=== PATIENT | female | born 1945 | race Caucasian/White ===

== ENCOUNTER 2017-09-04 09:47 | Emergency (ER) | payer MEDICARE ==
[~2017-09-04] VITALS: Ht 177.8 cm; Wt 104.3 kg
[~2017-09-04 09:47] MED LIST: AMBIEN10 MG PO; BESIVANCE5 ML OP; CELEBREX200 MG PO; CENTRUM SILVER1 EAC3 PO; DICYCLOMINE HCL20 MG PO; DUREZOL5 ML OP; HYZAAR 100-251 EACH PO; ILEVRO OP; LEVOTHYROXINE125 MCG PO; METFORMIN HCL500 MG PO; METOPROLOL TART25 MG PO; PANTOPRAZOLE SO40 MG PO; PRAVASTATIN SOD40 MG PO; SINGULAIR10 MG PO; SPIRONOLACTONE25 MG PO; VENTOLIN HFA18 GM INH; VERAMYST10 GM INH; VIIBRYD20 MG PO; VITAMIN B-121000 MCG PO
--- OUTSIDE RECORDS SUMMARY | 2017-09-04 09:50 | XMS REPORT | Summary of Care ---
Author Author RAUDEL Szymanski, MEGAN Organization Unknown Address Unknown Phone Unavailable Care Team Providers Care Operations Support Professionals Name Role Phone JOSE Herzog, DIVYA Unavailable Unavailable SAMARA Herzog, RADHA Unavailable Unavailable SHILOH Herzog, CORIE Unavailable Unavailable RAUDEL Szymanski, MEGAN Unavailable Unavailable JOSE RAMESH ND, DIVYA Villalobos Unavailable Unavailable DUKE PA ND, DANNY RAMOS Unavailable Unavailable MONICA RAMESH, LIZ Unavailable Unavailable Unavailable Unavailable Functional Status Name Dates Details Functional status health issues are not documented Status: Name Dates Details Cognitive status health issues are not documented Status: Problems Name Dates Details Chronic insomnia (780.52, F51.04) Status: Active Chronic major depressive disorder, recurrent episode (296.30, F33.9) Status: Active Colon cancer screening (V76.51, Z12.11) Status: Active Dysphagia (787.20, R13.10) Status: Active Peptic ulcer (533.90, K27.9) Status: Active History of asthma (V12.69, Z87.09) Status: Resolved Menopausal and perimenopausal disorder (627.9, N95.9) Status: Active Need for pneumococcal vaccine (V03.82, Z23) Status: Active Need for Zostavax administration (V04.89, Z23) Status: Active Burning with urination (788.1, R30.0) Status: Active Motion sickness (994.6, T75.3XXA) Status: Active Dysuria (788.1, R30.0) Status: Active Atypical chest pain (786.59, R07.89) Status: Active Abnormal EKG (794.31, R94.31) Status: Active Acute seasonal allergic rhinitis (477.8, J30.2) Status: Active 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, K22.70) Status: Active Abnormal glucose (790.29, R73.09) Status: Active Gastroesophageal reflux disease with esophagitis (530.11, K21.0) Status: Active Atrophic vaginitis (627.3, N95.2) Status: Active Chronic cough (786.2, R05) Status: Active NSAID long-term use (V58.64, Z79.1) Status: Active Osteoporosis screening (V82.81, Z13.820) Status: Active Dizziness (780.4, R42) Status: Active Urinary tract infection (599.0, N39.0) Status: Active Pain in both hands (729.5, M79.641) Status: Active Chronic neck pain (723.1, M54.2) Status: Active Elevated sedimentation rate (790.1, R70.0) Status: Active Tachycardia, unspecified (785.0, R00.0) Status: Active Subdeltoid bursitis, left (726.19, M75.52) Status: Active Subdeltoid bursitis, right (726.19, M75.51) Status: Active 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, M19.049) Status: Active Asthma, persistent (493.90, J45.909) Status: Active Ascending aorta dilation (447.71, I77.810) Status: Active BMI 34.0-34.9,adult (V85.34, Z68.34) Status: Active Generalized osteoarthritis of multiple sites (715.09, M15.9) Status: Active Peripheral neuropathy (356.9, G62.9) Status: Active Sleep apnea (780.57, G47.30) Status: Active Renal insufficiency (593.9, N28.9) Status: Active Recurrent UTI (599.0, N39.0) Status: Active Diabetes mellitus, type II (250.00, E11.9) Status: Active Essential (primary) hypertension (401.9, I10) Status: Active Other hyperlipidemia (272.4, E78.4) Status: Active Hypothyroidism (244.9, E03.9) Status: Active Chronic fatigue (780.79, R53.82) Status: Active Arthralgia of hand, left (719.44, M25.542) Status: Active Arthralgia of hand, right (719.44, M25.541) Status: Active Positive SHERRY (antinuclear antibody) (795.79, R76.8) Status: Active Chronic pain of both shoulders (719.41, M25.511) Status: Active Anemia (285.9, D64.9) Status: Active Iron deficiency anemia (280.9, D50.9) Status: Active IBS (irritable bowel syndrome) (564.1, K58.9) Status: Active Medications Name Dates Details Levothyroxine Sodium 125 MCG Oral Tablet TAKE 1 TABLET DAILY MON TO SAT ONLY Quantity: 90 RADHA PASCUAL M.D. * Start : 13-Aug-2012 Active Losartan Potassium-HCTZ 100-25 MG Oral Tablet TAKE 1 TABLET DAILY IN THE MORNING * Quantity: 90 Refills: 1 DIVYA GARCIA M.D. * Start : 13-Aug-2012 Active Montelukast Sodium 10 MG Oral Tablet TAKE 1 TABLET DAILY * Quantity: 90 Refills: 1 DIVYA GARCIA M.D. * Start : 13-Aug-2012 Active Jeremie Contour Next Test In Vitro Strip Check BG 2x a day * Quantity: 2 Refills: 3 RADHA PASCUAL M.D. * Start : 13-Aug-2012 Active 100 Strip Box Vitamin D3 2000 UNIT Oral Capsule 1 a day * Quantity: 100 Refills: 6 RADHA PASCUAL M.D. * Start : 14-Aug-2012 Active Jeremie Microlet Lancets Check BG 2x a day * Quantity: 100 Refills: 6 RADHA PASCUAL M.D. * Start : 21-Mar-2013 Active Ventolin HFA 108 (90 Base) MCG/ACT Inhalation Aerosol Solution INHALE 2 PUFFS 3 TIMES DAILY NEEDED. * Quantity: 2 Refills: 1 DIVYA GARCIA M.D. * Start : 16-May-2013 Active 8 GM Inhaler B-12 TR 1000 MCG Oral Tablet Extended Release TAKE 1 TABLET DAILY DIRECTED. * Refills: 0 RADHA PASCUAL M.D. * Start : 24-Sep-2013 Active Pantoprazole Sodium 40 MG Oral Tablet Delayed Release TAKE 1 TABLET DAILY * Quantity: 90 Refills: 1 DIVYA GARCIA M.D. * Start : 17-Jun-2014 Active Viibryd 40 MG Oral Tablet TAKE 1 TABLET DAILY * Quantity: 90 Refills: 1 DIVYA GARCIA M.D. * Start : 19-Mar-2015 Active Rosuvastatin Calcium 10 MG Oral Tablet TAKE 1 TABLET AT BEDTIME. REPLACING PRAVASTATIN * Quantity: 90 Refills: 1 DIVYA GARCIA M.D. * Start : 21-Mar-2016 Active Advair Diskus 100-50 MCG/DOSE Inhalation Aerosol Powder Breath Activated INHALE 1 PUFFS TWICE DAILY * Quantity: 3 Refills: 1 DIVYA GARCIA M.D. * Start : 11-Oct-2016 Active Aspirin 81 MG TABS TAKE 1 TABLET DAILY. * Refills: 0 R.N. Active AmLODIPine Besylate 5 MG Oral Tablet TAKE 1 TABLET DAILY. * Quantity: 90 Refills: 1 DIVYA GARCIA M.D. * Start : 17-Apr-2017 Active Gabapentin 100 MG Oral Capsule TAKE 1 CAPSULE 3 TIMES DAILY. IF NO IMPROVEMENT IN 2 WEEKS, MAY TAKE 2 CAPS 3 TIMES DAILY. * Quantity: 180 Refills: 1 PREETHI MATAMOROS M.D.ELLIOTVon * Start : 20-Jun-2017 Active Iron 325 (65 Fe) MG Oral Tablet TAKE 1 TABLET TWICE DAILY. * Quantity: 60 Refills: 5 OBONYANO N.P., MEGAN * Start : 08-Aug-2017 Active Allergies and Adverse Reactions Name Dates Details Sulfa Drugs (Allergy) Status: Active Past Medical History Name Dates Details Peptic ulcer (533.90, K27.9) Status: Active History of Abnormal glucose (790.29, R73.09) Status: Resolved History of Ascending aortic aneurysm (441.2, I71.2) Status: Resolved History of asthma (V12.69, Z87.09) Status: Resolved History of Breast Cancer (V10.3) Status: Resolved History of Diverticulosis (562.10, K57.90) Status: Resolved History of Pre-diabetes (790.29, R73.03) Status: Resolved History of transient cerebral ischemia (V12.54, Z86.73) Status: Resolved Procedures Procedure Dates Details [QH] CELIAC DISEASE PANEL 2 WITH REFLEX TO ENDOMYSIAL ANTIBODY TITER Date: Aug-2017 History of Oophorectomy - Unilateral (Removal Of One Ovary) Completed History of Knee Replacement Completed History of Hand Surgery Completed History of Knee Replacement Completed History of Cataract Surgery Completed History of Cataract Surgery Completed History of mastectomy bilateral Completed History of elbow surgery Completed History of ulnar nerve neuroplasty Completed 10-Jul-2017 Immunization Name Dates Details Influenza on: 03-Mar-2014 Influenza Comments: Approx [id number] Prevnar 13 Intramuscular Suspension Lot #: [id number] on: 11-Oct-2016 Family History Name Dates Details Family history of Congestive Heart Failure Comments: Family History Status: Active Family history of Diabetes Mellitus (V18.0) Comments: Family History Status: Active Family history of Coronary Artery Disease (V17.49) Comments: Family History Status: Active Family history of Cerebral Artery Occlusion Comments: Family History Status: Active Name Dates Details Family history of Childhood arthritis (714.30, M08.90) Status: Active Family history of lupus erythematosus (V19.8, Z84.0) Status: Active Name Dates Details Family history of Irregular heart beat (427.9, I49.9) Status: Active Name Dates Details Family history of Cerebral Artery Occlusion Status: Active Name Dates Details Family history of Coronary Artery Disease (V17.49) Status: Active Family history of kidney disease (V18.69, Z84.1) Status: Active Family history of rheumatoid arthritis (V17.7, Z82.61) Status: Active Name Dates Details Family history of malignant neoplasm of breast (V16.3, Z80.3) Status: Active Family history of malignant neoplasm of prostate (V16.42, Z80.42) Status: Active Name Dates Details Family history of Diabetes Mellitus (V18.0) Status: Active Family history of Adrenal abnormality (255.9, E27.9) Status: Active Family history of myocardial infarction (V17.3, Z82.49) Status: Active Family history of malignant neoplasm of breast (V16.3, Z80.3) Status: Active Family history of rheumatoid arthritis (V17.7, Z82.61) Status: Active Social History Name Dates Details - Status: Name Dates Details Never smoker Vital Signs Date Test Result Details [id number] BP Systolic 140 mm[Hg] Status: Comments: Location: LUE; Position: Sitting BP Diastolic 76 mm[Hg] Status: Comments: Location: LUE; Position: Sitting Height 69 in Status: Weight 237 lb Status: Body Mass Index Calculated 35 kg/m2 Status: Body Surface Area Calculated 2.22 m2 Status: Temperature 99.6 f Status: Comments: Method: Oral Heart Rate 92 /min Status: Comments: Location: L Radial; Quality: Normal :42 BP Systolic 150 mm[Hg] Status: BP Diastolic 76 mm[Hg] Status: :17 BP Systolic 162 mm[Hg] Status: Comments: Location: LUE; BP Diastolic 82 mm[Hg] Status: Comments: Location: LUE; Weight 236 lb Status: Body Mass Index Calculated 34.85 kg/m2 Status: Body Surface Area Calculated 2.22 m2 Status: Temperature 98 f Status: Comments: Method: Oral Heart Rate 82 /min Status: Respiration Rate 18 /min Status: :35 BP Systolic 117 mm[Hg] Status: Comments: Location: LUE; Position: Sitting BP Diastolic 65 mm[Hg] Status: Comments: Location: LUE; Position: Sitting Height 69 in Status: Weight 238.375 lb Status: Body Mass Index Calculated 35.2 kg/m2 Status: Body Surface Area Calculated 2.23 m2 Status: Heart Rate 75 /min Status: Respiration Rate 16 /min Status: Results Date Description Value Details :27 [QLH] SJOGRENS ANTIBODIES (SS-A,SS-B) SS-A (Ro) Antibody 0.2 {AI} Range: <=0.9 SS-b (La) Antibody <0.2 {AI} Range: <=0.9 :27 [QH] GRAPHIC MANAGER ANTIBODY GRAPHIC MANAGER Ab 0.2 {AI} Range: <=0.9 :27 [QLH] SM ANTIBODY Sm Ab <0.2 {AI} Range: <=0.9 [id number]:27 XRAY Shoulder 2+ Views Bilateral 07049 Shoulder 2+ Views Bilateral SEE NOTES Comments: EXAM: XR BILATERAL SHOULDER 3 VIEWSDATE: 07/31/2017 4:10 PM CDTINDICATION: - M25.512 Pain in left shoulderCOMPARISON: None.TECHNIQUE: 3 views of the bilateral shouldersFINDINGS:Right shoulder:No acute fracture or malalignment is identified. There are small glenohumeralosteophytes. Calcifications above the coracoid and lateral to the acromion aresuggestive of calcific tendinopathy. The glenohumeral joint is well aligned.Surgical clips project over the right chest.Left shoulder:No acute fracture or malalignment is identified. There is small glenoidosteophytes. There is a large ossicle inferior to the glenohumeral jointsecondary to glenohumeral joint osteoarthrosis and osteophytes formation. Thereis narrowing of the subacromial space suggesting chronic rotator cuffpathology. There are degenerative changes of the acromial clavicular joint.Surgical clips project over the left axilla.IMPRESSION: 1. Narrowing of the subacromial space suggesting chronic rotator cuff tear.2. Calcific tendinopathy in the right shoulder.3. Mild to moderate degenerative changes of the shoulders worse on the left.--This report was dictated by a Injection Molding Machine Setter/Fellow. I have personallyreviewed the images aswell as the Resident's interpretation and agree with the findings.Read by: Amparo Steward MD Resident: Fannie Steward MDDictated Date/time: 07/31/17 17: 31Electronically Signed by: China Keith MD 8:07FINAL REPORT [id number] [QLH] RETICULOCYTE COUNT Reticulocyte Count Automated 1.5 % Range: 0.5-1.5 :22 [QLH] THYROID PEROXIDASE ANTIBODIES Thyroid Peroxidase (TPO) Antibody <28 {IU/ml} Range: <=60 :22 [QH] PROTEIN, TOTAL W/CREAT, RANDOM URINE U Creatinine 36.20 mg/dl Comments: No established reference ranges. Urine Protein Level <5.0 mg/dl Comments: No established reference ranges. U Prot/Creat <0.14 [id number] [QLH] CREATINE KINASE, TOTAL Creatine Kinase 96 u/l Range: 12-191 [id number] [H] Iron, TIBC \T\ Ferritin Iron 21 ug/dL (Below low threshold) Range: 30-160 % Satur Fe 4 % (Below low threshold) Range: 12-57 TIBC 537 ug/dL (Above high threshold) Range: 228-428 UIBC 516 ug/dL (Above high threshold) Range: 110-370 Ferritin Lvl 4 ng/ml (Below low threshold) Range: 5-204 : [QL] HAPTOGLOBIN Haptoglobin 278 mg/dl (Above high threshold) Range: 16-200 : [[facility]] C-REACTIVE PROTEIN CRP 4.2 mg/L (Above high threshold) Range: <=2.9 : [QL] SED RATE BY MODIFIED WESTERGREN Sedimentation Rate 48 {mm/hr} (Above high threshold) Range: 0-20 :22 [[facility]] URINALYSIS, COMPLETE W/REFLEX TO CULTURE UA Turbidity Clear Range: Clear UA Spec Grav 1.006 Range: <=1.030 UA pH 7.0 Range: 5.0-8.0 UA Protein Negative mg/dl Range: Negative UA Glucose Negative mg/dl Range: Negative UA Ketones Negative mg/dl Range: Negative UA Bili Negative Range: Negative UA Blood Small (Abnormal) Range: Negative UA Nitrite Negative Range: Negative UA Leuk Est Negative Range: Negative UA Sq Epi None Seen {/LPF} UA Color Ltyellow UROBILINOGEN <=1.0 mg/dl Range: 0.1-1.0 : [[facility]] HLA-B27, DNA TYPING HLA B27 Negative Range: Negative : [[facility]] CARDIOLIPIN AB (IGA,IGG,IGM) Cardiolipin Antibody IgA <0.5 {APL-U/mL} Range: <=19.9 Cardiolipin Antibody IgG <1.6 {GPL-U/mL} Range: <=19.9 Cardiolipin Antibody IgM 0.3 {MPL-U/mL} Range: <=19.9 : [LH] Nvhb-3-Nmkqi IgG/IgA/ IgM Beta 2 Clycoprotein 1 Antibody IgA <0.6 U/ml Range: <=19.9 Beta 2 Glycoprotein 1 Antibody IgG <1.4 U/ml Range: <=19.9 Beta 2 Glycoprotein 1 Antibody IgM 0.4 U/ml Range: <=19.9 :27 [O] Hemoglobin A1c (in office) HEMOGLOBIN A1c 5.9 :28 [O] Lipid Panel (In Office) CHOLESTEROL, TOTAL 157 HDL CHOLESTEROL 67 TRIGLYCERIDES 82 LDL-CHOLESTEROL 74 NON HDL CHOLESTEROL 90 T. Chol/HDL Ratio 2.4 GLUCOSE 132 [id number] Glucose (Point of Care In Office) Glucose POC Lifescan 133 [id number] [QH] PATHOLOGIST REVIEW OF PERIPHERAL SMEAR PB Smear Path SEE NOTES Comments: Microcytic, hypochromic anemia with anisopoikilocytosis including leukocytes. Mild leukocytosis with absolute neutrophilia. Mild thrombocytosis. Nodiagnostic morphologic abnormalities of white blood cells or platelets areidentified. Clinical correlation is recommended.Electronic Signature Kerry Roberts MD 08/01/17 2:44 PM [id number] [QLH] Lupus Anticoagulant Panel dRVV 0.59 Range: <=1.20 Hexagonal Phospholipid Neutralization Negative Range: Negative Lup Interp SEE NOTES Comments: Negative for lupus anticoagulant by DRVV screen and hexagonalphospholipidneutralization test. If there is a strong clinical suspicion oflupus anticoagulant, additional testing, to include repeat studies at aclinically appropriate interval and anticardiolipin antibody assays, isrecommended. Interpretation performed at [facility].Electronic Signature Leif Baumann MD 08/02/17 3:31 PM [id number] [QL] LACTATE DEHYDROGENASE ISOENZYME PANEL Lactate Dehydrogenase Total 169 {iu/l} Range: 119-226 Lactate Dehydrogenase 1 17 % Range: 17-32 Lactate Dehydrogenase 2 29 % Range: 25-40 Lactate Dehydrogenase 3 25 % Range: 17-27 Lactate Dehydrogenase 4 13 % Range: 5-13 Lactate Dehydrogenase 5 16 % Range: 4-20 Comments: Performed At: [facility] [id number] Leif King MD Ph:[phone] At: [facility] [address] [id number] Kyle L MD Ph:[phone] [id number] [H] Immunofixation Eletrophoresis Immunofixation Electrophoresis Pattern SEE NOTES Comments: Diffusely immunoreactive bands are noted in the IgG, IgA, IgM, kappa and lambdalanes. No monoclonal bands are identified. [facility] Immunofixation Electrophoresis Interpretation SEE NOTES Comments: Serum immunofixation electrophoresis reveals a polyclonal pattern ofimmunoglobulins. No monoclonal proteins are identified. Interpretationperformed at [facility].Electronic Signature Kerry Roberts MD 9:36 PM [id number] [H] Protein Electrophoresis Albumin Percent 52.9 {REL_%} (Below low threshold) Range: 55.8-66.1 Alpha 1 Percent 5.3 {REL_%} (Above high threshold) Range: 2.8-4.9 Alpha 2 Percent 13.0 {REL_%} (Above high threshold) Range: 7.0-11.9 Beta Percent 14.5 {REL_%} (Above high threshold) Range: 7.8-13.7 Gamma % 14.3 {REL_%} Range: 11.1-18.7 Albumin (SPE) 3.86 g/dl Range: 3.57-5.55 Alpha 1 Globulin 0.39 g/dl Range: 0.18-0.41 Alpha 2 Globulin 0.95 g/dl Range: 0.45-1.00 Beta Globulin 1.06 g/dl Range: 0.50-1.15 Gamma Globulin 1.04 g/dl Range: 0.71-1.57 Total Protein (SPE) 7.4 g/dl Range: 6.4-8.4 SPE Interpretation SEE NOTES Comments: Total protein and serum albumin levels are within reference ranges. Allglobulin fractions are present in a normal distribution. No definitemonoclonal proteins are identified. However, an area of asymmetry is notedwithin the polyclonal gamma fraction and, therefore , an underlying monoclonalprotein cannot be excluded. Clinical correlation is recommended withimmunofixation electrophoresis of serum and urine if clinicallyindicated.Interpretation performed at [facility].Electronic Signature Kerry Roberts MD 08/06/17 9:52 PM [id number] [QLH] CBC (INCLUDES DIFF/PLT) WBC 10.8 {K/CMM} (Above high threshold) Range: 3.7-10.4 RBC 4.30 {M/CMM} Range: 4.20-5.40 Hgb 9.4 g/dl (Below low threshold) Range: 12.0-16.0 Hct 30.4 % (Below low threshold) Range: 36.0-48.0 MCV 70.7 fL (Below low threshold) Range: 80.0-98.0 MCH 21.9 pg (Below low threshold) Range: 27.0-31.0 MCHC 31.0 g/dl (Below low threshold) Range: 32.0-36.0 RDW 16.9 % (Above high threshold) Range: 11.5-14.5 Platelet 481 {K/CMM} (Above high threshold) Range: 133-450 Mean Platelet Volume 6.9 fL (Below low threshold) Range: 7.4-10.4 [id number] [QL] Differential Segmented Neutrophils 68.1 % Range: 45.0-75.0 Monocytes 6.6 % Range: 2.0-12.0 Lymphocytes 20.8 % Range: 20.0-40.0 Eosinophils 3.6 % Range: 0.0-4.0 Basophils 0.9 % Range: 0.0-1.0 Segs-Bands # 7.4 {K/CMM} Range: 1.5-8.1 Lymphocytes # 2.2 {K/CMM} Range: 1.0-5.5 Monocytes # 0.7 {K/CMM} Range: 0.0-0.8 Eosinophils # 0.4 {K/CMM} Range: 0.0-0.5 Basophils # 0.1 {K/CMM} Range: 0.0-0.2 Microcyte 2+ (Abnormal) Range: None Seen [id number] [H] Celiac Pnl w/Rflx Endomy Ab Ttr IgA Lvl 248.0 mg/dl Range: 68.0-378.0 Gliadin (Deamidated Peptide)IgA Ab <0.2 U/ml Range: <=14.9 Gliadin (Deamidated Peptide)IgG Ab <0.4 U/ml Range: <=14.9 Tissue Transglutaminase (tTG) IgA <0.5 U/ml Range: <=14.9 Tissue Transglutaminase (tTg) IgG <0.8 U/ml Range: <=14.9 [id number] [[facility]] FOLATE, SERUM Folate Level 24.0 ng/ml Range: >=3.0 Plan of Care Name Dates Details Planned Observations Planned Goals not documented Planned Encounters Appointment; CORIE MATAMOROS M.D. On: 14-Aug-2017 15:00 Appointment; YULIYA JANG M.D. On: 18-Aug-2017 13:45 Appointment; RADHA PASCUAL M.D. On: 31-Oct-2017 16:15 Appointment; DIVYA GARCIA M.D. On: 09-Jan-2018 11:00 Appointment; LIZ ANDERSON M.D. On: 24-Jul-2018 15:00 Instructions Name Dates Details Instructions not documented Encounters Appointment; RADHA PASCUAL M.D. Encounter Diagnosis: Problem not documented On: 09-Sep-2015 13:00 Appointment; RADHA PASCUAL M.D. Encounter Diagnosis: Problem not documented On: 11-Sep-2015 14:45 Appointment; YULIYA JANG M.D. Encounter Diagnosis: Problem not documented On: 14-Sep-2015 10:00 Appointment; YULIYA JANG M.D. Encounter Diagnosis: Problem not documented On: 02-Nov-2015 14:30 Appointment; RADHA PASCUAL M.D. Encounter Diagnosis: Problem not documented On: 21-Dec-2015 11:00 Appointment; YULIYA JANG M.D. Encounter Diagnosis: Problem not documented On: 10-Mar-2016 14:30 Appointment; RADHA PASCUAL M.D. Encounter Diagnosis: Problem not documented On: 21-Mar-2016 13:30 Appointment; YULIYA JANG M.D. Encounter Diagnosis: Problem not documented On: 11-Apr-2016 14:30 Appointment; RADHA PASCUAL M.D. Encounter Diagnosis: Problem not documented On: 14-Jun-2016 9:00 Appointment; RADHA PASCUAL M.D. Encounter Diagnosis: Problem not documented On: 07-Sep-2016 10:30 Appointment; DIVYA GARCIA M.D. Encounter Diagnosis: Problem not documented On: 15-Sep-2016 9:30 Appointment; DIVYA GARCIA M.D. Encounter Diagnosis: Problem not documented On: 15-Sep-2016 9:30 Appointment; DIVYA GARCIA M.D. Encounter Diagnosis: Problem not documented On: 11-Oct-2016 14:00 Appointment; YULIYA JANG M.D. Encounter Diagnosis: Problem not documented On: 12-Oct-2016 11:45 Appointment; MISSY OCHOA NP Encounter Diagnosis: Problem not documented On: 11-Nov-2016 13:30 Appointment; DANNY WALL P.A. Encounter Diagnosis: Problem not documented On: 27-Dec-2016 14:00 Appointment; RADHA PASCUAL M.D. Encounter Diagnosis: Problem not documented On: 06-Jan-2017 14:15 Appointment; YULIYA JANG M.D. Encounter Diagnosis: Problem not documented On: 12-Jan-2017 13:45 Appointment; LIZ ANDERSON M.D. Encounter Diagnosis: Problem not documented On: 16-Jan-2017 13:40 Appointment; DANNY WALL P.A. Encounter Diagnosis: Problem not documented On: 08-Feb-2017 14:30 Appointment; DANNY WALL P.A. Encounter Diagnosis: Problem not documented On: 06-Mar-2017 14:30 Appointment; CORIE MATAMOROS M.D. Encounter Diagnosis: Problem not documented On: 20-Mar-2017 13:00 Appointment; LIZ ANDERSON M.D. Encounter Diagnosis: Problem not documented On: 17-Apr-2017 13:20 Appointment; CORIE MATAMOROS M.D. Encounter Diagnosis: Problem not documented On: 18-Apr-2017 11:00 Appointment; CASSIE EDEN Encounter Diagnosis: Problem not documented On: 20-Apr-2017 13:00 Appointment; RADHA PASCUAL M.D. Encounter Diagnosis: Problem not documented On: 21-Apr-2017 13:00 Appointment; CORIE MATAMOROS M.D. Encounter Diagnosis: Problem not documented On: 18-May-2017 9:30 Appointment; CORIE MATAMOROS M.D. Encounter Diagnosis: Problem not documented On: 20-Jun-2017 15:00 Appointment; DIVYA GARCIA M.D. Encounter Diagnosis: Problem not documented On: 10-Jul-2017 8:45 Appointment; JUDIE EDEN Encounter Diagnosis: Problem not documented On: 17-Jul-2017 14:00 Appointment; LIZ ANDERSON M.D. Encounter Diagnosis: Problem not documented On: 24-Jul-2017 13:20 Appointment; CORIE MATAMOROS M.D. Encounter Diagnosis: Problem not documented On: 31-Jul-2017 14:00 Appointment; RADHA PASCUAL M.D. Encounter Diagnosis: Problem not documented On: 01-Aug-2017 13:00 Appointment; YULIYA JANG M.D. Encounter Diagnosis: Problem not documented On: 08-Aug-2017 15:45
[2017-09-04 10:45] LABS: BASOPHILS # (AUTO) 0.1 (0.0-0.1); BASOPHILS % 0.7 % (0.0-1.0); EOSINOPHILS # (AUTO) 0.3 (0.0-0.4); EOSINOPHILS % 3.1 % (0.0-6.0); HEMATOCRIT 38.9 % (34.2-44.1); HEMOGLOBIN 12.1 g/dL (12.0-16.0); LYMPHOCYTES # (AUTO) 1.7 (1.0-3.2); LYMPHOCYTES % 17.1 % (18.0-39.1); MEAN CORPUSCULAR HEMOGLOBIN 24.5 pg (28-32); MEAN CORPUSCULAR HGB CONC 31.1 g/dL (31-35); MEAN CORPUSCULAR VOLUME 78.9 fL (81-99); MONOCYTES # (AUTO) 0.6 (0.2-0.8); MONOCYTES % 6.1 % (4.4-11.3); NEUTROPHILS # (AUTO) 7.1 (2.1-6.9); NEUTROPHILS % 72.6 % (38.7-80.0); PLATELET COUNT 355 x10e3/uL (140-360); RED BLOOD COUNT 4.93 x10e6/uL (3.6-5.1); RED CELL DISTRIBUTION WIDTH 24.1 % (11.7-14.4)
[2017-09-04 10:49] LABS: PROTHROMBIN TIME 12.4 seconds (11.9-14.5)
[2017-09-04 10:50] LABS: PARTIAL THROMBOPLASTIN TIME 28.1 seconds (23.8-35.5)
[2017-09-04 10:55] LABS: % IRON SATURATION 26 % (15-50); IRON 120 ug/dL (50-170); TOTAL IRON BINDING CAPACITY 470 ug/dL (261-478); TRANSFERRIN 336 mg/dL (180-382)
[2017-09-04 10:59] LABS: ALANINE AMINOTRANSFERASE 12 IU/L (0-55); ALBUMIN 3.7 g/dL (3.5-5.0); ALBUMIN/GLOBULIN RATIO 0.9 (0.8-2.0); ALKALINE PHOSPHATASE 85 IU/L (40-150); ANION GAP 12.4 mmol/L (8-16); BLOOD UREA NITROGEN 16 mg/dL (7-26); BUN/CREATININE RATIO 16 (6-25); CALCIUM 9.7 mg/dL (8.4-10.2); CARBON DIOXIDE 30 mmol/L (22-29); CHLORIDE 101 mmol/L (98-107); CREATINE KINASE 50 IU/L (29-168); CREATININE, SERUM 1.03 mg/dL (0.57-1.11); EST GLOMERULAR FILTRATION RATE 53 ML/MIN (60-); GLUCOSE 142 mg/dL (74-118); POTASSIUM 3.4 mmol/L (3.5-5.1); SODIUM 140 mmol/L (136-145)
--- NOTE | 2017-09-04 11:13 | Diagnostic Imaging Report ---
PROCEDURE: X-RAY CHEST, TWO VIEWS COMPARISON: 06/16/2009. INDICATIONS: ANEMIA, WEAKNESS FINDINGS: The lungs are well-inflated. No focal airspace consolidation, pleural effusion, or pneumothorax. Surgical clips project over the bilateral chest andres, unchanged. No acute osseous abnormality. Stable cardiomediastinal contour. No pulmonary edema. Right sided skin fold. CONCLUSION: No acute cardiopulmonary abnormality. Dictated by: Alex Ugalde M.D. on 09/04/2017 at 11:15 Electronically approved by: Alex Ugalde M.D. on 09/04/2017 at 11:15
== END 2017-09-04 13:18 | disposition home or self-care (01) ==
LOC: ER 09:47
DX: R05 Cough (principal); R06.02 Shortness of breath; R53.1 Weakness; I10 Essential (primary) hypertension; E11.9 Type 2 diabetes mellitus without complications; I51.9 Heart disease, unspecified; K58.9 Irritable bowel syndrome, unspecified; Z88.2 Allergy status to sulfonamides
CPT/HCPCS: 36415; 71046; 80053; 82550; 82553; 82728; 83540; 83880; 84466; 84484; 85025; 85610; 85730; 99284

== ENCOUNTER 2017-12-20 21:41 | Emergency (ER) | payer MEDICARE ==
[~2017-12-20] VITALS: Ht 177.8 cm; Wt 104.3 kg
--- NOTE | 2017-12-20 22:42 | Diagnostic Imaging Report ---
Examination: CT BRAIN WO History: Fall, head injury. Comparison studies:None Technique: Axial images were obtained from the skull base to the vertex. Coronal and sagittal images reconstructed from the axial data. Intravenous contrast: None Findings: Scalp: Normal. Bones: No fractures, blastic or lytic lesions. Brain sulci: Appropriate for age. Ventricles: Normal in size and configuration. No hydrocephalus. Extra-axial space: No abnormalities. Parenchyma: No abnormal densities. No masses, hemorrhage, acute or chronic vascular insults. Sellar/suprasellar region: No abnormalities. Craniocervical junction: Patent foramen magnum. No Chiari one malformation. Incidental findings: Atherosclerotic calcifications in the carotid siphons . Impression:. 1. No acute intracranial abnormalities. Signed by: DR Eamno Hernandez M.D. on 12/20/2017 10:39 PM
--- NOTE | 2017-12-20 22:52 | Diagnostic Imaging Report ---
History: Fall Comparison studies: None Technique: Axial images were obtained through the cervical region.. Coronal and sagittal images reconstructed from the axial data.. Intravenous contrast: None Findings: Fractures: None. Soft tissues: No gross abnormalities. Atlantoaxial articulation: No acute abnormality. Changes given by decreased predental space, marginal osteophytes and sclerosis.. Alignment: Straightening of the cervical spine lordosis. Visualized extremities of C4 over C5 and C5 over C6.. No scoliosis. Cervicomedullary junction: No abnormalities. The foramen magnum is patent. Vertebrae: No infection or neoplasm. Degenerative changes: At C2-3, that doesn't present facet hypertrophy resulting in left foraminal narrowing. At C3-4, bilateral uncinate process moderate right and severe left foraminal narrowing. At C4-5, bilateral uncinate process and facet hypertrophy resulting in moderate bilateral foraminal narrowing At C5-C6, bilateral uncinate process hypertrophy and facet hypertrophy results in moderate right and severe left foraminal narrowing. At C6-7, disc degeneration with decreased intervertebral space. Diffuse disc osteophyte complex, bilateral uncinate processes and facet hypertrophy resulting in moderate canal stenosis right and severe left foraminal narrowing. Atherosclerotic calcifications of the carotid bulbs.. IMPRESSION: 1. No acute cervical spine abnormalities. Degenerative changes as described above 2. Cannot exclude ligament, spinal cord and or vascular abnormalities on the basis of this examination. Signed by: DR Eamon Hernandez M.D. on 12/20/2017 10:48 PM
[2017-12-20] MEDS ORDERED: TRAMADOL HCL 50 MG TAB PO ONE (23:00)
--- NOTE | 2017-12-20 23:16 | Diagnostic Imaging Report ---
EXAMINATION: RIBS UNILAT W/CXR INDICATION: Left sided chest pain status post fall COMPARISON: None FINDINGS: TUBES and LINES: None. LUNGS: Lungs are well inflated. Lungs are clear. There is no evidence of pneumonia or pulmonary edema. PLEURA: No pleural effusion or pneumothorax. HEART AND MEDIASTINUM: The cardiomediastinal silhouette is unremarkable. BONES AND SOFT TISSUES: On the frontal view of the chest there is a questionable notch at the lateral border of the left ninth rib. Soft tissues are remarkable for bilateral surgical clips in the region of the axilla and breast. UPPER ABDOMEN: No free air under the diaphragm. IMPRESSION: No acute intrathoracic abnormality, however, there is a cortical irregularity noted in a single frontal view of the chest involving the lateral margin of the left ninth rib. Correlation for point tenderness at the lower lateral chest is recommended Signed by: Dr. Jessee Srinivasan M.D. on 12/20/2017 11:13 PM
== END 2017-12-21 00:08 | disposition home or self-care (01) ==
LOC: ER 21:41
DX: S22.32XA Fracture of one rib, left side, initial encounter for closed fracture (principal); S20.212A Contusion of left front wall of thorax, initial encounter; M54.2 Cervicalgia; S16.1XXA Strain of muscle, fascia and tendon at neck level, initial encounter; W01.0XXA Fall on same level from slipping, tripping and stumbling without subsequent striking against object, initial encounter; Y93.01 Activity, walking, marching and hiking; Y92.488 Other paved roadways as the place of occurrence of the external cause
CPT/HCPCS: 70450; 71101; 72125; 99283

== ENCOUNTER 2018-08-25 12:32 | Emergency (ER) | payer OTHER ==
[~2018-08-25] VITALS: Ht 177.8 cm; Wt 104.3 kg
--- OUTSIDE RECORDS SUMMARY | 2018-08-25 12:36 | XMS REPORT | Continuity of Care Document ---
Author Author [facility] Interface Address Unknown Phone Unavailable Problems Problem Status Onset Date Classification Date Reported Comments Source Medications Medication Details Route Status Patient Instructions Ordering Provider Order Date Source Celecoxib (Celebrex) 200 Mg Capsule, 200 Mg Oral Twice A Day Active 02/11/2016 [facility] Difluprednate (Durezol) 5 Ml Drops, 1 Drp Ophthalmic Three Times A Day Active 02/11/2016 [facility] Besifloxacin Hcl (Besivance) 5 Ml Drops.susp, 1 Drp Ophthalmic Three Times A Day Active 06/23/2015 [facility] Albuterol Sulfate (Ventolin Hfa) 18 Gm Hfa.aer.ad As Needed Active [facility] Cyanocobalamin (Vitamin B-12) 1,000 Mcg Tab Daily Active [facility] Dicyclomine Hcl 20 Mg Tablet Three Times A Day Active [facility] Fluticasone Furoate (Veramyst) 10 Gm [place].susp Twice A Day Active [facility] Ilevro Daily Active [facility] Levothyroxine Sodium 125 Mcg Tablet Daily Active [facility] Losartan/Hydrochlorothiazide (Hyzaar 100-25 Tablet) 1 Each Tablet Daily Active [facility] Metformin Hcl 500 Mg Tablet Bedtime Active [facility] Metoprolol Tartrate 25 Mg Tablet Daily Active [facility] Montelukast Sodium (Singulair) 10 Mg Tablet Bedtime Active [facility] Mu-Vits-Min Th/Lycopene/Lutein (Centrum Silver Tablet) 1 Each Tablet Daily Active [facility] Pantoprazole Sodium (Protonix) 40 Mg Tablet.dr Daily Active [facility] Pravastatin Sodium 40 Mg Tablet Bedtime Active [facility] Spironolactone 25 Mg Tablet Daily Active [facility] Vilazodone Hydrochloride (Viibryd) 20 Mg Tablet Daily Active [facility] Zolpidem Tartrate (Ambien) 10 Mg Tablet Bedtime Active [facility] Allergies, Adverse Reactions, Alerts Substance Category Reaction Severity Reaction type Status Date Reported Comments Source Sulfa (Sulfonamide Antibiotics) RASH Mild Allergy to Substance Active 02/11/2016 [facility] Immunizations Immunization Date Given Site Status Last Updated Comments Source Results Order Name Results Value Reference Range Date Interpretation Comments Source Serum or plasma iron binding capacity measurement (mass/volume) Serum or plasma iron binding capacity measurement (mass/volume) 470 261 - 478 09/04/2017 [facility] Serum or plasma iron measurement (mass/volume) Serum or plasma iron measurement (mass/volume) 120 50 - 170 09/04/2017 [facility] Serum or plasma iron saturation measurement (mass fraction) Serum or plasma iron saturation measurement (mass fraction) 26 15 - 50 09/04/2017 [facility] Serum or plasma transferrin measurement (mass/volume) Serum or plasma transferrin measurement (mass/volume) 336 180 - 382 09/04/2017 [facility] Activated partial thromboplastin time (aPTT) in platelet poor plasma bycoagulation assay Activated partial thromboplastin time (aPTT) in platelet poor plasma bycoagulation assay 28.1 23.8 - 35.5 09/04/2017 [facility] Automated blood basophil count (count/volume) Automated blood basophil count (count/volume) 0.1 0.0 - 0.1 09/04/2017 [facility] Automated blood basophil count as percentage of total leukocytes Automated blood basophil count as percentage of total leukocytes 0.7 0.0 - 1.0 09/04/2017 [facility] Automated blood eosinophil count Automated blood eosinophil count 0.3 0.0 - 0.4 09/04/2017 [facility] Automated blood eosinophil count as percentage of total leukocytes Automated blood eosinophil count as percentage of total leukocytes 3.1 0.0 - 6.0 09/04/2017 [facility] Automated blood hematocrit (volume fraction) Automated blood hematocrit (volume fraction) 38.9 34.2 - 44.1 09/04/2017 [facility] Automated blood lymphocyte count as percentage ot total leukocytes Automated blood lymphocyte count as percentage ot total leukocytes 17.1 18.0 - 39.1 09/04/2017 [facility] Automated blood monocyte count as percentage of total leukocytes Automated blood monocyte count as percentage of total leukocytes 6.1 4.4 - 11.3 09/04/2017 [facility] Automated blood neutrophil count Automated blood neutrophil count 7.1 2.1 - 6.9 09/04/2017 [facility] Automated blood platelet count (count/volume) Automated blood platelet count (count/volume) 355 140 - 360 09/04/2017 [facility] Automated blood segmented neutrophil count as percentage of total leukocytes Automated blood segmented neutrophil count as percentage of total leukocytes 72.6 38.7 - 80.0 09/04/2017 [facility] Automated erythrocyte mean corpuscular hemoglobin (mass per erythrocyte) Automated erythrocyte mean corpuscular hemoglobin (mass per erythrocyte) 24.5 28 - 32 09/04/2017 [facility] Automated erythrocyte mean corpuscular hemoglobin concentration measurement (mass/volume) Automated erythrocyte mean corpuscular hemoglobin concentration measurement (mass/volume) 31.1 31 - 35 09/04/2017 [facility] Automated erythrocyte mean corpuscular volume Automated erythrocyte mean corpuscular volume 78.9 81 - 99 09/04/2017 [facility] Blood erythrocytes automated count (number/volume) Blood erythrocytes automated count (number/volume) 4.93 3.6 - 5.1 09/04/2017 [facility] Blood hemoglobin measurement (moles/volume) Blood hemoglobin measurement (moles/volume) 12.1 12.0 - 16.0 09/04/2017 [facility] Blood leukocytes automated count (number/volume) Blood leukocytes automated count (number/volume) 9.77 4.8 - 10.8 09/04/2017 [facility] Blood lymphocytes count (number/volume) Blood lymphocytes count (number/volume) 1.7 1.0 - 3.2 09/04/2017 [facility] Blood monocytes automated count (number/volume) Blood monocytes automated count (number/volume) 0.6 0.2 - 0.8 09/04/2017 [facility] Estimated glomerular filtration rate (GFR) determination Estimated glomerular filtration rate (GFR) determination 53 60 09/04/2017 [facility] Glucose measurement Glucose measurement 142 74 - 118 09/04/2017 [facility] INR in Platelet poor plasma by Coagulation assay INR in Platelet poor plasma by Coagulation assay 1.00 09/04/2017 [facility] Plasma globulin measurement (mass/volume) Plasma globulin measurement (mass/volume) 4.0 2.3 - 3.5 09/04/2017 [facility] Prothrombin time (PT) in platelet poor plasma by coagulation assay Prothrombin time (PT) in platelet poor plasma by coagulation assay 12.4 11.9 - 14.5 09/04/2017 [facility] Serum or plasma alanine aminotransferase measurement (enzymatic activity/volume) Serum or plasma alanine aminotransferase measurement (enzymatic activity/volume) 12 0 - 55 09/04/2017 [facility] Serum or plasma albumin measurement (mass/volume) Serum or plasma albumin measurement (mass/volume) 3.7 3.5 - 5.0 09/04/2017 [facility] Serum or plasma albumin/globulin mass ratio Serum or plasma albumin/globulin mass ratio 0.9 0.8 - 2.0 09/04/2017 [facility] Serum or plasma alkaline phosphatase measurement (enzymatic activity/volume) Serum or plasma alkaline phosphatase measurement (enzymatic activity/volume) 85 40 - 150 09/04/2017 [facility] Serum or plasma anion gap Serum or plasma anion gap 12.4 8 - 16 09/04/2017 [facility] Serum or plasma calcium measurement (mass/volume) Serum or plasma calcium measurement (mass/volume) 9.7 8.4 - 10.2 09/04/2017 [facility] Serum or plasma carbon dioxide, total measurement (moles/volume) Serum or plasma carbon dioxide, total measurement (moles/volume) 30 22 - 29 09/04/2017 [facility] Serum or plasma chloride measurement (moles/volume) Serum or plasma chloride measurement (moles/volume) 101 98 - 107 09/04/2017 [facility] Serum or plasma creatine kinase MB measurement (mass/volume) Serum or plasma creatine kinase MB measurement (mass/volume) 0.70 0 - 5.0 09/04/2017 [facility] Serum or plasma creatine kinase measurement (enzymatic activity/volume) Serum or plasma creatine kinase measurement (enzymatic activity/volume) 50 29 - 168 09/04/2017 [facility] Serum or plasma creatinine measurement (mass/volume) Serum or plasma creatinine measurement (mass/volume) 1.03 0.57 - 1.11 09/04/2017 [facility] Serum or plasma ferritin measurement (mass/volume) Serum or plasma ferritin measurement (mass/volume) 21.77 4.63 - 204.00 09/04/2017 [facility] Serum or plasma potassium measurement (moles/volume) Serum or plasma potassium measurement (moles/volume) 3.4 3.5 - 5.1 09/04/2017 [facility] Serum or plasma protein measurement (mass/volume) Serum or plasma protein measurement (mass/volume) 7.7 6.5 - 8.1 09/04/2017 [facility] Serum or plasma sodium measurement (moles/volume) Serum or plasma sodium measurement (moles/volume) 140 136 - 145 09/04/2017 [facility] Serum or plasma total bilirubin measurement (mass/volume) Serum or plasma total bilirubin measurement (mass/volume) 0.3 0.2 - 1.2 09/04/2017 [facility] Serum or plasma urea nitrogen measurement (mass/volume) Serum or plasma urea nitrogen measurement (mass/volume) 16 7 - 26 09/04/2017 [facility] Serum or plasma urea nitrogen/creatinine mass ratio Serum or plasma urea nitrogen/creatinine mass ratio 16 6 - 25 09/04/2017 [facility] Troponin I measurement by highly sensitive enzyme immunoassay Troponin I measurement by highly sensitive enzyme immunoassay null 0 - 0.300 09/04/2017 [facility] Red Cell Distribution Width 24.1 11.7 - 14.4 09/04/2017 [facility] IM GRANULOCYTES % 0.4 0.0 - 1.0 09/04/2017 [facility] Absolute Immature Granulocyte (auto 0.04 0 - 0.1 09/04/2017 [facility] Aspartate Amino Transf (AST/SGOT) 13 5 - 34 09/04/2017 [facility] B-Type Natriuretic Peptide null 0 - 100 09/04/2017 [facility] Vital Signs Vital Sign Value Date Comments Source Encounters Location Location Details Encounter Type Encounter Number Reason For Visit Attending Provider ADM Date DC Date Status Source Departed Emergency Room [id number] CHIN VELÁSQUEZ MD 09/04/2017 09/04/2017 [facility] Departed Emergency Room [id number] SONIA WILCOX MD 12/20/2017 12/21/2017 [facility] Procedures Procedure Code Date Perfomer Comments Source Computed tomography of cervical spine without contrast [id number] 12/20/2017 [facility] Computed tomography of brain without radiopaque contrast [id number] 12/20/2017 [facility] X-ray of chest, two views [id number] 09/04/2017 [facility]
--- OUTSIDE RECORDS SUMMARY | 2018-08-25 12:36 | XMS REPORT | Summary of Care ---
Author Author RAUDEL Szymanski, MEGAN Organization Unknown Address Unknown Phone Unavailable Care Team Providers Care Hire Car Driver Name Role Phone JOSE Herzog, DIVYA Unavailable Unavailable SAMARA Herzog, RADHA Unavailable Unavailable SHILOH Herzog, CORIE Unavailable Unavailable RAUDEL Szymanski, MEGAN Unavailable Unavailable JOSE RAMESH MD, DIVYA Villalobos Unavailable Unavailable DUKE PA MD, DANNY RAMOS Unavailable Unavailable MONICA RAMESH, LIZ [...] 2 WEEKS, MAY TAKE 2 CAPS 3 TI MES DAILY. * Quantity: 180 Refills: 1 CORIE MATAMOROS M.D. * Start : 20-Jun-2017 Active Iron 325 [...] WITH REFLEX TO ENDOMYSIAL ANTIBODY TITER Date: 08-Aug-2017 History of Oophorectomy - Unilateral (Removal Of One Ovary) Completed History of Knee Replacement Completed History of Hand Surgery Completed History of Knee Replacement Completed History of Cataract Surgery Completed History of Cataract Surgery Completed History of mastectomy bilateral Completed History of elbow surgery Completed History of ulnar nerve neuroplasty Completed 10-Jul-2017 Immunization Name Dates Details Influenza on: 03-Mar-2014 Influenza Comments: Approx [id number] Prevnar 13 Intramuscular Suspension Lot #: [id number] on: 11-Oct-2016 Family History Name Dates Details [...] smoker Vital Signs Date Test Result Details [id number] BP Systolic 140 mm[Hg] Status: Comments: Location: [...] Antibody <0.2 {AI} Range: <=0.9 :27 [QH] HR LEADER ANTIBODY HR LEADER Ab 0.2 {AI} Range: <=0.9 :27 [QLH] SM ANTIBODY Sm Ab <0.2 {AI} Range: <=0.9 [id number]:27 XRAY Shoulder 2+ Views Bilateral [id number] Shoulder 2+ Views Bilateral SEE NOTES Comments: [...] the left.--This report was dictated by a Metal Dealer/Fellow. I have personallyreviewed the images aswell as the Resident's interpretation and agree with the findings.Read by: Amparo Steward MD Resident: Fannie Steward MDDictated Date/time: 07/31/17 17:31Electronically Signed by: China Keith MD 07/31/1817:07FINAL REPORT [id number] [QLH] RETICULOCYTE COUNT Reticulocyte Count Automated 1.5 % Range: 0.5-1.5 :22 [QLH] THYROID PEROXIDASE ANTIBODIES Thyroid Peroxidase (TPO) Antibody <28 {IU/ml} Range: <=60 :22 [QH] PROTEIN, TOTAL W/CREAT, RANDOM URINE U Creatinine 36.20 mg/dl Comments: No established reference ranges. Urine Protein Level <5.0 mg/dl Comments: No established reference ranges. U Prot/Creat <0.14 [id number] [QLH] CREATINE KINASE, TOTAL Creatine Kinase 96 u/l Range: 12-191 :22 [H] Iron, TIBC \T\ Ferritin Iron 21 ug/dL (Below low threshold) Range: 30-160 % Satur Fe 4 % (Below low threshold) Range: 12-57 TIBC 537 ug/dL (Above high threshold) Range: 228-428 UIBC 516 ug/dL (Above high threshold) Range: 110-370 Ferritin Lvl 4 ng/ml (Below low threshold) Range: 5-204 : [QL] HAPTOGLOBIN Haptoglobin 278 mg/dl (Above high threshold) Range: 16-200 : [[facility]] C-REACTIVE PROTEIN CRP 4.2 mg/L (Above high threshold) Range: <=2.9 : [[facility]] SED RATE BY MODIFIED WESTERGREN Sedimentation Rate 48 {mm/hr} (Above high threshold) Range: 0-20 :22 [[facility]] URINALYSIS, COMPLETE W/REFLEX TO CULTURE UA Turbidity [...] Ltyellow UROBILINOGEN <=1.0 mg/dl Range: 0.1-1.0 : [[facility]] HLA-B27, DNA TYPING HLA B27 Negative Range: Negative : [[facility]] CARDIOLIPIN AB (IGA,IGG,IGM) Cardiolipin Antibody IgA <0.5 {APL-U/mL} Range: <=19.9 Cardiolipin Antibody IgG <1.6 {GPL-U/mL} Range: <=19.9 Cardiolipin Antibody IgM 0.3 {MPL-U/mL} Range: <=19.9 : [LH] Qurj-5-Olwdf IgG/IgA/ IgM Beta 2 Clycoprotein 1 Antibody [...] 90 T. Chol/HDL Ratio 2.4 GLUCOSE 132 [id number]:30 Glucose (Point of Care In Office) Glucose POC Lifescan 133 [id number] [QH] PATHOLOGIST REVIEW OF PERIPHERAL SMEAR PB Smear Path SEE NOTES Comments: Microcytic, hypochromic anemia with anisopoikilocytosis including leukocytes. Mild leukocytosis with absolute neutrophilia. Mild thrombocytosis. Nodiagnostic morphologic abnormalities of white blood cells or platelets areidentified. Clinical correlation is recommended.Electronic Signature Kerry Roberts MD 08/01/17 2:44 PM [id number] [QLH] Lupus Anticoagulant Panel dRVV 0.59 Range: <=1.20 Hexagonal Phospholipid Neutralization Negative Range: Negative Lup Interp SEE NOTES Comments: Negative for lupus anticoagulant by DRVV screen and hexagonalphospholipidneutralization test. If there is a strong clinical suspicion oflupus anticoagulant, additional testing, to include repeat studies at aclinically appropriate interval and anticardiolipin antibody assays, isrecommended. Interpretation performed at [facility].Electronic Signature Leif Baumann MD 08/02/17 3:31 PM [id number] [QL] LACTATE DEHYDROGENASE ISOENZYME PANEL Lactate Dehydrogenase Total 169 {iu/l} Range: 119-226 Lactate Dehydrogenase 1 17 % Range: 17-32 Lactate Dehydrogenase 2 29 % Range: 25-40 Lactate Dehydrogenase 3 25 % Range: 17-27 Lactate Dehydrogenase 4 13 % Range: 5-13 Lactate Dehydrogenase 5 16 % Range: 4-20 Comments: Performed At: [facility] [id number] Leif King MD Ph:[phone] At: [facility] [address] [id number] Kyle L MD Ph:[phone] [id number] [H] Immunofixation Eletrophoresis Immunofixation Electrophoresis Pattern SEE NOTES Comments: Diffusely immunoreactive bands are noted in the IgG, IgA, IgM, kappa and lambdalanes. No monoclonal bands are identified. [facility] Immunofixation Electrophoresis Interpretation SEE NOTES Comments: Serum immunofixation electrophoresis reveals a polyclonal pattern ofimmunoglobulins. No monoclonal proteins are identified. Interpretationperformed at [facility].Electronic Signature Kerry Roberts MD 08/06/17 9:36 PM [id number] [H] Protein Electrophoresis Albumin Percent 52.9 {REL_%} [...] is notedwithin the polyclonal gamma fraction and, therefore, an underlying monoclonalprotein cannot be excluded. Clinical correlation is recommended withimmunofixation electrophoresis of serum and urine if clinicallyindicated.Interpretation performed at [facility].Electronic Signature Kerry Roberts MD 08/06/17 9:52 PM [id number] [QLH] CBC (INCLUDES DIFF/PLT) WBC 10.8 {K/CMM} [...] 6.9 fL (Below low threshold) Range: 7.4-10.4 [id number] [QL] Differential Segmented Neutrophils 68.1 % Range: [...] 0.0-0.2 Microcyte 2+ (Abnormal) Range: None Seen [id number] [H] Celiac Pnl w/Rflx Endomy Ab Ttr IgA Lvl 248.0 mg/dl Range: 68.0-378.0 Gliadin (Deamidated Peptide)IgA Ab <0.2 U/ml Range: <=14.9 Gliadin (Deamidated Peptide)IgG Ab <0.4 U/ml Range: <=14.9 Tissue Transglutaminase (tTG) IgA <0.5 U/ml Range: <=14.9 Tissue Transglutaminase (tTg) IgG <0.8 U/ml Range: <=14.9 [id number] [[facility]] FOLATE, SERUM Folate Level 24.0 ng/ml Range: [...]
[2018-08-25] MEDS ORDERED: ALBUTEROL/IPRATROPIUM 3 ML NEB NEB ONE (12:45)
[2018-08-25] MEDS ORDERED: DEXAMETHASONE SOD PHOS 10 MG/1 ML VIAL IM NR (13:00)
[2018-08-25] MEDS ORDERED: ACETAMINOPHEN 325 MG TAB PO NR (13:30)
[2018-08-25 13:34] LABS: INFLUENZAE A&B ANTIGEN (RAPID) NEGATIVE (NEGATIVE); STREPTOCOCCUS GRP A ANTIGEN NEGATIVE (NEGATIVE)
[2018-08-25] MEDS ORDERED: ACETAMINOPHEN 325 MG TAB ONE (13:41)
--- NOTE | 2018-08-25 14:49 | Diagnostic Imaging Report ---
EXAMINATION: CHEST 2 VIEWS INDICATION: ^cough ^[id number] ^[id number] COMPARISON: Chest radiograph 09/04/2017 FINDINGS: PA and lateral views TUBES and LINES: None. LUNGS: Lungs are well inflated. Minimal scarring in the left lower lobe is stable. There is no evidence of pneumonia or pulmonary edema. PLEURA: No pleural effusion or pneumothorax. HEART AND MEDIASTINUM: The cardiomediastinal silhouette is unremarkable. BONES AND SOFT TISSUES: No acute osseous lesion. Surgical clips overlying the left axilla and right mid chest. UPPER ABDOMEN: No free air under the diaphragm. IMPRESSION: No acute thoracic abnormality. Signed by: Dr. Nadia Mejias M.D. on 08/25/2018 2:45 PM
[2018-08-25 15:38] VITALS: BP 145/78
== END 2018-08-25 15:46 | disposition home or self-care (01) ==
LOC: ER 12:32
DX: R06.00 Dyspnea, unspecified (principal); J45.31 Mild persistent asthma with (acute) exacerbation; R05 Cough; I10 Essential (primary) hypertension; E11.9 Type 2 diabetes mellitus without complications
CPT/HCPCS: 71046; 83518; 87070; 87400; 94640; 99283; J1100

== ENCOUNTER 2019-10-17 21:41 | Emergency (ER) | payer MEDICARE ==
[~2019-10-17] VITALS: Ht 177.8 cm; Wt 108.9 kg
--- OUTSIDE RECORDS SUMMARY | 2019-10-17 21:45 | XMS REPORT ---
Author Author HARSHIL Galvez Organization Unknown Address Unknown Phone Care Team Providers Care Motor Home Electrical Foreman Name Role Phone LennyRadhaJuliet PP Unavailable Reason for Referral No Reason for Referral was given. History of Present Illness No HPI available. Problems * Normal Routine History And Physical Senior Citizen (65-80) (V70.0); ( Active) * Peptic Ulcer (533.90); (Active) * Asthma (493.90); (Active) * Depression (311); (Active) * Dyslipidemia (272.4); (Active) * Prediabetes (790.29); (Active) * Hypertension (401.9); (Active) * Hypothyroidism (244.9); (Active) Medication * AmLODIPine Besylate 10 MG Oral Tablet; 1 a day; Start Date: 08/13/2012 (Active) * CeleBREX 200 MG Oral Capsule; Start Date: 08/13/2012 (Active) * Dexilant 60 MG Oral Capsule Delayed Release; Start Date: 08/13/2012 (Active) * Levothyroxine Sodium 125 MCG Oral Tablet; TAKE 1 TABLET DAILY.; Start Date: 08/13/2012 (Active) * Losartan Potassium-HCTZ 100-25 MG Oral Tablet; TAKE 1 TABLET ONCE DAILY.; Start Date: 08/13/2012 (Active) * Singulair 10 MG Oral Tablet; Start Date: 08/13/2012 (Active) * Pravastatin Sodium 40 MG Oral Tablet; 1 tab at night; Start Date: 08/13/2012 (Active) * Spironolactone 25 MG Oral Tablet; 1 a day; Start Date: 08/13/2012 (Active) * Veramyst 27.5 MCG/SPRAY Nasal Suspension; Start Date: 08/13/2012 (Active) * Viibryd 40 MG Oral Tablet; Start Date: 08/13/2012 (Active) * Centrum Silver Oral Tablet; TAKE 1 TABLET DAILY.; Start Date: 08/13/2012 (Active) * Ambien 10 MG Oral Tablet; Start Date: 08/13/2012 (Active) * Vitamin D3 2000 UNIT Oral Capsule; 1 a day; Start Date: 08/14/2012 (Active) * Jeremie Contour Next Test In Vitro Strip; Check BG 2x a day; Start Date: 08/13/2012; End Date: (Active) * MetFORMIN HCl ER 500 MG Oral Tablet Extended Release 24 Hour; Take 2 tabs every night; Start Date: 11/15/2012 (Active) * Jeremie Microlet Lancets Miscellaneous; Check BG 2x a day; Start Date: 03/21/2013; End Date: (Active) Allergies and Adverse Reactions * Sulfa Drugs (Active) Past Medical History * No History of Pancreatitis (Denied) * History of Prediabetes (790.29); (Resolved) * No History of Thyroid Cancer (Denied) * No History of Coronary Artery Disease (Denied) * History of Transient Ischemic Attack (435.9); (Resolved) * History of Breast Cancer (V10.3); (Resolved) Procedures Procedure Procedure Date Date Completed Status Oophorectomy - Unilateral (Removal Of One Ovary) - - Resolved Breast Surgery Mastectomy - - Resolv ed Knee Replacement - - Resolved Hand Surgery - - Resolved Appendectomy - - Resolved Family History * Family history of Diabetes Mellitus (V18.0); (Active) * Family history of Coronary Artery Disease (V17.49); (Active) * Family history of Cerebral Artery Occlusion (Active) * No Family history of Pancreatitis (Denied) * No Family history of Thyroid Cancer (Denied) * Family history of Congestive Heart Failure (Active) Social History * Marital History - Currently (Active) * Never A Smoker (Active) * Never Drank Alcohol (Active) Advance Directives * No Advance Directives available. Encounters * AUDIT 03/21/2013 * E30, Provider: RADHA PASUCAL, Status: Hollis, Time: 4:30 PM 05/16/2013
--- OUTSIDE RECORDS SUMMARY | 2019-10-17 21:45 | XMS REPORT | Summary of Care ---
Author Author [facility] Organization [facility] Address Unknown Phone Unavailable Encounter HQ Hero(FIN) [id number] Date(s): 03/21/17 - 03/21/17 [facility] [address], [address] [place] [phone] Discharge Disposition: Home or Self Care Attending Physician: Gilmar Mcdonald MD Vital Signs No data available for this section Problem List Condition Effective Dates Status Health Status Informan t Abnormal glucose Resolved level(Confirmed) Abnormal glucose Resolved level(Confirmed) Asthma(Confirmed) Resolved Breast Resolved cancer(Confirmed) Peptic Resolved ulcer(Confirmed) Transient cerebral Resolved ischemia(Confirmed) Allergies, Adverse Reactions, Alerts Substance Reaction Severity Status sulfa drugs Active Medications No data available for this section Results No data available for this section Immunizations Given and Recorded Vaccine Date Status Refusal Reason pneumococcal 13-valent vaccine 02/16/16 Given Procedures Procedure Date Related Diagnosis Body Site Cataract surgery Endometrial resection1 Knee replacement2 Mastectomy3, 4 Operation5 Ovary operation6 1one ovary removed the that time also 2bilaterial left in 2009, right in 2014 3bilateral c tram flap reconstruction 4double 5left finger joint replacement 6one ovary removed Social History Social History Type Response Alcohol Never Smoking Status Never smoker; Exposure to T obacco Smoke None; Cigarette Smoking Last 365 Days No; Reg Smoking Cessation Counseli ng No Assessment and Plan No data available for this section
--- OUTSIDE RECORDS SUMMARY | 2019-10-17 21:45 | XMS REPORT | Summary of Care ---
Author Author [facility] Organization [facility] Address Unknown Phone Unavailable Encounter BENSON Monahan(AVERY) [id number] Date(s): 09/30/15 - 09/30/15 [facility] [address] [place] [address]- [phone] Discharge Disposition: Home Attending Physician: Ceferino Lang MD Referring Physician: Ceferino Lang MD Vital Signs 1 2 3 Most recent to oldest [Reference Range]: 177.8 cm (09/29/15 2:34 PM) Height 137/64 mmHg (09/30/15 7:55 AM) 137/64 mmHg (09/30/15 7:40 AM) 125/70 mmHg (09/30/15 7:26 AM) Blood Pressure [90-140/60-90 mmHg] 16 BRMIN (09/30/15 7:55 AM) 16 BRMIN (09/30/15 7:40 AM) 20 BRMIN (09/30/15 7:26 AM) Respiratory Rate [14-20 BRMIN] 105.455 kg (09/29/15 2:34 PM) Weight 33.36 m2 (09/29/15 2:34 PM) Body Mass Index Problem List Condition Effective Dates Status Health Status Informan t Abnormal glucose Resolved level(Confirmed) Abnormal glucose Resolved level(Confirmed) Asthma(Confirmed) Resolved Breast Resolved cancer(Confirmed) Peptic Resolved ulcer(Confirmed) Transient cerebral Resolved ischemia(Confirmed) Allergies, Adverse Reactions, Alerts Substance Reaction Severity Status sulfa drugs Active Medications Ambien 10 mg oral tablet 10 mg = 1 tab, PO, Bedtime, 0 Refill(s) Start Date: 09/29/15 Status: Ordered Centrum Silver oral tablet, chewable 1 tab, CHEW, Daily, # 50 tab, 0 Refill(s) Start Date: 09/29/15 Status: Ordered dicyclomine 20 mg oral tablet 20 mg = 1 tab, PO, QID, 0 Refill(s) Start Date: 09/29/15 Status: Ordered levothyroxine 125 mcg (0.125 mg) oral tablet 125 microgram = 1 tab, PO, Daily, # 30 tab, 0 Refill(s) Start Date: 09/29/15 Status: Ordered losartan PO, Daily, 0 Refill(s) Start Date: 09/29/15 Status: Ordered metFORMIN PO, 0 Refill(s) Start Date: 09/29/15 Status: Ordered metoprolol tartrate 25 mg oral tablet 25 mg = 1 tab, PO, BID, 0 Refill(s) Start Date: 09/29/15 Status: Ordered pantoprazole 40 mg oral enteric coated tablet 40 mg = 1 tab, PO, Daily, 0 Refill(s) Start Date: 09/29/15 Status: Ordered pravastatin 40 mg oral tablet 40 mg = 1 tab, PO, Bedtime, # 30 tab, 0 Refill(s) Start Date: 09/29/15 Status: Ordered Singulair 10 mg oral tablet 10 mg = 1 tab, PO, QPM, 0 Refill(s) Start Date: 09/29/15 Status: Ordered Sodium Chloride 0.9% IV 1,000 mL 1,000 mL, Rate: 25 ml/hr, Infuse over: 40 hr, Route: IV, Dosing Weight 105.455 k g, Total Volume: 1,000, Start date: 09/30/15 7:14:00 CDT, Duration: 30 day, Stop date: 10/30/15 7:13:00 CDT Start Date: 09/30/15 Stop Date: 09/30/15 Status: Discontinued spironolactone 25 mg oral tablet 25 mg = 1 tab, PO, Daily, # 30 tab, 3 Refill(s) Start Date: 09/29/15 Stop Date: 10/29/15 Status: Ordered Ventolin HFA 90 mcg/inh inhalation aerosol with adapter 2 puff, INHALATION, QID, 0 Refill(s) Start Date: 09/29/15 Status: Ordered Veramyst 27.5 mcg/inh nasal spray 1 spray, NASAL, Daily, 0 Refill(s) Start Date: 5/24/16 Status: Ordered Viibryd 20 mg oral tablet 20 mg = 1 tab, PO, Daily, 0 Refill(s) Start Date: 09/29/15 Status: Ordered Vitamin D3 2000 intl units oral capsule 2,000 IntlUnit = 1 cap, PO, Daily, # 100 cap, 3 Refill(s) Start Date: 09/29/15 Status: Ordered Results No data available for this section Immunizations No data available for this section Procedures Procedure Date Related Diagnosis Body Site [...] 365 Days No; Reg Smoking Cessation Counseli nelly No Assessment and Plan No data available for this section
--- OUTSIDE RECORDS SUMMARY | 2019-10-17 21:45 | XMS REPORT | Summary of Care ---
Author Author [facility] Organization [facility] Address Unknown Phone Unavailable Encounter BENSON Monahan(FIN) [id number] Date(s): 06/06/18 - 06/06/18 [facility] Outpatient Imaging [address], [address] [place] [phone] Encounter Diagnosis Polyosteoarthritis, unspecified (Final) - 06/11/18 Pain in left hand (Final) - Pain in right hand (Final) - Other specified disorders of bone density and structure, left hand (Final) - Other specified disorders of bone density and structure, right hand (Final) - Finger-joint replacement of left hand (Final) - Discharge Disposition: Home or Self Care Attending Physician: Gilmar Mcdonald MD Referring Physician: Gilmar Mcdonald MD Vital Signs No [...] Procedures Procedure Date Related Diagnosis Body Site Status Cataract surgery Completed Endometrial resection1 Completed Knee replacement2 Completed Mastectomy3, 4 Completed Operation5 Completed Ovary operation6 Completed 1one ovary removed the that time also 2bilaterial left in 2009, right in 2014 3bilateral c tram flap reconstruction 4double 5left finger joint replacement 6one ovary removed Social History Social History Type Response Alcohol Never Smoking Status Never smoker; Exposure to T obacco Smoke None; Cigarette Smoking Last 365 Days No; Reg Smoking Cessation Counseli ng No entered on: 02/16/16 Assessment and Plan No data available for this section
--- OUTSIDE RECORDS SUMMARY | 2019-10-17 21:45 | XMS REPORT ---
Author Author HARSHIL PASCUAL Organization Unknown Address Unknown Phone Care Team Providers Care Network Control Operators Supervisor Name Role Phone RADHA PASCUAL PP Unavailable Reason for Referral No Reason for Referral was given. History of Present Illness No HPI available. Problems * Normal Routine History And Physical Senior Citizen (65-80) (V70.0); ( Active) * Peptic Ulcer (533.90); (Active) * Asthma (493.90); (Active) * Depression (311); (Active) * Prediabetes (790.29); (Active) * Hypertension (401.9); (Active) * Dyslipidemia (272.4); (Active) * Hypothyroidism (244.9); (Active) Medication * AmLODIPine Besylate 10 MG Oral Tablet; 1/2 tab a day; starting May; Start Date: 08/13/2012 (Active) * CeleBREX 200 [...] Oral Tablet; Start Date: 08/13/2012 (Active) * Spironolactone 25 [...] Start Date: 08/13/2012; End Date: (Active) * Pravastatin Sodium 40 MG Oral Tablet; 1 tab at night; Start Date: 08/13/2012; End Date: (Active) * Jeremie Microlet Lancets Miscellaneous; Check BG 2x a day; Start Date: 03/21/2013; End Date: (Active) * Ventolin HFA 108 (90 Base) MCG/ACT Inhalation Aerosol Solution; Start Date: 05/16/2013 (Active) * MetFORMIN HCl ER 500 MG Oral Tablet Extended Release 24 Hour; Take 2 tabs every night; Start Date: 11/15/2012; End Date: (Active) Allergies and Adverse Reactions [...] No Advance Directives available. Encounters * AUDIT 05/16/2013
--- OUTSIDE RECORDS SUMMARY | 2019-10-17 21:45 | XMS REPORT ---
Author Author HARSHIL PASCUAL Organization Unknown Address Unknown Phone Care Team Providers Care Program Manufacturing Leader Name Role Phone RADHA PASCUAL PP Unavailable [...] No Advance Directives available. Encounters * AUDIT 05/14/2013
--- OUTSIDE RECORDS SUMMARY | 2019-10-17 21:45 | XMS REPORT ---
Author Author HARSHIL PASCUAL Organization Unknown Address Unknown Phone Care Team Providers Care Sterile Tech Name Role Phone RADHA PASCUAL PP Reason for Referral No Reason for Referral was given. History of Present Illness No HPI available. Problems * Normal Routine History And Physical Senior Citizen (65-80) (V70.0); ( Active) * Peptic Ulcer (533.90); (Active) * Asthma (493.90); (Active) * Depression (311); (Active) * Type 2 Diabetes Mellitus - Uncomplicated, Uncontrolled (250.02); ( Active) * Prediabetes (790.29); (Active) * Hypertension (401.9); [...] Oral Tablet; Start Date: 08/13/2012 (Active) * Nova Max Glucose Test In Vitro Strip; Check BG 1 to 2x a day; Start Date: 08/13/2012 (Active) * Vitamin D3 2000 UNIT Oral Capsule; 1 a day; Start Date: 08/14/2012 (Active) Allergies and Adverse Reactions * Sulfa [...] No Advance Directives available. Encounters * AUDIT 11/15/2012
--- OUTSIDE RECORDS SUMMARY | 2019-10-17 21:45 | XMS REPORT ---
Author Author HARSHIL PASCUAL Organization Unknown Address Unknown Phone Care Team Providers Care Schedule Maker Name Role Phone RADHA PACSUAL PP Reason for Referral No Reason for Referral was given. History of Present Illness No HPI available. Problems * Hypothyroidism (244.9); (Active) * Dyslipidemia (272.4); (Active) * Hypertension (401.9); (Active) * Type 2 Diabetes Mellitus - Uncomplicated, Uncontrolled (250.02); ( Active) * Depression (311); (Active) * Asthma (493.90); (Active) * Peptic Ulcer (533.90); (Active) * Normal Routine History And Physical Senior Citizen (65-80) (V70.0); ( Active) Medication * Vitamin D3 2000 UNIT Oral Capsule; 1 a day; Start Date: 08/14/2012 (Active) * Nova Max Glucose Test In Vitro Strip; Check BG 1 to 2x a day; Start Date: 08/13/2012 (Active) * Ambien 10 MG Oral Tablet; Start Date: 08/13/2012 (Active) * Centrum Silver Oral Tablet; TAKE 1 TABLET DAILY.; Start Date: 08/13/2012 (Active) * Viibryd 40 MG Oral Tablet; Start Date: 08/13/2012 (Active) * Veramyst 27.5 MCG/SPRAY Nasal Suspension; Start Date: 08/13/2012 (Active) * Spironolactone 25 MG Oral Tablet; 1 a day; Start Date: 08/13/2012 (Active) * Pravastatin Sodium 40 MG Oral Tablet; 1 tab at night; Start Date: 08/13/2012 (Active) * Singulair 10 MG Oral Tablet; Start Date: 08/13/2012 (Active) * Losartan Potassium-HCTZ 100-25 MG Oral Tablet; TAKE 1 TABLET ONCE DAILY.; Start Date: 08/13/2012 (Active) * Levothyroxine Sodium 125 MCG Oral Tablet; TAKE 1 TABLET DAILY.; Start Date: 08/13/2012 (Active) * Dexilant 60 MG Oral Capsule Delayed Release; Start Date: 08/13/2012 (Active) * CeleBREX 200 MG Oral Capsule; Start Date: 08/13/2012 (Active) * AmLODIPine Besylate 10 MG Oral Tablet; 1 a day; Start Date: 08/13/2012 (Active) Allergies and Adverse Reactions * Sulfa Drugs (Active) Past Medical History * History of Breast Cancer (V10.3); (Resolved) * History of Transient Ischemic Attack (435.9); (Resolved) * No History of Coronary Artery Disease (Denied) * No History of Thyroid Cancer (Denied) * History of Prediabetes (790.29); (Resolved) * No History of Pancreatitis (Denied) Procedures Procedure Procedure Date Date Completed Status Breast Surgery Mastectomy - - Resolv ed Oophorectomy - Unilateral (Removal Of One Ovary) - - Resolved Appendectomy - - Resolved Hand Surgery - - Resolved Knee Replacement - - Resolved Family History * No Family history of Thyroid Cancer (Denied) * No Family history of Pancreatitis (Denied) * Family history of Cerebral Artery Occlusion (Active) * Family history of Coronary Artery Disease (V17.49); (Active) * Family history of Diabetes Mellitus (V18.0); (Active) * Family history of Congestive Heart Failure (Active) Social History * Never Drank Alcohol (Active) * Never A Smoker (Active) * Marital History - Currently (Active) Advance Directives * No Advance Directives available. Encounters * AUDIT 08/25/2012 * NEW, Provider: RADHA PASCUAL, Status: Hollis, Time: 9:00 AM 11/15/2012
--- OUTSIDE RECORDS SUMMARY | 2019-10-17 21:45 | XMS REPORT | Summary of Care ---
Author Author [facility] Organization [facility] Address Unknown Phone Unavailable Encounter BENSON Monahan(AVERY) [id number] Date(s): 02/15/16 - 02/23/16 [facility] [id number] [place] [address]- Discharge Disposition: Home or Self Care Attending Physician: Zbigniew Patel DO Admitting Physician: Zbigniew Patel DO Vital Signs 1 2 3 Most recent to oldest [Reference Range]: 177.8 cm (02/16/16 3:39 AM) 177.8 cm (02/16/16 3:39 AM) 177.8 cm (02/15/16 6:09 PM) Height 104.005 kg (02/16/16 3:39 AM) Current Weight 98.4 DegF (02/23/16 8:39 AM) 98.7 DegF (02/23/16 4:00 AM) 98.6 DegF (02/22/16 8:00 PM) Temperature Oral [96.4-99.1 DegF] 135/74 mmHg (02/23/16 8:39 AM) 127/68 mmHg (02/23/16 4:00 AM) 131/67 mmHg (02/23/16 12:00 AM) Blood Pressure [90-140/60-90 mmHg] 18 BRMIN (02/23/16 8:39 AM) 18 BRMIN (02/23/16 4:00 AM) 18 BRMIN (02/23/16 12:00 AM) Respiratory Rate [14-20 BRMIN] 65 bpm (02/23/16 8:39 AM) 61 bpm (02/23/16 4:00 AM) 73 bpm (02/23/16 12:00 AM) Peripheral Pulse Rate [60-100 bpm] 104.005 kg (02/16/16 3:39 AM) 104.545 kg (02/15/16 6:09 PM) Weight 32.9 m2 (02/16/16 3:39 AM) 33.07 m2 (02/15/16 6:09 PM) Body Mass Index Problem List Condition Effective Dates Status Health Status Informan t Abnormal glucose Resolved level(Confirmed) Abnormal glucose Resolved level(Confirmed) Asthma(Confirmed) Resolved Breast Resolved cancer(Confirmed) Peptic Resolved ulcer(Confirmed) Transient cerebral Resolved ischemia(Confirmed) Allergies, Adverse Reactions, Alerts Substance Reaction Severity Status sulfa drugs Active Medications acetaminophen 650 mg, 2 tab, Route: PO, Drug form: TAB, Q4H, Dosing Weight 104.545, kg, PRN Pa in 1-3/Temp > 100.4 F, Start date: 02/16/16 3:31:00 CDT, Duration: 30 day, Stop date: 03/17/16 3:30:00 COMPUTER ANIMATOR Notes: Do not exceed 4 gm/day. (Same as: Tylenol) Start Date: 02/16/16 Stop Date: 02/23/16 Status: Discontinued acetaminophen-hydrocodone 325 mg-5 mg oral tablet 1 tab, Route: PO, Drug Form: TAB, Dosing Weight 104.545, kg, Q4H, PRN Pain Score 4-6, Start date: 02/16/16 3:31:00 CDT, Duration: 30 day, Stop date: 03/17/16 3: 30:00 COMPUTER ANIMATOR Notes: (Same as: Evans 325/5) Do not exceed 4gm/day of acetaminophen. Start Date: 02/16/16 Stop Date: 02/23/16 Status: Discontinued Ambien 5 mg, 1 tab, Route: PO, Drug form: TAB, Bedtime, Dosing Weight 104.005, kg, Star t date: 02/16/16 21:00:00 CDT, Duration: 30 day, Stop date: 03/16/16 21:00:00 CS T Notes: (Same As: Ambien) Start Date: 02/16/16 Stop Date: 02/23/16 Status: Discontinued Augmentin 875 mg oral tablet 875 mg = 1 tab, PO, Q12H, X 6 day, # 12 tab, 0 Refill(s) Start Date: 02/23/16 Stop Date: 02/29/16 Status: Ordered Cipro 400 mg, 200 mL, Route: IVPB, Drug form: INJ, [id number], Dosing Weight 104.545, kg, Priority: Routine, Start date: 02/16/16 4:00:00 CDT, Duration: 30 day, Stop ye e: 03/16/16 16:00:00 COMPUTER ANIMATOR Notes: Do not refrigerate Start Date: 02/16/16 Stop Date: 02/18/16 Status: Discontinued Cozaar 100 mg, 2 tab, Route: PO, Drug form: TAB, Daily, Start date: 02/16/16 9:00:00 CD T, Duration: 30 day, Stop date: 03/16/16 9:00:00 COMPUTER ANIMATOR Notes: (Same as: Cozaar) Start Date: 02/16/16 Stop Date: 02/23/16 Status: Discontinued Dextrose 50% Syringe 12.5 gm, 25 mL, Route: IVP, Drug Form: INJ, Dosing Weight 104.005, kg, PRN, PRN Blood Glucose Results, Start date: 02/16/16 14:05:00 CDT, Duration: 30 day, Stop date: 03/17/16 13:04:00 COMPUTER ANIMATOR Start Date: 02/16/16 Stop Date: 02/21/16 Status: Discontinued Dextrose 50% Syringe 25 gm, 50 mL, Route: IVP, Drug Form: INJ, Dosing Weight 104.005, kg, PRN, PRN Bl ood Glucose Results, Start date: 02/16/16 14:05:00 CDT, Duration: 30 day, Stop d ate: 03/17/16 13:04:00 COMPUTER ANIMATOR Start Date: 02/16/16 Stop Date: 02/21/16 Status: Discontinued dicyclomine 20 mg, 1 tab, Route: PO, Drug form: TAB, QID, Dosing Weight 104.005, kg, Start d ate: 02/16/16 9:00:00 CDT, Duration: 30 day, Stop date: 03/16/16 21:00:00 COMPUTER ANIMATOR Notes: (Same as: Bentyl) Start Date: 02/16/16 Stop Date: 02/23/16 Status: Discontinued docusate 100 mg, 1 cap, Route: PO, Drug form: CAP, BID, Dosing Weight 104.545, kg, PRN Co nstipation, Start date: 02/16/16 3:31:00 CDT, Duration: 30 day, Stop date: 03/17 3:30:00 COMPUTER ANIMATOR Notes: (Same as: Colace) (Do Not Crush) Start Date: 02/16/16 Stop Date: 02/23/16 Status: Discontinued enoxaparin 40 mg, 0.4 mL, Route: SUB-Q, Drug form: INJ, [id number], Dosing Weight 104.005, kg , Start date: 02/16/16 6:00:00 CDT, Duration: 30 day, Stop date: 03/16/16 6:00:0 0 COMPUTER ANIMATOR Notes: (Same as: Lovenox) Start Date: 02/16/16 Stop Date: 02/23/16 Status: Discontinued Flagyl 500 mg, 1 tab, Route: PO, Drug form: TAB, [id number], Dosing Weight 104.005, kg, Sta rt date: 02/18/16 18:00:00 CDT, Duration: 30 day, Stop date: 03/19/16 10:00:[address] Notes: (Same as: Flagyl) Take with food/ avoid alcohol Start Date: 02/18/16 Stop Date: 02/18/16 Status: Canceled Flagyl 375 mg, Route: PO, Drug form: CAP, [id number], Dosing Weight 104.005, kg, Start ye e: 02/19/16 8:00:00 CDT, Duration: 30 day, Stop date: 03/19/16 20:00:00 COMPUTER ANIMATOR Start Date: 02/19/16 Stop Date: 02/19/16 Status: Discontinued Flagyl 250 mg, 1 tab, Route: PO, Drug form: TAB, [id number], Start date: 02/19/16 13:00:00 CDT, Duration: 2 doses or times, Stop date: 02/19/16 21:00:00 CDT Notes: (Same as: Flagyl) Take with food/ avoid alcohol Start Date: 02/19/16 Stop Date: 02/19/16 Status: Completed Flagyl 500 mg, 100 mL, Route: IVPB, Drug form: INJ, [id number], Dosing Weight 104.545, kg, Priority: Routine, Start date: 02/16/16 4:00:00 CDT, Stop date: 02/18/16 10:00:0 0 CDT Notes: (Same as: Flagyl) Avoid alcohol. Start Date: 02/16/16 Stop Date: 02/18/16 Status: Completed Flagyl 500 mg, 100 mL, Route: IVPB, Drug form: INJ, ABXQ8H, Dosing Weight 104.005, kg, Start date: 02/18/16 14:00:00 CDT, Duration: 30 day, Stop date: 03/19/16 6:00:00 COMPUTER ANIMATOR Notes: (Same as: Flagyl) Avoid alcohol. Start Date: 02/18/16 Stop Date: 02/20/16 Status: Discontinued Flagyl 500 mg, Route: IVPB, ABXQ8H, Dosing Weight 104.005, kg, Start date: 02/18/16 21: 00:00 CDT, Duration: 30 day, Stop date: 03/19/16 13:00:00 COMPUTER ANIMATOR Start Date: 02/18/16 Stop Date: 02/18/16 Status: Deleted Flagyl 500 mg, Route: IVPB, ABXQ8H, Dosing Weight 104.005, kg, Start date: 02/19/16 13: 00:00 CDT, Duration: 30 day, Stop date: 03/20/16 5:00:00 COMPUTER ANIMATOR Start Date: 02/19/16 Stop Date: 02/19/16 Status: Deleted fluticasone nasal 0.05 mg/inh spray 1 spray, Route: NASAL, Drug Form: SPRY, Daily, PRN as needed for allergy symptom s, Start date: 02/18/16 9:00:00 CDT, Duration: 30 day, Stop date: 03/18/16 9:00: 00 COMPUTER ANIMATOR Notes: (Same as: Flonase) Start Date: 02/18/16 Stop Date: 02/23/16 Status: Discontinued glucagon 1 mg, Route: IM, Drug form: PDR/INJ, PRN, Dosing Weight 104.005, kg, PRN Blood G lucose Results, Start date: 02/16/16 14:05:00 CDT, Duration: 30 day, Stop date: 03/17/16 13:04:00 COMPUTER ANIMATOR Start Date: 02/16/16 Stop Date: 02/21/16 Status: Discontinued hydrochlorothiazide 25 mg oral tablet 25 mg, 1 tab, Route: PO, Drug form: TAB, Daily, Start date: 02/16/16 9:00:00 CDT , Duration: 30 day, Stop date: 03/16/16 9:00:00 COMPUTER ANIMATOR Notes: (Same as: Hydrodiuril) With food. Start Date: 02/16/16 Stop Date: 02/23/16 Status: Discontinued hydrochlorothiazide-losartan 25 mg-100 mg oral tablet 1 tab, Route: PO, Drug Form: TAB, Dosing Weight 104.005, kg, Daily, Start date: 02/16/16 9:00:00 CDT, Duration: 30 day, Stop date: 03/16/16 9:00:00 COMPUTER ANIMATOR Start Date: 02/16/16 Stop Date: 02/16/16 Status: Deleted hydrochlorothiazide-losartan 25 mg-100 mg oral tablet 1 tab, PO, Daily, # 30 tab, 0 Refill(s) Start Date: 02/16/16 Status: Ordered insulin aspart 3 unit, 0.03 mL, Route: SUB-Q, Drug form: SOLN, Bedtime, Dosing Weight 104.005, kg, PRN Blood Glucose Results, Start date: 02/16/16 14:05:00 CDT, Duration: 30 d ay, Stop date: 03/17/16 14:04:00 COMPUTER ANIMATOR Notes: Roll in palms of hands gently; Do not shake vigorously. (Same as: Shruti Ellsworth)"single patient use only"WASTE: F/P - Black; E - Municipal Trash Bin Stable f or 28 days at room temperature.Expires in days from Date Start Date: 02/16/16 Stop Date: 02/21/16 Status: Discontinued insulin aspart 4 unit, 0.04 mL, Route: SUB-Q, Drug form: SOLN, Bedtime, Dosing Weight 104.005, kg, PRN Blood Glucose Results, Start date: 02/16/16 14:05:00 CDT, Duration: 30 d ay, Stop date: 03/17/16 14:04:00 COMPUTER ANIMATOR Notes: Roll in palms of hands gently; Do not shake vigorously. (Same as: Shruti Ellsworth)"single patient use only"WASTE: F/P - Black; E - Municipal Trash Bin Stable f or 28 days at room temperature.Expires in days from Date Start Date: 02/16/16 Stop Date: 02/21/16 Status: Discontinued insulin aspart 1 unit, 0.01 mL, Route: SUB-Q, Drug form: SOLN, Bedtime, Dosing Weight 104.005, kg, PRN Blood Glucose Results, Start date: 02/16/16 14:05:00 CDT, Duration: 30 d ay, Stop date: 03/17/16 14:04:00 COMPUTER ANIMATOR Notes: Roll in palms of hands gently; Do not shake vigorously. (Same as: Shruti Ellsworth)"single patient use only"WASTE: F/P - Black; E - Municipal Trash Bin Stable f or 28 days at room temperature.Expires in days from Date Start Date: 02/16/16 Stop Date: 02/21/16 Status: Discontinued insulin aspart 2 unit, 0.02 mL, Route: SUB-Q, Drug form: SOLN, Bedtime, Dosing Weight 104.005, kg, PRN Blood Glucose Results, Start date: 02/16/16 14:05:00 CDT, Duration: 30 d ay, Stop date: 03/17/16 14:04:00 COMPUTER ANIMATOR Notes: Roll in palms of hands gently; Do not shake vigorously. (Same as: Shruti Ellsworth)"single patient use only"WASTE: F/P - Black; E - Municipal Trash Bin Stable f or 28 days at room temperature.Expires in days from Date Start Date: 02/16/16 Stop Date: 02/21/16 Status: Discontinued insulin aspart 8 unit, 0.08 mL, Route: SUB-Q, Drug form: SOLN, TID-Before Meals, Dosing Weight 104.005, kg, PRN Blood Glucose Results, Start date: 02/16/16 14:05:00 CDT, Durat ion: 30 day, Stop date: 03/17/16 14:04:00 COMPUTER ANIMATOR Notes: Roll in palms of hands gently; Do not shake vigorously. (Same as: NovoGOMEZ Ellsworth)"single patient use only"WASTE: F/P - Black; E - Municipal Trash Bin Stable f or 28 days at room temperature.Expires in days from Date Start Date: 02/16/16 Stop Date: 02/21/16 Status: Discontinued insulin aspart 10 unit, 0.1 mL, Route: SUB-Q, Drug form: SOLN, TID-Before Meals, Dosing Weight 104.005, kg, PRN Blood Glucose Results, Start date: 02/16/16 14:05:00 CDT, Durat ion: 30 day, Stop date: 03/17/16 14:04:00 COMPUTER ANIMATOR Notes: Roll in palms of hands gently; Do not shake vigorously. (Same as: NovoGOMEZ Ellsworth)"single patient use only"WASTE: F/P - Black; E - Municipal Trash Bin Stable f or 28 days at room temperature.Expires in days from Date Start Date: 02/16/16 Stop Date: 02/21/16 Status: Discontinued insulin aspart 4 unit, 0.04 mL, Route: SUB-Q, Drug form: SOLN, TID-Before Meals, Dosing Weight 104.005, kg, PRN Blood Glucose Results, Start date: 02/16/16 14:05:00 CDT, Durat ion: 30 day, Stop date: 03/17/16 14:04:00 COMPUTER ANIMATOR Notes: Roll in palms of hands gently; Do not shake vigorously. (Same as: NovoGOMEZ G)"single patient use only"WASTE: F/P - Black; E - Municipal Trash Bin Stable f or 28 days at room temperature.Expires in days from Date Start Date: 02/16/16 Stop Date: 02/21/16 Status: Discontinued insulin aspart 6 unit, 0.06 mL, Route: SUB-Q, Drug form: SOLN, TID-Before Meals, Dosing Weight 104.005, kg, PRN Blood Glucose Results, Start date: 02/16/16 14:05:00 CDT, Durat ion: 30 day, Stop date: 03/17/16 14:04:00 COMPUTER ANIMATOR Notes: Roll in palms of hands gently; Do not shake vigorously. (Same as: Shruti Ellsworth)"single patient use only"WASTE: F/P - Black; E - Municipal Trash Bin Stable f or 28 days at room temperature.Expires in days from Date Start Date: 02/16/16 Stop Date: 02/21/16 Status: Discontinued insulin aspart 2 unit, 0.02 mL, Route: SUB-Q, Drug form: SOLN, TID-Before Meals, Dosing Weight 104.005, kg, PRN Blood Glucose Results, Start date: 02/16/16 14:05:00 CDT, Durat ion: 30 day, Stop date: 03/17/16 14:04:00 COMPUTER ANIMATOR Notes: Roll in palms of hands gently; Do not shake vigorously. (Same as: Shruti Ellsworth)"single patient use only"WASTE: F/P - Black; E - Municipal Trash Bin Stable f or 28 days at room temperature.Expires in days from Date Start Date: 02/16/16 Stop Date: 02/21/16 Status: Discontinued levothyroxine 125 microgram, 1 tab, Route: PO, Drug form: TAB, Daily, Dosing Weight 104.005, k g, Start date: 02/16/16 6:30:00 CDT, Duration: 30 day, Stop date: 03/16/16 6:30: 00 COMPUTER ANIMATOR Notes: Take 1 hour before or 2 hours after meal; Enteral feeds may interefere wi th the absorption of this medication. (Same as:Levothroid) Start Date: 02/16/16 Stop Date: 02/23/16 Status: Discontinued losartan 25 mg, 1 tab, Route: PO, Drug form: TAB, Daily, Dosing Weight 104.005, kg, Start date: 02/16/16 9:00:00 CDT, Duration: 30 day, Stop date: 03/16/16 9:00:00 COMPUTER ANIMATOR Notes: (Same as: Cojhon) Start Date: 02/16/16 Stop Date: 02/16/16 Status: Discontinued metFORMIN 500 mg, 1 tab, Route: PO, Drug form: TAB, Daily, Dosing Weight 104.005, kg, Star t date: 02/16/16 21:00:00 CDT, Duration: 30 day, Stop date: 03/16/16 21:00:00 CS T Notes: (Same as: Glucophage) Take with meal Start Date: 02/16/16 Stop Date: 02/23/16 Status: Discontinued metoprolol tartrate 25 mg, 1 tab, Route: PO, Drug form: TAB, Q12H, Dosing Weight 104.005, kg, Start date: 02/16/16 9:00:00 CDT, Duration: 30 day, Stop date: 03/16/16 21:00:00 COMPUTER ANIMATOR Notes: (Same as: Lopressor) Start Date: 02/16/16 Stop Date: 02/22/16 Status: Discontinued morphine Sulfate 4 mg, 2 mL, Route: IVP, Drug form: INJ, Q4H, Dosing Weight 104.545, kg, PRN Pain Score 7-10, Start date: 02/16/16 3:31:00 CDT, Duration: 30 day, Stop date: 03/08 3:30:00 COMPUTER ANIMATOR Notes: (Same as:MORPhine Sulfate) Start Date: 02/16/16 Stop Date: 02/16/16 Status: Discontinued morphine Sulfate 4 mg, Route: IVP, ONCE, Dosing Weight 104.545, kg, Priority: STAT, Start date: 1:19:00 CDT, Stop date: 02/16/16 1:19:00 CDT Start Date: 02/16/16 Stop Date: 02/16/16 Status: Completed morphine Sulfate 4 mg, 2 mL, Route: IVP, Drug form: INJ, Q4H, Dosing Weight 104.005, kg, PRN Pain Score 6-10, Start date: 02/16/16 14:11:00 CDT, Duration: 30 day, Stop date: 02/20 14:10:00 COMPUTER ANIMATOR Notes: (Same as:MORPhine Sulfate) Start Date: 02/16/16 Stop Date: 02/23/16 Status: Discontinued morphine Sulfate 2 mg, 1 mL, Route: IVP, Drug form: INJ, Q4H, Dosing Weight 104.005, kg, PRN Pain Score 4-6, Start date: 02/16/16 14:11:00 CDT, Duration: 30 day, Stop date: 03/08 14:10:00 COMPUTER ANIMATOR Notes: (Same as:MORPhine Sulfate) Start Date: 02/16/16 Stop Date: 02/23/16 Status: Discontinued multivitamin with minerals 1 tab, Route: CHEW, Drug Form: TAB, Dosing Weight 104.005, kg, Daily, Start date : 02/16/16 9:00:00 CDT, Duration: 30 day, Stop date: 03/16/16 9:00:00 COMPUTER ANIMATOR Notes: (Same as:Thera-M, Theragran-M)WASTE: F/P - Black; E - Municipal Trash Bin Give with food. Start Date: 02/16/16 Stop Date: 02/23/16 Status: Discontinued NS + KCL 20mEq/L 1000ml (Premix) 1,000 mL 1,000 mL, Rate: 75 ml/hr, Infuse over: 13.3 hr, Route: IV, Dosing Weight 104.545 kg, Total Volume: 1,000, Start date: 02/16/16 3:31:00 CDT, Stop date: 03/17/16 3:30:00 COMPUTER ANIMATOR Notes: PREMIX IV - Do Not AlterWASTE: F/P - Sink; E - Municipal Trash Bin Start Date: 02/16/16 Stop Date: 02/18/16 Status: Discontinued Nurse pls bring pt's own med: Veramyst to pharmacy for verif Nurse pls bring pt's own med: Veramyst to pharmacy for verif, reminder, Drug for m: MISC, Route: MISC, QSHIFT, 02/16/16 8:00:00 CDT, Duration: 30 day, Stop date: 03/17/16 0:00:00 COMPUTER ANIMATOR Start Date: 02/16/16 Stop Date: 02/23/16 Status: Discontinued ondansetron 4 mg, 2 mL, Route: IVP, Drug form: INJ, Q6H, Dosing Weight 104.545, kg, PRN Naus ea & Vomiting, Start date: 02/16/16 3:31:00 CDT, Duration: 30 day, Stop date: 03/17/16 3:30:00 COMPUTER ANIMATOR Notes: (Same as: Zofran) MEDICATION WASTE Product Size: 4 mgProduct Was alcides: ___ mg Start Date: 02/16/16 Stop Date: 02/16/16 Status: Discontinued pantoprazole 40 mg, 1 tab, Route: PO, Drug form: ECTAB, Daily, Dosing Weight 104.005, kg, Sta rt date: 02/16/16 9:00:00 CDT, Duration: 30 day, Stop date: 03/16/16 9:00:00 COMPUTER ANIMATOR Notes: Tablet should not be chewed or crushed.(Same as: Protonix) Start Date: 02/16/16 Stop Date: 02/23/16 Status: Discontinued pneumococcal 13-valent vaccine 0.5 mL, Route: IM, Drug Form: INJ, Daily, Start date: 02/16/16 9:00:00 CDT, Stop date: 02/16/16 11:00:00 CDT Notes: Lightly roll vial (DO NOT SHAKE) before administration. (Same as: Prevna r 13) Start Date: 02/16/16 Stop Date: 02/16/16 Status: Completed pravastatin 40 mg, 2 tab, Route: PO, Drug form: TAB, Bedtime, Dosing Weight 104.005, kg, Sta rt date: 02/16/16 21:00:00 CDT, Duration: 30 day, Stop date: 03/16/16 21:00:[address] Notes: (Same as: Pravachol) Start Date: 02/16/16 Stop Date: 02/23/16 Status: Discontinued Saline Flush 0.9% 10 mL, Route: IVP, Drug Form: INJ, Dosing Weight 104.545, kg, PRN, PRN Line Flus h, Start date: 02/15/16 18:12:00 CDT, Duration: 30 day, Stop date: 03/16/16 17:1 1:00 COMPUTER ANIMATOR Notes: (Same as: BD Posiflush) Start Date: 02/15/16 Stop Date: 02/17/16 Status: Discontinued Saline Flush 0.9% 10 ml, Route: IVP, Drug Form: INJ, Dosing Weight 104.545, kg, PRN, PRN Line Flus h, Start date: 02/16/16 3:31:00 CDT, Duration: 30 day, Stop date: 03/17/16 2:30: 00 COMPUTER ANIMATOR Notes: (Same as: BD Posiflush) Start Date: 02/16/16 Stop Date: 02/23/16 Status: Discontinued Singulair 10 mg, 1 tab, Route: PO, Drug form: TAB, QPM, Dosing Weight 104.005, kg, Start d ate: 02/16/16 17:00:00 CDT, Duration: 30 day, Stop date: 03/16/16 17:00:00 COMPUTER ANIMATOR Notes: (Same as:Singulair) Start Date: 02/16/16 Stop Date: 02/23/16 Status: Discontinued sodium chloride 0.9% 1000 ml INJ 1,000 mL 1,000 mL, Rate: 75 ml/hr, Infuse over: 13.3 hr, Route: IV, Dosing Weight 104.005 kg, Total Volume: 1,000, Start date: 02/18/16 10:51:00 CDT, Duration: 30 day, S top date: 03/19/16 10:50:00 COMPUTER ANIMATOR Start Date: 02/18/16 Stop Date: 02/22/16 Status: Discontinued spironolactone 25 mg, 1 tab, Route: PO, Drug form: TAB, Daily, Dosing Weight 104.005, kg, Start date: 02/16/16 9:00:00 CDT, Duration: 30 day, Stop date: 03/16/16 9:00:00 COMPUTER ANIMATOR Notes: (Same As: Aldactone) Start Date: 02/16/16 Stop Date: 02/23/16 Status: Discontinued Ventolin HFA 90 mcg/inh inhalation aerosol with adapter 180 microgram, Route: INHALATION, Drug Form: AERO/A, Dosing Weight 104.005, kg, QID, PRN as needed for wheezing, Start date: 02/16/16 9:00:00 CDT, Duration: 30 day, Stop date: 03/16/16 21:00:00 COMPUTER ANIMATOR Notes: Albuterol 90 microgram/inh 8gm HFAWASTE: Aerosol - Return to Pharm[facility] as: Ventnathen Proventil Start Date: 02/16/16 Stop Date: 02/23/16 Status: Discontinued Veramyst 27.5 mcg/inh nasal spray 27.5 microgram, 1 spray, Route: NASAL, Drug Form: SPRY, Dosing Weight 104.005, k g, Daily, Start date: 02/16/16 9:00:00 CDT, Duration: 30 day, Stop date: 6 9:00:00 COMPUTER ANIMATOR Start Date: 02/16/16 Stop Date: 02/18/16 Status: Deleted Vitamin B12 1,000 microgram, 2 tab, Route: PO, Drug form: TAB, Daily, Dosing Weight 104.005, kg, Start date: 02/16/16 9:00:00 CDT, Duration: 30 day, Stop date: 03/16/16 9:0 0:00 COMPUTER ANIMATOR Notes: (Same As: Vitamin B12) Start Date: 02/16/16 Stop Date: 02/23/16 Status: Discontinued Vitamin B12 1000 mcg oral tablet 1,000 microgram = 1 tab, PO, Daily, 0 Refill(s) Start Date: 02/16/16 Status: Ordered Vitamin D3 2000 intl units oral tablet 2,000 IntlUnit, 2 tab, Route: PO, Drug form: TAB, Daily, Dosing Weight 104.005, kg, Start date: 02/16/16 9:00:00 CDT, Duration: 30 day, Stop date: 03/16/16 9:00 :00 COMPUTER ANIMATOR Notes: Same as : Vitamin D3 Start Date: 02/16/16 Stop Date: 02/23/16 Status: Discontinued Zofran 4 mg, Route: IVP, Drug form: INJ, ONCE, Dosing Weight 104.545, kg, Priority: STA T, Start date: 02/16/16 1:19:00 CDT, Stop date: 02/16/16 1:19:00 CDT Start Date: 02/16/16 Stop Date: 02/16/16 Status: Completed Zofran 4 mg, 2 mL, Route: IV, Drug form: INJ, Q4H, Dosing Weight 104.005, kg, PRN as ne eded for nausea/vomiting, Start date: 02/16/16 5:21:00 CDT, Duration: 30 day, St op date: 03/17/16 5:20:00 COMPUTER ANIMATOR Notes: (Same as: Zofran) MEDICATION WASTE Product Size: 4 mgProduct Was alcides: ___ mg Start Date: 02/16/16 Stop Date: 02/23/16 Status: Discontinued Zosyn + sodium chloride 0.9% 100 ml ADV 100 mL 3.375 gm, Route: IVPB, ABXQ8H, Dosing Weight 104.005, kg, CrCl >= 20 ml/min infuse over 4 hours, Start date: 02/18/16 11:00:00 CDT, Duration: 30 day, Stop date: 03/19/16 3:00:00 COMPUTER ANIMATOR Notes: (Same as: Zosyn) Dosing based on Piperacillin component Start Date: 02/18/16 Stop Date: 02/23/16 Status: Discontinued Results ELECTROLYTES 1 2 3 Most recent to oldest [Reference Range]: 142 mEq/L (02/22/16 6:10 AM) 141 mEq/L (02/21/16 5:26 AM) 137 mEq/L (02/19/16 5:08 AM) Sodium Lvl [135-145 mEq/L] 3.6 mEq/L (02/22/16 6:10 AM) 3.5 mEq/L (02/21/16 5:26 AM) 3.6 mEq/L (02/19/16 5:08 AM) Potassium Lvl [3.5-5.1 mEq/L] 108 mEq/L (02/22/16 6:10 AM) 107 mEq/L (02/21/16 5:26 AM) 103 mEq/L (02/19/16 5:08 AM) Chloride Lvl [95-109 mEq/L] 27 mEq/L (02/22/16 6:10 AM) 27 mEq/L (02/21/16 5:26 AM) 26 mEq/L (02/19/16 5:08 AM) CO2 [24-32 mEq/L] 10.6 mEq/L (02/22/16 6:10 AM) 10.5 mEq/L (02/21/16 5:26 AM) 11.6 mEq/L (02/19/16 5:08 AM) AGAP [10.0-20.0 mEq/L] CHEM PANEL 1 2 3 Most recent to oldest [Reference Range]: 0.94 mg/dL (02/22/16 6:10 AM) 1.20 mg/dL (02/21/16 5:26 AM) 1.20 mg/dL (02/19/16 5:08 AM) Creatinine Lvl [0.50-1.40 mg/dL] 62 mL/min/1.73m2 1 *NA* (02/22/16 6:10 AM) 46 mL/min/1.73m2 2 *NA* (02/21/16 5:26 AM) 46 mL/min/1.73m2 3 *NA* (02/19/16 5:08 AM) eGFR 10 mg/dL (02/22/16 6:10 AM) 11 mg/dL (02/21/16 5:26 AM) 9 mg/dL (02/19/16 5:08 AM) BUN [7-22 mg/dL] 12 (02/15/16 8:31 PM) B/C Ratio [6-25] 98 mg/dL (02/22/16 6:10 AM) 97 mg/dL (02/21/16 5:26 AM) 116 mg/dL *HI* (02/19/16 5:08 AM) Glucose Lvl [70-99 mg/dL] 8.3 g/dL (02/15/16 8:31 PM) Total Protein [6.4-8.4 g/dL] 3.5 g/dL (02/15/16 8:31 PM) Albumin Lvl [3.5-5.0 g/dL] 4.8 g/dL *HI* (02/15/16 8:31 PM) Globulin [2.7-4.2 g/dL] 0.7 (02/15/16 8:31 PM) A/G Ratio [0.7-1.6] 8.2 mg/dL *LOW* (02/22/16 6:10 AM) 8.4 mg/dL *LOW* (02/21/16 5:26 AM) 9.1 mg/dL (02/19/16 5:08 AM) Calcium Lvl [8.5-10.5 mg/dL] 2.1 mg/dL (02/17/16 5:00 AM) Magnesium Lvl [1.8-2.4 mg/dL] 27 unit/L (02/15/16 8:31 PM) ALT [0-65 unit/L] 22 unit/L (02/15/16 8:31 PM) AST [0-37 unit/L] 79 unit/L (02/15/16 8:31 PM) Alk Phos [39-136 unit/L] <0.1 mg/dL *LOW* (02/15/16 8:31 PM) Bili Total [0.2-1.3 mg/dL] 127 unit/L (02/15/16 8:31 PM) Lipase Lvl [73-393 unit/L] 0.7 mMol/L (02/21/16 5:26 AM) Lactic Acid Lvl [0.5-2.2 mMol/L] 1Result Comment: The eGFR is calculated using the CKD-EPI formula. In most young, healthy individuals the eGFR will be >90 mL/min/1.73m2. The eGFR declines with age. An eGFR of 60-89 may be normal in some populations, particularly the elderly, for whom the CKD-EPI formula has not been extensively validated. Use of the eGFR is not recommended in the following populations: Individuals with unstable creatinine concentrations, including patients and those with serious co-morbid conditions. Patients with extremes in muscle mass or diet. The data above are obtained from the [employer] ( [employer]) which additionally recommends that when the eGFR is used in patients with extremes of body mass index for purposes of drug dosing, the eGFR should be mul tiplied by the estimated BMI. 2Result Comment: The eGFR is calculated using the CKD-EPI formula. In most young, healthy individuals the eGFR will be >90 mL/min/1.73m2. The eGFR declines with age. An eGFR of 60-89 may be normal in some populations, particularly the elderly, for whom the CKD-EPI formula has not been extensively validated. Use of the eGFR is not recommended in the following populations: Individuals with unstable creatinine concentrations, including patients and those with serious co-morbid conditions. Patients with extremes in muscle mass or diet. The data above are obtained from the National Kidney Disease Education Program ( NKDEP) which additionally recommends that when the eGFR is used in patients with extremes of body mass index for purposes of drug dosing, the eGFR should be mul tiplied by the estimated BMI. 3Result Comment: The eGFR is calculated using the CKD-EPI formula. In most young, healthy individuals the eGFR will be >90 mL/min/1.73m2. The eGFR declines with age. An eGFR of 60-89 may be normal in some populations, particularly the elderly, for whom the CKD-EPI formula has not been extensively validated. Use of the eGFR is not recommended in the following populations: Individuals with unstable creatinine concentrations, including patients and those with serious co-morbid conditions. Patients with extremes in muscle mass or diet. The data above are obtained from the National Kidney Disease Education Program ( NKDEP) which additionally recommends that when the eGFR is used in patients with extremes of body mass index for purposes of drug dosing, the eGFR should be mul tiplied by the estimated BMI. URINE AND STOOL 1 2 3 Most recent to oldest [Reference Range]: Clear (02/16/16 12:45 AM) UA Turbidity [Clear] Yellow *NA* (02/16/16 12:45 AM) UA Color [Yellow] 5.0 (02/16/16 12:45 AM) UA pH [5.0-8.0] >=1.050 *ABN* (02/16/16 12:45 AM) UA Spec Grav [<=1.030] Negative mg/dL *NA* (02/16/16 12:45 AM) UA Glucose [Negative mg/dL] Small *ABN* (02/16/16 12:45 AM) UA Blood [Negative] Negative mg/dL *NA* (02/16/16 12:45 AM) UA Ketones [Negative mg/dL] Negative mg/dL (02/16/16 12:45 AM) UA Protein [Negative mg/dL] <=1.0 mg/dL *NA* (02/16/16 12:45 AM) UA Urobilinogen [0.1-1.0 mg/dL] Negative *NA* (02/16/16 12:45 AM) UA Bili [Negative] Small *ABN* (02/16/16 12:45 AM) UA Leuk Est [Negative] Negative (02/16/16 12:45 AM) UA Nitrite [Negative] 2 /HPF (02/16/16 12:45 AM) UA WBC [0-5 /HPF] 21 /HPF *HI* (02/16/16 12:45 AM) UA RBC [0-2 /HPF] Few /LPF *NA* (02/16/16 12:45 AM) UA Sq Epi [Few /LPF] Few /LPF *NA* (02/16/16 12:45 AM) UA Mucus [None Seen /LPF] 6 /LPF *HI* (02/16/16 12:45 AM) UA Trans Epi [<=0 /LPF] HEMATOLOGY 1 2 3 Most recent to oldest [Reference Range]: 10.4 K/CMM (02/22/16 6:10 AM) 14.4 K/CMM *HI* (02/21/16 5:26 AM) 11.6 K/CMM *HI* (02/20/16 5:13 AM) WBC [3.7-10.4 K/CMM] 3.94 M/CMM *LOW* (02/22/16 6:10 AM) 4.07 M/CMM *LOW* (02/21/16 5:26 AM) 4.09 M/CMM *LOW* (02/20/16 5:13 AM) RBC [4.20-5.40 M/CMM] 10.6 g/dL *LOW* (02/22/16 6:10 AM) 10.7 g/dL *LOW* (02/21/16 5:26 AM) 11.1 g/dL *LOW* (02/20/16 5:13 AM) Hgb [12.0-16.0 g/dL] 32.5 % *LOW* (02/22/16 6:10 AM) 33.5 % *LOW* (02/21/16 5:26 AM) 33.3 % *LOW* (02/20/16 5:13 AM) Hct [36.0-48.0 %] 82.4 fL (02/22/16 6:10 AM) 82.4 fL (02/21/16 5:26 AM) 81.5 fL (02/20/16 5:13 AM) MCV [80.0-98.0 fL] 26.8 pg *LOW* (02/22/16 6:10 AM) 26.2 pg *LOW* (02/21/16 5:26 AM) 27.0 pg (02/20/16 5:13 AM) MCH [27.0-31.0 pg] 32.6 g/dL (02/22/16 6:10 AM) 31.8 g/dL *LOW* (02/21/16 5:26 AM) 33.1 g/dL (02/20/16 5:13 AM) MCHC [32.0-36.0 g/dL] 15.1 % *HI* (02/22/16 6:10 AM) 15.1 % *HI* (02/21/16 5:26 AM) 15.3 % *HI* (02/20/16 5:13 AM) RDW [11.5-14.5 %] 384 K/CMM (02/22/16 6:10 AM) 407 K/CMM (02/21/16 5:26 AM) 451 K/CMM *HI* (02/20/16 5:13 AM) Platelet [133-450 K/CMM] 6.7 fL *LOW* (02/22/16 6:10 AM) 6.3 fL *LOW* (02/21/16 5:26 AM) 6.4 fL *LOW* (02/20/16 5:13 AM) MPV [7.4-10.4 fL] 65.9 % (02/22/16 6:10 AM) 76.8 % *HI* (02/21/16 5:26 AM) 70.0 % (02/20/16 5:13 AM) Segs [45.0-75.0 %] 20.9 % (02/22/16 6:10 AM) 13.5 % *LOW* (02/21/16 5:26 AM) 20.0 % (02/20/16 5:13 AM) Lymphocytes [20.0-40.0 %] 8.8 % (02/22/16 6:10 AM) 6.1 % (02/21/16 5:26 AM) 6.7 % (02/20/16 5:13 AM) Monocytes [2.0-12.0 %] 3.7 % (02/22/16 6:10 AM) 2.7 % (02/21/16 5:26 AM) 2.5 % (02/20/16 5:13 AM) Eosinophils [0.0-4.0 %] 0.7 % (02/22/16 6:10 AM) 0.9 % (02/21/16 5:26 AM) 0.8 % (02/20/16 5:13 AM) Basophils [0.0-1.0 %] 6.9 K/CMM (02/22/16 6:10 AM) 11.0 K/CMM *HI* (02/21/16 5:26 AM) 8.1 K/CMM (02/20/16 5:13 AM) Segs-Bands # [1.5-8.1 K/CMM] 2.2 K/CMM (02/22/16 6:10 AM) 1.9 K/CMM (02/21/16 5:26 AM) 2.3 K/CMM (02/20/16 5:13 AM) Lymphocytes # [1.0-5.5 K/CMM] 0.9 K/CMM *HI* (02/22/16 6:10 AM) 0.9 K/CMM *HI* (02/21/16 5:26 AM) 0.8 K/CMM (02/20/16 5:13 AM) Monocytes # [0.0-0.8 K/CMM] 0.4 K/CMM (02/22/16 6:10 AM) 0.4 K/CMM (02/21/16 5:26 AM) 0.3 K/CMM (02/20/16 5:13 AM) Eosinophils # [0.0-0.5 K/CMM] 0.1 K/CMM (02/22/16 6:10 AM) 0.1 K/CMM (02/21/16 5:26 AM) 0.1 K/CMM (02/20/16 5:13 AM) Basophils # [0.0-0.2 K/CMM] 32.9 seconds (02/16/16 7:02 AM) PTT [22.9-35.8 seconds] Immunizations Given and Recorded Vaccine Date Status [...] Cessation Counseli ng No Assessment and Plan Extracted from: Title: Clinical Document Author: Zbigniew Patel DO Ye e: 02/23/16 Progress Daily [facility] Completed: Feb, 09:57 by Zbigniew Patel DO RM: 154 - 1P, SE [id number] (: 1945) F Attending: Zbigniew Patel DOPhone: Service: Internal Medicine Reason for Admission: ACUTE DIVERTICULAITIS Working DRG: Esophagitis, gastroent & misc digest disorders w/o [facility] Code status: Full Code [Ordered]Current diet: Isolation: None Documented Allergies: sulfa drugs SUBJECTIVE Patient seen and examined. Events noted overnight. Labs/Images reviewed doing ok, no other issues. no abd cramping overnight OBJECTIVE ASSESSMENT & EXAM Gen: NAD, Alert, Awake HEENT: NC/AT, PERRLA, oral area clear and moist Neck: No LAD, No JVD, trachea midline Chest: CTAB, no c/w/r CV: RRR, S1, S2 GI: +BS, S, mild tenderness LLQ and suprapubic area with no rebound, No organomegaly Ext: no c/c/e Neuro: AOx3, no gross deficits noted Skin: No notable rashes PLAN & TREATMENT d/w ID yesrday night - ok for pt to be on augmentinto complete treatmen given flagyl causes nausea on the pt d/w pt and family and answered question sliding insulin scale monitor BP CT scan results - shows imrpovement ok to dc home today with PO abx for completion of 14 day total DIAGNOSES & PROBLEMS acute sigmoid diverticulitis DM 2 HTN leukocytosis UTI - E.coli hypokalemia Ready for Discharge (Yes/No)? Loera still necessary (Yes/No): Line still necessary (Yes/No): (no lab data in past 24 hours) VitalsTmp(F)[id number] 02/22 08:[id number]--- 02/22 04:[id number]/[id number]--- 02/22 00:00----[id number]--- 02/21 20:0098.598724/783022--- 02/21 16:1998.132421/[id number]--- 24 Hr Tmax: 98.8F (37.11c) at 02/21 16:1 9Vital Signs are the last 5 in the past 48 hours. DateWt(kg)Wt(lb)Ht(cm)Ht(in)Method . 228.06720.80 70.00Measured 02/14 (initial)104.55 230.00Estimated 77.80 70.00Stated I&ORecordInOutBal 4hr Tot 265 0 265 1624hr Tot 1862 0 1862 Medications (25) Active Scheduled Meds (16): 02/16/16 cholecalciferol (Vitamin D3 200 0 intl units oral tablet) 2,000 IntlUnit PO Daily 02/16/16 cyanocobalamin (Vitamin B12) 1, 000 microgram PO Daily 02/16/16 dicyclomine 20 mg PO QID 02/16/16 enoxaparin 40 mg SUB-Q [id number] 02/16/16 hydrochlorothiazide (hydrochlor othiazide 25 mg oral tablet) 25 mg PO Daily 02/16/16 levothyroxine 125 microgram PO Daily 02/16/16 losartan (Cozaar) 100 mg PO Faith ly 02/16/16 metFORMIN 500 mg PO Daily 02/16/16 montelukast (Singulair) 10 mg P O QPM 02/16/16 multivitamin with minerals 1 ta b CHEW Daily 02/16/16 non-formulary (Nurse pls bring pt's own med: Veramyst to pharmacy for verif) MISC QSHIFT 02/16/16 pantoprazole 40 mg PO Daily 02/18/16 piperacillin-tazobactam + sodiu m chloride 0.9% 100 ml ADV 100 mL (Zosyn + sodium chloride 0.9% 100 ml ADV 100 mL) 3.375 gm IVPB ABXQ8H 25 ml/hr 02/16/16 pravastatin 40 mg PO Bedtime 02/16/16 spironolactone 25 mg PO Daily 02/16/16 zolpidem (Ambien) 5 mg PO Bedti me Unscheduled Meds: None PRN Meds (9): 02/16/16 acetaminophen-hydrocodone (acet aminophen-hydrocodone 325 mg-5 mg oral tablet) 1 tab PO Q4H 02/16/16 acetaminophen 650 mg PO Q4H 02/16/16 albuterol (Ventolin HFA 90 mcg/ inh inhalation aerosol with adapter) 180 microgram INHALATION QID 02/16/16 docusate 100 mg PO BID 02/18/16 fluticasone nasal (fluticasone nasal 0.05 mg/inh spray) 1 spray NASAL Daily 02/16/16 morphine Sulfate 2 mg IVP Q4H 02/16/16 morphine Sulfate 4 mg IVP Q4H 02/16/16 ondansetron (Zofran) 4 mg IV Q4 H 02/16/16 sodium chloride (Saline Flush 0 .9%) 10 ml IVP PRN One Time Meds: None Continuous Infusions: None Extracted from: Title: Clinical Document Author: Ricci Mullen MD Date: 02/16/16 PATIENT NAME: ALEXANDER RICO ATTENDING PHYSICIAN: DARRICK BOLIVAR DATE OF ADMISSION: 02/16/2016 * * * CC: "my side hurts" REASON FOR ADMISSION: ACUTE DIVERTICULITIS HISTORY OF PRESENT ILLNESS: 70 year old F p/w lower abd pain onset 1 1 days ago. Patient states she was dx with diverticulitis with CT imaging by PCP 4 days ago and placed on Flagyl and Levofloxacin which patient has been taking. Patient c/o fever, chills, abd cramps, but denieshematochezia, melena, or dysuria. Patient reports having diarrhea 10 days ago which she beleives was related to her IBS. CT abdomen/pelvis done while pt in the ED showed acute sigmoid diverticulitis. routine labs showed leukocytosis. PAST MEDICAL HISTORY: BCA, PUD, ASTHMA, TIA, HYPERGLYCEMIA PAST SURGICAL HISTORY: MASTECTOMY, KNEE REPLACEMENT, CATARACT SURGERY, ENDOMETRIAL RESECTION, OVARIAN SUGERY. FAMILY HISTORY: HTN in her mother ALLERGIES: Allergies (1) ActiveReaction sulfa drugsNone documented HOME MEDICATIONS: Please see medical reconciliation form. SOCIAL HISTORY: no smoking, EtOH or drug use REVIEW OF SYSTEMS: 12-point review of systems negative except for that detailed in above HPI PHYSICAL EXAMINATION: VitalsTmp(F)[id number] 02/15 02:41----[id number]--- 02/15 00:46----[id number]--- 02/14 23:2797.761115/152227--- 02/14 18:[id number]--- 24 Hr Tmax: 98.1F (36.72c) at 02/14 18:0 9Vital Signs are the last 5 in the past 48 hours. I&ORecordInOutBal 1024hr Tot 302 0 302 02/1324hr Tot 0 0 0 GENERAL: in no apparent distress at this time. HEENT: EOMI NECK: supple, no jugular venous distention, no masses, no bruits CARDIOVASCULAR: regular rate and rhythm, s1 and s2 present, no murmurs, rubs or gallops LUNGS: clear to auscultation bilaterally, no wheezes, rales or rhonchi. GASTROINTESTINAL: soft, tender LLQ with mild guarding and no rebound , non- distended positive bowel sounds in all four quadrants, no fluid wave appreciated EXTREMITIES: no clubbing, cyanosis or edema, pulses 2+ bilaterally and symmetric. NEUROLOGICAL: intact, no gross deficits noted SKIN: warm, no erythema, ecchymoses, purpura or petechiae, no jaundice, no diaphoresis LABORATORY DATA: Labs (Last four charted values) WBC H 13.8(FEB 14) Hgb 12.1(FEB 14) Hct 36.8(FEB 14) Plt H 635(FEB 14) Na 135(FEB 14) K L 3.4(FEB 14) CO2 29(FEB 14) Cl 96(FEB 14) Cr 1.30(FEB 14) BUN 16(FEB 14) Glucose Random H 107(FEB 14) Ca 9.3(FEB 14) Radiology: EXAM: CT ABDOMEN AND PELVIS WITH CONTRAST DATE: 02/15/2016 6:12 PM CDT INDICATION: Abdominal pain, acute ADDITIONAL INFORMATION: None. COMPARISON: Noncontrast abdomen CT dated 10/26/2007 TECHNIQUE: Volumetric CT acquisition of the abdomen and pelvis after the intravenous administration contrast. Axial, coronal and sagittal reconstructions. Postcontrast phases: Venous and delayed IV contrast: [address] Radiation Dose DLP 1683 mGy-cm FINDINGS: Lines and tubes: None. Lower thorax: Unremarkable. Liver and biliary tree: Normal. Gallbladder: Normal. No CT evidence of gallstones. Pancreas: Normal. Spleen: Normal. Adrenals: Normal. Kidneys and ureters: Multiple small cortical and parapelvic cysts bilaterally. No hydronephrosis. Bladder: Normal. Reproductive organs: Normal. Gastrointestinal tract: There is mild diverticulosis. There is a short segment of sigmoid colon that demonstrates marked circumferential wall thickening and pericolonic stranding. No associated free air or focal fluid collections are identified. There is no evidence of obstruction. Appendix: The appendix is normal. Peritoneum and retroperitoneum: No ascites or free air. Lymph nodes: No pathologic adenopathy. Vasculature: Unremarkable. Bones: No acute abnormality. There is a focal levoscoliosis in the lumbar spine with associated degenerative disc disease involving L3-L5. Soft tissues: Unremarkable. IMPRESSION: Acute sigmoid diverticulitis. No focal fluid collection. Follow-up following treatment is recommended to exclude underlying malignancy. Assessment&Plan: 70 yo woman with above pmhx presents with acute LLQ pain 1. ACUTE SIGMOID DIVERTICULITIS 2. DM 3. PUD 4. H/O BCA 5. ASTHMA PLAN: 1. IV antibiotics were given in the ED, cipro and flagyl. will d/c and switch to Zosyn 3.375 IV/q6 2. mild elevation in the ED. reconcile h ome meds 3. no c/o at this time. reconcile home m eds 4. stable 5. currently asymptomatic. reconcile natalya e meds. admission level i3
--- OUTSIDE RECORDS SUMMARY | 2019-10-17 21:45 | XMS REPORT | Summary of Care ---
Author Author [facility] Outpatient Imaging - [facility] Organization [facility] Outpatient Imaging - [facility] Address Unknown Phone Unavailable Encounter HQ Hero(FIN) [id number] Date(s): 06/06/17 - 06/06/17 [facility] Outpatient Imaging - [place] [address] [place] [address] [phone] Encounter Diagnosis Chronic kidney disease, stage 3 (moderate) (Final) - 06/09/17 Unspecified hydronephrosis (Final) - Discharge Disposition: Home or Self Care Attending Physician: Ten Still MD Vital Signs No data available for [...]
--- OUTSIDE RECORDS SUMMARY | 2019-10-17 21:45 | XMS REPORT | Summary of Care ---
Author Author [facility] Outpatient Imaging - [facility] Organization [facility] Outpatient Imaging - [facility] Address Unknown Phone Unavailable Encounter BENSON Monahan(FIN) [id number] Date(s): 08/02/18 - 08/02/18 [facility] Outpatient Imaging - [place] [address] [place] [address] [phone] Discharge Disposition: Home or Self Care Attending Physician: Grady Burk MD Referring Physician: Grady Burk MD Vital Signs No data available for [...]
--- OUTSIDE RECORDS SUMMARY | 2019-10-17 21:45 | XMS REPORT ---
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 Encounters * AUDIT 02/12/2013 * E30, Provider: RADHA PASCUAL, Status: Hollis, Time: 11:00 AM 02/13/2013
--- OUTSIDE RECORDS SUMMARY | 2019-10-17 21:45 | XMS REPORT | Summary of Care ---
Author Author [facility] Address Unknown Phone Unavailable Encounter HQ Encntr_reanna(FIN) [id number] Date(s): 05/14/19 - 06/12/19 [facility] Discharge Disposition: Home or Self Care Attending Physician: Gautam Red DO Vital Signs No data available for this [...]
--- OUTSIDE RECORDS SUMMARY | 2019-10-17 21:45 | XMS REPORT | Summary of Care ---
Author Author [facility] Outpatient Imaging - [facility] Organization [facility] Outpatient Imaging - [facility] Address Unknown Phone Unavailable Encounter BENSON Monahan(FIN) [id number] Date(s): 02/10/17 - 02/10/17 [facility] Outpatient Imaging - [place] [address] [place] [address] [phone] Discharge Disposition: Home or Self Care Attending Physician: Don Goins MD Vital Signs No data available for [...]
--- OUTSIDE RECORDS SUMMARY | 2019-10-17 21:45 | XMS REPORT | Summary of Care ---
Author Author [facility] Organization [facility] Urology [facility] Address Unknown Phone Unavailable Encounter BENSON Monahan(FIN) [id number] Date(s): 08/21/18 - 08/22/18 [facility] [address] [address]- [phone] Vital Signs No data available for this [...]
--- OUTSIDE RECORDS SUMMARY | 2019-10-17 21:45 | XMS REPORT | Summary of Care ---
Author Author [facility] Outpatient Imaging - [facility] Organization [facility] Outpatient Imaging - [facility] Address Unknown Phone Unavailable Encounter BENSON Monahan(FIN) [id number] Date(s): 06/06/18 - 06/06/18 [facility] Outpatient Imaging [facility] [address] [address], [address] [place] [phone] Discharge Disposition: Home or Self Care Attending [...]
--- OUTSIDE RECORDS SUMMARY | 2019-10-17 21:45 | XMS REPORT | Summary of Care ---
Author Author [facility] Organization [facility] Urology [facility] Address Unknown Phone Unavailable Encounter BENSON Monahan(FIN) [id number] Date(s): 10/31/18 - 11/01/18 [facility] Urology [address] [address]- [phone] Vital Signs No data available for this [...]
--- OUTSIDE RECORDS SUMMARY | 2019-10-17 21:45 | XMS REPORT | Summary of Care ---
Author Author [facility] Outpatient Imaging - [facility] Organization [facility] Outpatient Imaging - [facility] Address Unknown Phone Unavailable Encounter HQ Hero(FIN) [id number] Date(s): 07/31/17 - 07/31/17 [facility] Outpatient Imaging [address] [place] [phone] Encounter Diagnosis Pain in right shoulder (Final) - 08/05/17 Pain in left shoulder (Final) - Discharge Disposition: Home or Self [...]
--- OUTSIDE RECORDS SUMMARY | 2019-10-17 21:45 | XMS REPORT ---
Author Author HARSHIL PASCUAL Organization Unknown Address Unknown Phone Care Team Providers Care Technician Name Role Phone CANDELARIO PASCUALCE PP Reason [...] Strip; Check BG 1 to 2x a day;; Start Date: 08/13/2012 (Active) * MetFORMIN HCl ER 500 MG Oral Tablet Extended Release 24 Hour; Take 2 tabs every night; Start Date: 11/15/2012 (Active) Allergies and Adverse [...] No Advance Directives available. Encounters * AUDIT 02/14/2013 * E30, Provider: RADHA PASCUAL, Status: Hollis, Time: 4:30 PM 05/16/2013
--- OUTSIDE RECORDS SUMMARY | 2019-10-17 21:45 | XMS REPORT | Summary of Care ---
Author Author [facility] Outpatient Imaging - [facility] Organization [facility] Outpatient Imaging [facility] Address Unknown Phone Unavailable Encounter BENSON Monahan(FIN) [id number] Date(s): 05/03/19 - 05/03/19 [facility] Outpatient Imaging [facility] [address] [address], [address] [place], [place] [address] [phone] Discharge Disposition: Home or Self Care Attending Physician: Gautam Red DO Referring Physician: Gautam Red DO Vital Signs No [...]
--- OUTSIDE RECORDS SUMMARY | 2019-10-17 21:45 | XMS REPORT | Continuity of Care Document ---
Author Author [employer] Organization [facility] [employer] Address Unknown Phone Unavailable Care Team Providers Care Reporting Developer Name Role Phone [facility] [employer] Unavailable Un available Problems Problem Status Onset Date Classification Date Reported Comments Source RT KNNE PAIN, LBP Active 05/06/2019 [facility] [place] Polyosteoarthritis, unspecified 06/12/2018 12/25/2018 [facility] [place] Pain in right shoulder 08/06/2017 11/06/2017 [facility] [place] Chronic kidney disease, stage 3 (moderate) 06/09/2017 09/12/2017 [facility] [place] SOM HANDS Active 04/22/2017 [facility] [place] DIZZINESS Active 02/15/2016 [facility] ACUTE DIVERTICULAITIS Active 02/15/2016 [facility] UNK Active 0 09/15/2015 [facility] Pain in left shoulder 11/06/2017 [facility] [place] Unspecified hydronephrosis 09/12/2017 [facility] [place] Pain in left hand 12/25/2018 [facility] [place] Pain in right hand 12/25/2018 [facility] [place] Other specified disorders of bone densit y and structure, left hand 12/25/2018 [facility] [place] Other specified disorders of bone densit y and structure, right hand 12/25/2018 [facility] [place] Finger-joint replacement of left hand 12/25/2018 [facility] [place] Abnormal glucose level (finding) Resolved Problem 12/2019 [facility] [place],[facility] [place], [facility] [place] Asthma (disorder) Resolved Problem 06/15/2019 [facility], [facility] [place],[facility] [place], [facility] [place] Malignant tumor of breast (disorder) Resolved Problem 12/2019 [facility] [place],[facility] [place], [facility] [place] Peptic ulcer (disorder) Resolv ed Problem 12/2019 [facility], [facility] [place],[facility] [place], [facility] [place] Transient ischemic attack (disorder) Resolved Problem 12/2019 [facility], [facility] [place],[facility] [place],[facility] [place] Hypothyroidism Active 05/16/2013 [facility] Dyslipidemia Active 05/16/2013 [facility] Hypertension Active 05/16/2013 [facility] Type 2 Diabetes Mellitus - Uncomplicated, Uncontrolled Active 11/15/2012 [facility] Depression Active 05/16/2013 [facility] Asthma Active 05/16/2013 [facility] Peptic Ulcer Active 05/16/2013 [facility] Prediabetes Active 05/16/2013 [facility] ENCOUNTER FOR SCREENING FOR MALIGNANT NE Active [facility] LAINEZ'S ESOPHAGUS WITHOUT DYSPLASIA Active [facility] DVTRCLI OF INTEST, PART UNSP, W/O PERF O Active [facility] Medications Medication Details Route Status Patient Instructions Ordering Provider Order Date Source Amoxicillin 875 MG / Clavulanate 125 MG Oral Tablet [Augmentin 875-mg] 875 mg = 1 tab, PO, Q12H, X 6 day, # 12 tab, 0 Refill(s) Active 02/23/2016 [facility] Flagyl Notes: (Same as: Flagyl ) Take with food/ avoid alcohol Inactive 02/19/2016 [facility] Flagyl 375 mg, Route: PO, Drug form: CAP, [id number], Dosing Weight 104.005, kg, Start date: 02/19/16 8:00:00 CDT, Duration: 30 day, Stop date: 03/19/16 20:00:00 PERFORMANCE ANALYST Inactive 02/19/2016 [facility] Flagyl 500 mg, Route: IVPB, AB XQ8H, Dosing Weight 104.005, kg, Start date: 02/18/16 21:00:00 CDT, Duration: 30 day, Stop date: 03/19/16 13:00:00 PERFORMANCE ANALYST Inactive 02/19/2016 [facility] Flagyl Notes: (Same as: Flagyl ) Take with food/ avoid alcohol Inactive 02/18/2016 [facility] Flagyl Notes: (Same as: Flagyl ) Avoid alcohol. No Longer Active 02/18/2016 [facility] Zosyn Notes: (Same as: Zosyn) Dosing based on Piperacillin component No Longer Active 02/18/2016 [facility] sodium chloride 0.9% 1000 ml INJ 1,000 mL 1,000 mL, Rate: 75 ml/hr, Infuse over: 13.3 hr, Route: IV, Dosing Weight 104.005 kg, Total Volume: 1,000, Start date: 02/18/16 10:51:00 CDT, Duration: 30 day, Stop date: 03/19/16 10:50:00 PERFORMANCE ANALYST No Longe r Active 02/18/2016 [facility] fluticasone nasal 0.05 mg/inh spray Notes: (Same as: Flonase) No Longer Active 02/18/2016 [facility] Metformin Notes: (Same as: Glu cophage) Take with meal No Longer Active 02/17/2016 [facility] Ambien Notes: (Same As: Ambien) No Longer Active 02/17/2016 [facility] Pravastatin Notes: (Same as: P ravachol) No Longer Active 02/17/2016 [facility] Singulair Notes: (Same as:Sing ulair) No Longer Active 02/16/2016 [facility] Morphine Notes: (Same as:MORPh ine Sulfate) No Longer Active 02/16/2016 [facility] Insulin, Aspart, Human Notes: Roll in palms of hands gently; Do not shake vigorously. (Same as: NovoLOG) "single patient use only" WASTE: F/P - Black; E - Municipal Trash Bin Stable for 28 days at room temperature. Expires in days from Date No Longer Active 02/16/2016 [facility] Dextrose 50% Syringe 12.5 gm, 25 mL, Route: IVP, Drug Form: INJ, Dosing Weight 104.005, kg, PRN, PRN Blood Glucose Results, Start date: 02/16/16 14:05:00 CDT, Duration: 30 day, Stop date: 03/17/16 13:04:00 PERFORMANCE ANALYST No Longer Active 02/16/2016 [facility] Glucagon 1 mg, Route: IM, Drug form: PDR/INJ, PRN, Dosing Weight 104.005, kg, PRN Blood Glucose Results, Start date: 02/16/16 14:05:00 CDT, Duration: 30 day, Stop date: 03/17/16 13:04:00 PERFORMANCE ANALYST No Longer Active 02/16/2016 [facility] multivitamin with minerals Not es: (Same as:Thera-M, Theragran-M) WASTE: F/P - Black; E - Municipal Trash Bin Give with food. No Longer Active 02/16/2016 [facility] metoprolol tartrate Notes: (Sa me as: Lopressor) No Longer Active 02/16/2016 [facility] Losartan Notes: (Same as: Sammy nye) Inactive 02/16/2016 [facility] Hydrochlorothiazide 25 MG / Losartan Pot assium 100 MG Oral Tablet 1 tab, Route: PO, Drug Form: TAB, Dosing Weight 104.005, kg, Daily, Start date: 02/16/16 9:00:00 CDT, Duration: 30 day, Stop date: 03/16/16 9:00:00 PERFORMANCE ANALYST Inactive 02/16/2016 [facility] 120 ACTUAT fluticasone furoate 0.0275 MG /ACTUAT Nasal Inhaler [Veramyst] 27.5 microgram, 1 spray, Route: NASAL, D rug Form: SPRY, Dosing Weight 104.005, kg, Daily, Start date: 02/16/16 9:00:00 CDT, Duration: 30 day, Stop date: 03/16/16 9:00:00 PERFORMANCE ANALYST No Longer Active 02/16/2016 [facility] Dicyclomine Notes: (Same as: B entyl) No Longer Active 02/16/2016 [facility] Vitamin B12 Notes: (Same As: V itamin B12) No Longer Active 02/16/2016 [facility] Vitamin D3 2000 intl units oral tablet Notes: Same as : Vitamin D3 No Longer Active 02/16/2016 [facility] Ventolin HFA 90 mcg/inh inhalation aerosol with adapte r Notes: Albuterol 90 microgram/inh 8gm HFA WASTE: Aerosol - Return to Pharmacy Same as: Ventolin, Proventil N o Longer Active 02/16/2016 [facility] Cozaar Notes: (Same as: Sammyar) No Longer Active 02/16/2016 [facility] Streptococcus pneumoniae serotype 1 caps ular antigen diphtheria [id number] protein conjugate vaccine / Streptococcus pneumoniae serotype 14 capsular antigen diphtheria [id number] protein conjugate vaccine / Streptococcus pneumoniae serotype 18C capsular antigen d Notes: Lightly roll vial (DO NOT SHAKE) before administration. (Same as: Prevnar 13) Inactive 02/16/2016 [facility] Spironolactone Notes: (Same As : Aldactone) No Longer Active 02/16/2016 [facility] hydrochlorothiazide 25 mg oral tablet Notes: (Same as: Hydrodiuril) With food. No Longer Active 02/16/2016 [facility] pantoprazole Notes: Tablet karely uld not be chewed or crushed. (Same as: Protonix) N o Longer Active 02/16/2016 [facility] Nurse pls bring pt's own med: Veramyst t o pharmacy for verif Nurse pls bring pt's own med: Veramyst t o pharmacy for verif, reminder, Drug form: MISC, Route: MISC, QSHIFT, 02/16/16 8:00:00 CDT, Duration: 30 day, Stop date: 03/17/16 0:00:00 PERFORMANCE ANALYST No Longer Active 02/16/2016 [facility] Thyroxine Notes: Take 1 hour b efore or 2 hours after meal; Enteral feeds may interefere with the absorption of this medication. (Same as:Levothroid) No Longer Active 02/16/2016 [facility] Enoxaparin Notes: (Same as: Lo venox) No Longer Active 02/16/2016 [facility] Zofran Notes: (Same as: Zofran ) MEDICATION WASTE Product Size: 4 mg Product Wasted: ___ mg No Longer Active 02/16/2016 [facility] Hydrochlorothiazide 25 MG / Losartan Pot assium 100 MG Oral Tablet 1 tab, PO, Daily, # 30 tab, 0 Refill(s) Active 02/16/2016 [facility] Vitamin B12 1000 mcg oral tablet 1,000 microgram = 1 tab, PO, Daily, 0 Refill(s) Active 02/16/2016 [facility] Flagyl Notes: (Same as: Flagyl ) Avoid alcohol. No Longer Active 02/16/2016 [facility] Cipro Notes: Do not refrigerate No Longer Active 02/16/2016 [facility] NS + KCL 20mEq/L 1000ml (Premix) 1,000 mL Notes: PREMIX IV - Do Not Alter WASTE: F/P - Sink; E - Municipal Trash Bin No Longer Active 02/16/2016 [facility] Saline Flush 0.9% Notes: (Same as: BD Posiflush) No Longer Active 02/16/2016 [facility] Ondansetron Notes: (Same as: Юлия batista) MEDICATION WASTE Product Size: 4 mg Product Wasted: ___ mg Inactive 02/16/2016 [facility] Morphine Notes: (Same as:MORPh ine Sulfate) Inactive 02/16/2016 [facility] Docusate Notes: (Same as: Cola ce) (Do Not Crush) No Longer Active 02/16/2016 [facility] Acetaminophen 325 MG / Hydrocodone Mark trate 5 MG Oral Tablet Notes: (Same as: [place] 325/5) Do not ex ceed 4gm/day of acetaminophen. No Longer Active 02/16/2016 [facility] Acetaminophen Notes: Do not ex ceed 4 gm/day. (Same as: Tylenol) No Longer Active 02/16/2016 [facility] Zofran 4 mg, Route: IVP, Drug form: INJ, ONCE, Dosing Weight 104.545, kg, Priority: STAT, Start date: 02/16/16 1:19:00 CDT, Stop date: 02/16/16 1:19:00 CDT Inactive 02/16/2016 [facility] Morphine 4 mg, Route: IVP, ONC E, Dosing Weight 104.545, kg, Priority: STAT, Start date: 02/16/16 1:19:00 CDT, Stop date: 02/16/16 1:19:00 CDT Inactive 02/16/2016 [facility] Saline Flush 0.9% Notes: (Same as: BD Posiflush) No Longer Active 02/15/2016 [facility] Sodium Chloride 0.154 MEQ/ML Injectable Solution 1,000 mL, Rate: 25 ml/hr, Infuse over: 40 hr, Route: IV, Dosing Weight 105.455 kg, Total Volume: 1,000, Start date: 09/30/15 7:14:00 CDT, Duration: 30 day, Stop date: 10/30/15 7:13:00 CDT Inactive 09/30/2015 [facility] levothyroxine 125 mcg (0.125 mg) oral tablet 125 microgram = 1 tab, PO, Daily, # 30 tab, 0 Refill(s) Active 09/29/2015 [facility] Vitamin D3 2000 intl units oral capsule 2,000 IntlUnit = 1 cap, PO, Daily, # 100 cap, 3 Refill(s) Active 09/29/2015 [facility] montelukast 10 MG Oral Tablet [Singulair] 10 mg = 1 tab, PO, QPM, 0 Refill(s) Active 09/29/2015 [facility] pravastatin 40 mg oral tablet 40 mg = 1 tab, PO, Bedtime, # 30 tab, 0 Refill(s) Active 09/29/2015 [facility] Centrum Silver oral tablet, chewable 1 tab, CHEW, Daily, # 50 tab, 0 Refill(s) Active 09/29/2015 [facility] spironolactone 25 mg oral tablet 25 mg = 1 tab, PO, Daily, # 30 tab, 3 Refill(s) Active 09/29/2015 [facility] metoprolol tartrate 25 mg oral tablet 25 mg = 1 tab, PO, BID, 0 Refill(s) Active 09/29/2015 [facility] Losartan PO, Daily, 0 Refill(s) Active 09/29/2015 [facility] Metformin PO, 0 Refill(s) Active 09/29/2015 [facility] vilazodone hydrochloride 20 MG Oral Tablet [Viibryd] 20 mg = 1 tab, PO, Daily, 0 Refill(s) Active 09/29/2015 [facility] dicyclomine 20 mg oral tablet 20 mg = 1 tab, PO, QID, 0 Refill(s) Active 09/29/2015 [facility] 120 ACTUAT fluticasone furoate 0.0275 MG /ACTUAT Nasal Inhaler [Veramyst] 1 spray, NASAL, Daily, 0 Refill(s) Active 09/29/2015 [facility] pantoprazole 40 mg oral enteric coated tablet 40 mg = 1 tab, PO, Daily, 0 Refill(s) Active 09/29/2015 [facility] Zolpidem tartrate 10 MG Oral Tablet [Ambien] 10 mg = 1 tab, PO, Bedtime, 0 Refill(s) Active 09/29/2015 [facility] Ventolin HFA 90 mcg/inh inhalation aerosol with adapte r 2 puff, INHALATION, QID, 0 Refill(s) Active 09/29/2015 [facility] Ventolin HFA 108 (90 Base) MCG/ACT Inhal ation Aerosol Solution ; Start Date: 05/16/2013 (Active) Active 05/16/2013 [facility] Jeremie Microlet Lancets Miscellaneous ; Start Date: 03/21/2013; End Date: (Active) Active 03/21/2013 [facility] MetFORMIN HCl ER 500 MG Oral Tablet Exte nded Release 24 Hour ; Start Date: 11/15/2012; End Date: 05/1899 (Active) Active 11/15/2012 [facility] CloNIDine HCl 0.1 MG/24HR Transdermal Patch Weekly ; Start Date: 11/15/2012 (Active) Active 11/15/2012 [facility] Vitamin D3 2000 UNIT Oral Capsule ; Start Date: 08/14/2012 (Active) Active 08/14/2012 [facility] Nova Max Glucose Test In Vitro Strip ; Start Date: 08/13/2012 (Active) Active 08/13/2012 [facility] Ambien 10 MG Oral Tablet ; Sta rt Date: 08/13/2012 (Active) Active 08/13/2012 [facility] Centrum Silver Oral Tablet ; S tart Date: 08/13/2012 (Active) Active 08/13/2012 [facility] Viibryd 40 MG Oral Tablet ; St art Date: 08/13/2012 (Active) Active 08/13/2012 [facility] Veramyst 27.5 MCG/SPRAY Nasal Suspension ; Start Date: 08/13/2012 (Active) Active 08/13/2012 [facility] Spironolactone 25 MG Oral Tablet ; Start Date: 08/13/2012 (Active) Active 08/13/2012 [facility] Pravastatin Sodium 40 MG Oral Tablet ; Start Date: 08/13/2012; End Date: (Active) Active 08/13/2012 [facility] Singulair 10 MG Oral Tablet ; Start Date: 08/13/2012 (Active) Active 08/13/2012 [facility] Losartan Potassium-HCTZ 100-25 MG Oral Tablet ; Start Date: 08/13/2012 (Active) Active 08/13/2012 [facility] Levothyroxine Sodium 125 MCG Oral Tablet ; Start Date: 08/13/2012 (Active) Active 08/13/2012 [facility] Dexilant 60 MG Oral Capsule Delayed Release ; Start Date: 08/13/2012 (Active) Active 08/13/2012 [facility] CeleBREX 200 MG Oral Capsule ; Start Date: 08/13/2012 (Active) Active 08/13/2012 [facility] AmLODIPine Besylate 10 MG Oral Tablet ; Start Date: 08/13/2012 (Active) Active 08/13/2012 [facility] Jeremie Contour Next Test In Vitro Strip ; Start Date: 08/13/2012; End Date: (Active) Active 08/13/2012 [facility] Allergies, Adverse Reactions, Alerts Substance Category Reaction Severity Reaction type Status Date Reported Comments Source sulfa drugs Assertion Drug allergy Active [facility] [place] Sulfa Drugs drug allergy drug allergy Active [facility] Immunizations Immunization Date Given Site Status Last Updated Comments Source pneumococcal 13-valent vaccine 02/16/2016 Left deltoid completed [facility] Results Order Name Results Value Reference Range Date Interpretation Comments Source CHEM PANEL eGFR 62 02/22/2016 Result Comment: The eGFR is calculated using the [...] from the National Kidney Disease Education Program (NKDEP) which additionally recommends that when the eGFR is used in patients with extremes of body mass index for purposes of drug dosing, the eGFR should be multiplied by the estimated BMI. [facility] CHEM PANEL BUN 10 7 - 22 02/22/2016 [facility] CHEM PANEL Chloride Lvl 108 95 - 109 02/22/2016 [facility] CHEM PANEL Potassium Lvl 3.6 3.5 - 5.1 02/22/2016 [facility] CHEM PANEL Sodium Lvl 142 135 - 145 02/22/2016 [facility] CHEM PANEL Creatinine Lvl 0.94 0.50 - 1.40 02/22/2016 [facility] CHEM PANEL Glucose Lvl 98 70 - 99 02/22/2016 [facility] CHEM PANEL Calcium Lvl 8.2 8.5 - 10.5 02/22/2016 [facility] CHEM PANEL CO2 27 24 - 32 02/22/2016 [facility] CHEM PANEL AGAP 10.6 10.0 - 20.0 02/22/2016 [facility] HEMATOLOGY MCV 82.4 80.0 - 98.0 02/22/2016 [facility] HEMATOLOGY MCH 26.8 27.0 - 31.0 02/22/2016 [facility] HEMATOLOGY Hct 32.5 36.0 - 48.0 02/22/2016 [facility] HEMATOLOGY MCHC 32.6 32.0 - 36.0 02/22/2016 [facility] HEMATOLOGY MPV 6.7 7.4 - 10.4 02/22/2016 [facility] HEMATOLOGY RDW 15.1 11.5 - 14.5 02/22/2016 [facility] HEMATOLOGY Platelet 384 133 - 450 02/22/2016 [facility] HEMATOLOGY WBC 10.4 3.7 - 10.4 02/22/2016 [facility] HEMATOLOGY RBC 3.94 4.20 - 5.40 02/22/2016 [facility] HEMATOLOGY Hgb 10.6 12.0 - 16.0 02/22/2016 [facility] HEMATOLOGY Basophils # 0.1 0.0 - 0.2 02/22/2016 [facility] Eosinophils # 0.4 0.0 - 0.5 02/22/2016 [facility] HEMATOLOGY Monocytes # 0.9 0.0 - 0.8 02/22/2016 [facility] HEMATOLOGY Monocytes 8.8 2.0 - 12.0 02/22/2016 [facility] HEMATOLOGY Lymphocytes 20.9 20.0 - 40.0 02/22/2016 [facility] HEMATOLOGY Segs 65.9 45.0 - 75.0 02/22/2016 [facility] HEMATOLOGY Segs-Bands # 6.9 1.5 - 8.1 02/22/2016 [facility] HEMATOLOGY Lymphocytes # 2.2 1.0 - 5.5 02/22/2016 [facility] HEMATOLOGY Basophils 0.7 0.0 - 1.0 02/22/2016 [facility] HEMAT[facility]Y Eosinophils 3.7 0.0 - 4.0 02/22/2016 [facility] CHEM PANEL Lactic Acid Lvl 0.7 0.5 - 2.2 02/21/2016 [facility] ELECTROLYTES AGAP 10.5 10.0 - 20.0 02/21/2016 [facility] ELECTROLYTES CO2 27 24 - 32 02/21/2016 [facility] ELECTROLYTES Sodium Lvl 141 135 - 145 02/21/2016 [facility] ELECTROLYTES Chloride Lvl 107 95 - 109 02/21/2016 [facility] ELECTROLYTES Potassium Lvl 3.5 3.5 - 5.1 02/21/2016 [facility] ELECTROLYTES Calcium Lvl 8.4 8.5 - 10.5 02/21/2016 [facility] ELECTROLYTES Creatinine Lvl 1.2 0 0.50 - 1.40 02/21/2016 [facility] ELECTROLYTES eGFR 46 02/21/2016 Result Comment: The eGFR is calculated using the [...] from the National Kidney Disease Education Program (NKDEP) which additionally recommends that when the eGFR is used in patients with extremes of body mass index for purposes of drug dosing, the eGFR should be multiplied by the estimated BMI. [facility] ELECTROLYTES Glucose Lvl 97 70 - 99 02/21/2016 [facility] ELECTROLYTES BUN 11 7 - 22 02/21/2016 [facility] HEMATOLOGY Basophils # 0.1 0.0 - 0.2 02/21/2016 [facility] HEMATOLOGY Eosinophils # 0.4 0.0 - 0.5 02/21/2016 [facility] HEMATOLOGY Monocytes # 0.9 0.0 - 0.8 02/21/2016 [facility] HEMATOLOGY Eosinophils 2.7 0.0 - 4.0 02/21/2016 [facility] Lymphocytes 13.5 20.0 - 40.0 02/21/2016 [facility] HEMATOLOGY Segs 76.8 45.0 - 75.0 02/21/2016 [facility] HEMATOLOGY Lymphocytes # 1.9 1.0 - 5.5 02/21/2016 [facility] HEMATOLOGY Basophils 0.9 0.0 - 1.0 02/21/2016 [facility] HEMATOLOGY Monocytes 6.1 2.0 - 12.0 02/21/2016 [facility] Segs-Bands # 11.0 1.5 - 8.1 02/21/2016 [facility] MCH 26.2 27.0 - 31.0 02/21/2016 [facility] HEMATOLOGY MCV 82.4 80.0 - 98.0 02/21/2016 [facility] RDW 15.1 11.5 - 14.5 02/21/2016 [facility] MCHC 31.8 32.0 - 36.0 02/21/2016 [facility] HEMATOLOGY Platelet 407 133 - 450 02/21/2016 [facility] HEMATOLOGY MPV 6.3 7.4 - 10.4 02/21/2016 [facility] HEMATOLOGY WBC 14.4 3.7 - 10.4 02/21/2016 [facility] HEMATOLOGY Hgb 10.7 12.0 - 16.0 02/21/2016 [facility] HEMATOLOGY RBC 4.07 4.20 - 5.40 02/21/2016 [facility] HEMATOLOGY Hct 33.5 36.0 - 48.0 02/21/2016 [facility] HEMATOLOGY Monocytes 6.7 2.0 - 12.0 02/20/2016 [facility]EM[facility] Lymphocytes 20.0 20.0 - 40.0 02/20/2016 [facility] HEMAT[facility] Eosinophils 2.5 0.0 - 4.0 02/20/2016 [facility] HEMATOLOGY Basophils 0.8 0.0 - 1.0 02/20/2016 [facility] HEMATOLOGY Segs-Bands # 8.1 1.5 - 8.1 02/20/2016 [facility] HEMAT[facility] Lymphocytes # 2.3 1.0 - 5.5 02/20/2016 [facility] HEMATOLOGY Monocytes # 0.8 0.0 - 0.8 02/20/2016 [facility] HEMAT[facility] Eosinophils # 0.3 0.0 - 0.5 02/20/2016 [facility] HEMAT[facility] Basophils # 0.1 0.0 - 0.2 02/20/2016 [facility] HEMATOLOGY Segs 70.0 45.0 - 75.0 02/20/2016 [facility] HEMATOLOGY WBC 11.6 3.7 - 10.4 02/20/2016 [facility] HEMATOLOGY RBC 4.09 4.20 - 5.40 02/20/2016 [facility] HEMATOLOGY MCV 81.5 80.0 - 98.0 02/20/2016 [facility] HEMATOLOGY MCH 27.0 27.0 - 31.0 02/20/2016 [facility] HEMATOLOGY MCHC 33.1 32.0 - 36.0 02/20/2016 [facility] HEMATOLOGY RDW 15.3 11.5 - 14.5 02/20/2016 [facility] HEMATOLOGY Hgb 11.1 12.0 - 16.0 02/20/2016 [facility] HEMATOLOGY Hct 33.3 36.0 - 48.0 02/20/2016 [facility] HEMATOLOGY MPV 6.4 7.4 - 10.4 02/20/2016 [facility] HEMATOLOGY Platelet 451 133 - 450 02/20/2016 [facility] CHEM PANEL Calcium Lvl 9.1 8.5 - 10.5 02/19/2016 [facility] CHEM PANEL CO2 26 24 - 32 02/19/2016 [facility] CHEM PANEL Chloride Lvl 103 95 - 109 02/19/2016 [facility] CHEM PANEL Potassium Lvl 3.6 3.5 - 5.1 02/19/2016 [facility] CHEM PANEL eGFR 46 02/19/2016 Result Comment: The eGFR is calculated using the [...] from the National Kidney Disease Education Program (NKDEP) which additionally recommends that when the eGFR is used in patients with extremes of body mass index for purposes of drug dosing, the eGFR should be multiplied by the estimated BMI. [facility] CHEM PANEL Glucose Lvl 116 70 - 99 02/19/2016 [facility] CHEM PANEL BUN 9 7 - 22 02/19/2016 [facility] CHEM PANEL Creatinine Lvl 1.20 0.50 - 1.40 02/19/2016 [facility] CHEM PANEL Sodium Lvl 137 135 - 145 02/19/2016 [facility] CHEM PANEL AGAP 11.6 10.0 - 20.0 02/19/2016 [facility] CHEM PANEL Magnesium Lvl 2.1 1.8 - 2.4 02/17/2016 [facility] HEMATOLOGY PTT 32.9 22.9 - 35.8 02/16/2016 [facility] URINE AND STOOL UA Spec Grav >=1.050 *ABN* (02/16/16 12:45 AM) <=1.030 02/16/2016 [facility] URINE AND STOOL UA Urobilinogen <=1.0 mg/dL 0.1 - 1.0 02/16/[address] [facility] [address] URINE AND STOOL UA Protein Negative mg/dL Negative mg/dL 02/16/[address] [address] URINE AND STOOL UA pH 5.0 5.0 - 8.0 02/16/2016 [facility] URINE AND STOOL UA Turbidity Clear (02/16/16 12:45 AM) Clear 02/16/2016 [facility] URINE AND STOOL UA Color Yellow *NA* (02/16/16 12:45 AM) Yellow 02/16/2016 [facility] URINE AND STOOL UA Nitrite Negative (02/16/16 12:45 AM) Negative 02/16/2016 [facility] URINE AND STOOL UA Blood Small *ABN* (02/16/16 12:45 AM) Negative 02/16/2016 [facility] URINE AND STOOL UA Bili Negative *NA* (02/16/16 12:45 AM) Negative 02/16/2016 [facility] URINE AND STOOL UA Ketones Negative mg/dL Negative mg/dL 02/16/2016 [facility] URINE AND STOOL UA Glucose Negative mg/dL Negative mg/dL 02/16/2016 [facility] URINE AND STOOL UA Mucus Few /LPF None Seen /LPF 02/16/2016 [facility] URINE AND STOOL UA RBC 21 0 - 2 02/16/2016 [facility] URINE AND STOOL UA Trans Epi 6 <=0 /LPF 02/16/2016 [facility] URINE AND STOOL UA Sq Epi Few /LPF Few /LPF 02/16/2016 [facility] URINE AND STOOL UA Leuk Est Small *ABN* (02/16/16 12:45 AM) Negative 02/16/2016 [facility] URINE AND STOOL UA WBC 2 0 - 5 02/16/2016 [facility] CHEM PANEL Total Protein 8.3 6.4 - 8.4 02/16/2016 [facility] CHEM PANEL Albumin Lvl 3.5 3.5 - 5.0 02/16/2016 [facility] CHEM PANEL ALT 27 0 - 65 02/16/2016 [facility] CHEM PANEL Alk Phos 79 39 - 136 02/16/2016 [facility] CHEM PANEL AST 22 0 - 37 02/16/2016 [facility] CHEM PANEL Bili Total <0.1 0.2 - 1.3 02/16/2016 [facility] CHEM PANEL B/C Ratio 12 6 - 25 02/16/2016 [facility] CHEM PANEL A/G Ratio 0.7 0.7 - 1.6 02/16/2016 [facility] CHEM PANEL Globulin 4.8 2.7 - 4.2 02/16/2016 [facility] CHEM PANEL Lipase Lvl 127 73 - 393 02/16/2016 [facility] Pathology Reports No Data Provided for This Section Diagnostic Reports Report Value Date Source Spine Lumbar Comp w Bend views DX EXAM: XR LUMBAR SPINE 2 VIEWS DATE: 05/03/2019 13:49 PERFORMANCE ANALYST INDICATION: - chronic bilateral low back pain with right sided sciatica COMPARISON: February 22, 2016 TECHNIQUE: AP and lateral radiographs of the lumbar spine FINDINGS:. Mild scoliosis is present of the lumbar spine centered at L3 with a convexity to the left. Grade 1 listhesis of L2/L3/L4 is noted. Diffuse spondylotic changes are seen involving the lower lumbar spine. No soft tissue abnormality is identified. IMPRESSION: No bony abnormality. Multilevel diffuse degenerative changes with grade 1 listhesis of L2/3/4 levels. Midlumbar scoliosis centered at L3 with a convexity to the left.. 05/03/2019 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 TECHNIQUE: 4 views of the knee FINDINGS: Right total knee arthroplasty hardware seen in place. No acute hardware complications. No knee joint effusion is present. No soft tissue abnormality is identified. IMPRESSION: No acute abnormality. 05/03/2019 [facility] Spine cervical wo contrast MRI EXAM: Spine cervical wo contrast MRI DATE: 08/02/2018 10:26 CDT . ORDERING PHYSICIAN: Grady Burk MD CLINICAL INDICATION: M54.12 Radiculopathy, cervical region - M54.12 Radiculopathy, cervical region; TECHNIQUE: Multiplanar, multisequence MRI cervical spine without IV contrast COMPARISON: Unavailable FINDINGS: VISUALIZED INTRACRANIAL CONTENTS: Unremarkable. CRANIOCERVICAL JUNCTION: The cerebellar tonsils are in normal position. SPINAL CORD: No definite cord signal abnormality. No definite dural based lesion. VERTEBRAE: The vertebrae are normal in height. The lordosis is straightened. No focal suspicious bone marrow signal abnormality. PARASPINAL SOFT TISSUES: No edema or masses DISC LEVELS, SPINAL CANAL, NEURAL FORAMINA: Craniocervical junction: No stenosis C1-C2: No subluxation, ligamentous pannus formation, or stenosis C2-C3: Intervertebral disc height and signal are maintained. There is left facet hypertrophy. Central canal measures 15 mm. There is moderate narrowing of left neural foramen. C3-C4: The disc height is maintained. There is hyperintensity within the disc. There is left greater than right facet hypertrophy. Central canal measures 12 mm. The neural foramina are patent. C4-C5: Dehydrated disc with diffuse bulge/osteophyte complex. There is subtle grade 1 anterolisthesis of C4 relative to C5. There is bilateral facet hypertrophy, right greater than left. Central canal measures 12 mm with partial effacement of ventral CSF space. There is moderate to severe narrowing of the neural foramina, right greater than left. C5-C6: Desiccated disc with circumferential disc osteophyte complex. There is bilateral facet and uncinate hypertrophy. Central canal measures 9 mm with slight ventral spinal cord contour deformity. There is severe narrowing of left neural foramen. C6-C7: Desiccated disc with circumferential disc osteophyte complex. There is left greater than right uncinate hypertrophy. Facets are unremarkable. Central canal measures 7 mm with ventral spinal cord contour deformity. There is moderate to severe narrowing of the left neural foramen and mild narrowing of the right. C7-T1: Intervertebral disc height and signal are maintained. There is mild left facet hypertrophy. There is no stenosis. IMPRESSION: 1. Spinal stenosis with ventral spinal c ord contour deformities at C4-C5 and C5- C6. There is no evidence of spinal cord edema or myelopathy. 2. Multiple levels of potentially signif icant (moderate or worse) neural foramen narrowing detailed by level above 3. Increased signal in the C3-C4 disc wi thout signal abnormality in the vertebral bodies or prevertebral soft tissues is likely degenerative. Early discitis is thought less likely. Correlation with complete blood count and ESR recommended. 08/02/2018 [facility] Hand 2 views Bilateral DX EXAM : XR BILATERAL HAND 2 VIEWS DATE: 06/06/2018 16:24 PERFORMANCE ANALYST INDICATION: - M15.9 Polyosteoarthritis, unspecified COMPARISON: Bilateral hand radiographs 03/21/2017 TECHNIQUE: Bilateral PA, lateral radiographs of the hands. FINDINGS: Right hand: Diffuse osteopenia noted. No fracture, periosteal reaction, or erosions identified. Joint alignment is normal. Unchanged joint space narrowing and moderate-large osteophytes present at the first CMC, second through 5th PIP, third and 5th DIP, and first IP joints. Small osteophytes and joint space narrowing present at the triscaphe joint. Soft tissues are unremarkable. Left hand: Diffuse osteopenia present. No fracture, periosteal reaction, or erosions identified. Unchanged appearance of third PIP arthroplasty with out evidence of hardware failure. There remains less than 1 mm perihardware lucency about the prosthetic components with unchanged volar tilt of the proximal phalangeal prosthesis. Postoperative changes of trapezium resection noted. Minimal ulnar subluxation of the second distal phalanx noted at the DIP joint. Unchanged joint space narrowing and moderate-large osteophytes present at the third and 5th PIP, second and 5th DIP, and first IP joints. Small osteophytes and joint space narrowing present at the triscaphe joint. Soft tissues are unremarkable. IMPRESSION: Moderate-severe osteoarthrosis of bilateral interphalangeal joints as described. Unchanged appearance of left third PIP joint arthroplasty. Moderate-severe osteoarthrosis of the right first CMC joint. Diffuse osteopenia. Overall, findings are similar to the prior exam. 06/06/2018 [facility] Shoulder 2+ Views Bilateral DX EXAM: XR BILATERAL SHOULDER 3 VIEWS DATE: 07/31/2017 4:10 PM CDT INDICATION: - M25.512 Pain in left shoulder COMPARISON: None. TECHNIQUE: 3 views of the bilateral shoulders FINDINGS: Right shoulder: No acute fracture or malalignment is identified. There are small glenohumeral osteophytes. Calcifications above the coracoid and lateral to the acromion are suggestive of calcific tendinopathy. The glenohumeral joint is well aligned. Surgical clips project over the right chest. Left shoulder: No acute fracture or malalignment is identified. There is small glenoid osteophytes. There is a large ossicle inferior to the glenohumeral joint secondary to glenohumeral joint osteoarthrosis and osteophytes formation. There is narrowing of the subacromial space suggesting chronic rotator cuff pathology. There are degenerative changes of the acromial clavicular joint. Surgical clips project over the left axilla. IMPRESSION: 1. Narrowing of the subacromial space s uggesting chronic rotator cuff tear. 2. Calcific tendinopathy in the right s houlder. 3. Mild to moderate degenerative change s of the shoulders worse on the left. 07/31/2017 [facility] Retroperitoneal Complete US EX AM: Renal ultrasound. Urinary bladder ultrasound. CLINICAL HX: N18.3 Chronic kidney disease, stage 3 (moderate) - N18.3 Chronic kidney disease, stage 3 (moderate). Age: 71 years. Gender: Female. TECHNIQUE: Grayscale and Doppler sonogram of the kidneys. Grayscale and Doppler sonogram of the urinary bladder. COMPARISON: None. FINDINGS: Right kidney: -- Length: 12 cm. -- Cortical thickness: 0.9 cm. -- Hydronephrosis: Mild. -- Echogenicity: Within normal limits. -- Other: None. Left kidney: -- Length: 12.3 cm. -- Cortical thickness: 1.3 cm. -- Hydronephrosis: Mild. -- Echogenicity: Within normal limits. -- Other: None. Urinary bladder: -- Lumen: Unremarkable. -- Ureteral jets: Visualized bilaterally . -- Volume: Prevoid 172 cc, postvoid 0 cc . -- Other: None. Vascular: -- Aorta: Visualized portions are unrema rkable. -- Common iliac artery origins: Not wel l evaluated. -- IVC: Visualized portions are unremark able. Other: None. IMPRESSION: Renal: 1. Mild bilateral hydronephrosis. Bladder: 1. Unremarkable urinary bladder. 06/06/2017 [facility] Bladder US EXAM: Renal ultrasound. Urinary bladder ultrasound. CLINICAL HX: N18.3 Chronic kidney disease, stage 3 (moderate) - N18.3 Chronic kidney disease, stage 3 (moderate). Age: 71 years. Gender: Female. TECHNIQUE: Grayscale and Doppler sonogram of the kidneys. Grayscale and Doppler sonogram of the urinary bladder. COMPARISON: None. FINDINGS: Right kidney: -- Length: 12 cm. -- Cortical thickness: 0.9 cm. -- Hydronephrosis: Mild. -- Echogenicity: Within normal limits. -- Other: None. Left kidney: -- Length: 12.3 cm. -- Cortical thickness: 1.3 cm. -- Hydronephrosis: Mild. -- Echogenicity: Within normal limits. -- Other: None. Urinary bladder: -- Lumen: Unremarkable. -- Ureteral jets: Visualized bilaterally . -- Volume: Prevoid 172 cc, postvoid 0 cc . -- Other: None. Vascular: -- Aorta: Visualized portions are unrema rkable. -- Common iliac artery origins: Not wel l evaluated. -- IVC: Visualized portions are unremark able. Other: None. IMPRESSION: Renal: 1. Mild bilateral hydronephrosis. Bladder: 1. Unremarkable urinary bladder. 06/06/2017 [facility] Spine cervical 2 or 3 view DX EXAM: XR CERVICAL SPINE 3 VIEWS DATE: 03/21/2017 9:35 AM PERFORMANCE ANALYST INDICATION: Cervicalgia COMPARISON: None. TECHNIQUE: AP, open-mouth odontoid and lateral views of the cervical spine FINDINGS: There is bony demineralization. There is loss of normal cervical lordosis due to multilevel degenerative changes. There is grade 1 anterolisthesis of L2 relative to L3.This includes moderate disc height loss at C5-C6, and marked disc height loss at C6-C7. The remainder of vertebral body heights and the remainder of the disc heights are overall preserved.Multilevel uncovertebral and facet hypertrophy is present marginal osteophyte formation. No prevertebral or paraspinous soft tissue abnormality is identified. IMPRESSION: Marked degenerative changes as above, worse at the levels of C5-C6 and C6-C7. 03/21/2017 [facility] Hand 2 views Bilateral DX EXAM : XR BILATERAL HAND 2 VIEWS DATE: 03/21/2017 9:35 AM PERFORMANCE ANALYST INDICATION: - M15.9 Polyosteoarthritis, unspecified COMPARISON: None. TECHNIQUE: PA and lateral radiographs of the bilateral hands. FINDINGS: No acute fracture or malalignment is identified. There is moderate to severe PIP and DIP joint space narrowing of the bilateral digits. Marginal osteophyte formation is present across the phalanges. Silastic silicone joint replacement of the 3rd digit PIP joint is present with satisfactory appearance. Carpometacarpal and carpal joints are maintained. No soft tissue abnormality is identified. IMPRESSION: 1. Osteoarthritis of the bilateral hand s as above. 2. Satisfactory appearance of 3rd digit joint Silastic joint replacement. 03/21/2017 [facility] Chest 2 views DX Exam: Two-vie w chest x-ray Reason for Exam: - chronic cough Comparison Exam: None Discussion: Cardiomediastinal silhouette is within normal limits. Both hemidiaphragms well visualized. No pulmonary edema or pleural effusions. No focal lung consolidations. Trachea is midline. No acute bony abnormalities. Mild multilevel degenerative disc disease seen within the thoracic spine. Impression: 1. No acute cardiopulmonary abnormaliti es. 02/10/2017 [facility] Bone Density [employer] MA BONE DENSITY EVALUATION: 02/10/2017 CLINICAL DATA: Post menopausal and clinical risk for osteoporosis. Encounter For Screening For Osteoporosis, Unspecified Menopausal And Perimenopausal Disorder/Z13.820 , N95.9 RISK FACTORS: race. FINDINGS: Bone density evaluation was performed 02/10/2017 on the right femur neck using a Hologic unit. The BMD average for the exam is 0.948 g/cm2. The T-score is 0.90 and the Z-score is 2.70. This matches the World Health Organization's criteria for normal bone density and places the patient within normal limits of fracture risk. An additional bone density evaluation was performed 02/10/2017 on the left femur neck using a Hologic unit. The BMD average for the exam is 0.879 g/cm2. The T- score is 0.30 and the Z-score is 2.10. This matches the World Health Organization's criteria for normal bone density and places the patient within normal limits of fracture risk. An additional bone density evaluation was performed 02/10/2017 on the right hip using a Hologic unit. The BMD average for the exam is 0.951 g/cm2. The T-score is 0.10 and the Z-score is 1.60. This matches the World Health Organization's criteria for normal bone density and places the patient within normal limits of fracture risk. An additional bone density evaluation was performed 02/10/2017 on the left hip using a Hologic unit. The BMD average for the exam is 0.918 g/cm2. The T-score is -0.20 and the Z-score is 1.30. This matches the World Health Organization's criteria for normal bone density and places the patient within normal limits of fracture risk. An additional bone density evaluation was performed 02/10/2017 on the AP L1-L3 region of spine using a Hologic unit. The BMD average for the exam is 1.234 g/cm2. The T-score is 2.00 and the Z-score is 4.00. This matches the World Health Organization's criteria for normal bone density and places the patient within normal limits of fracture risk. IMPRESSION: BONE DENSITY WITHIN NORMAL LIMITS Patient is at normal risk for fracture. Patient consult w/primary care provider is recommended. This exam was interpreted at [id number] for KATARINA Calix 15. Arlen Sullivan M.D., ms/kassidy:02/13/2017 09:40:05 Trout Farmer(s): Julee De Souza RT(R)(M), [facility] 02/10/2017 [facility] Abdomen/Pelvis w IV contrast CT Patient Name: ALEXANDER RICO : 1945; Age: 70 years y/o Female MR: [id number] Study: Abdomen/Pelvis w IV contrast CT 02/22/2016 8:00 AM CDT Ordering Physician: Clinical Indication: Abdominal pain, chronic; Comparison: 02/15/2016 CT abdomen and pelvis with IV and oral contrast. FINDINGS: Colonic diverticulosis. Circumferential segmental colonic wall thickening and mild pericolonic infiltration associated with the sigmoid colon. This appears slightly improved since 02/15/2016. There is no gisela bowel perforation, abscess, or free air. No portal venous gas. Visualized lung bases remain clear. Liver, spleen, pancreas, adrenal glands and kidneys are otherwise at baseline. Normal appendix is noted. IMPRESSION: Sigmoid diverticulitis/colitis. The degree of regional inflammation is slightly improved since 02/15/2016. There is no evidence for perforation or abscess. SL: [id number] 02/22/2016 [facility] Abdomen/Pelvis IV contrast only CT EXAM: CT ABDOMEN AND PELVIS WITH CONTRAST [...] treatment is recommended to exclude underlying malignancy. SL: [id number] 02/15/2016 [facility] Consultation Notes No Data Provided for This Section Discharge Summaries No Data Provided for This Section History and Physicals No Data Provided for This Section Vital Signs Vital Sign Value Date Comments Source Systolic (mm Hg) 135 02/23/2016 [facility] Diastolic (mm Hg) 74 02/23/2016 [facility] Respitory Rate 18 02/23/2016 [facility] Heart Rate 65 02/23/2016 [facility] Temperature Oral (F) 98.4 F 02/23/2016 [facility] Systolic (mm Hg) 127 02/23/2016 [facility] Diastolic (mm Hg) 68 02/23/2016 [facility] Temperature Oral (F) 98.7 F 02/23/2016 [facility] Respitory Rate 18 02/23/2016 [facility] Heart Rate 61 02/23/2016 [facility] Respitory Rate 18 02/23/2016 [facility] Heart Rate 73 02/23/2016 [facility] Systolic (mm Hg) 131 02/23/2016 [facility] Diastolic (mm Hg) 67 02/23/2016 [facility] Temperature Oral (F) 98.6 F 02/23/2016 [facility] Height 177.8 cm 02/16/2016 [facility] Weight 104.005 02/16/2016 [facility] BMI Calculated 32.9 02/16/2016 [facility] Weight 104.545 02/15/2016 [facility] BMI Calculated 33.07 02/15/2016 [facility] Height 177.8 cm 02/15/2016 [facility] Systolic (mm Hg) 137 09/30/2015 [facility] Diastolic (mm Hg) 64 09/30/2015 [facility] Respitory Rate 16 09/30/2015 [facility] Systolic (mm Hg) 137 09/30/2015 [facility] Diastolic (mm Hg) 64 09/30/2015 [facility] Respitory Rate 16 09/30/2015 [facility] Systolic (mm Hg) 125 09/30/2015 [facility] Diastolic (mm Hg) 70 09/30/2015 [facility] Respitory Rate 20 09/30/2015 [facility] Height 177.8 cm 09/29/2015 [facility] Weight 105.455 09/29/2015 [facility] BMI Calculated 33.36 09/29/2015 [facility] Encounters Location Location Details Encounter Type Encounter Number Reason For Visit Attending Provider ADM Date DC Date Status Source AUDIT [id number] 08/25/2012 08/25/2012 [facility] AUDIT [id number] 11/15/2012 11/15/2012 [facility] NEW, Provi alexa: SAMARA,RADHA, Status: Pen, Time: 9:00 AM [id number] 11/16/19 13 08/25/2012 [facility] AUDIT [id number] 02/12/2013 02/12/2013 [facility] E30, Provi alexa: SAMARA,RADHA, Status: Pen, Time: 11:00 AM [id number] 02/14/20 13 02/12/2013 [facility] AUDIT [id number] 02/14/2013 02/14/2013 [facility] AUDIT [id number] 03/21/2013 03/21/2013 [facility] AUDIT [id number] 05/14/2013 05/14/2013 [facility] AUDIT [id number] 05/16/2013 05/16/2013 [facility] E30, Provi alexa: SAMARA,RADHA, Status: Pen, Time: 4:30 PM [id number] 05/16/19 14 03/21/2013 [facility] Outpatient [id number] Ceferino Lang 09/30/2015 09/30/2015 [facility] Inpatient [id number] Zbigniew Patel 02/15/2016 02/23/2016 [facility] [place] [facility] [id number] 00 Don Goins 02/10/2017 02/11/2017 [facility] [place] [facility] [place] [facility] [id number] 01 Gilmar Johnlycas 03/21/2017 03/22/2017 [facility] [place] [facility] [id number] 02 Ten Still 06/06/2017 06/07/2017 [facility] [place] [facility] [place] [facility] [id number] 03 Jazmyne Johnlycas 07/31/2017 08/01/2017 [facility] [place] [facility] [id number] 04 Gilmar Mcdonald 06/06/2018 06/07/2018 [facility] [place] [facility] [id number] 05 Grady Burk 08/02/2018 08/03/2018 [facility] [place] [facility] AfterYes Phone Message [id number] 08/22/1908/23/2018 [facility] AfterYes Phone Message [id number] 11/01/1911/02/2018 [facility] [place] Out[facility] Di[facility] [id number] 06 [facility] 05/03/2019 05/04/2019 [facility] [place] [facility] Patients [id number] [facility] 05/14/2019 06/13/2019 [facility] [place] Procedures Procedure Code Date Perfomer Comments Source Cataract surgery [id number] [facility], [facility] [place],[facility] Endometrial resection<sup>1</sup> [id number] one ovary removed the that time also [facility], DELIA Dixon,[facility] [place],[facility] Knee replacement<sup>2</sup> 1 [id number] bilaterial left in 2009, right in 2014 [facility], DELIA Dixon,[facility] [place],[facility] Mastectomy<sup>3, 4</sup> 6903 [id number] bilateral c tram flap reconstructiondouble [facility], [facility] [place],[facility] Operation<sup>5</sup> [id number] left finger joint replacemen t [facility], DELAI Dixon,[facility] [place],[facility] Ovary operation<sup>6</sup> [id number] one ovary removed [facility], DELIA Dixon,[facility] [place],[facility] Assessment and Plan Assessment and Plan Date Source Extracted from:Title: Clinical Document Author: Zbigniew Patel DO Date: 02/23/16 Progress Daily [facility] Completed: Feb, 09:57 by Zbigniew Patel DO RM: 154 - 1P, SE C1A ALEXANDER RICO 70y (: 1945) F Attending: Zbigniew Patel DO Service: Internal Medicine Reason for Admission: ACUTE DIVERTICULAITIS Working DRG: Esophagitis, gastroent and misc digest disorders w/o [facility] Code status: Full Code [Ordered] Current diet: Isolation: None Documented Allergies: sulfa drugs SUBJECTIVE Patient seen and examined. Events noted overnight. Labs/Images reviewed doing ok, no other issues. no abd cramping overnight OBJECTIVE ASSESSMENT and EXAM Gen: NAD, Alert, Awake HEENT: NC/AT, PERRLA, oral area clear and moist Neck: No LAD, No JVD, trachea midline Chest: CTAB, no c/w/r CV: RRR, S1, S2 GI: +BS, S, mild tenderness LLQ and suprapubic area with no rebound, No organomegaly Ext: no c/c/e Neuro: AOx3, no gross deficits noted Skin: No notable rashes PLAN and TREATMENT d/w ID yesrday night - ok for pt to be on augmentinto complete treatmen given flagyl causes nausea on the pt d/w pt and family and answered question sliding insulin scale monitor BP CT scan results - shows imrpovement ok to dc home today with PO abx for completion of 14 day total DIAGNOSES and PROBLEMS acute sigmoid diverticulitis DM 2 HTN leukocytosis UTI - E.coli hypokalemia Ready for Discharge (Yes/No)? Loera still necessary (Yes/No): Line still necessary (Yes/No): (no lab data in past 24 hours) Vitals Tmp(F) Pulse BP RR SpO2 FIO2 02/22 08:39 98.4 65 135/74 1 8 95 --- 02/22 04:00 98.7 61 127/68 1 8 95 --- 02/22 00:00 ---- 73 131/67 1 8 91 --- 02/21 20:00 98.6 69 121/76 1 8 97 --- 02/21 16:19 98.8 72 129/80 1 8 93 --- 24 Hr Tmax: 98.8F (37.11c) at 02/21 16:1 9 Vital Signs are the last 5 in the past 48 hours. Date Wt(kg) Wt(lb) Ht(cm) Ht(in) Method 02/15 104.00 228.81 177.80 70.00 Measured 02/14 (initial) 104.55 230.00 Estimated 02/14 177.80 70.00 Stated I&O Record In Out Bal 02/21 24hr Tot 265 0 265 02/20 24hr Tot 1862 0 1862 Medications (25) Active Scheduled Meds (16): 02/16/16 cholecalciferol (Vitamin D3 200 0 intl units oral tablet) 2,000 IntlUnit PO Daily 02/16/16 cyanocobalamin (Vitamin B12) 1, 000 microgram PO Daily 02/16/16 dicyclomine 20 mg PO QID 02/16/16 enoxaparin 40 mg SUB-Q [id number] 02/16/16 hydrochlorothiazide (hydrochlor othiazide 25 mg oral [...] Time Meds: None Continuous Infusions: None Extracted from:Title: Clinical Document Author: Ricci Mullen MD Date: [...] HTN in her mother ALLERGIES: Allergies (1) Active Reaction sulfa drugs None documented HOME MEDICATIONS: Please see medical reconciliation form. SOCIAL HISTORY: no smoking, EtOH or drug use REVIEW OF SYSTEMS: 12-point review of systems negative except for that detailed in above HPI PHYSICAL EXAMINATION: Vitals Tmp(F) Pulse BP RR SpO2 FIO2 02/15 02:41 ---- 65 134/83 1 8 100 --- 02/15 00:46 ---- 60 155/68 1 7 100 --- 02/14 23:27 97.5 72 154/84 1 8 99 --- 02/14 18:09 98.1 83 133/79 1 8 98 --- 24 Hr Tmax: 98.1F (36.72c) at 02/14 18:0 9 Vital Signs are the last 5 in the past 48 hours. I&O Record In Out Bal 02/14 24hr Tot 302 0 302 02/13 24hr Tot 0 0 0 GENERAL: in no [...] Labs (Last four charted values) WBC H 13.8 (FEB 14) Hgb 12.1 (FEB 14) Hct 36.8 (FEB 14) Plt H 635 (FEB 14) Na 135 (FEB 14) K L 3.4 (FEB 14) CO2 29 (FEB 14) Cl 96 (FEB 14) Cr 1.30 (FEB 14) BUN 16 (FEB 14) Glucose Random H 107 (FEB 14) Ca 9.3 (FEB 14) Radiology: EXAM: CT ABDOMEN AND PELVIS [...] reconcile natalya e meds. admission level i3 02/23/2016 [facility] Plan of Care No Data Provided for This Section Social History Social History Date Source Social History TypeResponse Alcohol Never Smoking Status Never smoker; Exposure to Tobacco Smoke None; Cigarette Smoking Last 365 Days No; Reg Smoking Cessation Counseling No entered on: 02/16/16 09/29/2015 [facility] Social History TypeResponse Alcohol Never Smoking Status Never smoker; Exposure to Tobacco Smoke None; Cigarette Smoking Last 365 Days No; Reg Smoking Cessation Counseling No entered on: 02/16/16 09/29/2015 [facility] Dixon Social History TypeResponse Alcohol Never Smoking Status Never smoker; Exposure to Tobacco Smoke None; Cigarette Smoking Last 365 Days No; Reg Smoking Cessation Counseling No entered on: 02/16/16 09/29/2015 [facility] Social History TypeResponse Alcohol Never Smoking Status Never smoker; Exposure to Tobacco Smoke None; Cigarette Smoking Last 365 Days No; Reg Smoking Cessation Counseling No 09/29/2015 [facility] Social History TypeResponse Alcohol Never Smoking Status Never smoker; Exposure to Tobacco Smoke None; Cigarette Smoking Last 365 Days No; Reg Smoking Cessation Counseling No entered on: 02/16/16 09/29/2015 [facility] [place] Marital History - Currently (Active) Never A Smoker (Active) Never Drank Alcohol (Active) 05/16/2013 [facility] Family History Value Date S ource Family history of Diabetes Mellitus (V18 .0); (Active) Family history of Coronary Artery Disease (V17.49); (Active) Family history of Cerebral Artery Occlusion (Active) No Family history of Pancreatitis (Denied) No Family history of Thyroid Cancer (Denied) Family history of Congestive Heart Failure (Active) 05/16/2013 [facility] Family history of Diabetes Mellitus (V18 .0); (Active) Family history of Coronary Artery Disease (V17.49); (Active) Family history of Cerebral Artery Occlusion (Active) No Family history of Pancreatitis (Denied) No Family history of Thyroid Cancer (Denied) Family history of Congestive Heart Failure (Active) 05/14/2013 [facility] Family history of Diabetes Mellitus (V18 .0); (Active) Family history of Coronary Artery Disease (V17.49); (Active) Family history of Cerebral Artery Occlusion (Active) No Family history of Pancreatitis (Denied) No Family history of Thyroid Cancer (Denied) Family history of Congestive Heart Failure (Active) 03/21/2013 [facility] Family history of Diabetes Mellitus (V18 .0); (Active) Family history of Coronary Artery Disease (V17.49); (Active) Family history of Cerebral Artery Occlusion (Active) No Family history of Pancreatitis (Denied) No Family history of Thyroid Cancer (Denied) Family history of Congestive Heart Failure (Active) 02/14/2013 [facility] Family history of Diabetes Mellitus (V18 .0); (Active) Family history of Coronary Artery Disease (V17.49); (Active) Family history of Cerebral Artery Occlusion (Active) No Family history of Pancreatitis (Denied) No Family history of Thyroid Cancer (Denied) Family history of Congestive Heart Failure (Active) 02/12/2013 [facility] Family history of Diabetes Mellitus (V18 .0); (Active) Family history of Coronary Artery Disease (V17.49); (Active) Family history of Cerebral Artery Occlusion (Active) No Family history of Pancreatitis (Denied) No Family history of Thyroid Cancer (Denied) Family history of Congestive Heart Failure (Active) 11/15/2012 [facility] No Family history of Thyroid Cancer (Denied) No Family history of Pancreatitis (Denied) Family history of Cerebral Artery Occlusion (Active) Family history of Coronary Artery Disease (V17.49); (Active) Family history of Diabetes Mellitus (V18.0); (Active) Family history of Congestive Heart Failure (Active) 08/25/2012 [facility] Advance Directives Order Name Results Value Date Source Advance Directives Advance Dir ectives No Advance Directives available. 05/16/2013 [facility] Advance Directives Advance Dir ectives No Advance Directives available. 05/14/2013 [facility] Advance Directives Advance Dir ectives No Advance Directives available. 03/21/2013 [facility] Advance Directives Advance Dir ectives No Advance Directives available. 02/14/2013 [facility] Advance Directives Advance Dir ectives No Advance Directives available. 02/12/2013 [facility] Advance Directives Advance Dir ectives No Advance Directives available. 11/15/2012 [facility] Advance Directives Advance Dir ectives No Advance Directives available. 08/25/2012 [facility] Functional Status No Data Provided for This Section
--- OUTSIDE RECORDS SUMMARY | 2019-10-17 21:47 | XMS REPORT | Summary of Care ---
Author Author ALEXANDER Moctezuma M.A. Organization Unknown Address [facility] Phone Unavailable Care Team Providers Care Sort Worker Name Role Phone SAMARA Herzog, RADHA Unavailable Unavailable SHILOH Herzog, FAROKH Unavailable Unavailable Jose Elias Gayle, Garo Unavailable Unavailable LAINE Herzog, CEFERINO Unavailable Unavailable JOSE LUIS D.OFlaquito, CAMERON-ISATU Unavailable Unavailable EDWARD N.P., MERCEDEZ Unavailable Unavailable THU Herzog, JULIOA Unavailable Unavailable LEENA Herzog, FREDDY Unavailable Unavailable JOSE RAMESH, DIVYA Villalobos Unavailable Unavailable YNES LONDON UT, ODIN Aponte Unavailable Unavailable SHILOH RAMESH UT, CORIE Unavailable Unavailable Laine RAMESH, Ceferino Unavailable Unavailable THU RAMESH, ARABELLA Unavailable Unavailable PAULINO RAMESH UT, JOY TUCKER Unavailable Unavailable JOSE Herzog, DIVYA Unavailable Unavailable LEENA RAMESH, FREDDY W Unavailable Unavailable DUKE NEDRA UT, DANNY RAMOS Unavailable Unavailab butch ANDERSON MD, LIZ Unavailable Unavailable YEH DO UT, JOSÉ MIGUEL Unavailable Unavailable Unavailable Unavailable Functional Status Name Dates Details Functional status health issues are not documented Status: Name Dates Details Cognitive status health issues are not d ocumented Status: Problems Name Dates Details Chronic insomnia (780.52, F51.04) Status: Active Colon cancer screening (V76.51, Z12.11) Status: Active Dysphagia (787.20, R13.10) Status: Active Peptic ulcer (533.90, K27.9) Status: Active History of asthma (V12.69, Z87.09) Status: Resolved Menopausal and perimenopausal disorder ( 627.9, N95.9) Status: Active Need for pneumococcal vaccine (V03.82, Z 23) Status: Active Need for Zostavax administration (V04.89 , Z23) Status: Active Motion sickness (994.6, T75.3XXA) Status: Active Dysuria (788.1, R30.0) Status: Active Atypical chest pain (786.59, R07.89) Status: Active Abnormal EKG (794.31, R94.31) Status: Active Abnormal glucose (790.29, R73.09) Status: Active Gastroesophageal reflux disease with eso phagitis (530.11, K21.0) Status: Active Atrophic vaginitis (627.3, N95.2) Status: Active NSAID long-term use (V58.64, Z79.1) Status: Active Osteoporosis screening (V82.81, Z13.820) Status: Active Dizziness (780.4, R42) Status: Active Urinary tract infection (599.0, N39.0) Status: Active Tachycardia, unspecified (785.0, R00.0) Status: Active Subdeltoid bursitis, left (726.19, M75.5 2) Status: Active Ascending aorta dilation (447.71, I77.81 0) Status: Active BMI 34.0-34.9,adult (V85.34, Z68.34) Status: Active Sleep apnea (780.57, G47.30) Status: Active Renal insufficiency (593.9, N28.9) Status: Active Chronic fatigue (780.79, R53.82) Status: Active Chronic pain of both shoulders (719.41, M25.511) Status: Active IBS (irritable bowel syndrome) (564.1, K 58.9) Status: Active Elevated sedimentation rate (790.1, R70. 0) Status: Active Peripheral neuropathy (356.9, G62.9) Status: Active Iron deficiency anemia (280.9, D50.9) Status: Active Lower abdominal pain (789.09, R10.30) Status: Active History of recurrent UTIs (V13.02, Z87.4 40) Status: Active Reactive airway disease (493.90, J45.909 ) Status: Active Bereavement reaction (309.0, F43.20) Status: Active Chronic cough (786.2, R05) Status: Active Rib pain on left side (786.50, R07.81) Status: Active Strain of neck muscle, initial encounter (847.0, S16.1XXA) Status: Active Pain in both hands (729.5, M79.641) Status: Active Chronic neck pain (723.1, M54.2) Status: Active Arthralgia of hand, left (719.44, M25.54 2) Status: Active Arthralgia of hand, right (719.44, M25.5 41) Status: Active Chronic GERD (530.81, K21.9) Status: Active Neck pain (723.1, M54.2) Status: Active Cervical radicular pain (723.4, M54.12) Status: Active Cervical spondylosis (721.0, M47.812) Status: Active Myofascial pain (729.1, M79.18) Status: Active Subdeltoid bursitis, right (726.19, M75. 51) Status: Active Recurrent UTI (599.0, N39.0) Status: Active Urinary incontinence (788.30, R32) Status: Active Acute seasonal allergic rhinitis (477.8, J30.2) Status: Active Hearing loss of right ear due to cerumen impaction (389.8, H61.21) Status: Active Long-term use of hydroxychloroquine (V58 .69, Z79.899) Status: Active Abnormal laboratory test (796.4, R89.9) Status: Active Chronic pain of right wrist (719.43, M25 .531) Status: Active 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, M19.049) Status: Active Generalized osteoarthritis of multiple s ites (715.09, M15.9) Status: Active Encounter for monitoring of hydroxychlor oquine therapy (V58.83, Z51.81) Status: Active Positive SHERRY (antinuclear antibody) (795 .79, R76.8) Status: Active De Quervain's disease (tenosynovitis) (7 27.04, M65.4) Status: Active Primary osteoarthritis of right hand (71 5.14, M19.041) Status: Active Anemia (285.9, D64.9) Status: Active Other hyperlipidemia (272.4, E78.49) Status: Active Burning with urination (788.1, R30.0) Status: Active Leukocytes in urine (791.7, R82.998) Status: Active E. coli UTI (urinary tract infection) (5 99.0, N39.0) Status: Active Asthma, persistent (493.90) Status: Active 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, K22.70) Status: Active Depression (311, F32.9) Status: Active Asthma exacerbation (493.92, J45.901) Status: Active Acute pain of right knee (719.46, M25.56 1) Status: Active 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 (724.2, M54.41) Status: Active Chronic major depressive disorder, recur rent episode (296.30, F33.9) Status: Active CKD (chronic kidney disease) (585.9, N18 .9) Status: Active Diabetes mellitus, type II (250.00, E11. 9) Status: Active Hypothyroidism (244.9, E03.9) Status: Active Essential (primary) hypertension (401.9, I10) Status: Active Medications Name Dates Details Levothyroxine Sodium 125 MCG Oral Tablet TAKE 1 TABLET DAILY MONDAY THROUGH MONDAY only Quantity: 78 YEH D.O., CAMERON-ISATU * Start : 13-Aug-2012 Active Montelukast Sodium 10 MG Oral Tablet TAKE 1 TABLET DAILY * Quantity: 90 Refills: 1 YEH D.O., JOSÉ MIGUEL * Start : 13-Aug-2012 Active Accu-Chek Guide In Vitro Strip TEST DIRECTED TWICE A DAY * Quantity: 2 Refills: 3 RADHA PASCUAL M.D. * Start : 13-Aug-2012 Active 100 Strip Box Vitamin D3 50 MCG (2000 UT) Oral Capsule 1 a day * Quantity: 100 Refills: 6 RADHA PASCUAL M.D. * Start : 14-Aug-2012 Active Accu-Chek FastClix Lancets Check BG 2x a day * Quantity: 2 Refills: 3 RADHA PASCUAL M.D. * Start : 21-Mar-2013 Active 102 Unit Box Ventolin HFA 108 (90 Base) MCG/ACT Inhalation Aerosol Solution USE 2 INHALATIONS ORALLY 3 TIMES DAILY NEEDED * Quantity: 3 Refills: 1 YEH D.O.JOSÉ MIGUEL * Start : 16-May-2013 Active 18 GM Inhaler B-12 TR 1000 MCG Oral Tablet Extended Release TAKE 1 TABLET DAILY DIRECTED. * Refills: 0 RADHA PASCUAL M.D. * Start : 24-Sep-2013 Active Vitamin C 100 MG Oral Tablet One tablet taken with iron pills - per PT * Refills: 0 * Start : 22-Aug-2017 Active Dicyclomine HCl - 20 MG Oral Tablet Take 1 tablet 3 times a day * Quantity: 270 Refills: 1 CEFERINO JANG M.D. * Start : 14-Sep-2015 Active Pantoprazole Sodium 40 MG Oral Tablet Delayed Release TAKE 1 TABLET DAILY * Quantity: 90 Refills: 1 YEH D.O., JOSÉ MIGUEL * Start : 17-Jun-2014 Active Viibryd 20 MG Oral Tablet TAKE 1 TABLET DAILY * Quantity: 90 Refills: 1 YEH D.O., JOSÉ MIGUEL * Start : 19-Mar-2015 Active Advair Diskus 250-50 MCG/DOSE Inhalation Aerosol Powder Breath Activated INHALE 1 PUFF TWICE DAILY. * Quantity: 1 Refills: 5 YEH D.O., JOSÉ MIGUEL * Start : 11-Oct-2016 Active 14 Each Pack Rosuvastatin Calcium 10 MG Oral Tablet TAKE 1 TABLET AT BEDTIME (REPLACING PRAVASTATIN) * Quantity: 90 Refills: 0 RADHA PASCUAL M.D. * Start : 21-Mar-2016 Active amLODIPine Besylate 10 MG Oral Tablet TAKE 1 TABLET DAILY * Quantity: 90 Refills: 2 YEH D.O., JOSÉ MIGUEL * Start : 17-Apr-2017 Active Nebulizer/Tubing/Mouthpiece KIT USE DIRECTED. * Quantity: 1 Refills: 0 LEON N.P., MERCEDEZ * Start : 23-Dec-2017 Active Albuterol Sulfate 0.63 MG/3ML Inhalation Nebulization Solution USE 1 UNIT DOSE IN NEBULIZER EVERY 4 TO 6 HOURS NEEDED. * Quantity: 75 Refills: 0 LEON N.P., MERCEDEZ * Start : 22-Mar-2018 Active Acetaminophen 500 MG Oral Tablet TAKE 2 TABLET Every 8 hours PRN MDD:3000 * Quantity: 90 Refills: 0 ARABELLA ANDINO M.D. * Start : 24-Jul-2018 Active HYDROcodone-Acetaminophen 5-300 MG Oral Tablet TAKE 1 TABLET EVERY 4 TO 6 HOURS NEEDED. * Quantity: 30 Refills: 0 FREDDY STERN M.D. * Start : 15-Nov-2018 Active Ferrous Sulfate 325 (65 Fe) MG Oral Tablet TAKE 1 TABLET 2x a week * Quantity: 45 Refills: 2 RADHA PASCUAL M.D. * Start : 16-Aug-2018 Active Ramelteon 8 MG Oral Tablet TAKE 1 TABLET AT BEDTIME. * Quantity: 30 Refills: 5 YEH D.O.JOSÉ MIGUEL * Start : 09-Apr-2019 Active DULoxetine HCl - 30 MG Oral Capsule Delayed Release Particles TAKE 1 CAPSULE ONCE A NIGHT X 1 WEEKTAKE 2 CAPSULES ONCE A NIGHT * Quantity: 60 Refills: 5 YEH D.O., JOSÉ MIGUEL * Start : 09-Apr-2019 Active Losartan Potassium 100 MG Oral Tablet TAKE 1 TABLET DAILY. * Quantity: 90 Refills: 0 YEH D.O.JOSÉ MIGUEL * Start : 30-Jan-2018 Active 30 Tablet Pack Tradjenta 5 MG Oral Tablet TAKE 1 TABLET DAILY * Quantity: 90 Refills: 0 RADHA PASCUAL M.D. * Start : 10-May-2018 Active tiZANidine HCl - 4 MG Oral Tablet TAKE 1 TABLET 3 TIMES DAILY NEEDED. * Quantity: 60 Refills: 1 YEH D.O.JOSÉ MIGUEL * Start : 16-Apr-2019 Active Metoprolol Succinate ER 50 MG Oral Tablet Extended Release 24 Hour TAKE 1 TABLET BY MOUTH EVERY DAY * Quantity: 30 Refills: 5 YEH D.O., JOSÉ MIGUEL * Start : 03-May-2019 Active Hydroxychloroquine Sulfate 200 MG Oral Tablet Take 1 tablet by mouth twice a day * Quantity: 60 Refills: 0 CORIE MATAMOROS M.D. * Start : 06-Jun-2018 Active Allergies and Adverse Reactions Name Dates Details Sulfa Drugs (Allergy) Status: Active Past Medical History Name Dates Details Peptic ulcer (533.90, K27.9) Status: Active History of Abnormal glucose (790.29, R73 .09) Status: Resolved History of Ascending aortic aneurysm (44 1.2, I71.2) Status: Resolved History of asthma (V12.69, Z87.09) Status: Resolved History of Breast Cancer (V10.3) Status: Resolved History of Costochondritis (733.6, M94.0 ) Status: Resolved History of Diverticulosis (562.10, K57.9 0) Status: Resolved History of fracture of rib (V15.51, Z87. 81) Status: Resolved History of Pre-diabetes (790.29, R73.03) Status: Resolved History of transient cerebral ischemia ( V12.54, Z86.73) Status: Resolved Procedures Procedure Dates Details History of Oophorectomy - Unilateral (Removal Of One Ovary) Completed History of Knee Replacement Completed History of Hand Surgery Completed History of Knee Replacement Completed History of Cataract Surgery Completed History of Cataract Surgery Completed History of Mastectomy bilateral Complete d History of Elbow surgery Completed History of Ulnar nerve neuroplasty Compl eted 10-Jul-2017 History of Tooth extraction Completed History of Dental surgery Completed Immunization Name Dates Details Influenza on: 03-Mar-2014 Tdap (Boostrix) on: 06-Aug-2014 Influenza Comments: Approx [id number] Prevnar 13 Intramuscular Suspension Lot #: [id number] on: 11-Oct-2016 Influenza, seasonal, injectable on: 26-Mar-2019 Pneumovax 23 25 MCG/0.5ML Injection Inje ctable Lot #: [id number] on: 09-Apr-2019 Family History Name Dates Details Family history of Congestive Heart Failu re Comments: Family History Status: Active Family history of Diabetes Mellitus (V18 .0) Comments: Family History Status: Active Family history of Coronary Artery Diseas e (V17.49) Comments: Family History Status: Active Family history of Cerebral Artery Occlus ion Comments: Family History Status: Active Name Dates Details Family history of Childhood arthritis (7 14.30, M08.90) Status: Active Family history of lupus erythematosus (V 19.8, Z84.0) Status: Active Name Dates Details Family history of Irregular heart beat ( 427.9, I49.9) Status: Active Name Dates Details Family history of Cerebral Artery Occlus ion Status: Active Name Dates Details Family history of Coronary Artery Diseas e (V17.49) Status: Active Family history of kidney disease (V18.69 , Z84.1) Status: Active Family history of rheumatoid arthritis ( V17.7, Z82.61) Status: Active Name Dates Details Family history of malignant neoplasm of breast (V16.3, Z80.3) Status: Active Family history of malignant neoplasm of prostate (V16.42, Z80.42) Status: Active Name Dates Details Family history of Diabetes Mellitus (V18 .0) Status: Active Family history of Adrenal abnormality (2 55.9, E27.9) Status: Active Family history of myocardial infarction (V17.3, Z82.49) Status: Active Family history of malignant neoplasm of breast (V16.3, Z80.3) Status: Active Family history of rheumatoid arthritis ( V17.7, Z82.61) Status: Active Social History Name Dates Details - Status: Name Dates Details Never smoker Vital Signs Date Test Result Details [id number] BP Systolic 122 mm[Hg] Status: Comments: Lo cation: LUE; Position: Sitting BP Diastolic 76 mm[Hg] Status: Comments: Lo cation: LUE; Position: Sitting Weight 244 lb Status: Body Mass Index Calculated 35.01 kg/m2 Status: Body Surface Area Calculated 2.27 m2 Status: Height 70 in Status: Temperature 98.1 f Status: Comments: Me thod: Temporal Heart Rate 84 /min Status: Respiration Rate 16 /min Status: Results Date Description Value Details [id number] XRAY Spine Lumbar Comp w/Bend views 7211 4 Spine Lumbar Comp w/Bend views SEE NOTES C omments: EXAM: XR LUMBAR SPINE 2 VIEWSDATE: 05/03/2019 13:49 CSTINDICATION: - chronic bilateral low back pain with right sided sciaticaCOMPARISON: February 22, 2016TECHNIQUE: AP and lateral radiographs of the lumbar spineFINDINGS:. Mild scoliosis is present of the lumbar spine centered at L3 with aconvexity to the left.Grade 1 listhesis of L2/L3/L4 is noted.Diffuse spondylotic changes are seen involving the lower lumbar spine.No soft tissue abnormality is identified.IMPRESSION: No bony abnormality. Multilevel diffuse degenerative changes withgrade 1 listhesis of L2/3/4 levels.Midlumbar scoliosis centered at L3 with a convexity to the left..--Read by: Damián Floyd MDDictated Date/time: 05/03/19 18:56Electronically Signed by: Damián Floyd MD 05/03/1918:57FINAL REPORT [id number] XRAY Knee 4+ views unilateral 15998 Knee 4+ views unilateral SEE NOTES Comment s: EXAM: XR RIGHT KNEE 4 VIEWSDATE: 05/03/2019 13:46 CSTINDICATION: - acute pain of right kneeCOMPARISON: None.TECHNIQUE: 4 views of the kneeFINDINGS: Right total knee arthroplasty hardware seen in place. No acutehardware complications.No knee joint effusion is present. No soft tissue abnormality is identified.IMPRESSION: No acute abnormality.--This report was dictated by a Joint Terminal Attack Controller/Fellow/ Physician Icicle Machine Operator. Kp personallyreviewed the images as well as the interpretation and agree with the findings.Read by: Annia Medellin MD Resident/Fellow/PhysicianAssistant: Annia Medellin MDDictated Date/time: 05/03/19 14:50Electronically Signed by: Damián Floyd MD 05/03/1919:30FINAL REPORT Plan of Care Name Dates Details Planned Observations Planned Goals not documented Planned Encounters Appointment; LIZ ANDERSON M.D. On: 23-Jul-2019 15:00 Appointment; RADHA PASCUAL M.D. On: 29-Jul-2019 14:45 Instructions Name Dates Details Instructions not documented Encounters Appointment; CORIE MATAMOROS M.D. Encounter Diagnosis: Problem not documented On: 20-Jun-2017 15:00 Appointment; DIVYA GARCIA M.D. Encounter Diagnosis: Problem not documented On: 10-Jul-2017 8:45 Appointment; KAREY, JUDIE Encounter Diagnosis: Problem not documented On: 17-Jul-2017 14:00 Appointment; LIZ ANDERSON M.D. Encounter Diagnosis: Problem not documented On: 24-Jul-2017 13:20 Appointment; CORIE MATAMOROS M.D. Encounter Diagnosis: Problem not documented On: 31-Jul-2017 14:00 Appointment; RADHA PASCUAL M.D. Encounter Diagnosis: Problem not documented On: 01-Aug-2017 13:00 Appointment; CEFERINO JANG M.D. Encounter Diagnosis: Problem not documented On: 08-Aug-2017 15:45 Appointment; CORIE MATAMOROS M.D. Encounter Diagnosis: Problem not documented On: 14-Aug-2017 15:00 Appointment; CEFERINO JANG M.D. Encounter Diagnosis: Problem not documented On: 18-Aug-2017 13:45 Appointment; Kishan Velez M.D. Encounter Diagnosis: Problem not documented On: 22-Aug-2017 10:00 Appointment; CORIE MATAMOROS M.D. Encounter Diagnosis: Problem not documented On: 16-Oct-2017 15:00 Appointment; RADHA PASCUAL M.D. Encounter Diagnosis: Problem not documented On: 31-Oct-2017 15:15 Appointment; MATEO GUIDO M.D. Encounter Diagnosis: Problem not documented On: 05-Dec-2017 14:30 Appointment; CEFERINO JANG M.D. Encounter Diagnosis: Problem not documented On: 11-Dec-2017 16:30 Appointment; MERCEDEZ LEON NP Encounter Diagnosis: Problem not documented On: 23-Dec-2017 11:30 Appointment; JOSÉ MIGUEL AMAYA D.O. Encounter Diagnosis: Problem not documented On: 28-Dec-2017 11:30 Appointment; JOSÉ MIGUEL AMAYA D.O. Encounter Diagnosis: Problem not documented On: 30-Jan-2018 8:30 Appointment; RADHA PASCUAL M.D. Encounter Diagnosis: Problem not documented On: 06-Feb-2018 13:00 Appointment; CEFERINO JANG M.D. Encounter Diagnosis: Problem not documented On: 13-Feb-2018 13:15 Appointment; JOSÉ MIGUEL AMAYA D.O. Encounter Diagnosis: Problem not documented On: 03-May-2018 11:30 Appointment; RADHA PASCUAL M.D. Encounter Diagnosis: Problem not documented On: 10-May-2018 16:15 Appointment; CORIE MATAMOROS M.D. Encounter Diagnosis: Problem not documented On: 06-Jun-2018 15:00 Appointment; CEFERINO JANG M.D. Encounter Diagnosis: Problem not documented On: 15-Jun-2018 13:15 Appointment; CEFERINO JANG M.D. Encounter Diagnosis: Problem not documented On: 03-Jul-2018 14:15 Appointment; ARABELLA ANDINO M.D. Encounter Diagnosis: Problem not documented On: 24-Jul-2018 10:00 Appointment; LIZ ANDERSON M.D. Encounter Diagnosis: Problem not documented On: 24-Jul-2018 15:00 Appointment; CORIE MATAMOROS M.D. Encounter Diagnosis: Problem not documented On: 24-Jul-2018 15:30 Appointment; JOSÉ MIGUEL AMAYA D.O. Encounter Diagnosis: Problem not documented On: 27-Aug-2018 11:00 Appointment; ISAIAS MAC P.A. Encounter Diagnosis: Problem not documented On: 30-Aug-2018 9:00 Appointment; RADHA PASCUAL M.D. Encounter Diagnosis: Problem not documented On: 04-Sep-2018 13:00 Appointment; CORIE MATAMOROS M.D. Encounter Diagnosis: Problem not documented On: 04-Sep-2018 15:00 Appointment; JOSÉ MIGUEL AMAYA D.O. Encounter Diagnosis: Problem not documented On: 12-Sep-2018 13:00 Appointment; JOSÉ MIGUEL AMAYA D.O. Encounter Diagnosis: Problem not documented On: 28-Sep-2018 8:30 Appointment; CORIE MATAMOROS M.D. Encounter Diagnosis: Problem not documented On: 16-Oct-2018 14:00 Appointment; CEFERINO JANG M.D. Encounter Diagnosis: Problem not documented On: 29-Oct-2018 15:15 Appointment; FREDDY STERN M.D. Encounter Diagnosis: Problem not documented On: 15-Nov-2018 11:30 Appointment; RADHA PASCUAL M.D. Encounter Diagnosis: Problem not documented On: 18-Dec-2018 13:00 Appointment; CEFERINO JANG M.D. Encounter Diagnosis: Problem not documented On: 25-Feb-2019 15:30 Appointment; RADHA PASCUAL M.D. Encounter Diagnosis: Problem not documented On: 26-Mar-2019 13:00 Appointment; ODIN QUICK NP Encounter Diagnosis: Problem not documented On: 27-Mar-2019 10:30 Appointment; CEFERINO JANG M.D. Encounter Diagnosis: Problem not documented On: 28-Mar-2019 16:30 Appointment; JOSÉ MIGUEL AMAYA D.O. Encounter Diagnosis: Problem not documented On: 03-Apr-2019 14:45 Appointment; JOSÉ MIGUEL AMAYA D.O. Encounter Diagnosis: Problem not documented On: 09-Apr-2019 13:00 Appointment; JOSÉ MIGUEL AMAYA D.O. Encounter Diagnosis: Problem not documented On: 03-May-2019 12:00
--- OUTSIDE RECORDS SUMMARY | 2019-10-17 21:47 | XMS REPORT | Summary of Care ---
Author Author Stephenie MIKE, ALEXANDER Marcus Organization Unknown Address Unknown Phone Unavailable Care Team Providers Care [employer] Advisor Name Role Phone SAMARA Herzog, RADHA Unavailable Unavailable SHILOH Herzog, CORIE Unavailable Unavailable LAINE Herzog, CEFERINO Unavailable Unavailable YEVon D.O., JOSÉ MIGUEL Unavailable Unavailable LEON N.P., MERCEDEZ Unavailable Unavailable Stephenie MIKE, Cecy Unavailable Unavailable THU Herzog, ARABELLA Unavailable Unavailable LEENA Herzog, FREDDY Unavailable Unavailable JOSE RAMESH, DIVYA Villalobos Unavailable Unavailable [facility] RNBC CPN, ODIN Unavailable Unav ailable SHILOH RAMESH [place], CORIE Unavailable Unavailable Laine RAMESH, Ceferino Unavailable Unavailable THU RAMESH, ARABELLA Unavailable Unavailable PAULINO RAMESH [place], JOY TUCKER Unavailable Unavailable JOSE Herzog, DIVYA Unavailable Unavailable LEENA RAMESH, FREDDY W Unavailable Unavailable DUKE NEDRA [place], DANNY RAMOS Unavailable Unavailab butch BENNETT MD, LIZ Unavailable Unavailable YEVon DO [place], JOSÉ MIGUEL Unavailable Unavailable Unavailable [...] DAILY * Quantity: 90 Refills: 1 YEH D.O.JOSÉ MIGUEL * Start : 17-Jun-2014 Active Viibryd 20 MG Oral Tablet TAKE 1 TABLET DAILY * Quantity: 90 Refills: 1 YEH D.O.JOSÉ MIGUEL * Start : 19-Mar-2015 Active Dicyclomine HCl - 20 MG Oral Tablet Take 1 tablet 3 times a day * Quantity: 270 Refills: 1 CEFERINO JANG M.D. * Start : 14-Sep-2015 Active Rosuvastatin Calcium 10 MG Oral Tablet TAKE 1 TABLET AT BEDTIME (REPLACING PRAVASTATIN) * Quantity: 90 Refills: 0 RADHA PASCUAL M.D. * Start : 21-Mar-2016 Active Advair Diskus 250-50 MCG/DOSE Inhalation Aerosol Powder Breath Activated INHALE 1 PUFF TWICE DAILY. * Quantity: 1 Refills: 5 YEH D.O.JOSÉ MIGUEL * Start : 11-Oct-2016 Active 14 Each Pack amLODIPine Besylate 10 MG Oral Tablet TAKE 1 TABLET DAILY * Quantity: 90 Refills: 2 YEH D.O.JOSÉ MIGUEL * Start : 17-Apr-2017 Active Vitamin C 100 MG Oral Tablet One tablet taken with iron pills - per PT * Refills: 0 * Start : 22-Aug-2017 Active Albuterol Sulfate 0.63 MG/3ML Inhalation Nebulization Solution USE 1 UNIT DOSE IN NEBULIZER EVERY 4 TO 6 HOURS NEEDED. * Quantity: 75 Refills: 0 LEON N.P., MERCEDEZ * Start : 22-Mar-2018 Active Nebulizer/Tubing/Mouthpiece KIT USE DIRECTED. * Quantity: 1 Refills: 0 LEON N.P., MERCEDEZ * Start : 23-Dec-2017 Active Losartan Potassium 100 MG Oral Tablet TAKE 1 TABLET DAILY. * Quantity: 90 Refills: 0 YEH D.O.JOSÉ MIGUEL * Start : 30-Jan-2018 Active 30 Tablet Pack Tradjenta 5 MG Oral Tablet TAKE 1 TABLET DAILY * Quantity: 90 Refills: 0 RADHA PASCUAL M.D. * Start : 10-May-2018 Active Hydroxychloroquine Sulfate 200 MG Oral Tablet Take 1 tablet by mouth twice a day * Quantity: 60 Refills: 0 SHILOH Herzog CORIE * Start : 06-Jun-2018 Active Acetaminophen 500 MG Oral Tablet TAKE 2 TABLET Every 8 hours PRN MDD:3000 * Quantity: 90 Refills: 0 THU Herzog JULIOTobin * Start : 24-Jul-2018 Active Ferrous Sulfate 325 (65 Fe) MG Oral Tablet TAKE 1 TABLET 2x a week * Quantity: 45 Refills: 2 RADHA PASCUAL M.D. * Start : 16-Aug-2018 Active HYDROcodone-Acetaminophen 5-300 MG Oral Tablet TAKE 1 TABLET EVERY 4 TO 6 HOURS NEEDED. * Quantity: 30 Refills: 0 FREDDY STERN M.D. * Start : 15-Nov-2018 Active Ramelteon 8 MG Oral Tablet TAKE 1 TABLET AT BEDTIME. * Quantity: 30 Refills: 5 YEH D.O., CAMERON-ISATU * Start : 09-Apr-2019 Active DULoxetine HCl - 30 MG Oral Capsule Delayed Release Particles TAKE 1 CAPSULE ONCE A NIGHT X 1 WEEKTAKE 2 CAPSULES ONCE A NIGHT * Quantity: 60 Refills: 5 YEH D.O., CAMERON-ISATU * Start : 09-Apr-2019 Active tiZANidine HCl - 4 MG Oral Tablet TAKE 1 TABLET 3 TIMES DAILY NEEDED. * Quantity: 60 Refills: 1 YEH D.O., CAMERON-ISATU * Start : 16-Apr-2019 Active Metoprolol Succinate ER 50 MG Oral Tablet Extended Release 24 Hour TAKE 1 TABLET BY MOUTH EVERY DAY * Quantity: 30 Refills: 5 YEH D.O., CAMERON-ISATU * Start : 03-May-2019 Active Allergies and Adverse Reactions Name Dates [...] Tdap (Boostrix) on: 06-Aug-2014 Influenza Comments: Approx [id number] Prevnar 13 Intramuscular Suspension Lot #: [id number] on: 11-Oct-2016 Influenza, seasonal, injectable on: 26-Mar-2019 Pneumovax 23 25 MCG/0.5ML Injection Inje ctable Lot #: [id number] on: 09-Apr-2019 Family History Name Dates Details [...] smoker Vital Signs Date Test Result Details [id number] Physical Findings 9 Status: Comments: PH Q-9 Adult Depression Screening Results Date Description Value Details Results not documented Plan of Care Name Dates Details Planned Observations Planned Goals not documented Planned Encounters Appointment; LIZ BENNETT M.D. On: 23-Jul-2019 15:00 Appointment; RADHA PASCUAL M.D. On: 29-Jul-2019 14:45 Interventions Provided Plan* Interventions Provided * Supportive counseling . * Acknowledgement Patient verbalizes understanding of Plan * Follow Up Patient agreed to follow up with [facility] as needed * Next Clinic Appointment Provider name Dr. Bennett, Appointment date/time 07/23/19 * BEHAVIOR/CONDITION: * Support/encourage Instructions Name Dates Details Instructions not documented Encounters Appointment; CORIE MATAMOROS M.D. Encounter Diagnosis: Problem not documented On: 20-Jun-2017 15:00 Appointment; DIVYA GARCIA M.D. Encounter Diagnosis: Problem not documented On: 10-Jul-2017 8:45 [facility] Encounter Diagnosis: Problem not documented On: 17-Jul-2017 14:00 Appointment; LIZ BENNETT M.D. Encounter Diagnosis: Problem not documented On: [...] not documented On: 24-Jul-2018 10:00 Appointment; LIZ BENNETT M.D. Encounter Diagnosis: Problem not documented On: [...] D.O. Encounter Diagnosis: Problem not documented On: 27-Nov-2019 14:45 Appointment; JOSÉ MIGUEL AMAYA D.O. Encounter Diagnosis: Problem not documented On: 09-Apr-2019 13:00 Appointment; JOSÉ MIGUEL AMAYA D.O. Encounter Diagnosis: Problem not documented On: 03-May-2019 12:00
--- OUTSIDE RECORDS SUMMARY | 2019-10-17 21:47 | XMS REPORT | Summary of Care ---
Author Author ALEXANDER Patterson R.N. Organization Unknown Address Unknown Phone Unavailable Care Team Providers Care Physicist Astrophysics Name Role Phone SAMARA Herzog, RADHA Unavailable Unavailable SHILOH Herzog, PREETHIOKVon Unavailable Unavailable LAINE Herzog, CEFERINO Unavailable Unavailable JOSE LUIS D.O., JOSÉ MIGUEL Unavailable Unavailable LEON N.P., MERCEDEZ Unavailable Unavailable Leonardo Montesinos, Patricia Unavailable Unavailable THU Herzog, ARABELLA Unavailable Unavailable LEENA Herzog, FREDDY Unavailable Unavailable JOSE RAMESH, DIVYA Villalobos Unavailable Unavailable [facility] RNBC CPN, ODIN Unavailable Unav ailable SHILOH RAMESH [place], CORIE Unavailable Unavailable Laine RAMESH, Ceferino Unavailable Unavailable HTU RAMESH, ARABELLA Unavailable Unavailable PAULINO RAMESH [place], JOY TUCKER Unavailable Unavailable JOSE Herzog, DIVYA Unavailable Unavailable LEENA RAMESH, FREDDY W Unavailable Unavailable DUKE NEDRA [place], DANNY RAMOS Unavailable Unavailab butch ANDERSON MD, LIZ Unavailable Unavailable YEVon DO [place], JOSÉ MIGUEL Unavailable Unavailable Unavailable Unavailable Functional [...] Renal insufficiency (593.9, N28.9) Status: Active Chronic pain of both shoulders (719.41, M25.511) Status: Active Chronic fatigue (780.79, R53.82) Status: Active IBS (irritable bowel syndrome) (564.1, [...] TABLET DAILY * Quantity: 90 Refills: 0 SAMARA M.D., RADHA * Start : 10-May-2018 Active Hydroxychloroquine Sulfate 200 MG Oral Tablet Take 1 tablet by mouth twice a day * Quantity: 60 Refills: 0 SHILOH Herzog CORIE * Start : 06-Jun-2018 Active Acetaminophen 500 MG Oral Tablet TAKE 2 TABLET Every 8 hours PRN MDD:3000 * Quantity: 90 Refills: 0 THU Herzog ARABELLA * Start : 24-Jul-2018 Active Ferrous Sulfate [...] JOSÉ MIGUEL * Start : 09-Apr-2019 Active DULoxetine [...] Tdap (Boostrix) on: 06-Aug-2014 Influenza Comments: Approx [id number] Prevnar 13 Intramuscular Suspension Lot #: [id number] on: 11-Oct-2016 Influenza, seasonal, injectable on: 26-Mar-2019 Pneumovax 23 25 MCG/0.5ML Injection Inje ctable Lot #: [id number] on: 09-Apr-2019 Family History Name Dates Details [...] smoker Vital Signs Date Test Result Details [id number] Physical Findings 9 Status: Comments: PH Q-9 [...] Problem not documented On: 22-Aug-2017 10:00 Appointment; CROIE MATAMOROS M.D. Encounter Diagnosis: Problem not documented [...]
--- OUTSIDE RECORDS SUMMARY | 2019-10-17 21:47 | XMS REPORT | Summary of Care ---
Author Author [facility] Address [address] [place] [address] Phone Unavailable Care Team Providers Care Check Processor Name Role Phone SAMARA Herzog, RADHA Unavailable Unavailable SHILOH Herzog, CORIE Unavailable Unavailable LAINE Herzog, CEFERINO Unavailable Unavailable JOSE LUIS D.OFlaquito, JOSÉ MIGUEL Unavailable Unavailable LEON N.P., MERCEDEZ Unavailable Unavailable THU Herzog, ARABELLA Unavailable Unavailable LEENA Herzog, FREDDY Unavailable Unavailable JOSE RAMESH, DIVYA Villalobos Unavailable Unavailable YNES [facility] RNBC CPN, ODIN Unavailable Unav ailable SHILOH RAMESH [place], CORIE Unavailable Unavailable Laine RAMESH, Ceferino Unavailable Unavailable THU RAMESH, ARABELLA Unavailable Unavailable PAULINO RAMESH [place], JOY TUCKER Unavailable Unavailable JOSE Herzog, DIVYA Unavailable Unavailable LEENA RAMESH, FREDDY W Unavailable Unavailable DUKE NEDRA [place], DANNY RAMOS Unavailable Unavailab butch ANDERSON MD, LIZ Unavailable Unavailable YEVon DO [place], JOSÉ MIGUEL Unavailable Unavailable Unavailable Unavailable Functional [...] I10) Status: Active Medications Name Dates Details Rosuvastatin Calcium 10 MG Oral Tablet TAKE 1 TABLET AT BEDTIME (REPLACING PRAVASTATIN) Quantity: 90 RADHA PASCUAL M.D. * Start : 21-Mar-2016 Active Viibryd 20 MG Oral Tablet TAKE 1 TABLET DAILY * Quantity: 90 Refills: 1 YEH D.O.JOSÉ MIGUEL * Start : 19-Mar-2015 Active tiZANidine HCl - 4 MG Oral Tablet TAKE 1 TABLET 3 TIMES DAILY NEEDED. * Quantity: 60 Refills: 1 YEH D.O.JOSÉ MIGUEL * Start : 16-Apr-2019 Active DULoxetine HCl - 30 MG Oral Capsule Delayed Release Particles TAKE 1 CAPSULE ONCE A NIGHT X 1 WEEKTAKE 2 CAPSULES ONCE A NIGHT * Quantity: 60 Refills: 5 YEH D.O.JOSÉ MIGUEL * Start : 09-Apr-2019 Active Ramelteon 8 MG Oral Tablet TAKE 1 TABLET AT BEDTIME. * Quantity: 30 Refills: 5 YEH D.O.JOSÉ MIGUEL * Start : 09-Apr-2019 Active HYDROcodone-Acetaminophen 5-300 MG Oral Tablet TAKE 1 TABLET EVERY 4 TO 6 HOURS NEEDED. * Quantity: 30 Refills: 0 FREDDY STERN M.D. * Start : 15-Nov-2018 Active amLODIPine Besylate 10 MG Oral Tablet TAKE 1 TABLET DAILY * Quantity: 90 Refills: 2 YEH D.O., JOSÉ MIGUEL * Start : 17-Apr-2017 Active Advair Diskus 250-50 MCG/DOSE Inhalation Aerosol Powder Breath Activated INHALE 1 PUFF TWICE DAILY. * Quantity: 1 Refills: 5 YEH D.O., JOSÉ MIGUEL * Start : 11-Oct-2016 Active 14 Each Pack Montelukast Sodium 10 MG Oral Tablet TAKE 1 TABLET DAILY * Quantity: 90 Refills: 1 YEH D.O., JOSÉ MIGUEL * Start : 13-Aug-2012 Active Losartan Potassium 100 MG Oral Tablet TAKE 1 TABLET DAILY. * Quantity: 90 Refills: 0 YEH D.O., JOSÉ MIGUEL * Start : 30-Jan-2018 Active 30 Tablet Pack Tradjenta 5 MG Oral Tablet TAKE 1 TABLET DAILY * Quantity: 90 Refills: 0 RADHA PASCUAL M.D. * Start : 10-May-2018 Active Hydroxychloroquine Sulfate 200 MG Oral Tablet Take 1 tablet by mouth twice a day * Quantity: 60 Refills: 0 CORIE MATAMOROS M.D. * Start : 06-Jun-2018 Active Ferrous Sulfate 325 (65 Fe) MG Oral Tablet TAKE 1 TABLET 2x a week * Quantity: 45 Refills: 2 RADHA PASCUAL M.D. * Start : 16-Aug-2018 Active Pantoprazole Sodium 40 MG Oral Tablet Delayed Release TAKE 1 TABLET DAILY * Quantity: 90 Refills: 1 YEH D.O.JOSÉ MIGUEL * Start : 17-Jun-2014 Active Nebulizer/Tubing/Mouthpiece KIT USE DIRECTED. * Quantity: 1 Refills: 0 LEON N.PFlaquito MERCEDEZ * Start : 23-Dec-2017 Active Acetaminophen 500 MG Oral Tablet TAKE 2 TABLET Every 8 hours PRN MDD:3000 * Quantity: 90 Refills: 0 ARABELLA ANDINO M.D. * Start : 24-Jul-2018 Active Metoprolol Succinate ER 50 MG Oral Tablet Extended Release 24 Hour TAKE 1 TABLET BY MOUTH EVERY DAY * Quantity: 30 Refills: 5 YEH D.O., JOSÉ MIGUEL * Start : 03-May-2019 Active Albuterol Sulfate 0.63 MG/3ML Inhalation Nebulization Solution USE 1 UNIT DOSE IN NEBULIZER EVERY 4 TO 6 HOURS NEEDED. * Quantity: 75 Refills: 0 LEON N.P., MERCEDEZ * Start : 22-Mar-2018 Active Vitamin C 100 MG Oral Tablet One tablet taken with iron pills - per PT * Refills: 0 * Start : 22-Aug-2017 Active Dicyclomine HCl - 20 MG Oral Tablet Take 1 tablet 3 times a day * Quantity: 270 Refills: 1 CEFERINO JANG M.D. * Start : 14-Sep-2015 Active Accu-Chek FastClix Lancets Check BG 2x a day * Quantity: 2 Refills: 3 RADHA PASCUAL M.D. * Start : 21-Mar-2013 Active 102 Unit Box Accu-Chek Guide In Vitro Strip TEST DIRECTED TWICE A DAY * Quantity: 2 Refills: 3 RADHA PASCUAL M.D. * Start : 13-Aug-2012 Active 100 Strip Box Levothyroxine Sodium 125 MCG Oral Tablet TAKE 1 TABLET DAILY MONDAY THROUGH MONDAY only * Quantity: 78 Refills: 0 YEH D.O., JOSÉ MIGUEL * Start : 13-Aug-2012 Active Vitamin D3 50 MCG (2000 UT) Oral Capsule 1 a day * Quantity: 100 Refills: 6 RADHA PASCUAL M.D. * Start : 14-Aug-2012 Active Ventolin HFA 108 (90 Base) MCG/ACT Inhalation Aerosol Solution USE 2 INHALATIONS ORALLY 3 TIMES DAILY NEEDED * Quantity: 3 Refills: 1 YEH D.O., JOSÉ MIGUEL * Start : 16-May-2013 Active 18 GM Inhaler B-12 TR 1000 MCG Oral Tablet Extended Release TAKE 1 TABLET DAILY DIRECTED. * Refills: 0 RADHA PASCUAL M.D. * Start : 24-Sep-2013 Active Allergies and Adverse Reactions Name Dates [...] Tdap (Boostrix) on: 06-Aug-2014 Influenza Comments: Approx [id number] Prevnar 13 Intramuscular Suspension Lot #: [id number] on: 11-Oct-2016 Influenza, seasonal, injectable on: 26-Mar-2019 Pneumovax 23 25 MCG/0.5ML Injection Inje ctable Lot #: [id number] on: 09-Apr-2019 Family History Name Dates Details Family history of Congestive Heart Failu re Comments: Family History Status: Active Family history of Diabetes Mellitus (V18 .0) Comments: Family History Status: Active Family history of Cerebral Artery Occlus ion Comments: Family History Status: Active Family history of Coronary Artery Diseas e (V17.49) Comments: Family History Status: Active Name Dates Details Family history of Childhood arthritis (7 14.30, M08.90) Status: Active Family history of lupus erythematosus (V 19.8, Z84.0) Status: Active Name Dates Details Family history of Irregular heart beat ( 427.9, I49.9) Status: Active Name Dates Details Family history of Cerebral Artery Occlus ion Status: Active Name Dates Details Family history of kidney disease (V18.69 , Z84.1) Status: Active Family history of rheumatoid arthritis ( V17.7, Z82.61) Status: Active Family history of Coronary Artery Diseas e (V17.49) Status: Active Name Dates Details Family history [...] smoker Vital Signs Date Test Result Details No Known Vitals to report Results Date Description Value Details Results not [...] Problem not documented On: 10-Jul-2017 8:45 [facility] Encounter Diagnosis: Problem not documented On: 17-Jul-2017 [...]
--- OUTSIDE RECORDS SUMMARY | 2019-10-17 21:47 | XMS REPORT | Summary of Care ---
Author Author [facility] Address [address] [place] [address] Phone Unavailable Care Team Providers Care Debeader Name Role Phone SAMARA Herzog, RADHA Unavailable Unavailable SHILOH Herzog, CORIE Unavailable Unavailable LAINE Herzog, CEFERINO Unavailable Unavailable JOSE LUIS D.O., JOSÉ MIGUEL Unavailable Unavailable [employer]OUTE DRIVER, MERCEDEZ Unavailable Unavailable THU Herzog, ARABELLA Unavailable Unavailable LEENA Herzog, FREDDY Unavailable Unavailable JOSE RAMESH, DIVYA Villalobos Unavailable Unavailable [facility] RNBC CPN, ODIN Unavailable Unav ailable SHILOH RAMESH [place], CORIE Unavailable Unavailable Laine RAMESH, Ceferino Unavailable Unavailable THU RAMESH, ARABELLA Unavailable Unavailable PAULINO RAMESH [place], JOY TUCKER Unavailable Unavailable JOSE Herzog, DIVYA Unavailable Unavailable LEENA RAMESH, FREDDY W Unavailable Unavailable DUKE NEDRA [place], DANNY RAMOS Unavailable Unavailab butch ANDERSON MD, LIZ Unavailable Unavailable YEH DO [place], JOSÉ MIGUEL Unavailable Unavailable Unavailable Unavailable Functional [...] THROUGH MONDAY only Quantity: 78 YEH D.O., JOSÉ MIGUEL * Start : 13-Aug-2012 Active Montelukast Sodium 10 MG Oral Tablet TAKE 1 TABLET DAILY * Quantity: 90 Refills: 1 YEH D.O.JOSÉ MIGUEL * Start : 13-Aug-2012 Active Accu-Chek Guide In Vitro Strip TEST DIRECTED TWICE A DAY * Quantity: 2 Refills: 3 RADHA PASCUAL M.D. * Start : 13-Aug-2012 Active 100 Strip Box Accu-Chek FastClix Lancets Check BG 2x a day * Quantity: 2 Refills: 3 RADHA PASCUAL M.D. * Start : 21-Mar-2013 Active 102 Unit Box Ventolin HFA 108 (90 Base) MCG/ACT Inhalation Aerosol Solution USE 2 INHALATIONS ORALLY 3 TIMES DAILY NEEDED * Quantity: 3 Refills: 1 YEH D.O.JOSÉ MIGUEL * Start : 16-May-2013 Active 18 GM Inhaler Dicyclomine HCl - 20 MG Oral Tablet Take 1 tablet 3 times a day * Quantity: 270 Refills: 1 CEFERINO JANG M.D. * Start : 14-Sep-2015 Active Advair Diskus 250-50 MCG/DOSE Inhalation Aerosol Powder Breath Activated INHALE 1 PUFF TWICE DAILY. * Quantity: 1 Refills: 5 YEH D.O., JOSÉ MIGUEL * Start : 11-Oct-2016 Active 14 Each Pack amLODIPine Besylate 10 MG Oral Tablet TAKE 1 TABLET DAILY * Quantity: 90 Refills: 2 YEH D.O., JOSÉ MIGUEL * Start : 17-Apr-2017 Active Hydroxychloroquine Sulfate 200 MG Oral Tablet Take 1 tablet by mouth twice a day * Quantity: 60 Refills: 0 CORIE MATAMOROS M.D. * Start : 06-Jun-2018 Active Acetaminophen 500 MG Oral Tablet TAKE 2 TABLET Every 8 hours PRN MDD:3000 * Quantity: 90 Refills: 0 ARABELLA ANDINO M.D. * Start : 24-Jul-2018 Active Ferrous Sulfate 325 (65 Fe) MG Oral Tablet TAKE 1 TABLET 2x a week * Quantity: 45 Refills: 2 RADHA PASCUAL M.D. * Start : 16-Aug-2018 Active HYDROcodone-Acetaminophen 5-300 MG Oral Tablet TAKE 1 TABLET EVERY 4 TO 6 HOURS NEEDED. * Quantity: 30 Refills: 0 FREDDY STERN M.D. * Start : 15-Nov-2018 Active DULoxetine HCl - 30 MG Oral Capsule Delayed Release Particles TAKE 1 CAPSULE ONCE A NIGHT X 1 WEEKTAKE 2 CAPSULES ONCE A NIGHT * Quantity: 60 Refills: 5 YEH D.O.JOSÉ MIGUEL * Start : 09-Apr-2019 Active Tradjenta 5 MG Oral Tablet TAKE 1 TABLET DAILY * Quantity: 90 Refills: 0 RADHA PASCUAL M.D. * Start : 10-May-2018 Active Vitamin C 100 MG Oral Tablet One tablet taken with iron pills - per PT * Refills: 0 * Start : 22-Aug-2017 Active Rosuvastatin Calcium 10 MG Oral Tablet TAKE 1 TABLET AT BEDTIME (REPLACING PRAVASTATIN) * Quantity: 90 Refills: 0 RADHA PASCUAL M.D. * Start : 21-Mar-2016 Active Viibryd 20 MG Oral Tablet TAKE 1 TABLET DAILY * Quantity: 90 Refills: 1 YEH D.O., JOSÉ MIGUEL * Start : 19-Mar-2015 Active B-12 TR 1000 MCG Oral Tablet Extended Release TAKE 1 TABLET DAILY DIRECTED. * Refills: 0 SAMARA M.D., RADHA * Start : 24-Sep-2013 Active Metoprolol Succinate ER 50 MG Oral Tablet Extended Release 24 Hour TAKE 1 TABLET BY MOUTH EVERY DAY * Quantity: 30 Refills: 5 YEH D.O.JOSÉ MIGUEL * Start : 03-May-2019 Active tiZANidine HCl - 4 MG Oral Tablet TAKE 1 TABLET 3 TIMES DAILY NEEDED. * Quantity: 60 Refills: 1 YEH D.O.JOSÉ MIGUEL * Start : 16-Apr-2019 Active Ramelteon 8 MG Oral Tablet TAKE 1 TABLET AT BEDTIME. * Quantity: 30 Refills: 5 YEH D.O.JOSÉ MIGUEL * Start : 09-Apr-2019 Active Vitamin D3 50 MCG (1999 UT) Oral Capsule 1 a day * Quantity: 100 Refills: 6 RADHA PASCUAL M.D. * Start : 14-Aug-2012 Active Albuterol Sulfate 0.63 MG/3ML Inhalation Nebulization Solution USE 1 UNIT DOSE IN NEBULIZER EVERY 4 TO 6 HOURS NEEDED. * Quantity: 75 Refills: 0 MERCEDEZ LEON APRN * Start : 22-Mar-2018 Active Nebulizer/Tubing/Mouthpiece KIT USE DIRECTED. * Quantity: 1 Refills: 0 MERCEDEZ LEON APRN * Start : 23-Dec-2017 Active Losartan Potassium 100 MG Oral Tablet TAKE 1 TABLET DAILY. * Quantity: 90 Refills: 0 YEH D.O.JOSÉ MIGUEL * Start : 30-Jan-2018 Active 30 Tablet Pack Pantoprazole Sodium 40 MG Oral Tablet Delayed Release TAKE 1 TABLET DAILY * Quantity: 90 Refills: 1 YEH D.O.JOSÉ MIGUEL * Start : 17-Jun-2014 Active Allergies and Adverse Reactions Name Dates [...] Tdap (Boostrix) on: 06-Aug-2014 Influenza Comments: Approx [id number] Prevnar 13 Intramuscular Suspension Lot #: [id number] on: 11-Oct-2016 Influenza, seasonal, injectable on: 26-Mar-2019 Pneumovax 23 25 MCG/0.5ML Injection Inje ctable Lot #: [id number] on: 09-Apr-2019 Family History Name Dates Details [...] smoker Vital Signs Date Test Result Details [id number] Physical Findings 9 Status: Comments: PH Q-9 Adult Depression Screening Results Date Description Value Details Results not documented Plan of Care Name Dates Details Planned Observations Planned Goals not documented Planned Encounters Appointment; ODIN QUICK APRN On: 28-Jun-2019 12:30 Appointment; LIZ ANDERSON M.D. On: 23-Jul-2019 15:00 Appointment; RADHA PASCUAL M.D. On: 29-Jul-2019 14:45 Instructions Name Dates Details Instructions not documented Encounters Appointment; DIVYA GARCIA M.D. Encounter Diagnosis: Problem [...] documented On: 11-Dec-2017 16:30 Appointment; MERCEDEZ LEON APRN Encounter Diagnosis: Problem not documented On: 23-Dec-2017 [...] documented On: 26-Mar-2019 13:00 Appointment; ODIN QUICK APRN Encounter Diagnosis: Problem not documented On: 27-Mar-2019 [...]
--- OUTSIDE RECORDS SUMMARY | 2019-10-17 21:47 | XMS REPORT | Continuity of Care Document ---
Author Author [facility] t Organization [facility] Address [address] [place] [address] Phone Unavailable Care Team Providers Care [employer] Cell Cleaner Name Role Phone CHRIS RAMESH, Dandy SMITH PCP [phone] MERCEDEZ LEON APRN Attphys Unavailable LIZ ANDERSON M.D. Attphys Unavailable RADHA PASCUAL M.D. Attphys Unavailable JOSÉ MIGUEL AMAYA, D.OFlaquito Attphys Unavailable ODIN QUICK APRN Attphys Unavailable José Miguel Amaya Attphys CEFERINO LANG M.D. Attphys Unavailable FREDDY GUILLEN M.D. Attphys Unavailable CORIE MCDONALD M.D. Attphys Unavailable ISAIAS MAC, P.AFlaquito Attphys Unavailable Tobin HERNANDEZ Attphys Unavailable Angie Burk Attphys GRADY BURK M.D. Attphys Unavailable Corie Mcdonald Attphys Alisha WILCOX Attphys Unavailable MATEO GUIDO M.D. Attphys Unavailable Antwan VELÁSQUEZ Attphys Unavailable Kishan Velez M.D. Attphys Unavailable [place]-[facility], ECHO Attphys Unavailable DIVYA GARCIA M.D. Attphys Unavailable Luis Still Attphys [place]-[facility], HOLTER Attphys Unavailable DANNY WALL P.A. Attphys Unavailable Jeaneth Goins Attphys MISSY OCHOA NP Attphys Unavailable Alexandro Patel Attphys Cricket Lang Attphys SLIME BANKS M.D. Attphys Unavailable CAROLINE URIBE Attphys Unavailable Alexandro Patel Admphys Payers Payer Name Policy Type Policy Number Effective Date Expiration Date S ani [employer] Medicare Replacement [id number] 2012 00:00:00 [facility] Problems Condition Name Condition Details Condition Category Status Onset Date Resolution Date Last Treatment Date Treating Clinician Comments Source RT KNNE PAIN, LBP RT K NNE PAIN, LBP Active 05/06/2019 [facility] [place] Diagnosis Active 2019-05-06 08:00:00 2019-05-14 12:36:00 [facility] SOM HANDS SOM HANDS Active 04/22/2017 [facility] [place] [facility] Active 2017-04-22 08:00:00 2017-10-28 18:46:00 [facility] DIZZINESS DIZZ INESS Active 02/15/2016 [facility] Active 2016-02-15 00:00:00 2016-02-15 23:19:00 [facility] ACUTE DIVERTICULAITIS ACUT E DIVERTICULAITIS Active 02/15/2016 [facility] Active 2016-02-15 00:00:00 2016-02-18 14:33: 00 [facility] UNK UNK Active 09/15/2015 [facility] Active 2015-09-15 00:00:00 2015-09-30 06:04:00 Sherrie Pinto History of Breast Cancer History of Breast Cancer Problem Resolved [facility] Asthma, persistent Asthma, persistent Problem Active [facility] History of asthma History of asthma Problem Resolved [facility] Abnormal glucose Abnormal glucose Problem Active [facility] History of Ascending aortic aneurysm History of Ascending ao rtic aneurysm Problem Resolved [facility] History of Costochondritis History of Costochondritis Problem Resolved [facility] History of Diverticulosis History of Diverticulosis Problem Resolved [facility] History of fracture of rib History of fracture of rib Problem Resolved [facility] History of Pre-diabetes History of Pre-diabetes Problem Resolved [facility] History of transient cerebral ischemia History of transient cerebral ischemia Problem Resolved [facility] Colon cancer screening Colon cancer screening Problem Active [facility] Dysphagia Dysphagia Problem Active [facility] Peptic ulcer Peptic ulcer Problem Active [facility] Menopausal and perimenopausal disorder Menopausal and perime nopausal disorder Problem Active [facility] Need for Zostavax administration Need for Zostavax administratio n Problem Active [facility] Motion sickness Motion sickness Problem Active [facility] Burning with urination Burning with urination Problem Active [facility] Atypical chest pain Atypical chest pain Problem Active [facility] Abnormal EKG Abnormal EKG Problem Active [facility] Gastroesophageal reflux disease with esophagitis Gastr oesophageal reflux disease with esophagitis Problem Active [facility] Atrophic vaginitis Atrophic vaginitis Problem Active [facility] NSAID long-term use NSAID long-term use Problem Active [facility] Osteoporosis screening Osteoporosis screening Problem Active [facility] Dizziness Dizziness Problem Active [facility] Recurrent urinary tract infection Recurrent urinary tract infect ion Problem Active [facility] Tachycardia, unspecified Tachycardia, unspecified Problem Active [facility] Subdeltoid bursitis, left Subdeltoid bursitis, left Problem Active [facility] Ascending aorta dilation Ascending aorta dilation Problem Active [facility] BMI 34.0-34.9,adult BMI 34.0-34.9,adult Problem Active [facility] Renal insufficiency Renal insufficiency Problem Active [facility] Chronic fatigue Chronic fatigue Problem Active [facility] Chronic pain of both shoulders Chronic pain of both shoulders Problem Active [facility] IBS (irritable bowel syndrome) IBS (irritable bowel syndrome) Problem Active [facility] Elevated sedimentation rate Elevated sedimentation rate Problem Active [facility] Peripheral neuropathy Peripheral neuropathy Problem Active [facility] Iron deficiency anemia Iron deficiency anemia Problem Active [facility] Lower abdominal pain Lower abdominal pain Problem Active [facility] History of recurrent UTIs History of recurrent UTIs Problem Active [facility] Reactive airway disease Reactive airway disease Problem Active [facility] Bereavement reaction Bereavement reaction Problem Active [facility] Chronic cough Chronic cough Problem Active [facility] Rib pain on left side Rib pain on left side Problem Active [facility] Strain of neck muscle, initial encounter Strain of nec k muscle, initial encounter Problem Active [facility] Pain in both hands Pain in both hands Problem Active [facility] Neck pain Neck pain Problem [facility] Arthralgia of hand, left Arthralgia of hand, left Problem Active [facility] Arthralgia of hand, right Arthralgia of hand, right Problem Active [facility] Chronic GERD Chronic GERD Problem Active [facility] Cervical radicular pain Cervical radicular pain Problem Active [facility] Cervical spondylosis Cervical spondylosis Problem Active [facility] Myofascial pain Myofascial pain Problem Active [facility] Subdeltoid bursitis, right Subdeltoid bursitis, right Problem Active [facility] Urinary incontinence Urinary incontinence Problem Active [facility] Acute seasonal allergic rhinitis Acute seasonal allergic rhiniti s Problem Active [facility] Hearing loss of right ear due to cerumen impaction Hea ring loss of right ear due to cerumen impaction [facility] Long-term use of hydroxychloroquine Long-term use of hydroxychlo roquine Problem Active [facility] Abnormal laboratory test Abnormal laboratory test Problem Active [facility] Chronic pain of right wrist Chronic pain of right wrist Problem Active [facility] CMC arthritis CMC arthritis Problem Active [facility] Generalized osteoarthritis of multiple sites Generaliz ed osteoarthritis of multiple sites Problem Active [facility] Encounter for monitoring of hydroxychloroquine therapy Encounter for monitoring of hydroxychloroquine therapy Problem Active [facility] Positive SHERRY (antinuclear antibody) Positive SHERRY (antinuclear an tibody) Problem Active [facility] De Quervain's disease (tenosynovitis) De Quervain's disease (tenosynovitis) Problem Active [facility] Primary osteoarthritis of right hand Primary osteoarthritis of right hand Problem Active [facility] Anemia Anemia Problem Active [facility] Leukocytes in urine Leukocytes in urine Problem Active [facility] Marroquin's esophagus Marroquin's esophagus Problem Active [facility] Acute pain of right knee Acute pain of right knee Problem Active [facility] Chronic bilateral low back pain with right-sided sciat ica Chronic bilateral low back pain with right-sided sciatica Problem Active [facility] Body aches Body aches Problem Active [facility] Asthma exacerbation Asthma exacerbation Problem Active [facility] Acute bronchitis Acute bronchitis Problem Active [facility] Acute sinusitis Acute sinusitis Problem Active [facility] CKD (chronic kidney disease) CKD (chronic kidney disease) Problem Active [facility] Chronic major depressive disorder, recurrent episode C hronic major depressive disorder, recurrent episode Problem Active [facility] 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 Xero stomia due to hyposecretion of salivary gland Problem Active [facility] Other hyperlipidemia Other hyperlipidemia Problem Active [facility] Hypothyroidism Hypothyroidism Problem Active [facility] Dyspnea on exertion Dyspnea on exertion Problem Active [facility] Hyperlipidemia Hyperlipidemia Problem Active [facility] Depression Depression Problem Active [facility] Diabetes mellitus, type II Diabetes mellitus, type II Problem Active [facility] Chronic insomnia Chronic insomnia Problem Active [facility] Sleep apnea Sleep apnea Problem Active [facility] Essential (primary) hypertension Essential (primary) hypertensio n Problem Active [facility] Urinary frequency Urinary frequency Problem Active [facility] Pain in left shoulder Pain in left shoulder 11/06/2017 [facility] [place] Problem 2017-11-06 14:17:20 Alberto Pinto Unspecified hydronephrosis Uns pecified hydronephrosis 09/12/2017 [facility] [place] Problem 2017-09-12 12:37:42 Alberto Pinto Pain in left hand Pain in left hand 12/25/2018 [facility] [place] Problem 2018-12-25 11:40:57 Alberto Pinto Other specified disorders of bone density and structur e, left hand Other specified disorders of bone density and structure, left hand 12/25/2018 [facility] [place] Problem 2018-12-25 11:40:57 Alberto Pinto Other specified disorders of bone density and structur e, right hand Other specified disorders of bone density and structure, right hand 12/25/2018 [facility] [place] Problem 2018-12-25 11:40:57 Alberto iPnto Finger-joint replacement of left hand Finger-joint replacement of left hand 12/25/2018 [facility] [place] Problem 2018-12-25 11:40:57 Alberto Pinto Abnormal glucose level (finding) Abnormal glucose level (finding) Resolved Problem 06/15/2019 [facility], DELIA [place],[facility] [place], [facility] [place] Problem Resolved 2019-06-15 00:31:39 Alberto Pinto Malignant tumor of breast (disorder) Malignant tumor of breast (disorder) Resolved Problem 06/15/2019 [facility], [facility] [place], [facility] [place], [facility] [place] Problem Resolved 2019-06-15 00:31:39 Alberto Pinto Peptic ulcer (disorder) Pept ic ulcer (disorder) Resolved Problem 06/15/2019 [facility], [facility] [place], [facility] [place], [facility] [place] Problem Resolved 2019-06-15 00:31:39 Alberto Pinto Transient ischemic attack (disorder) Transient ischemic attack (disorder) Resolved Problem 06/15/2019 [facility], [facility] [place] [place], [facility] [place] Problem Resolved 2019-06-15 00:31:39 Alberto Pinto Hypothyroidism Hypo thyroidism Active 05/16/2013 [facility] Problem Active 2013-05-16 17:33:44 M azeb Pinto Dyslipidemia Dysl ipidemia Active 05/16/2013 [facility] Problem Active 2013-05-16 17:33:44 Norman Pinto Hypertension Hype rtension Active 05/16/2013 [facility] Problem Active 2013-05-16 17:33:44 Norman jyothi Pinto Type 2 Diabetes Mellitus - Uncomplicated, Uncontrolled Type 2 Diabetes Mellitus - Uncomplicated, Uncontrolled Active 11/15/2012 [facility] Problem Active 2012-11-15 12:09:16 M emoridarien Pinto Depression Depr ession Active 05/16/2013 [facility] Problem Active 2013-05-16 17:33:44 Alberto Pinto Asthma Asth ma Active 05/16/2013 [facility] Problem Active 2013-05-16 17:33:44 Membryce Pinto Peptic Ulcer Pept ic Ulcer Active 05/16/2013 [facility] Problem Active 2013-05-16 17:33:44 Norman jyothi Pinto Prediabetes Pred iabetes Active 05/16/2013 [facility] Problem Active 2013-05-16 17:33:44 Alberto Pinto ENCOUNTER FOR SCREENING FOR MALIGNANT NE ENCOUNTER FOR SCREENING FOR MALIGNANT NE Active [facility] Active 2015-09-30 06:04:00 Alberto Pinto 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 Active [facility] Active 2015-09-30 06:04:00 Alberto Pinto DVTRCLI OF INTEST, PART UNSP, W/O PERF O DVTRCLI OF INTEST, PART UNSP, W/O PERF O Active [facility] Active 2016-02-18 14:33:00 Alberto Pinto Chronic kidney disease, stage 3 (moderate) Chronic kidney disease, stage 3 (moderate) 06/09/2017 09/12/2017 [facility] [place] Problem 2017-06-09 06:27:05 2017-09-12 12:37:42 2017-09-12 12:37:42 Alberto Pinto Allergies, Adverse Reactions, Alerts Allergy Name Allergy Type Status Severity Reaction(s) Onset Date Inacti ve Date Treating Clinician Comments Source Sulfa (Sulfonamide Antibiotics) Allergy to Substance Active Mild RASH 2018-08-25 00:00:00 [facility] Sulfa Drugs Allergy to drug (finding) Active [facility] sulfa drugs sulfa drugs Active [facility] Sulfa Drugs Sulfa Drugs Active [facility] Family History Family Member Diagnosis Comments Start Date Stop Date Source Unknown Family Member Family history of Congestive Heart Failure Family History [facility] Unknown Family Member Family history of Diabetes Mellitus Family Hist ory [facility] Unknown Family Member Family history of Coronary Artery Disease Family History [facility] Unknown Family Member Family history of Cerebral Artery Occl usion Family History [facility] Unknown Family Member Family History 2012-08-25 12:06:40 2 12:06:40 Alberto Pinto Grandmother Family history of Cerebral Artery Occlusion [facility] Mother Family history of Coronary Artery Disease [facility] Mother Family history of kidney disease [facility] Mother Family history of rheumatoid arthritis [facility] Father Family history of malignant neoplasm of breast [facility] Father Family history of malignant neoplasm of prostate [facility] Sister Family history of Diabetes Mellitus [facility] Sister Family history of Adrenal abnormality [facility] Sister Family history of myocardial infarction [facility] Sister Family history of malignant neoplasm of breast [facility] Sister Family history of rheumatoid arthritis [facility] natural daughter Family history of Childhood arthritis [facility] natural daughter Family history of lupus erythematosus [facility] natural son Family history of Irregular heart beat [facility] Social History Social Habit Start Date Stop Date Quantity Comments Source Social History 2013-05-16 17:33:44 2013-05-16 17:33:44 [facility] Smoking Status Start Date Stop Date Source Never smoked tobacco (finding) [facility] Medications Ordered Medication Name Filled Medication Name Start Date Stop Da te Current Medication? 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 Q6H T ALTON 1 TABLET EVERY 6 HOURS NEEDED FOR SPASM. [facility] Zolpidem Tartrate 5 MG Oral Tablet Zolpidem Tartrate 5 MG Or al Tablet 2019-07-23 00:00:00 Yes CAMERON-ISATU KOENIGH D.O. T ALTON 1 TABLET BY MOUTH EVERYDAY AT BEDTIME [facility] Metoprolol Succinate ER 25 MG Oral Tablet Extended Rel ease 24 Hour Metoprolol Succinate ER 25 MG Oral Tablet Extended Release 24 Hour 2019-05-03 00:00:00 Yes JSOÉ MIGUEL AMAYA D.O. 1 QD TAKE 1 TABLET DAILY. [facility] tiZANidine HCl - 4 MG Oral Tablet tiZANidine HCl - 4 MG Oral Tablet 2019-04-16 00:00:00 Yes CAMERON-ISATU YEH D.O. 1 Q0.3333D T ALTON 1 TABLET 3 TIMES DAILY NEEDED. [facility] Ferrous Sulfate 325 (65 Fe) MG Oral Tablet Ferrous Sul fate 325 (65 Fe) MG Oral Tablet 2018-08-16 00:00:00 Yes RADHA PASCUAL M.D. QOD TAKE 1 TABLET 2x a week [facility] Acetaminophen 500 MG Oral Tablet Acetaminophen 500 MG Oral T ablet 2018-07-24 00:00:00 Yes GRADY BURK M.D. 2 Q8H TAKE 2 TABLET Every 8 hours PRN MDD:3000 [facility] Hydroxychloroquine Sulfate 200 MG Oral Tablet Hydroxyc hloroquine Sulfate 200 MG Oral Tablet 2018-06-06 00:00:00 Yes CORIE MCDONALD M.D. Q0.5D Take 1 tablet by mouth twice a day [facility] Tradjenta 5 MG Oral Tablet Tradjenta 5 MG Oral Tablet 2018-05-10 00:0 0:00 Yes RADHA PASCUAL M.D. 1 QD TAKE 1 TABLET DAILY [facility] Albuterol Sulfate 0.63 MG/3ML Inhalation Nebulization Solution Albuterol Sulfate 0.63 MG/3ML Inhalation Nebulization Solution 2017-12-23 00:00:00 Yes ODIN QUICK APRN USE 1 UNIT DOSE IN NEBULIZER EVERY 4 TO 6 HOURS NEEDED. [facility] Nebulizer/Tubing/Mouthpiece KIT Nebulizer/Tubing/Mouthpiece KIT 2017-12-23 00:00:00 Yes MERCEDEZ LEON APRN USE DIRECTED. [facility] Benzonatate 100 MG Oral Capsule Benzonatate 100 MG Oral Caps ule 2017-12-23 00:00:00 Yes ODIN QUICK APRN Q0.3333D NATHAN E 1 CAPSULE BY MOUTH THREE TIMES A DAY NEEDED [facility] Vitamin C 100 MG Oral Tablet Vitamin C 100 MG Oral Tablet 2017-08-06 00:00:00 Yes One tablet taken with iron pills - per P T [facility] amLODIPine Besylate 10 MG Oral Tablet amLODIPine Besylate 10 MG Oral Tablet 2017-04-17 00:00:00 Yes JOSÉ MIGUEL GoffOFlaquito 1 QD TAKE 1 TABLET DAILY [facility] Advair Diskus 250-50 MCG/DOSE Inhalation Aerosol Powde r Breath Activated Advair Diskus 250-50 MCG/DOSE Inhalation Aerosol Powder Breath Activated 2016-10-11 00:00:00 Yes JOSÉ MIGUEL AMAYA D.O. Q0.5D TAKE 1 PUFF BY MOUTH TWICE A DAY [facility] Rosuvastatin Calcium 10 MG Oral Tablet Rosuvastatin Calcium 10 MG Oral Tablet 2016-03-21 00:00:00 Yes RADHA PASCUAL M.D. TAKE 1 TABLET AT BEDTIME (REPLACING PRAVASTATIN) [facility] Amoxicillin 875 MG / Clavulanate 125 MG Oral Tablet [Augment in 875-mg] 2016-02-23 15:01:00 Yes 875 mg = 1 tab, PO, Q12H, X 6 day, # 12 tab, 0 Refill(s) Alberto Diaz 2016-02-19 18:00:00 No Notes: (Same as: Emily) Take with food/ avoid alcohol Alberto [place] Diaz 2016-02-19 13:00:00 No 375 mg, Route: PO, Drug form: CAP, [id number], Dosing Weight 104.005, kg, Start date: 02/19/16 8:00:00 CDT, Duration: 30 day, Stop date: 03/19/16 20:00:00 [employer] Alberto [place] Diaz 2016-02-19 02:00:00 No 500 mg, Route: IVPB, [id number], Dosing Weight 104.005, kg, Start date: 02/18/16 21:00:00 CDT, Duration: 30 day, Stop date: 03/19/16 13:00:00 [employer] Alberto jen Suazofady 2016-02-18 23:00:00 No Notes: (Same as: Emily) Take with food/ avoid alcohol Alberto Suazoyl 2016-02-18 19:00:00 No Notes: (Same as: Emily) Avoid alcohol. Alberto Pinto Zosyn 2016-02-18 16:00:00 No Notes: (Same as: Zosyn) Dosing based on Piperacillin component Alberto jhaveri sodium chloride 0.9% 1000 ml INJ 1,000 mL 2016-02-18 15:51:00 No 1,000 mL, Rate: 75 ml/hr, Infuse over: 13.3 hr, Route: IV, Dosing Weight 104.005 kg, Total Volume: 1,000, Start date: 02/18/16 10:51:00 CDT, Duration: 30 day, Stop date: 03/19/16 10:50:00 [employer] Ashish Pinto fluticasone nasal 0.05 mg/inh spray 2016-02-18 14:00:00 No Notes: (Same as: Flonase) Alberto Pinto Metformin 2016-02-17 02:00:00 No Notes: (Same as: Glucophage) Take with meal Alberto Pinto Ambien 2016-02-17 02:00:00 No Notes: (Same As: Ambien) Alberto Pinto Pravastatin 2016-02-17 02:00:00 No Notes: ( Same as: Pravachol) Alberto Pinto Singulair 2016-02-16 22:00:00 No Notes: (Sa me as:Singulair) Alberto Pinto Morphine 2016-02-16 19:11:00 No Not es: (Same as:MORPhine Sulfate) Alberto Pinto Insulin, Aspart, Human 2016-02-16 19:05:00 No Notes: Roll in palms of hands gently; Do not shake vigorously. (Same as: NovoLOG) "single patient use only" WASTE: F/P - Black; E - Municipal Trash Bin Stable for 28 days at room temperature. Expires in days from Date Alberto Pinto Dextrose 50% Syringe 2016-02-16 19:05:00 No 12.5 gm, 25 mL, Route: IVP, Drug Form: INJ, Dosing Weight 104.005, kg, PRN, PRN Blood Glucose Results, Start date: 02/16/16 14:05:00 CDT, Duration: 30 day, Stop date: 03/17/16 13:04:00 [employer] Alberto Pinto Glucagon 2016-02-16 19:05:00 No 1 mg, Route: IM, Drug form: PDR/INJ, PRN, Dosing Weight 104.005, kg, PRN Blood Glucose Results, Start date: 02/16/16 14:05:00 CDT, Duration: 30 day, Stop date: 03/17/16 13:04:00 [employer] Alberto Pinto multivitamin with minerals 2016-02-16 14:00:00 No Notes: (Same as:Thera-M, Theragran-M) WASTE: F/P - Black; E - Municipal Trash Bin Give with food. Alberto Pinto metoprolol tartrate 2016-02-16 14:00:00 No Notes: (Same as: Lopressor) Alberto Pinto Losartan 2016-02-16 14:00:00 No Notes: (Mahendra e as: Cozaar) Alberto Pinto Hydrochlorothiazide 25 MG / Losartan Potassium 100 MG Oral T ablet 2016-02-16 14:00:00 No 1 tab, Rou te: PO, Drug Form: TAB, Dosing Weight 104.005, kg, Daily, Start date: 02/16/16 9:00:00 CDT, Duration: 30 day, Stop date: 03/16/16 9:00:00 [employer] Alberto Pinto 120 ACTUAT fluticasone furoate 0.0275 MG/ACTUAT Nasal Inhale r [Veramyst] 2016-02-16 14:00:00 No 27.5 microgram, 1 spray, Route: NASAL, Drug Form: SPRY, Dosing Weight 104.005, kg, Daily, Start date: 02/16/16 9:00:00 CDT, Duration: 30 day, Stop date: 03/16/16 9:00:00 [employer] Alberto Pinto Dicyclomine 2016-02-16 14:00:00 No Notes: ( Same as: Bentfady) [facility] Vitamin B12 2016-02-16 14:00:00 No Notes: (Same As: Vitamin B12) [facility] D3 2000 intl units oral tablet 2016-02-16 14:00:00 No Notes: Same as : Vitamin D3 Alberto Pinto Ventolin HFA 90 mcg/inh inhalation aerosol with adapter 2016-02-16 14:00:00 No Notes: Albutero l 90 microgram/inh 8gm HFA WASTE: Aerosol - Return to Pharmacy Same as: Josi Torres [facility] Cozaar 2016-02-16 14:00:00 No Notes: (Same as: Eddy) Alberto Pinto Streptococcus pneumoniae serotype 1 caps ular antigen diphtheria [id number] protein conjugate vaccine / Streptococcus pneumoniae serotype 14 capsular antigen diphtheria [id number] protein conjugate vaccine / Streptococcus pneumoniae serotype 18C capsular antigen d 2016-02-16 14:00:00 No Notes: Lightly roll vial (DO NOT SHAKE) before administration. (Same as: Prevnar 13) [facility] Spironolactone 2016-02-16 14:00:00 No Notes: (Same As: Aldactone) Alberto Pinto hydrochlorothiazide 25 mg oral tablet 2016-02-16 14:00:00 N o Notes: (Same as: Hydrodiuril) With food. Memor alcides Pinto pantoprazole 2016-02-16 14:00:00 No Notes: Tablet should not be chewed or crushed. (Same as: Protonix) Sherrie emoridarien Pinto Nurse pls bring pt's own med: Veramyst to pharmacy for verif 2016-02-16 13:00:00 No Nurse pls bring pt's own med: Veramyst to pharmacy for verif, reminder, Drug form: MISC, Route: MISC, QSHIFT, 02/16/16 8:00:00 CDT, Duration: 30 day, Stop date: 03/17/16 0:00:00 [employer] Alberto Pinto Thyroxine 2016-02-16 11:30:00 No Notes: Take 1 hour before or 2 hours after meal; Enteral feeds may interefere with the absorption of this medication. (Same as:Levothroid) Ashish Pinto Enoxaparin 2016-02-16 11:00:00 No Notes: (S power as: Lovenox) Alberto Blair Zofran 2016-02-16 10:21:00 No Notes: (Same as: Zofran) MEDICATION WASTE Product Size: 4 mg Product Wasted: ___ mg Alberto [facility] Hydrochlorothiazide 25 MG / Losartan Potassium 100 MG Oral T ablet 2016-02-16 09:37:00 Yes 1 tab, PO, Daily, # 30 tab, 0 Refill(s) Alberto [facility] Vitamin B12 1000 mcg oral tablet 2016-02-16 09:37:00 Yes 1,000 microgram = 1 tab, PO, Daily, 0 Refill(s) Alberto [place] Flagyl 2016-02-16 09:00:00 No Notes: (Same as: Flagyl) Avoid alcohol. Alberto [place] Cipro 2016-02-16 09:00:00 No Notes: Do not refrigerate Alberto Huntann NS + KCL 20mEq/L 1000ml (Premix) 1,000 mL 2016-02-16 08:31:00 No Notes: PREMIX IV - Do Not Alter WASTE: F/P - Sink; E - Municipal Trash Bin Alberto [facility] Saline Flush 0.9% 2016-02-16 08:31:00 No Notes: (Same as: BD Posiflush) Alberto [place] Ondansetron 2016-02-16 08:31:00 No Notes: (Same as: Zofran) MEDICATION WASTE Product Size: 4 mg Product Wasted: ___ mg Alberto Pinto Morphine 2016-02-16 08:31:00 No Not es: (Same as:MORPhine Sulfate) Alberto Pinto Docusate 2016-02-16 08:31:00 No Notes: (Same as: Colace) (Do Not Crush) Alberto Pinto Acetaminophen 325 MG / Hydrocodone Bitartrate 5 MG Oral Tabl et 2016-02-16 08:31:00 No Notes: (Sa me as: Hillister 325/5) Do not exceed 4gm/day of acetaminophen. Alberto Pinto Acetaminophen 2016-02-16 08:31:00 No Notes: Do not exceed 4 gm/day. (Same as: Tylenol) Alberto Pinto Zofran 2016-02-16 06:19:00 No 4 mg, Route: IVP, Drug form: INJ, ONCE, Dosing Weight 104.545, kg, Priority: STAT, Start date: 02/16/16 1:19:00 CDT, Stop date: 02/16/16 1:19:00 CDT [facility] jennydarien Pinto Morphine 2016-02-16 06:19:00 No 4 mg, Route: IVP, ONCE, Dosing Weight 104.545, kg, Priority: STAT, Start date: 02/16/16 1:19:00 CDT, Stop date: 02/16/16 1:19:00 CDT Alberto Pinto Saline Flush 0.9% 2016-02-15 23:12:00 No Notes: (Same as: BD Posiflush) Alberto Pinto Sodium Chloride 0.154 MEQ/ML Injectable Solution 2015-09-30 12:1 4:00 No 1,000 mL, Rate: 25 ml/hr, In fuse over: 40 hr, Route: IV, Dosing Weight 105.455 kg, Total Volume: 1,000, Start date: 09/30/15 7:14:00 CDT, Duration: 30 day, Stop date: 10/30/15 7:13:00 CDT Neno jennydarien Pinto levothyroxine 125 mcg (0.125 mg) oral tablet 2015-09-29 19:57:00 Yes 125 microgram = 1 tab, PO, Daily, # 30 tab, 0 Refill(s) Alberto Pinto Vitamin D3 2000 intl units oral capsule 2015-09-29 19:57:00 Yes 2,000 IntlUnit = 1 cap, PO, Daily, # 100 cap, 3 Refill(s) Alberto Pinto montelukast 10 MG Oral Tablet [Singulair] 2015-09-29 19:57:00 Yes 10 mg = 1 tab, PO, QPM, 0 Refill(s) Porfirio Cervantes pravastatin 40 mg oral tablet 2015-09-29 19:57:00 Yes 40 mg = 1 tab, PO, Bedtime, # 30 tab, 0 Refill(s) Norman Pinto Centrum Silver oral tablet, chewable 2015-09-29 19:56:00 Ye s 1 tab, CHEW, Daily, # 50 tab, 0 Refill(s) Chung Pinto spironolactone 25 mg oral tablet 2015-09-29 19:55:00 Yes 25 mg = 1 tab, PO, Daily, # 30 tab, 3 Refill(s) De micki Pinto metoprolol tartrate 25 mg oral tablet 2015-09-29 19:55:00 Y es 25 mg = 1 tab, PO, BID, 0 Refill(s) Alberto velez Losartan 2015-09-29 19:55:00 Yes PO, Daily, 0 Refill(s) [facility] Metformin 2015-09-29 19:53:00 Yes PO, 0 Refi ll(s) [facility] vilazodone hydrochloride 20 MG Oral Tablet [Viibryd] 2 19:53:00 Yes 20 mg = 1 tab, PO, Daily, 0 Refill(s) [facility] dicyclomine 20 mg oral tablet 2015-09-29 19:53:00 Yes 20 mg = 1 tab, PO, QID, 0 Refill(s) [facility] 120 ACTUAT fluticasone furoate 0.0275 MG/ACTUAT Nasal Inhale r [Veramyst] 2015-09-29 19:52:00 Yes 1 spray, NASAL, Da dominic, 0 Refill(s) [facility] pantoprazole 40 mg oral enteric coated tablet 2015-09-29 19:51:0 0 Yes 40 mg = 1 tab, PO, Daily, 0 Refill(s) [facility] Zolpidem tartrate 10 MG Oral Tablet [Ambien] 2015-09-29 19:51:00 Yes 10 mg = 1 tab, PO, Bedtime, 0 Refill(s) Alberto Pinto Ventolin HFA 90 mcg/inh inhalation aerosol with adapter 2015-09-29 19:51:00 Yes 2 puff, INHALATION, QID, 0 Refill(s) Alberto Pinto Viibryd 40 MG Oral Tablet Viibryd 40 MG Oral Tablet 2015-03-19 00:00: 00 Yes JOSÉ MIGUEL GoffOFlaquito 1 QD TAKE 1 TABLET DAILY [facility] Pantoprazole Sodium 40 MG Oral Tablet Delayed Release Pantoprazole Sodium 40 MG Oral Tablet Delayed Release 2014-06-17 00:00:00 Yes JOSÉ MIGUEL Goff OFlaquito 1 QD TAKE 1 TABLET DAILY [facility] B-12 TR 1000 MCG Oral Tablet Extended Release B-12 TR 1000 MCG Oral Tablet Extended Release 2013-09-24 00:00:00 Yes RADHA PASCUAL M.D. QD TAKE 1 TABLET DAILY DIRECTED. [facility] Ventolin HFA 108 (90 Base) MCG/ACT Inhalation Aerosol Soluti on 2013-05-16 06:00:00 Yes ; Start Date: 05/16/2013 (Act suleman) Alberto Pinto Ventolin HFA 108 (90 Base) MCG/ACT Inhalation Aerosol Solution Ventolin HFA 108 (90 Base) MCG/ACT Inhalation Aerosol Solution 2013-05-16 00:00:00 Yes FREDI AMAYA D.O. 2 Q0.3333D USE 2 INHALATIONS ORALLY 3 TIMES JEREMY LY NEEDED [facility] Jeremie Microlet Lancets Miscellaneous 2013-03-21 06:00:00 Ye s ; Start Date: 03/21/2013; End Date: (Active) Alberto Pinto Accu-Chek FastClix Lancets Accu-Chek FastClix Lancets 2013-03-21 00:0 0:00 Yes RADHA PASCUAL M.D. Check BG 2x a day [facility] MetFORMIN HCl ER 500 MG Oral Tablet Extended Release 24 Hour 2012-11-15 05:00:00 Yes ; Start Date: 3; End Date: (Active) Alberto Pinto CloNIDine HCl 0.1 MG/24HR Transdermal Patch Weekly 2012-11 05:00:00 Yes ; Start Date: 11/15/2012 (Active) Alberto Pinto Vitamin D3 2000 UNIT Oral Capsule 2012-08-14 05:00:00 Yes ; Start Date: 08/14/2012 (Active) Alberto Hunttobin jhaveri Vitamin D3 50 MCG (2000 UT) Oral Capsule Vitamin D3 50 MCG (2000 UT) Oral Capsule 2012-08-14 00:00:00 Yes RADHA chaidez [facility] Glucose Test In Vitro Strip 2012-08-13 05:00:00 Ye s ; Start Date: 08/13/2012 (Active) Alberto simmons Ambien 10 MG Oral Tablet 2012-08-13 05:00:00 Yes ; Start Date: 08/13/2012 (Active) Alberto Pinto Centrum Silver Oral Tablet 2012-08-13 05:00:00 Yes ; Start Date: 08/13/2012 (Active) Alberto Pinto Viibryd 40 MG Oral Tablet 2012-08-13 05:00:00 Yes ; Start Date: 08/13/2012 (Active) Alberto Pinto Veramyst 27.5 MCG/SPRAY Nasal Suspension 2012-08-13 05:00:00 Yes ; Start Date: 08/13/2012 (Active) Alberto Pinto Spironolactone 25 MG Oral Tablet 2012-08-13 05:00:00 Yes ; Start Date: 08/13/2012 (Active) Alberto jhaveri Pravastatin Sodium 40 MG Oral Tablet 2012-08-13 05:00:00 Ye s ; Start Date: 08/13/2012; End Date: (Active) Alberto Pinto Singulair 10 MG Oral Tablet 2012-08-13 05:00:00 Yes ; Start Date: 08/13/2012 (Active) Alberto Pinto Losartan Potassium-HCTZ 100-25 MG Oral Tablet 2012-08-13 05:00:0 0 Yes ; Start Date: 08/13/2012 (Active) Alberto Pinto Levothyroxine Sodium 125 MCG Oral Tablet 2012-08-13 05:00:00 Yes ; Start Date: 08/13/2012 (Active) Alberto Pinto Dexilant 60 MG Oral Capsule Delayed Release 2012-08-13 05:00:00 Yes ; Start Date: 08/13/2012 (Active) Porfirio Cervantes CeleBREX 200 MG Oral Capsule 2012-08-13 05:00:00 Yes ; Start Date: 08/13/2012 (Active) Alberto Pinto AmLODIPine Besylate 10 MG Oral Tablet 2012-08-13 05:00:00 Y es ; Start Date: 08/13/2012 (Active) Alberto Pinto Jeremie Contour Next Test In Vitro Strip 2012-08-13 05:00:00 Yes ; Start Date: 08/13/2012; End Date: (Active) Alberto Pinto Levothyroxine Sodium 125 MCG Oral Tablet Levothyroxine Sodium 125 MCG Oral Tablet 2012-08-13 00:00:00 Yes JOSÉ MIGUEL AMAYA D.O. 1 Q D TAKE 1 TABLET DAILY MONDAY THROUGH MONDAY only [facility] Montelukast Sodium 10 MG Oral Tablet Montelukast Sodium 10 M G Oral Tablet 2012-08-13 00:00:00 Yes JOSÉ MIGUEL AMAYA D.O. 1 QD TAKE 1 TABLET DAILY [facility] Accu-Chek Guide In Vitro Strip Accu-Chek Guide In Vitro Stri p 2012-08-13 00:00:00 Yes RADHA PASCUAL M.D. TEST DIRECTED TW A [facility] Albuterol Sulfate (Ventolin Hfa) 18 Gm Hfa.aer.ad Albu terol Sulfate (Ventolin Hfa) 18 Gm Hfa.aer.ad Yes As Needed [facility] Cyanocobalamin (Vitamin B-12) 1,000 Mcg Tab Cyanocobal ramos (Vitamin B-12) 1,000 Mcg Tab Yes [address] [facility] Dicyclomine Hcl 20 Mg Tablet Dicyclomine Hcl 20 Mg Tablet Y es 20 Three Times A Day [facility] Fluticasone Furoate (Veramyst) 10 Gm [place].susp Flutic asone Furoate (Veramyst) 10 Gm [place].susp Yes Twice A Day [facility] Ilevro Ilevro Yes 1 Daily [facility] Levothyroxine Sodium 125 Mcg Tablet Levothyroxine Sodium 125 Mcg Tabl et Yes 125 Daily [facility] Losartan/Hydrochlorothiazide (Hyzaar 100-25 Tablet) 1 Each Tablet Losartan/Hydrochlorothiazide (Hyzaar 100-25 Tablet) 1 Each Tablet Yes Daily [facility] Metformin Hcl 500 Mg Tablet Metformin Hcl 500 Mg Tablet Yes 1000 Bedtime [facility] Metoprolol Tartrate 25 Mg Tablet Metoprolol Tartrate 25 Mg Tablet Yes 25 Daily [facility] Montelukast Sodium (Singulair) 10 Mg Tablet Montelukas t Sodium (Singulair) 10 Mg Tablet Yes 10 Bedtime [facility] Mu-Vits-Min Th/Lycopene/Lutein (Centrum Silver Tablet) 1 Each Tablet Mu-Vits-Min Th/Lycopene/Lutein (Centrum Silver Tablet) 1 Each Tablet Yes 1 Daily [facility] Pantoprazole Sodium (Protonix) 40 Mg Tablet. Pantopr azole Sodium (Protonix) 40 Mg Tablet. Yes 40 Daily [facility] Pravastatin Sodium 40 Mg Tablet Pravastatin Sodium 40 Mg Tablet Yes 40 Bedtime [facility] Spironolactone 25 Mg Tablet Spironolactone 25 Mg Tablet Yes 25 Daily [facility] Vilazodone Hydrochloride (Viibryd) 20 Mg Tablet Vilazo done Hydrochloride (Viibryd) 20 Mg Tablet Yes 20 Daily [facility] Zolpidem Tartrate (Ambien) 10 Mg Tablet Zolpidem Tartrate (A mbien) 10 Mg Tablet Yes 10 Bedtime [facility] Aspirin 81 MG TABS Aspirin 81 MG TABS Yes 1 QD TA KE 1 TABLET DAILY. [facility] Melatonin CAPS Melatonin CAPS Yes TAKE CAPSU LE BEDTIME [facility] Celecoxib (Celebrex) 200 Mg Capsule, 200 Mg Oral Celec oxib (Celebrex) 200 Mg Capsule, 200 Mg Oral 2016-02-11 00:00:00 No 200 Twi ce A Day [facility] Difluprednate (Durezol) 5 Ml Drops, 1 Drp Ophthalmic D ifluprednate (Durezol) 5 Ml Drops, 1 Drp Ophthalmic 2016-02-11 00:00:00 No 1 Three Times A Day [facility] Besifloxacin Hcl (Besivance) 5 Ml Drops.susp, 1 Drp Op hthalmic Besifloxacin Hcl (Besivance) 5 Ml Drops.susp, 1 Drp Ophthalmic 2015-06-23 00:00:00 No 1 Three Times A Day [facility] Immunizations Ordered Immunization Name Filled Immunization Name Date Status Comments Source Pneumovax 23 25 MCG/0.5ML Injection Injectable 2019-04 14:11:00 Completed [facility] Influenza, seasonal, injectable 2019-03-26 00:00:00 Comple alcides [facility] Prevnar 13 Intramuscular Suspension 2016-10-11 15:06:00 Co mpleted [facility] Tdap (Boostrix) 2014-08-06 00:00:00 Completed [facility] Influenza 2014-03-03 00:00:00 Completed [facility] Influenza Unknown Completed Approx [id number] [facility] Vital Signs Vital Name Observation Time Observation Value Comments Source Systolic blood pressure 2019-10-08 13:48:00 149 mm[Hg] Loca tion: LUE; Position: Sitting [facility] Diastolic blood pressure 2019-10-08 13:48:00 80 mm[Hg] Loc ation: LUE; Position: Sitting [facility] Body height 2019-10-08 13:48:00 70 [in_us] [facility] Weight 2019-10-08 13:48:00 245.5 [lb_av] [facility] Body mass index (BMI) [Ratio] 2019-10-08 13:48:00 35.23 kg/m2 [facility] Body temperature 2019-10-08 13:48:00 97.7 [degF] Method: Temporal [facility] Heart Rate 2019-10-08 13:48:00 80 /min [facility] Respiratory rate 2019-10-08 13:48:00 16 /min [facility] Systolic blood pressure 2019-07-23 10:36:00 144 mm[Hg] [facility] Diastolic blood pressure 2019-07-23 10:36:00 80 mm[Hg] [facility] Heart Rate 2019-07-23 10:36:00 60 /min [facility] Systolic blood pressure 2019-07-23 10:18:00 132 mm[Hg] Loca tion: RUE; Position: Sitting [facility] Diastolic blood pressure 2019-07-23 10:18:00 75 mm[Hg] Loc ation: RUE; Position: Sitting [facility] Heart Rate 2019-07-23 10:18:00 58 /min [facility] Body height 2019-07-23 10:18:00 70 [in_us] [facility] Body mass index (BMI) [Ratio] 2019-07-23 10:18:00 34.79 kg/m2 [facility] Weight 2019-07-23 10:18:00 242.4375 [lb_av] [facility] Systolic blood pressure 2019-07-23 08:35:00 131 mm[Hg] Loca tion: LUE; Position: Sitting [facility] Diastolic blood pressure 2019-07-23 08:35:00 72 mm[Hg] Loc ation: LUE; Position: Sitting [facility] Weight 2019-07-23 08:35:00 240 [lb_av] [facility] Body mass index (BMI) [Ratio] 2019-07-23 08:35:00 34.44 kg/m2 [facility] Body height 2019-07-23 08:35:00 70 [in_us] [facility] Body temperature 2019-07-23 08:35:00 97 [degF] Method: [facility] Respiratory rate 2019-07-23 08:35:00 16 /min [facility] Heart Rate 2019-07-23 08:35:00 69 /min [facility] Systolic blood pressure 2019-07-12 12:12:00 123 mm[Hg] Loca tion: LUE; Position: Sitting [facility] Diastolic blood pressure 2019-07-12 12:12:00 71 mm[Hg] Loc ation: LUE; Position: Sitting [facility] Weight 2019-07-12 12:12:00 236 [lb_av] [facility] Body mass index (BMI) [Ratio] 2019-07-12 12:12:00 33.86 kg/m2 [facility] Body height 2019-07-12 12:12:00 70 [in_us] [facility] Body temperature 2019-07-12 12:12:00 97 [degF] Method: [facility] Respiratory rate 2019-07-12 12:12:00 16 /min [facility] Heart Rate 2019-07-12 12:12:00 71 /min [facility] Systolic blood pressure 2019-06-28 12:45:00 140 mm[Hg] Loca tion: [place]; Position: Sitting [facility] Diastolic blood pressure 2019-06-28 12:45:00 76 mm[Hg] Loc ation: [place]; Position: Sitting [facility] Body height 2019-06-28 12:45:00 70 [in_us] [facility] Weight 2019-06-28 12:45:00 238.5625 [lb_av] [facility] Body mass index (BMI) [Ratio] 2019-06-28 12:45:00 34.23 kg/m2 [facility] Body temperature 2019-06-28 12:45:00 97.5 [degF] Method: Temporal [facility] Heart Rate 2019-06-28 12:45:00 65 /min Location: L Brachial Artery; [facility] Respiratory rate 2019-06-28 12:45:00 16 /min Quality[facility] BP Systolic 2019-05-03 12:09:00 122 mm[Hg] Location: [place]; Positi on: Sitting [facility] BP Diastolic 2019-05-03 12:09:00 76 mm[Hg] Location: [place]; Positi on: Sitting [facility] Weight 2019-05-03 12:09:00 244 [lb_av] [facility] Body Mass Index Calculated 2019-05-03 12:09:00 35.01 kg/m2 [facility] Height 2019-05-03 12:09:00 70 [in_us] [facility] Temperature 2019-05-03 12:09:00 98.1 [degF] Method: Temporal [facility] Heart Rate 2019-05-03 12:09:00 84 /min [facility] Respiration Rate 2019-05-03 12:09:00 16 /min [facility] BP Systolic 2019-04-09 12:55:00 138 mm[Hg] Location: [place]; Positi on: Sitting [facility] BP Diastolic 2019-04-09 12:55:00 79 mm[Hg] Location: LUE; Positi on: Sitting [facility] Weight 2019-04-09 12:55:00 239 [lb_av] [facility] Body Mass Index Calculated 2019-04-09 12:55:00 34.29 kg/m2 [facility] Height 2019-04-09 12:55:00 70 [in_us] [facility] Temperature 2019-04-09 12:55:00 98 [degF] Method: Temporal [facility] Respiration Rate 2019-04-09 12:55:00 16 /min [facility] Heart Rate 2019-04-09 12:55:00 105 /min [facility] BP Systolic 2019-04-03 14:37:00 145 mm[Hg] Location: [place]; Positi on: Sitting [facility] BP Diastolic 2019-04-03 14:37:00 105 mm[Hg] Location: [place]; Positi on: Sitting [facility] Weight 2019-04-03 14:37:00 239 [lb_av] [facility] Body Mass Index Calculated 2019-04-03 14:37:00 34.29 kg/m2 [facility] Height 2019-04-03 14:37:00 70 [in_us] [facility] Temperature 2019-04-03 14:37:00 98.3 [degF] Method: Temporal [facility] Respiration Rate 2019-04-03 14:37:00 16 /min [facility] Heart Rate 2019-04-03 14:37:00 88 /min [facility] ty [facility] BP Systolic 2019-03-27 10:47:00 136 mm[Hg] Location: [place]; Positi on: Sitting [facility] BP Diastolic 2019-03-27 10:47:00 84 mm[Hg] Location: [place]; Positi on: Sitting [facility] Weight 2019-03-27 10:47:00 241.5 [lb_av] [facility] Body Mass Index Calculated 2019-03-27 10:47:00 34.65 kg/m2 [facility] Height 2019-03-27 10:47:00 70 [in_us] [facility] Temperature 2019-03-27 10:47:00 98 [degF] Method: Temporal [facility] Respiration Rate 2019-03-27 10:47:00 16 /min Quality: Normal [facility] Heart Rate 2019-03-27 10:47:00 96 /min Location: L Brachial Artery; [facility] BP Systolic 2019-03-26 13:33:00 122 mm[Hg] Location: LUE; Positi on: Sitting [facility] BP Diastolic 2019-03-26 13:33:00 74 mm[Hg] Location: LUE; Positi on: Sitting [facility] BP Systolic 2019-03-26 13:32:00 130 mm[Hg] Location: RUE; Positi on: Sitting [facility] BP Diastolic 2019-03-26 13:32:00 74 mm[Hg] Location: RUE; Positi on: Sitting [facility] BP Systolic 2019-03-26 13:05:00 97 mm[Hg] Location: LUE; Positi on: Sitting [facility] BP Diastolic 2019-03-26 13:05:00 65 mm[Hg] Location: LUE; Positi on: Sitting [facility] Weight 2019-03-26 13:05:00 238.4375 [lb_av] [facility] Body Mass Index Calculated 2019-03-26 13:05:00 34.21 kg/m2 [facility] Height 2019-03-26 13:05:00 70 [in_us] [facility] Heart Rate 2019-03-26 13:05:00 108 /min [facility] BP Systolic 2019-02-25 15:33:00 123 mm[Hg] Location: LUE; Positi on: Sitting [facility] BP Diastolic 2019-02-25 15:33:00 75 mm[Hg] Location: LUE; Positi on: Sitting [facility] Height 2019-02-25 15:33:00 70 [in_us] [facility] Weight 2019-02-25 15:33:00 242 [lb_av] [facility] Body Mass Index Calculated 2019-02-25 15:33:00 34.72 kg/m2 [facility] Heart Rate 2019-02-25 15:33:00 94 /min Location: L Radial; [facility] BP Systolic 2018-12-18 13:27:00 130 mm[Hg] [facility] BP Diastolic 2018-12-18 13:27:00 78 mm[Hg] [facility] BP Systolic 2018-12-18 12:57:00 132 mm[Hg] Location: LUE; Positi on: Sitting [facility] BP Diastolic 2018-12-18 12:57:00 71 mm[Hg] Location: LUE; Positi on: Sitting [facility] Height 2018-12-18 12:57:00 70 [in_us] [facility] Weight 2018-12-18 12:57:00 243.4375 [lb_av] [facility] Body Mass Index Calculated 2018-12-18 12:57:00 34.93 kg/m2 [facility] Heart Rate 2018-12-18 12:57:00 84 /min [facility] Height 2018-11-15 11:17:00 70 [in_us] [facility] Weight 2018-11-15 11:17:00 240 [lb_av] [facility] Body Mass Index Calculated 2018-11-15 11:17:00 34.44 kg/m2 [facility] BP Systolic 2018-10-29 15:14:00 106 mm[Hg] Location: [place]; [place] on: Sitting [facility] BP Diastolic 2018-10-29 15:14:00 62 mm[Hg] Location: [place]; Positi on: Sitting [facility] Height 2018-10-29 15:14:00 69 [in_us] [facility] Weight 2018-10-29 15:14:00 243 [lb_av] [facility] Body Mass Index Calculated 2018-10-29 15:14:00 35.89 kg/m2 [facility] Heart Rate 2018-10-29 15:14:00 88 /min [facility] ty [facility] BP Systolic 2018-10-16 14:02:00 120 mm[Hg] Location: [place]; Positi on: Sitting [facility] BP Diastolic 2018-10-16 14:02:00 69 mm[Hg] Location: [place]; Pos[place] on: Sitting [facility] Height 2018-10-16 14:02:00 69 [in_us] [facility] Weight 2018-10-16 14:02:00 243 [lb_av] [facility] Body Mass Index Calculated 2018-10-16 14:02:00 35.89 kg/m2 [facility] Heart Rate 2018-10-16 14:02:00 87 /min [facility] Respiration Rate 2018-10-16 14:02:00 19 /min Univ ers[facility] BP Systolic 2018-09-28 08:30:00 138 mm[Hg] Location: [place]; Positi on: Sitting [facility] BP Diastolic 2018-09-28 08:30:00 77 mm[Hg] Location: [place]; Pos[place] on: Sitting [facility] Height 2018-09-28 08:30:00 69 [in_us] [facility] Weight 2018-09-28 08:30:00 237 [lb_av] [facility] Body Mass Index Calculated 2018-09-28 08:30:00 35 kg/m2 [facility] Heart Rate 2018-09-28 08:30:00 96 /min [facility] Respiration Rate 2018-09-28 08:30:00 16 /min [facility] Temperature 2018-09-28 08:30:00 97 [degF] [facility] 2018-09-12 13:04:00 107 mm[Hg] Location: [place]; Positi on: Sitting [facility] BP Diastolic 2018-09-12 13:04:00 73 mm[Hg] Location: [place]; Positi on: Sitting [facility] Weight 2018-09-12 13:04:00 240 [lb_av] [facility] Body Mass Index Calculated 2018-09-12 13:04:00 35.44 kg/m2 [facility] Height 2018-09-12 13:04:00 69 [in_us] [facility] Temperature 2018-09-12 13:04:00 98.3 [degF] Method[facility] Heart Rate 2018-09-12 13:04:00 90 /min [facility] Respiration Rate 2018-09-12 13:04:00 16 /min [facility] BP Systolic 2018-09-04 14:13:00 136 mm[Hg] [facility] [place] [facility] BP Diastolic 2018-09-04 14:13:00 70 mm[Hg] [facility] BP Systolic 2018-09-04 13:46:00 118 mm[Hg] Location: [place]; Positi on: Sitting [facility] BP Diastolic 2018-09-04 13:46:00 61 mm[Hg] Location: [place]; Positi on: Sitting [facility] Height 2018-09-04 13:46:00 69 [in_us] [facility] Weight 2018-09-04 13:46:00 241.3125 [lb_av] [facility] Body Mass Index Calculated 2018-09-04 13:46:00 35.64 kg/m2 [facility] Heart Rate 2018-09-04 13:46:00 94 /min [facility] BP Systolic 2018-08-30 09:15:00 131 mm[Hg] Location: [place]; Positi on: Sitting [facility] BP Diastolic 2018-08-30 09:15:00 75 mm[Hg] Location: [place]; Positi on: Sitting [facility] Heart Rate 2018-08-30 09:15:00 68 /min [facility] BP Systolic 2018-08-30 09:14:00 151 mm[Hg] Location: [place]; Positi on: Sitting [facility] BP Diastolic 2018-08-30 09:14:00 49 mm[Hg] Location: [place]; Pos[place] on: Sitting [facility] Height 2018-08-30 09:14:00 69 [in_us] [facility] Weight 2018-08-30 09:14:00 243.5625 [lb_av] [facility] Body Mass Index Calculated 2018-08-30 09:14:00 35.97 kg/m2 [facility] Heart Rate 2018-08-30 09:14:00 60 /min [facility] Temperature 2018-08-30 09:14:00 96.7 [degF] Method: Temporal [facility] Respiration Rate 2018-08-30 09:14:00 16 /min [facility] BP Systolic 2018-08-27 11:02:00 136 mm[Hg] Location: [place] [facility] BP Diastolic 2018-08-27 11:02:00 84 mm[Hg] Location: [place] [facility] Height 2018-08-27 11:02:00 69 [in_us] [facility] Weight 2018-08-27 11:02:00 242 [lb_av] [facility] Body Mass Index Calculated 2018-08-27 11:02:00 35.74 kg/m2 [facility] Heart Rate 2018-08-27 11:02:00 85 /min [facility] Temperature 2018-08-27 11:02:00 98.6 [degF] Method: Temporal Univ [facility] Respiration Rate 2018-08-27 11:02:00 18 /min [facility] BP Systolic 2018-07-24 16:32:00 113 mm[Hg] Location: [place]; Positi on: Sitting [facility] BP Diastolic 2018-07-24 16:32:00 70 mm[Hg] Location: [place]; Pos[place] on: Sitting [facility] Height 2018-07-24 16:32:00 69 [in_us] [facility] Body Mass Index Calculated 2018-07-24 16:32:00 35 kg/m2 [facility] Weight 2018-07-24 16:32:00 237 [lb_av] [facility] Heart Rate 2018-07-24 16:32:00 79 /[facility] Respiration Rate 2018-07-24 16:32:00 16 /min [facility] BP Systolic 2018-07-24 15:19:00 113 mm[Hg] Location: [place]; Pos[place] on: Sitting [facility] BP Diastolic 2018-07-24 15:19:00 70 mm[Hg] Location: [place]; [place] on: Sitting [facility] Body Mass Index Calculated 2018-07-24 15:19:00 35 kg/m2 [facility] Weight 2018-07-24 15:19:00 237 [lb_av] [facility] Heart Rate 2018-07-24 15:19:00 79 /min [facility] Respiration Rate 2018-07-24 15:19:00 16 /min [facility] Temperature 2018-07-24 15:19:00 98.8 [degF] Method: Oral [facility] BP Systolic 2018-07-24 10:45:00 130 mm[Hg] Location: [place]; Positi on: Sitting [facility] BP Diastolic 2018-07-24 10:45:00 80 mm[Hg] Location: [place]; Pos[place] on: Sitting [facility] Height 2018-07-24 10:45:00 69 [in_us] [facility] Body Mass Index Calculated 2018-07-24 10:45:00 35 kg/m2 [facility] Weight 2018-07-24 10:45:00 237 [lb_av] [facility] Heart Rate 2018-07-24 10:45:00 88 /min [facility] BP Systolic 2018-07-03 14:25:00 153 mm[Hg] Location: [place]; [place] on: Sitting [facility] BP Diastolic 2018-07-03 14:25:00 73 mm[Hg] Location: [place]; [place] on: Sitting [facility] Height 2018-07-03 14:25:00 69 [in_us] [facility] Body Mass Index Calculated 2018-07-03 14:25:00 35.32 kg/m2 [facility] Weight 2018-07-03 14:25:00 239.2 [lb_av] [facility] Heart Rate 2018-07-03 14:25:00 80 /min Location: L Brachial Artery; [facility] Respiration Rate 2018-07-03 14:25:00 18 /min [facility] BP Systolic 2018-06-06 15:15:00 116 mm[Hg] Location: [place]; Positi on: Sitting [facility] BP Diastolic 2018-06-06 15:15:00 76 mm[Hg] Location: [place]; [place] on: Sitting [facility] Weight 2018-06-06 15:15:00 240 [lb_av] [facility] Body Mass Index Calculated 2018-06-06 15:15:00 35.44 kg/m2 [facility] Temperature 2018-06-06 15:15:00 98.5 [degF] Method: Oral [facility] Heart Rate 2018-06-06 15:15:00 73 /min [facility] Respiration Rate 2018-06-06 15:15:00 16 /min [facility] BP Systolic 2018-05-10 16:39:00 140 mm[Hg] [facility] BP Diastolic 2018-05-10 16:39:00 80 mm[Hg] [facility] Heart Rate 2018-05-10 16:39:00 90 /min [facility] BP Systolic 2018-05-10 16:20:00 147 mm[Hg] Location: [place]; [place] on: Sitting [facility] BP Diastolic 2018-05-10 16:20:00 94 mm[Hg] Location: [place]; [place] on: Sitting [facility] Heart Rate 2018-05-10 16:20:00 106 /min [facility] Height 2018-05-10 16:20:00 69 [in_us] [facility] Weight 2018-05-10 16:20:00 239.3 [lb_av] [facility] Body Mass Index Calculated 2018-05-10 16:20:00 35.34 kg/m2 [facility] BP Systolic 2018-05-03 11:39:00 136 mm[Hg] Location: [place]; [place] on: Sitting [facility] BP Diastolic 2018-05-03 11:39:00 93 mm[Hg] Location: [place]; [place] on: Sitting [facility] Weight 2018-05-03 11:39:00 240 [lb_av] [facility] Body Mass Index Calculated 2018-05-03 11:39:00 35.44 kg/m2 [facility] Height 2018-05-03 11:39:00 69 [in_us] [facility] Temperature 2018-05-03 11:39:00 98 [degF] Method: Temporal [facility] Heart Rate 2018-05-03 11:39:00 84 /min [facility] Respiration Rate 2018-05-03 11:39:00 16 /min [facility] BP Systolic 2018-02-13 13:19:00 130 mm[Hg] Location: [place]; [place] on: Sitting [facility] BP Diastolic 2018-02-13 13:19:00 66 mm[Hg] Location: [place]; [place] on: Sitting [facility] Height 2018-02-13 13:19:00 69 [in_us] [facility] Weight 2018-02-13 13:19:00 237 [lb_av] [facility] Body Mass Index Calculated 2018-02-13 13:19:00 35 kg/m2 [facility] Heart Rate 2018-02-13 13:19:00 75 /min Location: L Radial; Q uality: Normal [facility] BP Systolic 2018-02-06 13:32:00 140 mm[Hg] [facility] BP Diastolic 2018-02-06 13:32:00 72 mm[Hg] [facility] BP Systolic 2018-02-06 13:17:00 125 mm[Hg] Location: [place]; [place] on: Sitting [facility] BP Diastolic 2018-02-06 13:17:00 82 mm[Hg] Location: [place]; [place] on: Sitting [facility] Height 2018-02-06 13:17:00 69 [in_us] [facility] Weight 2018-02-06 13:17:00 233.25 [lb_av] [facility] Body Mass Index Calculated 2018-02-06 13:17:00 34.45 kg/m2 [facility] Heart Rate 2018-02-06 13:17:00 87 /min [facility] BP Systolic 2018-01-30 08:41:00 123 mm[Hg] Location: [place]; [place] on: Sitting [facility] BP Diastolic 2018-01-30 08:41:00 82 mm[Hg] Location: [place]; [place] on: Sitting [facility] Height 2018-01-30 08:41:00 69 [in_us] [facility] Weight 2018-01-30 08:41:00 234 [lb_av] [facility] Body Mass Index Calculated 2018-01-30 08:41:00 34.56 kg/m2 [facility] Heart Rate 2018-01-30 08:41:00 77 /min [facility] Temperature 2018-01-30 08:41:00 98 [degF] Method: Temporal [facility] Respiration Rate 2018-01-30 08:41:00 16 /min [facility] BP Systolic 2017-12-28 11:46:00 125 mm[Hg] Location: [place]; Pos[place] on: Sitting [facility] BP Diastolic 2017-12-28 11:46:00 87 mm[Hg] Location: [place]; [place] on: Sitting [facility] Height 2017-12-28 11:46:00 69 [in_us] [facility] Weight 2017-12-28 11:46:00 235 [lb_av] [facility] Body Mass Index Calculated 2017-12-28 11:46:00 34.7 kg/m2 [facility] Temperature 2017-12-28 11:46:00 98.1 [degF] Method: Temporal [facility] Respiration Rate 2017-12-28 11:46:00 16 /min [facility] Heart Rate 2017-12-28 11:46:00 77 /min [facility] BP Systolic 2017-12-23 10:50:00 114 mm[Hg] Location: [place]; [place] on: Sitting [facility] BP Diastolic 2017-12-23 10:50:00 66 mm[Hg] Location: [place]; [place] on: Sitting [facility] Height 2017-12-23 10:50:00 69 [in_us] [facility] Weight 2017-12-23 10:50:00 234.58 [lb_av] [facility] Body Mass Index Calculated 2017-12-23 10:50:00 34.64 kg/m2 [facility] Temperature 2017-12-23 10:50:00 97.9 [degF] Method: Temporal [facility] Respiration Rate 2017-12-23 10:50:00 18 /min [facility] Heart Rate 2017-12-23 10:50:00 69 /min Location: L Brachial Artery; [facility] BP Systolic 2017-12-11 15:36:00 120 mm[Hg] Location: [place]; [place] on: Sitting [facility] BP Diastolic 2017-12-11 15:36:00 76 mm[Hg] Location: [place]; [place] on: Sitting [facility] Height 2017-12-11 15:36:00 69 [in_us] [facility] Weight 2017-12-11 15:36:00 235 [lb_av] [facility] Body Mass Index Calculated 2017-12-11 15:36:00 34.7 kg/m2 [facility] Heart Rate 2017-12-11 15:36:00 88 /min Location: L Radial; [facility] BP Systolic 2017-12-05 14:45:00 123 mm[Hg] Location: [place]; [place] on: Sitting [facility] BP Diastolic 2017-12-05 14:45:00 76 mm[Hg] Location: [place]; [place] on: Sitting [facility] Height 2017-12-05 14:45:00 69 [in_us] [facility] Weight 2017-12-05 14:45:00 233.5 [lb_av] [facility] Body Mass Index Calculated 2017-12-05 14:45:00 34.48 kg/m2 [facility] Heart Rate 2017-12-05 14:45:00 82 /min [facility] Temperature 2017-12-05 14:45:00 97.7 [degF] Method: Temporal [facility] Respiration Rate 2017-12-05 14:45:00 16 /min [facility] BP Systolic 2017-10-31 14:29:00 144 mm[Hg] [facility] BP Diastolic 2017-10-31 14:29:00 80 mm[Hg] [facility] BP Systolic 2017-10-31 13:56:00 148 mm[Hg] Location: [place]; Pos[place] on: Sitting [facility] BP Diastolic 2017-10-31 13:56:00 77 mm[Hg] Location: [place]; Pos[place] on: Sitting [facility] Height 2017-10-31 13:56:00 69 [in_us] [facility] Weight 2017-10-31 13:56:00 237 [lb_av] [facility] Body Mass Index Calculated 2017-10-31 13:56:00 35 kg/m2 [facility] Heart Rate 2017-10-31 13:56:00 87 /min [facility] BP Systolic 2017-10-16 15:01:00 103 mm[Hg] Location: [place]; Positi on: Sitting [facility] BP Diastolic 2017-10-16 15:01:00 68 mm[Hg] Location: [place]; Positi on: Sitting [facility] Weight 2017-10-16 15:01:00 238 [lb_av] [facility] Body Mass Index Calculated 2017-10-16 15:01:00 35.15 kg/m2 [facility] Temperature 2017-10-16 15:01:00 98.1 [degF] Method: Oral [facility] Heart Rate 2017-10-16 15:01:00 97 /min [facility] Respiration Rate 2017-10-16 15:01:00 17 /min [facility] BP Systolic 2017-08-22 10:34:00 122 mm[Hg] Location: [place]; Positi on: Sitting [facility] BP Diastolic 2017-08-22 10:34:00 61 mm[Hg] Location: [place]; [place] on: Sitting [facility] Height 2017-08-22 10:34:00 69 [in_us] [facility] Weight 2017-08-22 10:34:00 235.6 [lb_av] [facility] Body Mass Index Calculated 2017-08-22 10:34:00 34.79 kg/m2 [facility] Heart Rate 2017-08-22 10:34:00 93 /min [facility] BP Systolic 2017-08-18 13:44:00 130 mm[Hg] Location: [place]; Positi on: Sitting [facility] BP Diastolic 2017-08-18 13:44:00 66 mm[Hg] Location: [place]; Pos[place] on: Sitting [facility] Height 2017-08-18 13:44:00 69 [in_us] [facility] Weight 2017-08-18 13:44:00 236 [lb_av] [facility] Body Mass Index Calculated 2017-08-18 13:44:00 34.85 kg/m2 [facility] Heart Rate 2017-08-18 13:44:00 85 /min [facility] BP Systolic 2017-08-14 14:58:00 151 mm[Hg] Location: [place]; Positi on: Sitting [facility] BP Diastolic 2017-08-14 14:58:00 71 mm[Hg] Location: [place]; Positi on: Sitting [facility] Weight 2017-08-14 14:58:00 238 [lb_av] [facility] Body Mass Index Calculated 2017-08-14 14:58:00 35.15 kg/m2 [facility] Heart Rate 2017-08-14 14:58:00 98 /min [facility] Respiration Rate 2017-08-14 14:58:00 20 /min [facility] Systolic 2017-08-08 15:42:00 140 mm[Hg] Location: [place]; Positi on: Sitting [facility] BP Diastolic 2017-08-08 15:42:00 76 mm[Hg] Location: [place]; [place] on: Sitting [facility] Height 2017-08-08 15:42:00 69 [in_us] [facility] Weight 2017-08-08 15:42:00 237 [lb_av] [facility] Body Mass Index Calculated 2017-08-08 15:42:00 35 kg/m2 [facility] Temperature 2017-08-08 15:42:00 99.6 [degF] Method: Oral [facility] Heart Rate 2017-08-08 15:42:00 92 /min Location: [place] Radial; [facility] BP Systolic 2017-08-01 13:42:00 150 mm[Hg] [facility] BP Diastolic 2017-08-01 13:42:00 76 mm[Hg] [facility] BP Systolic 2017-07-31 14:17:00 162 mm[Hg] Location: [place] [facility] BP Diastolic 2017-07-31 14:17:00 82 mm[Hg] Location: [place] [facility] Weight 2017-07-31 14:17:00 236 [lb_av] [facility] Body Mass Index Calculated 2017-07-31 14:17:00 34.85 kg/m2 [facility] Temperature 2017-07-31 14:17:00 98 [degF] Method: Oral [facility] Heart Rate 2017-07-31 14:17:00 82 /min [facility] Respiration Rate 2017-07-31 14:17:00 18 /min [facility] BP Systolic 2017-07-24 13:35:00 117 mm[Hg] Location: [place] on: Sitting [facility] BP Diastolic 2017-07-24 13:35:00 65 mm[Hg] Location: [place]; Positi on: Sitting [facility] Height 2017-07-24 13:35:00 69 [in_us] [facility] Weight 2017-07-24 13:35:00 238.375 [lb_av] [facility] Body [facility] Calculated 2017-07-24 13:35:00 35.2 kg/m2 [facility] Heart Rate 2017-07-24 13:35:00 75 /min [facility] Respiration Rate 2017-07-24 13:35:00 16 /min [facility] BP Systolic 2017-07-10 08:59:00 129 mm[Hg] Location: [place]; Pos[place] on: Sitting [facility] BP Diastolic 2017-07-10 08:59:00 79 mm[Hg] Location: [place]; [place] on: Sitting [facility] Height 2017-07-10 08:59:00 69 [in_us] [facility] Weight 2017-07-10 08:59:00 236 [lb_av] [facility] Body Mass Index Calculated 2017-07-10 08:59:00 34.85 kg/m2 [facility] Temperature 2017-07-10 08:59:00 98.9 [degF] Method: Temporal [facility] Respiration Rate 2017-07-10 08:59:00 16 /min [facility] Heart Rate 2017-07-10 08:59:00 93 /min [facility] BP Systolic 2017-06-20 15:21:00 126 mm[Hg] Location: [place]; Positi on: Sitting [facility] BP Diastolic 2017-06-20 15:21:00 72 mm[Hg] Location: [place]; Positi on: Sitting [facility] Weight 2017-06-20 15:21:00 234 [lb_av] [facility] Body Mass Index Calculated 2017-06-20 15:21:00 34.56 kg/m2 [facility] Temperature 2017-06-20 15:21:00 98 [degF] Method: Oral [facility] Heart Rate 2017-06-20 15:21:00 98 /min [facility] Respiration Rate 2017-06-20 15:21:00 16 /min [facility] BP Systolic 2017-05-18 09:32:00 131 mm[Hg] Location: [place]; Positi on: Sitting [facility] BP Diastolic 2017-05-18 09:32:00 74 mm[Hg] Location: [place]; [place] on: Sitting [facility] Weight 2017-05-18 09:32:00 239 [lb_av] [facility] Body Mass Index Calculated 2017-05-18 09:32:00 35.29 kg/m2 [facility] Temperature 2017-05-18 09:32:00 98.7 [degF] Method: Oral [facility] Heart Rate 2017-05-18 09:32:00 89 /min [facility] Respiration Rate 2017-05-18 09:32:00 18 /min [facility] BP Systolic 2017-04-21 13:38:00 120 mm[Hg] [facility] BP Diastolic 2017-04-21 13:38:00 68 mm[Hg] [facility] BP Systolic 2017-04-21 13:22:00 97 mm[Hg] Location: BEBETO; Positi on: Sitting [facility] BP Diastolic 2017-04-21 13:22:00 61 mm[Hg] Location: BEBETO; Positi on: Sitting [facility] Height 2017-04-21 13:22:00 69 [in_us] [facility] Weight 2017-04-21 13:22:00 239.375 [lb_av] [facility] Body Mass Index Calculated 2017-04-21 13:22:00 35.35 kg/m2 [facility] Heart Rate 2017-04-21 13:22:00 69 /min [facility] BP Systolic 2017-04-18 11:19:00 113 mm[Hg] Location: [place]; Positi on: Sitting [facility] BP Diastolic 2017-04-18 11:19:00 69 mm[Hg] Location: [place]; Positi on: Sitting [facility] Weight 2017-04-18 11:19:00 234 [lb_av] [facility] Body Mass Index Calculated 2017-04-18 11:19:00 34.56 kg/m2 [facility] Temperature 2017-04-18 11:19:00 98.1 [degF] Method: Oral [facility] Heart Rate 2017-04-18 11:19:00 71 /min [facility] Respiration Rate 2017-04-18 11:19:00 18 /min [facility] BP Systolic 2017-04-17 13:35:00 129 mm[Hg] Location: LUE; Positi on: Sitting [facility] BP Diastolic 2017-04-17 13:35:00 69 mm[Hg] Location: LUE; Positi on: Sitting [facility] Height 2017-04-17 13:35:00 69 [in_us] [facility] Weight 2017-04-17 13:35:00 235 [lb_av] [facility] Body Mass Index Calculated 2017-04-17 13:35:00 34.7 kg/m2 [facility] Heart Rate 2017-04-17 13:35:00 75 /min Location: L Radial; [facility] BP Systolic 2017-03-20 13:11:00 138 mm[Hg] Location: RUE; Positi on: Sitting [facility] BP Diastolic 2017-03-20 13:11:00 72 mm[Hg] Location: RUE; Positi on: Sitting [facility] Weight 2017-03-20 13:11:00 237 [lb_av] [facility] Body Mass Index Calculated 2017-03-20 13:11:00 35 kg/m2 [facility] Temperature 2017-03-20 13:11:00 98.3 [degF] Method: Oral [facility] Heart Rate 2017-03-20 13:11:00 94 /min [facility] Respiration Rate 2017-03-20 13:11:00 20 /min [facility] BP Systolic 2017-03-06 14:35:00 135 mm[Hg] Location: LUE; Positi on: Sitting [facility] BP Diastolic 2017-03-06 14:35:00 82 mm[Hg] Location: LUE; Positi on: Sitting [facility] Height 2017-03-06 14:35:00 69 [in_us] [facility] Weight 2017-03-06 14:35:00 237.375 [lb_av] [facility] Body Mass Index Calculated 2017-03-06 14:35:00 35.05 kg/m2 [facility] Temperature 2017-03-06 14:35:00 98.9 [degF] Method: Temporal [facility] Heart Rate 2017-03-06 14:35:00 75 /min [facility] Respiration Rate 2017-03-06 14:35:00 16 /min [facility] BP Systolic 2017-02-08 14:28:00 130 mm[Hg] Location: CARLOS Positi on: Sitting [facility] BP Diastolic 2017-02-08 14:28:00 66 mm[Hg] Location: BEBETO; Positi on: Sitting [facility] Height 2017-02-08 14:28:00 69 [in_us] [facility] Weight 2017-02-08 14:28:00 231.4375 [lb_av] [facility] Body Mass Index Calculated 2017-02-08 14:28:00 34.18 kg/m2 [facility] Temperature 2017-02-08 14:28:00 97.6 [degF] Method: Temporal [facility] Heart Rate 2017-02-08 14:28:00 79 /min [facility] Respiration Rate 2017-02-08 14:28:00 15 /min [facility] Systolic (mm Hg) 2016-02-23 13:39:00 [place] [facility] [place] Diastolic (mm Hg) 2016-02-23 13:39:00 Mem [facility] [place] Respitory Rate 2016-02-23 13:39:00 [facility] [place] Heart Rate 2016-02-23 13:39:00 [facility] [place] Temperature Oral (F) 2016-02-23 13:39:00 98.4 F [facility] [place] Systolic (mm Hg) 2016-02-23 09:00:00 [place] [facility] [place] Diastolic (mm Hg) 2016-02-23 09:00:00 [facility] [place] Temperature Oral (F) 2016-02-23 09:00:00 98.7 F [facility] [place] Respitory Rate 2016-02-23 09:00:00 [facility] [place] Heart Rate 2016-02-23 09:00:00 [facility] [place] Respitory Rate 2016-02-23 05:00:00 [facility] [place] Heart Rate 2016-02-23 05:00:00 [facility] [place] Systolic (mm Hg) 2016-02-23 05:00:00 [facility] [place] Diastolic (mm Hg) 2016-02-23 05:00:00 [facility] [place] Temperature Oral (F) 2016-02-23 01:00:00 98.6 F [facility] [place] Height 2016-02-16 08:39:00 177.8 cm [facility] [place] Weight 2016-02-16 08:39:00 [facility] [place] BMI Calculated 2016-02-16 08:39:00 [facility] [place] Weight 2016-02-15 23:09:00 [facility] [place] BMI Calculated 2016-02-15 23:09:00 [facility] [place] Height 2016-02-15 23:09:00 177.8 cm [facility] [place] Systolic (mm Hg) 2015-09-30 12:55:00 [place] [facility] [place] Diastolic (mm Hg) 2015-09-30 12:55:00 [facility] [place] Respitory Rate 2015-09-30 12:55:00 [facility] [place] Systolic (mm Hg) 2015-09-30 12:40:00 [place] [facility] [place] Diastolic (mm Hg) 2015-09-30 12:40:00 [facility] [place] Respitory Rate 2015-09-30 12:40:00 [facility] [place] Systolic (mm Hg) 2015-09-30 12:26:00 [place] [facility] [place] Diastolic (mm Hg) 2015-09-30 12:26:00 Mem [facility] [place] Respitory Rate 2015-09-30 12:26:00 [facility] [place] Height 2015-09-29 19:34:00 177.8 cm [facility] [place] Weight 2015-09-29 19:34:00 [facility] [place] BMI Calculated 2015-09-29 19:34:00 [facility] [place] Procedures Procedure Date / Time Performed Performing Clinician [facility] e [QL] CULTURE, URINE, ROUTINE 2019-10-08 00:00:00 [facility] [[facility]] CMP W/EGFR 2019-07-23 00:00:00 [facility] [[facility]] T4, FREE 2019-07-23 00:00:00 [place] [facility] [place] [facility] [[facility]] TSH, 3RD GENERATION 2019-07-23 00:00:00 [facility] [N] 2D Echo complete, with Doppler [id number] 2019-07-23 00:00:00 [facility] [O] Flu Test (in Office ) 2019-06-28 00:00[facility]00 [facility] CULTURE, URINE, ROUTINE 2019-04-03 00:00:00 [facility] [QL] CULTURE, URINE, ROUTINE 2019-03-27 00:00:00 [facility] [QL] CBC (INCLUDES DIFF/PLT) 2019-02-25 00:00:00 [facility] [Q] IRON, TIBC AND FERRITIN PANEL 2019-02-25 00:00:00 [facility] [QL] MICROALBUMIN, RANDOM URINE (W/CREATININE) 2018-12-18 00:00 :00 [facility] [QL] T4, FREE 2018-12-18 00:00:00 [place] [facility] [QL] TSH, 3RD GENERATION 2018-12-18 00:00:00 [facility] [U] XR HAND MIN 3 VWS BILATERAL 2018-11-15 00:00:00 [facility] [QLH] VITAMIN B6 2018-10-16 00:00:00 [facility] [QL] CBC (INCLUDES DIFF/PLT) 2018-10-16 00:00:00 [facility] [QL] CMP W/EGFR 2018-10-16 00:00:00 [facility] [QL] CULTURE, URINE, ROUTINE 2018-08-30 00:00:00 [facility] X-ray of chest, two views 2018-08-25 00:00:00 YURI AZEVEDO CH [facility] [Q] LIPID PANEL WITH DIRECT LDL 2018-07-24 00:00:00 [facility] [QLH] HEPATIC FUNCTION PANEL 2018-07-24 00:00:00 [facility] MRI Spine cervical wo contrast [id number] 2018-07-24 00:00:00 [facility] [QLH] C-REACTIVE PROTEIN 2018-06-06 00:00[facility]00 [facility] [[facility]] SED RATE BY MODIFIED WESTERGREN 2018-06-06 00:00:00 [facility] [QLH] SM ANTIBODY 2018-06-06 00:00:00 [facility] [QH] FURNACE CHECKER ANTIBODY 2018-06-06 00:00:00 [facility] [QL] COMPLEMENT COMPONENT C3C 2018-06-06 00:00:00 [facility] [QLH] COMPLEMENT COMPONENT C4C 2018-06-06 00:00:00 [facility] [QLH] DNA (DS) ANTIBODY 2018-06-06 00:00:00 [facility] [QLH] URINALYSIS, COMPLETE W/REFLEX TO CULTURE 2018-06-06 00:00: 00 [facility] [QLH] CREATINE KINASE, TOTAL 2018-06-06 00:00:00 [facility] [Q] SM AND SM/FURNACE CHECKER ANTIBODIES 2018-06-06 00:00:00 [facility] XRAY Hand AP lateral Bilateral [id number] 2018-06-06 00:00:00 [facility] [QH] LIPID PANEL WITH REFLEX TO DIRECT LDL 2018-05-03 00:00:00 [facility] [QLH] CBC (INCLUDES DIFF/PLT) 2018-05-03 00:00:00 [facility] [QLH] CMP W/EGFR 2018-05-03 00:00:00 [facility] [QLH] TSH, 3RD GENERATION W/REFLEX TO FT4 2018-05-03 00:00:00 [facility] [Q] IRON, TIBC AND FERRITIN PANEL 2018-05-03 00:00:00 [facility] [QLH] CBC (INCLUDES DIFF/PLT) 2018-02-13 00:00:00 [facility] [Q] IRON, TIBC AND FERRITIN PANEL 2018-02-13 00:00:00 [facility] [QLH] CULTURE, URINE, ROUTINE 2018-01-30 00:00:00 [facility] Computed tomography of cervical spine without contrast 12-20 00:00:00 SONIA WILCOX [facility] Computed tomography of brain without radiopaque contrast 201 12-13-14 00:00:00 SONIA WILCOX [facility] [QLH] CBC (INCLUDES DIFF/PLT) 2017-12-11 00:00:00 [facility] [H] Iron, TIBC \\T\\ Ferritin 2017-12-11 00:00:00 [facility] [QLH] CULTURE, URINE, ROUTINE 2017-12-05 00:00:00 [facility] [QLH] CMP W/EGFR 2017-10-31 00:00:00 [facility] [QLH] MICROALBUMIN, RANDOM URINE (W/CREATININE) 2017-10-31 00:00 :00 [facility] [QLH] T4, FREE 2017-10-31 00:00:00 [place] [facility] [place] [facility] [QLH] TSH, 3RD GENERATION 2017-10-31 00:00:00 [facility] [QLH] CBC (INCLUDES DIFF/PLT) 2017-08-22 00:00:00 [facility] [QLH] CBC (INCLUDES DIFF/PLT) 2017-08-08 00:00:00 [facility] [Q] CELIAC DISEASE PANEL 2 WITH REFLEX TO ENDOMYSIAL ANTIBODY TITER 2017-08-08 00:00:00 [facility] [QLH] FOLATE, SERUM 2017-08-08 00:00:00 [facility] [QLH] SED RATE BY MODIFIED WESTERGREN 2017-07-31 00:00:00 [facility] [QLH] C-REACTIVE PROTEIN 2017-07-31 00:00:00 [facility] [QL] HLA-B27, DNA TYPING 2017-07-31 00:00:00 [facility] [QLH] CREATINE KINASE, TOTAL 2017-07-31 00:00:00 [facility] [QLH] THYROID PEROXIDASE ANTIBODIES 2017-07-31 00:00:00 [facility] [H] Immunofixation Eletrophoresis 2017-07-31 00:00:00 [facility] [H] Protein Electrophoresis 2017-07-31 00:00:00 [facility] [H] Iron, TIBC \\T\\ Ferritin 2017-07-31 00:00:00 [facility] [QLH] LACTATE DEHYDROGENASE ISOENZYME PANEL 2017-07-31 00:00:00 [facility] [QLH] HAPTOGLOBIN 2017-07-31 00:00:00 [facility] [QH] PATHOLOGIST REVIEW OF PERIPHERAL SMEAR 2017-07-31 00:00:00 [facility] [QLH] RETICULOCYTE COUNT 2017-07-31 00:00:00 [facility]] URINALYSIS, COMPLETE W/REFLEX TO CULTURE 2017-07-31 00:00: 00 [facility] [QH] PROTEIN, TOTAL W/CREAT, RANDOM URINE 2017-07-31 00:00:00 [facility] [QLH] CARDIOLIPIN AB (IGA,IGG,IGM) 2017-07-31 00:00:00 [facility] [LH] Zswe-5-Zugxt IgG/IgA/ IgM 2017-07-31 00:00:00 [facility] [QL] Lupus Anticoagulant Panel 2017-07-31 00:00:00 [facility] XRAY Shoulder 2+ Views Bilateral [id number] 2017-07-31 00:00:00 [facility] [QL] SJOGRENS ANTIBODIES (SS-A,SS-B) 2017-07-13 00:00:00 [facility] [QLH] SM ANTIBODY 2017-07-13 00:00:00 [facility] [QH] FURNACE CHECKER ANTIBODY 2017-07-13 00:00:00 [facility] History of Ulnar nerve neuroplasty 2017-07-10 00:00:00 [facility] [QLH] VITAMIN B12 2017-06-20 00:00:00 [facility] [QLH] VITAMIN B6 2017-06-20 00:00:00 [facility] [H] Protein Electrophoresis 2017-06-20 00:00:00 [facility] [H] Immunofixation Eletrophoresis 2017-06-20 00:00:00 [facility] [QLH] PROTEIN, TOTAL AND PROTEIN ELECTROPHORESIS, RAND OM URINE 2017-06-20 00:00:00 [facility] [QH] HEPATITIS B SURFACE ANTIGEN W/REFL CONFIRM 2017-06-20 00:00 :00 [facility] [QLH] HEPATITIS C ANTIBODY 2017-06-20 00:00[facility] [[facility]] CMP W/EGFR 2017-04-21 00:00:00 [facility] [QL] T4, FREE 2017-04-21 00:00:00 [place] [facility] [place] [facility] [QLH] TSH, 3RD GENERATION 2017-04-21 00:00:00 [facility] [N] Holter [id number] 2017-04-17 00:00:00 [facility] [N] 2D Echo complete, with Doppler [id number] 2017-04-17 00:00:00 [facility] XRAY Hand AP lateral Bilateral [id number] 2017-03-20 00:00:00 [facility] XRAY Spine cervical 2 or 3 view [id number] 2017-03-20 00:00:00 [facility] [[facility]] BASIC METABOLIC PANEL W/EGFR 2017-02-08 00:00:00 [facility] [[facility]] C-REACTIVE PROTEIN 2017-02-08 00:00:00 [facility] [Q] CYCLIC CITRULLINATED PEPTIDE (CCP) AB (IGG) 2017-02-08 00:0 0:00 [facility] [Q] ANACHOICE(TM) SPECIFIC AB CASCADING REFLEX 2017-02-08 00:00: 00 [facility] [Q] RHEUMATOID FACTOR (IGA, IGG, IGM) 2017-02-08 00:00:00 [facility] [[facility]] SED RATE BY MODIFIED WESTERGREN 2017-02-08 00:00:00 [facility] XRAY Chest 2 views [id number] 2017-02-08 00:00:00 [facility] History of Oophorectomy - Unilateral (Removal Of One Ovary) [facility] History of Knee Replacement [facility] History of Hand Surgery [facility] History of Cataract Surgery [facility] History of Mastectomy bilateral [facility] History of Elbow surgery [facility] History of Tooth extraction [facility] History of Dental surgery [facility] Cataract surgery [facility] n Endometrial resection<sup>1</sup> [facility] Knee replacement<sup>2</sup> [facility] orial [place] Mastectomy<sup>3, 4</sup> [facility] [place] Operation<sup>5</sup> [facility] ermann Ovary operation<sup>6</sup> [place] [facility] [place] Plan of Care Planned Activity Planned Date Details Comments Source Future Scheduled Test 2020-04-07 00:00:00 [N] 2D Echo comple te, with Doppler 26560 [code = [N] 2D Echo complete, with Doppler 15451] [facility] Future Scheduled Test 2020-04-07 00:00:00 [N] 2D Echo comple te, with Doppler 77648 [code = [N] 2D Echo complete, with Doppler 36710] [facility] Future Scheduled Test 2020-04-07 00:00:00 [N] 2D Echo comple te, with Doppler 72988 [code = [N] 2D Echo complete, with Doppler 75491] [facility] Diagnostic Test Pending 2019-07-25 00:00:00 [Q] LIPID PANEL WITH DIRECT LDL [code = [Q] LIPID PANEL WITH DIRECT LDL] [facility] Diagnostic Test Pending 2019-07-25 00:00:00 [QLH] HEPATIC FU NCTION PANEL [code = [QLH] HEPATIC FUNCTION PANEL] [facility] sicians Diagnostic Test Pending 2019-07-25 00:00:00 [QLH] HEPATIC FU NCTION PANEL [code = [QLH] HEPATIC FUNCTION PANEL] [facility] Diagnostic Test Pending 2018-06-05 00:00:00 [QLH] CBC (INCLU MAY DIFF/PLT) [code = [QLH] CBC (INCLUDES DIFF/PLT)] [facility] Diagnostic Test Pending 2018-06-05 00:00:00 [Q] IRON, TIBC A ND FERRITIN PANEL [code = [Q] IRON, TIBC AND FERRITIN PANEL] [facility] Diagnostic Test Pending 2018-01-29 00:00:00 [QLH] CBC (INCLU MAY DIFF/PLT) [code = [QLH] CBC (INCLUDES DIFF/PLT)] [facility] Diagnostic Test Pending 2018-01-29 00:00:00 [H] Iron, TIBC \\ T\\ Ferritin [code = [H] Iron, TIBC \\T\\ Ferritin] [facility] Diagnostic Test Pending 2017-09-18 00:00:00 [QLH] CBC (INCLU MAY DIFF/PLT) [code = [QLH] CBC (INCLUDES DIFF/PLT)] [facility] Diagnostic Test Pending 2017-07-06 00:00:00 [N] 2D Echo comp lete, with Doppler 61686 [code = [N] 2D Echo complete, with Doppler 23301] [facility] Diagnostic Test Pending 2017-07-06 00:00:00 [N] 2D Echo comp lete, with Doppler 44222 [code = [N] 2D Echo complete, with Doppler 35529] [facility] Diagnostic Test Pending 2017-04-17 00:00:00 [N] Holter Monit or-48-hr [code = [N] Holter [id number]] [facility] Future Appointment 2020-04-14 13:20:00 Rosenda HILL, [facility] Future Appointment 2020-04-08 13:00:00 [facility] Future Appointment 2019-11-12 10:30:00 [facility] Start Date/Time End Date/Time Encounter Type Admission Type Attendi [facility] Care Department Encounter ID Source 2019-10-08 13:30:00 2019-10-08 13:30:00 Appointment; MERCEDEZ LEON AP RN TRAN, THUY, APRN [facility] [id number] [facility] 2019-07-23 15:00:00 2019-07-23 15:00:00 Appointment; RAE ANDERSON M.D. MADJID, MOHAMMAD, M.D. [place] [address] [id number] [facility] 2019-07-23 10:00:00 2019-07-23 10:00:00 Appointment; RADHA PASCUAL M .D. CHIU, ALICE, M.D. [facility] [id number] [facility] 2019-07-23 08:30:00 2019-07-23 08:30:00 Appointment; JOSÉ MIGUEL AMAYA D.O. YEH, SHAO-CHUN, D.O. [facility] [id number] [facility] 2019-07-12 12:00:00 2019-07-12 12:00:00 Appointment; JOSÉ MIGUEL AMAYA D.O. YEH, SHAO-CHUN, D.O. [facility] [id number] [facility] 2019-06-28 12:30:00 2019-06-28 12:30:00 Appointment; ODIN QUICK APRN DUGAS, NANCY, APRN [facility], [address] [id number] [facility] 2019-05-14 12:22:00 2019-06-12 23:59:00 Outpatient Neida Amaya [id number] 2019-05-03 13:46:00 2019-05-03 23:59:00 Outpatient Snehal Amaya MHOIB MHOIB [id number] 2019-05-03 12:00:00 2019-05-03 12:00:00 Appointment; JOSÉ MIGUEL AMAYA D.O. YEH, SHAO-CHUN, D.O. [facility], [address] [id number] [facility] 2019-04-09 13:00:00 2019-04-09 13:00:00 Appointment; JOSÉ MIGUEL AMAYA D.O. YEH, SHAO-CHUN, D.O. [facility] [id number] [facility] 2019-04-03 14:45:00 2019-04-03 14:45:00 Appointment; JOSÉ MIGUEL AMAYA D.O. YEH, SHAO-CHUN, D.O. [facility] [id number] [facility] 2019-03-28 16:30:00 2019-03-28 16:30:00 Appointment; CEFREINO LANG M.D. CATALANO, MARC, M.D. [facility] [id number] [facility] 2019-03-27 10:30:00 2019-03-27 10:30:00 Appointment; ODIN QUICK APRN DUGAS, NANCY, APRN [facility], [address] [id number] [facility] 2019-03-26 13:00:00 2019-03-26 13:00:00 Appointment; RADHA PASCUAL M .D. CHIU, ALICE, M.D. [facility], [address] [id number] [facility] 2019-02-25 15:30:00 2019-02-25 15:30:00 Appointment; CEFERINO LANG M.D. CATALANO, MARC, M.D. [facility], [address] [id number] [facility] 2018-12-18 13:00:00 2018-12-18 13:00:00 Appointment; RADHA PASCUAL M .D. CHIU, ALICE, M.D. [facility] [id number] [facility] 2018-11-15 11:30:00 2018-11-15 11:30:00 Appointment; FREDDY GUILLEN M .D. SMITH, DEAN, M.D. [facility] Orthopedics [facility] [id number] [facility] 2018-10-31 14:29:10 2018-11-01 23:59:59 Outpatient [facility] [id number] 2018-10-29 15:15:00 2018-10-29 15:15:00 Appointment; CEFERINO LANG M.D. CATALANO, MARC, M.D. [facility], [address] [id number] [facility] 2018-10-16 14:00:00 2018-10-16 14:00:00 Appointment; CORIE MCDONALD M.D. JAMALYARIA, FAROKH, M.D. [facility] [id number] [facility] 2018-09-28 08:30:00 2018-09-28 08:30:00 Appointment; JOSÉ MIGUEL AMAYA D.O. YEH, SHAO-CHUN, D.O. [facility] [id number] [facility] [place] [facility] 2018-09-12 13:00:00 2018-09-12 13:00:00 Appointment; JOSÉ MIGUEL AMAYA D.O. YEH, SHAO-CHUN, D.O. [facility] [id number] [facility] [place] [facility] 2018-09-04 15:00:00 2018-09-04 15:00:00 Appointment; CORIE MCDONALD M.D. JAMALYARIA, FAROKH, M.D. [facility] [id number] [facility] 2018-09-04 13:00:00 2018-09-04 13:00:00 Appointment; RADHA PASCUAL M .D. CHIU, ALICE, M.D. [facility] [address] [id number] [facility] 2018-08-30 09:00:00 2018-08-30 09:00:00 Appointment; ISAIAS MAC P.A. CAMPOS, BERTHA, P.A. [facility] [address] [id number] [facility] 2018-08-27 11:00:00 2018-08-27 11:00:00 Appointment; JOSÉ MIGUEL AMAYA D.O. YEH, SHAO-CHUN, D.O. [facility] [id number] [facility] 2018-08-25 12:32:00 2018-08-25 15:46:00 Departed Emergency Room 1 YUSUF HERNANDEZ [facility] [id number] [facility] 2018-08-21 12:07:00 2018-08-22 23:59:59 Outpatient MG MG [id number] 2018-08-02 09:54:00 2018-08-02 23:59:00 Outpatient Grady Burk HOIP HOIP [id number] 2018-07-24 15:30:00 2018-07-24 15:30:00 Appointment; CORIE MCDONALD M.D. JAMALYARIA, FAROKH, M.D. [facility] [id number] [facility] 2018-07-24 15:00:00 2018-07-24 15:00:00 Appointment; RAE ANDERSON M.D. MADJID, MOHAMMAD, M.D. [facility] [address] [id number] [facility] 2018-07-24 10:00:00 2018-07-24 10:00:00 Appointment; JULIO BURK M.D. AHMED, MOUSTAFA, M.D. [facility] [id number] [facility] 2018-07-03 14:15:00 2018-07-03 14:15:00 Appointment; CEFERINO LANG M.D. CATALANO, MARC, M.D. [facility] [facility] [address] [id number] [facility] 2018-06-15 13:15:00 2018-06-15 13:15:00 Appointment; CEFERINO LANG M.D. CATALANO, MARC, M.D. [facility] [id number] [facility] 2018-06-06 16:21:00 2018-06-06 23:59:00 Outpatient Corie Mcdonald OIB OIB [id number] 2018-06-06 16:21:00 2018-06-06 23:59:00 Outpatient Corie Mcdonald OIB OIB [id number] 2018-06-06 15:00:00 2018-06-06 15:00:00 Appointment; CORIE MCDONALD M.D. JAMALYARIA, FAROKH, M.D. [facility] [id number] [facility] 2018-05-10 16:15:00 2018-05-10 16:15:00 Appointment; RADHA PASCUAL M .D. CHIU, ALICE, M.D. [facility] [id number] [facility] 2018-05-03 11:30:00 2018-05-03 11:30:00 Appointment; JOSÉ MIGUEL AMAYA D.O. YEH, SHAO-CHUN, D.O. [facility] [id number] [facility] 2018-02-13 13:15:00 2018-02-13 13:15:00 Appointment; CEFERINO LANG M.D. CATALANO, MARC, M.D. [facility] [address] [id number] [facility] 2018-02-06 13:00:00 2018-02-06 13:00:00 Appointment; RADHA PASCUAL M .D. CHIU, ALICE, M.D. [facility] [id number] [facility] 2018-01-30 08:30:00 2018-01-30 08:30:00 Appointment; JOSÉ MIGUEL AMAYA D.O. YEH, SHAO-CHUN, D.O. [facility] [id number] [facility] 2017-12-28 11:30:00 2017-12-28 11:30:00 Appointment; JOSÉ MIGUEL AMAYA D.O. YEH, SHAO-CHUN, D.O. [facility] [id number] [facility] 2017-12-23 11:30:00 2017-12-23 11:30:00 Appointment; MERCEDEZ LEON AP RN TRAN, THUY, APRN [facility] [id number] [facility] 2017-12-20 21:41:00 2017-12-21 00:08:00 Departed Emergency Room 1 SONIA [facility] [id number] [facility] 2017-12-11 16:30:00 2017-12-11 16:30:00 Appointment; CEFERINO LANG M.D. CATALANO, MARC, M.D. [facility] [address] [id number] [facility] 2017-12-05 14:30:00 2017-12-05 14:30:00 Appointment; MATEO GUIDO M.D. VAZQUEZ, NOEMI, M.D. [facility] [address] [id number] [facility] 2017-10-31 16:15:00 2017-10-31 16:15:00 Appointment; RADHA PASCUAL M .D. CHIU, ALICE, M.D. [facility] Specialty [id number] [facility] 2017-10-31 15:15:00 2017-10-31 15:15:00 Appointment; RADHA PASCUAL M .D. CHIU, ALICE, M.D. [facility] [id number] [facility] 2017-10-16 15:00:00 2017-10-16 15:00:00 Appointment; JAMALYCORIE SCHREIBER M.D. JAMALYARIA, FAROKH, M.D. [facility] [id number] [facility] 2017-09-04 09:47:00 2017-09-04 13:18:00 Departed Emergency Room ER [facility] [id number] [facility] 2017-08-22 10:00:00 2017-08-22 10:00:00 Appointment; Kishan Velez M.D. Quesada, Jorge, M.D. [facility] [address] [id number] [facility] 2017-08-18 13:45:00 2017-08-18 13:45:00 Appointment; CEFERINO LANG M.D. CATALANO, MARC, M.D. [facility] [address] [id number] [facility] 2017-08-14 15:00:00 2017-08-14 15:00:00 Appointment; CORIE MCDONALD M.D. JAMALYARIA, FAROKH, M.D. [facility] [id number] [facility] 2017-08-08 15:45:00 2017-08-08 15:45:00 Appointment; CEFERINO LANG M.D. CATALANO, MARC, M.D. [facility] [address] [id number] [facility] 2017-08-01 13:00:00 2017-08-01 13:00:00 Appointment; RADHA PASCUAL M .D. CHIU, ALICE, M.D. [facility] [id number] [facility] 2017-07-31 15:56:00 2017-07-31 23:59:00 Outpatient Corie Mcdonald MHOIB MHOIB [id number] 2017-07-31 14:00:00 2017-07-31 14:00:00 Appointment; CORIE MCDONALD M.D. JAMALYARIA, FAROKH, M.D. [facility] [id number] [facility] 2017-07-24 13:20:00 2017-07-24 13:20:00 Appointment; RAE ANDERSON M.D. MADJID, MOHAMMAD, M.D. [facility]ty [id number] [facility] 2017-07-17 14:00:00 2017-07-17 14:00:00 Appointment; BAY[place]ORE-MS, E CHO [facility]MS, ECHO [facility] Cardiology [id number] [facility] 2017-07-10 08:45:00 2017-07-10 08:45:00 Appointment; SWETA GARCIA M.D. BORTOLOTTI, JULIE, M.D. [facility] [address] [id number] [facility] 2017-06-20 15:00:00 2017-06-20 15:00:00 Appointment; CORIE MCDONALD M.D. JAMALYARIA, FAROKH, M.D. [facility] [id number] [facility] 2017-06-06 14:37:00 2017-06-06 23:59:00 [facility] [id number] 2017-05-18 09:30:00 2017-05-18 09:30:00 Appointment; CORIE MCDONALD M.D. JAMALYARIA, FAROKH, M.D. [facility] [id number] [facility] 2017-04-21 13:00:00 2017-04-21 13:00:00 Appointment; RADHA PASCUAL M .D. CHIU, ALICE, M.D. [facility] [address] [id number] [facility] 2017-04-20 13:00:00 2017-04-20 13:00:00 Appointment; [place]-MS, H OLTER [place]-MS, HOLTER [facility] [id number] [facility] 2017-04-18 11:00:00 2017-04-18 11:00:00 Appointment; CORIE MCDONALD M.D. JAMALYARIA, FAROKH, M.D. [facility] [id number] [facility] 2017-04-17 13:20:00 2017-04-17 13:20:00 Appointment; RAE ANDERSON M.D. MADJID, MOHAMMAD, M.D. [facility] Specialty [id number] [facility] 2017-03-21 09:21:00 2017-03-21 23:59:00 Outpatient Deny tobinCorie MHOIB MHOIB [id number] 2017-03-20 13:00:00 2017-03-20 13:00:00 Appointment; CORIE MCDONALD M.D. JAMALYARIA, FAROKH, M.D. [facility] [id number] [facility] 2017-03-06 14:30:00 2017-03-06 14:30:00 Appointment; KYLE WALL P.A. SPOONER, JOSEPH, P.A. [facility] [id number] [facility] 2017-02-10 10:36:00 2017-02-10 23:59:00 [facility] [id number] 2017-02-08 14:30:00 2017-02-08 14:30:00 Appointment; KYLE WALL P.A. SPOONER, JOSEPH, P.A. UTP UTP [id number] [facility] 2017-01-16 13:40:00 2017-01-16 13:40:00 Appointment; RAE ANDERSON M.D. MADJID, MOHAMMAD, M.D. [facility] UTP [id number] [facility] 2017-01-12 13:45:00 2017-01-12 13:45:00 Appointment; CEFERINO LANG M.D. CATALANO, MARC, M.D. [facility] UTP [id number] [facility] 2017-01-06 14:15:00 2017-01-06 14:15:00 Appointment; RADHA PASCUAL M .D. CHIU, ALICE, M.D. [facility] UTP [id number] [facility] 2016-12-27 14:00:00 2016-12-27 14:00:00 Appointment; KYLE WALL P.A. SPOONER, JOSEPH, P.A. UTP UTP [id number] [facility] 2016-11-11 13:30:00 2016-11-11 13:30:00 Appointment; MISSY OCHOA N P BECK, SHERI, NP [facility] UTP [id number] [facility] 2016-10-12 11:45:00 2016-10-12 11:45:00 Appointment; CEFERINO LANG M.D. CATALANO, MARC, M.D. [facility] UTP [id number] [facility] 2016-10-11 14:00:00 2016-10-11 14:00:00 Appointment; SWETA GARCIA M.D. BORTOLOTTI, JULIE, M.D. [facility] UTP [id number] [facility] 2016-09-15 09:30:00 2016-09-15 09:30:00 Appointment; SWETA GARCIA M.D. BORTOLOTTI, JULIE, M.D. [facility] UTP [id number] [facility] 2016-09-15 09:30:00 2016-09-15 09:30:00 Appointment; SWETA GARCIA M.D. BORTOLOTTI, JULIE, M.D. [facility] UTP [id number] [facility] 2016-09-07 10:30:00 2016-09-07 10:30:00 Appointment; RADHA PASCUAL M .D. CHIU, ALICE, M.D. [facility] UTP [id number] [facility] 2016-06-14 09:00:00 2016-06-14 09:00:00 Appointment; RADHA PASCUAL M .D. CHIU, ALICE, M.D. [facility] UTP [id number] [facility] 2016-04-11 14:30:00 2016-04-11 14:30:00 Appointment; CEFERINO LANG M.D. CATALANO, MARC, M.D. [facility] UTP [id number] [facility] 2016-03-21 13:30:00 2016-03-21 13:30:00 Appointment; RADHA PASCUAL M .D. CHIU, ALICE, M.D. [facility] UTP [id number] [facility] 2016-03-10 14:30:00 2016-03-10 14:30:00 Appointment; CEFERINO LANG M.D. CATALANO, MARC, M.D. [facility] UTP [id number] [facility] 2016-02-15 17:42:00 2016-02-23 11:06:00 Outpatient Zbigniew Patel [facility] [id number] 2015-12-21 11:00:00 2015-12-21 11:00:00 Appointment; RADHA PASCUAL M .D. CHIU, ALICE, M.D. [facility] UTP [id number] [facility] 2015-11-02 14:30:00 2015-11-02 14:30:00 Appointment; CEFERINO LANG M.D. CATALANO, MARC, M.D. [facility] UTP [id number] [facility] 2015-09-30 06:02:00 2015-09-30 08:20:00 Outpatient Ceferino Lang [facility] [id number] 2015-09-14 10:00:00 2015-09-14 10:00:00 Appointment; CEFERINO LANG M.D. CATALANO, MARC, M.D. [facility] UTP [id number] [facility] 2015-09-11 14:45:00 2015-09-11 14:45:00 Appointment; RADHA PASCUAL M .D. CHIU, ALICE, M.D. [facility] UTP [id number] [facility] 2015-09-09 13:00:00 2015-09-09 13:00:00 Appointment; RADHA PASCUAL M .D. CHIU, ALICE, M.D. [facility] UTP [id number] [facility] 2015-07-16 08:30:00 2015-07-16 08:30:00 Appointment; DREW BANKS M.D. PRAKASH, SIDDHARTH, M.D. [facility] UTP [id number] [facility] 2015-07-16 08:00:00 2015-07-16 08:00:00 Appointment; CAROLINE URIBE ECHOII [facility] UTP [id number] [facility] 2015-06-22 13:00:00 2015-06-22 13:00:00 Appointment; RADHA PASCUAL M .D. CHIU, ALICE, M.D. [facility] UTP [id number] [facility] 2015-06-12 08:00:00 2015-06-12 08:00:00 Appointment; RADHA PASCUAL M .D. CHIU, ALICE, M.D. [facility] UTP [id number] [facility] 2015-03-19 13:00:00 2015-03-19 13:00:00 Appointment; RADHA PASCUAL M .D. CHIU, ALICE, M.D. [facility] UTP [id number] [facility] 2013-05-16 11:33:45 2013-05-16 11:33:44 Outpatient MHIE MHIE [id number] 2013-05-14 17:50:22 2013-05-14 17:50:21 Outpatient MHIE MHIE [id number] 2013-03-21 15:07:25 2013-03-21 15:07:25 Outpatient MHIE IE [id number] 2013-02-14 07:00:15 2013-02-14 07:00:15 Outpatient MHIE IE [id number] 2013-02-12 06:30:20 2013-02-12 06:30:20 Outpatient MHIE IE [id number] 2012-11-15 07:09:35 2012-11-15 07:09:16 Outpatient MHIE MHIE [id number] 2012-08-25 07:06:59 2012-08-25 07:06:40 Outpatient MHIE IE [id number] Results Test Description Test Time Test Comments Results Result Comments Source [O] Urine Dipstick (In Office) 2019-10-08 14:10:00 Test Item Glucose (test code = Glucose) negative N LEUKOCYTES (test code = LEUKOCYTES) trace NITRITE; Normal (test code = 40120-4) negative N UROBILINOGEN; Normal (test code = 55782-5) negative N PROTEIN; Normal (test code = 15996-6) negative N pH (test code = pH) 5 N URINE BLOOD (test code = 17635-9) 50 SPECIFIC GRAVITY (test code = 2965-2) 1.015 KETONES; Normal (test code = 35293-2) negative N BILIRUBIN; Normal (test code = 26266-1) negative N COLOR URINE; Normal (test code = 5778-6) yellow N APPEARANCE; Normal (test code = 5767-9) clear N [facility][] CULTURE, URINE, [id number] 00:00:00* Test Item Value Reference Range Interpretation Comments CULTURE (test code = CULTURE) See Comment CULTURE, URINE, ROUTINE Micro Number: [id number] Test Status: Final Specimen Source: URINE Specimen Quality: Adequate Result: No Growth [facility]] CMP [id number] 12:31:00* Test Item Value Reference Range Interpretation Comments GLUCOSE; Above High Threshold (test code = 1547-9) 108 mg/dl 65- 99 Fasting reference interval For someone without known diabetes, a glucose valuebetween 100 and 125 mg/dL is consistent withprediabetes and should be confirmed with afollow-up test. UREA NITROGEN (BUN) (test code = UREA NITROGEN (BUN)) 21 mg/dl 7-25 N CREATININE (test code = CREATININE) 0.99 mg/dl 0.60-0.93 For patients >49 years of age, the reference limitfor Creatinine is approximately 13% higher for peopleidentified as -Lao. eGFR NON- (test code = eGFR NON-ZEO N CZECH) 57 {ML/MIN/1.7} > OR = 60 eGFR (test code = eGFR ) 66 {ML/MIN/1.7} > OR = 60 N BUN/CREATININE RATIO (test code = BUN/CREATININE RATIO) 21 {CALC} 6-22 N SODIUM (test code = SODIUM) 139 mmol/L 135-146 N POTASSIUM (test code = POTASSIUM) 3.9 mmol/L 3.5-5.3 N CHLORIDE (test code = CHLORIDE) 102 mmol/L 98-110 N CARBON DIOXIDE (test code = CARBON DIOXIDE) 29 mmol/L 20-32 N CALCIUM (test code = CALCIUM) 9.2 mg/dl 8.6-10.4 N PROTEIN, TOTAL (test code = PROTEIN, TOTAL) 6.4 g/dl 6.1-8.1 N ALBUMIN (test code = ALBUMIN) 4.2 g/dl 3.6-5.1 N GLOBULIN (test code = GLOBULIN) 2.2 {G/DL CALC} 1.9-3.7 N ALBUMIN/GLOBULIN RATIO (test code = ALBUMIN/GLOBULIN RATIO) 1.9 {CALC} 1.0-2.5 N BILIRUBIN, TOTAL; Normal (test code = 62708-7) 0.3 mg/dl 0.2-1.2 N ALKALINE PHSPHATASE (test code = ALKALINE PHSPHATASE) 77 u/l 37-153 N AST; Normal (test code = 1916-6) 13 u/l 10-35 N ALT; Normal (test code = 1742-6) 12 u/l 6-29 N [facility]] T4, [id number] 12:31:00* Test Item Value Reference Range Interpretation Comments T4, FREE (test code = T4, FREE) 1.2 ng/dl 0.8-1.8 N [facility]] TSH, 3RD [id number] 12:31:00* Test Item Value Reference Range Interpretation Comments TSH; Normal (test code = 01681-4) 1.49 {MIU/L} 0.40-4.50 N [facility][] CMP [id number] 12:31:00* Test Item Value Reference Range Interpretation Comments GLUCOSE; Above High Threshold (test code = 1547-9) 108 mg/dl 65- 99 Fasting reference interval For someone without known diabetes, a glucose valuebetween 100 and 125 mg/dL is consistent withprediabetes and should be confirmed with afollow-up test. UREA NITROGEN (BUN) (test code = UREA NITROGEN (BUN)) 21 mg/dl 7-25 N CREATININE (test code = CREATININE) 0.99 mg/dl 0.60-0.93 For patients >49 years of age, the reference limitfor Creatinine is approximately 13% higher for peopleidentified as -Lao. eGFR NON- (test code = eGFR NON-ZOE N CZECH) 57 {ML/MIN/1.7} > OR = 60 eGFR (test code = eGFR ) 66 {ML/MIN/1.7} > OR = 60 N BUN/CREATININE RATIO (test code = BUN/CREATININE RATIO) 21 {CALC} 6-22 N SODIUM (test code = SODIUM) 139 mmol/L 135-146 N POTASSIUM (test code = POTASSIUM) 3.9 mmol/L 3.5-5.3 N CHLORIDE (test code = CHLORIDE) 102 mmol/L 98-110 N CARBON DIOXIDE (test code = CARBON DIOXIDE) 29 mmol/L 20-32 N CALCIUM (test code = CALCIUM) 9.2 mg/dl 8.6-10.4 N PROTEIN, TOTAL (test code = PROTEIN, TOTAL) 6.4 g/dl 6.1-8.1 N ALBUMIN (test code = ALBUMIN) 4.2 g/dl 3.6-5.1 N GLOBULIN (test code = GLOBULIN) 2.2 {G/DL CALC} 1.9-3.7 N ALBUMIN/GLOBULIN RATIO (test code = ALBUMIN/GLOBULIN RATIO) 1.9 {CALC} 1.0-2.5 N BILIRUBIN, TOTAL; Normal (test code = 99003-9) 0.3 mg/dl 0.2-1.2 N ALKALINE PHSPHATASE (test code = ALKALINE PHSPHATASE) 77 u/l 37-153 N AST; Normal (test code = 1916-6) 13 u/l 10-35 N ALT; Normal (test code = 1742-6) 12 u/l 6-29 N [facility][QL] T4, [id number] 12:31:00* Test Item Value Reference Range Interpretation Comments T4, FREE (test code = T4, FREE) 1.2 ng/dl 0.8-1.8 N [facility][QL] TSH, 3RD [id number] 12:31:00* Test Item Value Reference Range Interpretation Comments TSH; Normal (test code = 25729-0) 1.49 {MIU/L} 0.40-4.50 N [facility][O] Hemoglobin A1c (in office)2019-07-23 10:15:00 * Test Item Value Reference Range Interpretation Comments HEMOGLOBIN A1c (test code = 4548-4) 6.1 [facility] ([facility] In Office)2019-07-23 10:15:00* Test Item Value Reference Range Interpretation Comments Glucose POC Lifescan (test code = Glucose POC Lifescan) 121 [facility][O] Lipid Panel (In Office)2019-07-23 10:15:00* Test Item Value Reference Range Interpretation Comments CHOLESTEROL, TOTAL (test code = 2093-3) 121 HDL CHOLESTEROL (test code = 2085-9) 71 TRIGLYCERIDES (test code = 2571-8) 65 LDL-CHOLESTEROL (test code = 75468-2) 37 NON HDL CHOLESTEROL (test code = NON HDL CHOLESTEROL) 50 T. Chol/HDL Ratio (test code = 9830-1) 1.7 GLUCOSE (test code = 1547-9) 121 [facility][O] Flu Test (in Office )2019-06-28 13:07:00* Test Item Value Reference Range Interpretation Comments Flu A (test code = Flu A) Negative N Flu B (test code = Flu B) Negative [facility]/Bend views [id number] 2019-05-03 13:49:00EXAM: XR LUMBAR SPINE 2 VIEWSDATE: 05/03/2019 13:49 [...] 18:56Electronically Signed by: Damián Floyd MD 05/03/1918:57FINAL REPORTUnAl[facility] PhysiciansXRAY Knee 4+ views unilateral [id number] 13:46:00EXAM: XR RIGHT KNEE 4 VIEWSDATE: 05/03/2019 13:46 CSTINDICATION: - acute pain of right kneeCOMPARISON: None.TECHNIQUE: 4 views of the kneeFINDINGS: Right total knee arthroplasty hardware seen in place. No acutehardware complications.No knee joint effusion is present. No soft tissue abnormality is identified.IMPRESSION: No acute abnormality.--This report was dictated by a Eligibility Worker/Reddy w/Physician Medical Records Clerk. Ihave personallyreviewed the images as well as the interp retation and agree with the findings.Read by: Annia Medellin MD Resident/Fellow/PhysicianAssistant: SunWessania MDDictated Date/time: 14:50Electronically Signed by: Damián Floyd MD 05/03/1919:30FINAL REPORTUnAlta View Hospital Physicians[O] Urine Dipstick (In Office)2019-04-03 15:02:00* Test Item Value Reference Range Interpretation Comments Glucose (test code = Glucose) NEGATIVE N LEUKOCYTES (test code = LEUKOCYTES) TRACE NITRITE; Normal (test code = 42394-3) NEGATIVE N UROBILINOGEN; Normal (test code = 65596-5) NORMAL N PROTEIN; Normal (test code = 23143-5) TRACE N pH (test code = pH) 5 N URINE BLOOD; Abnormal (test code = 29858-1) ABOUT 50 A SPECIFIC GRAVITY; Normal (test code = 2965-2) 1.015 N KETONES; Normal (test code = 43027-0) NEGATIVE N BILIRUBIN; Normal (test code = 18011-6) NEGATIVE N COLOR URINE; Normal (test code = 5778-6) YELLOW N [facility]] CULTURE, URINE, [id number] 00:00:00* Test Item Value Reference Range Interpretation Comments CULTURE (test code = CULTURE) See Comment CULTURE, URINE, ROUTINE Micro Number: [id number] Test Status: Final Specimen Source: URINE Specimen Quality: Adequate Result: Multiple organisms present, each less than 10,000 CFU/mL. These organisms, commonly found on external and internal genitalia, are considered to be colonizers. No further testing performed. [facility][O] Urine Dipstick (In Office)2019-03-27 11:10:00 * Test Item Value Reference Range Interpretation Comments Glucose (test code = Glucose) Negative N LEUKOCYTES (test code = LEUKOCYTES) Moderate A NITRITE; Normal (test code = 88922-0) Negative N UROBILINOGEN; Normal (test code = 98532-2) Negative N PROTEIN; Normal (test code = 47537-6) Negative N pH (test code = pH) 6.0 N URINE BLOOD; Abnormal (test code = 51713-3) aboiut 50 mg/dL A SPECIFIC GRAVITY; Normal (test code = 2965-2) 1.015 N KETONES; Normal (test code = 34744-8) Negative N BILIRUBIN; Normal (test code = 63044-1) Negative N COLOR URINE; Normal (test code = 5778-6) Yellow N APPEARANCE; Abnormal (test code = 5767-9) Cloudy A [facility]] CULTURE, URINE, [id number] 00:00:00* Test Item Value Reference Range Interpretation Comments CULTURE (test code = CULTURE) See Comment A CULTURE, URINE, ROUTINE Micro Number: [id number] Test Status: Final Specimen Source: URINE Specimen Quality: Adequate Result: Greater than 100,000 CFU/mL of Escherichia coli COMMENT: Additional organism(s) less than 10,000 CFU/mL isolated. These organisms, commonly found on external and internal genitalia, are considered colonizers. No further testing performed. E.coli INT LIZBETH AMOX/CLAVULANATE I 16 AMPICILLIN R >=32 AMP/SULBACTAM R >=32 CEFAZOLIN NR <=4 2 CEFEPIME S <=1 CEFTRIAXONE S <=1 CIPROFLOXACIN R >=4 GENTAMICIN S <=1 IMIPENEM S <=0.25 LEVOFLOXACIN R >=8 NITROFURANTOIN S <=16 PIP/TAZOBACTAM S <=4 TOBRAMYCIN S <=1 TRIMETHOPRIM/SULFA S <=20S=Susceptible I=Intermediate R=Resistant * = Not TestedNR = Not Reported NN = See Therapy CommentsTHERAPY COMMENTS Note 1: For infections other than uncomplicated UTI caused by E. coli, K. pneumoniae or P. mirabilis: Cefazolin is resistant if LIZBETH > or = 8 mcg/mL. (Distinguishing susceptible versus intermediate for isolates with LIZBETH < or = 4 mcg/mL requires additional testing.) Note 2: For uncomplicated UTI caused by E. coli, K. pneumoniae or P. mirabilis: Cefazolin is susceptible if LIZBETH <32 mcg/mL and predicts susceptible to the oral agents cefaclor, cefdinir, cefpodoxime, cefprozil, cefuroxime, cephalexin and loracarbef. [facility][O] Lipid Panel (In Office)2019-03-26 13:06:00* Test Item Value Reference Range Interpretation Comments CHOLESTEROL, TOTAL (test code = 2093-3) 129 HDL CHOLESTEROL (test code = 2085-9) 54 TRIGLYCERIDES (test code = 2571-8) 83 LDL-CHOLESTEROL (test code = 79622-8) 59 NON HDL CHOLESTEROL (test code = NON HDL CHOLESTEROL) 75 T. Chol/HDL Ratio (test code = 9830-1) 2.4 GLUCOSE (test code = 1547-9) 124 [facility]2019-03-26 13:06:00* Test Item Value Reference Range Interpretation Comments Glucose POC Lifescan (test code = Glucose POC Lifescan) 136 [facility][O] Hemoglobin A1c (in office)2019-03-26 13:06:00 * Test Item Value Reference Range Interpretation Comments HEMOGLOBIN A1c (test code = 4548-4) 5.6 [facility][Q] IRON, TIBC AND FERRITIN [id number] 16:05:00* Test Item Value Reference Range Interpretation Comments IRON, TOTAL (test code = IRON, TOTAL) 64 {mcg/dl} 45-160 N IRON BINDING CAPACITY (test code = IRON BINDING CAPACITY) 36 8 {mcg/dL ca} 250-450 N % SATURATION (test code = % SATURATION) 17 {% CALC} 16-45 N FERRITIN (test code = FERRITIN) 43 ng/ml 16-288 N [facility]] CBC (INCLUDES DIFF/PLT)2019-02-25 16:05:00* Test Item Value Reference Range Interpretation Comments WHITE BLOOD CELL COUNT (test code = WHITE BLOOD CELL COUNT) 9.3 {Thousand/u} 3.8-10.8 N RED BLOOD CELL COUNT (test code = RED BLOOD CELL COUNT) 4.67 {Million/uL} 3.80-5.10 N HEMAGLOBIN; Normal (test code = 11233-7) 13.5 g/dl 11.7-15.5 N HEMATOCRIT; Normal (test code = 4544-3) 39.8 % 35.0-45.0 N MCV; Normal (test code = 787-2) 85.2 fL 80.0-100.0 N MCHC; Normal (test code = 63939-7) 33.9 g/dl 32.0-36.0 N RDW; Normal (test code = 788-0) 13.0 % 11.0-15.0 N PLATELET COUNT; Normal (test code = 777-3) 342 {Thousand/u} 140-400 N MPV; Normal (test code = 35613-3) 9.4 fL 7.5-12.5 N ABSOLUTE NEUTROPHILS (test code = ABSOLUTE NEUTROPHILS) 6761 {cells/uL} 1668-1336 N ABSOLUTE LYMPHOCYTES (test code = ABSOLUTE LYMPHOCYTES) 1618 {cells/uL} 850-3900 N ABSOLUTE MONOCYTES (test code = ABSOLUTE MONOCYTES) 586 {cells/uL} 200-950 N ABSOLUTE EOSINOPHILS (test code = ABSOLUTE EOSINOPHILS) 288 {cells/ uL} 15-500 N ABSOLUTE BASOPHILS (test code = ABSOLUTE BASOPHILS) 47 {cells/uL} 0 -200 N NEUTROPHILS (test code = NEUTROPHILS) 72.7 % N LYMPHOCYTES (test code = LYMPHOCYTES) 17.4 % N MONOCYTES; Normal (test code = 09653-9) 6.3 % N EOSINOPHILS; Normal (test code = 77266-3) 3.1 % N BASOPHILS; Normal (test code = 40805-8) 0.5 % N [facility][L] [id number] 14:41:00* Test Item Value Reference Range Interpretation Comments BUN; Normal (test code = 3094-0) 15 N Creatinine (test code = 2160-0) 0.97 0.6-0.93 eGFR If NonAfricn Am (test code = 64681-5) 58 Sodium, Serum; Normal (test code = 2951-2) 138 N Potassium; Normal (test code = 2823-3) 4.2 N Chloride; Normal (test code = 2075-0) 99 N Carbon Dioxide, Total; Normal (test code = 2028-9) 29 N Calcium, Serum; Normal (test code = 78260-8) 9.8 N [facility][QLH] MICROALBUMIN, RANDOM URINE (W/CREATININE) 2018-12-18 13:58:00* Test Item Value Reference Range Interpretation Comments CREATININE, RANDOM URINE (test code = CREATININE, RANDOM URI NE) 199 mg/dl 20-275 N MICROALBUMIN (test code = MICROALBUMIN) 3.4 mg/dl N Reference RangeNot established MICROALBUMIN/CREATININE RATIO, RANDOM UR INE (test code = MICROALBUMIN/CREATININE RATIO, RANDOM URINE) 17 {MCG/MG CRE} <30 N The ADA de fines abnormalities in albuminexcretion as follows: Category Result (mcg/mg creatinine) Normal <30Microalbuminuria 30-299 Clinical albuminuria > OR = 300 The ADA recommends that at least two of threespecimens collected within a 3-6 month period beabnormal before considering a patient to bewithin a diagnostic category. [facility]] T4, [id number] 13:58:00* Test Item Value Reference Range Interpretation Comments T4, FREE (test code = T4, FREE) 1.1 ng/dl 0.8-1.8 N [facility]] TSH, 3RD [id number] 13:58:00* Test Item Value Reference Range Interpretation Comments TSH; Normal (test code = 33892-5) 0.87 {MIU/L} 0.40-4.50 N [facility] ([facility])2018-12-18 12:59:00* Test Item Value Reference Range Interpretation Comments Glucose POC Lifescan (test code = Glucose POC Lifescan) 132 [facility][O] Hemoglobin A1c (in office)2018-12-18 12:59:00 * Test Item Value Reference Range Interpretation Comments HEMOGLOBIN A1c (test code = 4548-4) 5.5 [facility][O] Lipid Panel (In Office)2018-12-18 12:58:00* Test Item Value Reference Range Interpretation Comments CHOLESTEROL, TOTAL (test code = 2093-3) 136 HDL CHOLESTEROL (test code = 2085-9) 59 TRIGLYCERIDES (test code = 2571-8) 82 LDL-CHOLESTEROL (test code = 51134-2) 61 NON HDL CHOLESTEROL (test code = NON HDL CHOLESTEROL) 77 T. Chol/HDL Ratio (test code = 9830-1) 2.3 GLUCOSE (test code = 1547-9) 118 [facility][U] XR HAND MIN 3 VWS [id number] 11:27:00 Images acquired, not reported on this accession number.[facility]] CBC (INCLUDES DIFF/PLT)2018-10-16 14:46:00* Test Item Value Reference Range Interpretation Comments WHITE BLOOD CELL COUNT (test code = WHITE BLOOD CELL COUNT) 11.3 {Thousand/u} 3.8-10.8 RED BLOOD CELL COUNT (test code = RED BLOOD CELL COUNT) 4.85 {Million/uL} 3.80-5.10 N HEMAGLOBIN; Normal (test code = 60145-0) 13.7 g/dl 11.7-15.5 N HEMATOCRIT; Normal (test code = 4544-3) 41.7 % 35.0-45.0 N MCV; Normal (test code = 787-2) 86.0 fL 80.0-100.0 N MCHC; Normal (test code = 65078-1) 32.9 g/dl 32.0-36.0 N RDW; Normal (test code = 788-0) 13.5 % 11.0-15.0 N PLATELET COUNT; Normal (test code = 777-3) 286 {Thousand/u} 140-400 N MPV; Normal (test code = 49750-3) 9.4 fL 7.5-12.5 N ABSOLUTE NEUTROPHILS (test code = ABSOLUTE NEUTROPHILS) 8419 {cells/uL} 0705-3943 ABSOLUTE LYMPHOCYTES (test code = ABSOLUTE LYMPHOCYTES) 1480 {cells/uL} 850-3900 N ABSOLUTE MONOCYTES (test code = ABSOLUTE MONOCYTES) 825 {cells/uL} 200-950 N ABSOLUTE EOSINOPHILS (test code = ABSOLUTE EOSINOPHILS) 497 {cells/ uL} 15-500 N ABSOLUTE BASOPHILS (test code = ABSOLUTE BASOPHILS) 79 {cells/uL} 0 -200 N NEUTROPHILS (test code = NEUTROPHILS) 74.5 % N LYMPHOCYTES (test code = LYMPHOCYTES) 13.1 % N MONOCYTES; Normal (test code = 54003-0) 7.3 % N EOSINOPHILS; Normal (test code = 68280-9) 4.4 % N BASOPHILS; Normal (test code = 66221-4) 0.7 % N [facility]] VITAMIN [id number] 14:46:00* Test Item Value Reference Range Interpretation Comments VITAMIN B6 (test code = VITAMIN B6) 27.9 ng/ml 2.1-21.7 Vitamin supplementation within 24 hours prior to blood draw may affect the accuracy of results. This test was developed and its analytical performance characteristics have been determined by [employer]y Chisholm. It has not been cleared or approved by the USFood and Drug Administration. This assay has been validated pursuant to the CLIA regulations and is used for clinical pu rposes. [facility]] CMP [id number] 14:46:00* Test Item Value Reference Range Interpretation Comments GLUCOSE; Normal (test code = 1547-9) 99 mg/dl 65-139 N Non-fasting reference interval UREA NITROGEN (BUN) (test code = UREA NITROGEN (BUN)) 22 mg/dl 7-25 N CREATININE (test code = CREATININE) 1.12 mg/dl 0.60-0.93 For patients >49 years of age, the reference limitfor Creatinine is approximately 13% higher for peopleidentified as -Lao. eGFR NON- (test code = eGFR NON-ZOE N CZECH) 49 {ML/MIN/1.7} > OR = 60 eGFR (test code = eGFR ) 57 {ML/MIN/1.7} > OR = 60 BUN/CREATININE RATIO (test code = BUN/CREATININE RATIO) 20 {CALC} 6-22 N SODIUM (test code = SODIUM) 142 mmol/L 135-146 N POTASSIUM (test code = POTASSIUM) 4.0 mmol/L 3.5-5.3 N CHLORIDE (test code = CHLORIDE) 104 mmol/L 98-110 N CARBON DIOXIDE (test code = CARBON DIOXIDE) 29 mmol/L 20-32 N CALCIUM (test code = CALCIUM) 9.2 mg/dl 8.6-10.4 N PROTEIN, TOTAL (test code = PROTEIN, TOTAL) 6.6 g/dl 6.1-8.1 N ALBUMIN (test code = ALBUMIN) 4.1 g/dl 3.6-5.1 N GLOBULIN (test code = GLOBULIN) 2.5 {G/DL CALC} 1.9-3.7 N ALBUMIN/GLOBULIN RATIO (test code = ALBUMIN/GLOBULIN RATIO) 1.6 {CALC} 1.0-2.5 N BILIRUBIN, TOTAL; Normal (test code = 48061-3) 0.3 mg/dl 0.2-1.2 N ALKALINE PHSPHATASE (test code = ALKALINE PHSPHATASE) 65 u/l 33-130 N AST; Normal (test code = 1916-6) 15 u/l 10-35 N ALT; Normal (test code = 1742-6) 14 u/l 6-29 N [facility][O] Lipid Panel (In Office)2018-09-04 13:48:00* Test Item Value Reference Range Interpretation Comments CHOLESTEROL, TOTAL (test code = 2093-3) 139 HDL CHOLESTEROL (test code = 2085-9) 56 TRIGLYCERIDES (test code = 2571-8) 80 LDL-CHOLESTEROL (test code = 02827-4) 67 NON HDL CHOLESTEROL (test code = NON HDL CHOLESTEROL) 83 T. Chol/HDL Ratio (test code = 9830-1) 2.5 GLUCOSE (test code = 1547-9) 106 [facility]2018-09-04 13:48:00* Test Item Value Reference Range Interpretation Comments Glucose POC Lifescan (test code = Glucose POC Lifescan) 106 [facility][O] Hemoglobin A1c (in office)2018-09-04 13:47:00 * Test Item Value Reference Range Interpretation Comments HEMOGLOBIN A1c (test code = 4548-4) 6.0 [facility]] CULTURE, URINE, [id number] 00:00:00* Test Item Value Reference Range Interpretation Comments CULTURE (test code = CULTURE) See Comment CULTURE, URINE, ROUTINE MICRO NUMBER: [id number] TEST STATUS: FINAL SPECIMEN SOURCE: URINE SPECIMEN QUALITY: ADEQUATE RESULT: No Growth [facility] 2 [id number] 14:44:00 [place] [address] Patient Name: ALEXANDER RICO MR #: [id number] : 1945 Age/Sex: 73/F Req #: [id number] Adm Physician: Ordered by: YURI AZEVEDO FIRE ALARM REPAIRER Report #: [id number] Location: ER Room/Bed: Procedure: [id number] DX /CHEST 2 VIEWS Exam Date: 08/25/18 Exam Time: 1324 REPORT STATUS: Signed EXAMINATION : CHEST 2 VIEWS INDICATION: cough [id number] COMPARISON: Chest radiograph 09/04/2017 FINDINGS: PA and lateral vi ews TUBES and LINES: None. LUNGS: Lungs are well inflated. Minimal scarring in the left lower lobe is stable. There is no evidence of pneumonia or pulmonary edema. PLEURA: No pleural effusion or pneumothorax. HEA RT AND MEDIASTINUM: The cardiomediastinal silhouette is unremarkable. BONE S AND SOFT TISSUES: No acute osseous lesion. Surgical clips overlying the le ft axilla and right mid chest. UPPER ABDOMEN: No free air under the diaphra gm. IMPRESSION: No acute thoracic abnormality. Signed by: Dr. Antwan Brooke M.D. on 08/25/2018 2:45 PM Dictated By: STEPHANIE BROOKE MD 1445 COPY TO: YURI AZEVEDO FIRE ALARM REPAIRER Influenza Virus Types A,B [id number] 13:34:00* Test Item Value Reference Range Interpretation Comments Influenza Virus Types A,B Antigen (test code = 41285-0) [facility]GATIVE [facility]IVE [facility] Streptococcus [id number] 13:34:00* Test Item Value Reference Range Interpretation Comments Group A Streptococcus Screen (test code = 91833-7) NEGATIVE NEG ATIVE [facility] Sp[facility] cervical wo contrast [id number] 2018-08-02 10:26:00EXAM: Spine cervical wo contrast MRIDATE: 08/02/2018 10:26 CDT .ORDERING PHYSICIAN: NOELLE SultanaLINICAL INDICATION: M54.12 Radiculopathy, cervical region - M54.12 Radiculopathy, cervical region;TECHNIQUE: Multiplanar, multisequence MRI cervical spine without IV contrastCOMPARISON: UnavailableFINDINGS:VISUALIZED INTRACRANIAL CONTENTS: Unremarkable.CRANIOCERVICAL JUNCTION: The cerebellar tonsils are in normal position.SPINAL CORD: No definite cord signal abnormality. No definite dural basedlesion.VERTEBRAE: The vertebrae are normal in height. The lordosis is straightened.No focal suspicious bone marrow signal abnormality.PARASPINAL SOFT TISSUES: No edema or massesDISC LEVELS, SPINAL CANAL, NEURAL FORAMINA:Craniocervical junction: No stenosisC1-C2: No subluxation, ligamentous pannus formation, or stenosisC2-C3: Intervertebral disc height and signal are maintained. There is leftfacet hypertrophy. Central canal measures 15 mm. There is moderate narrowing ofleft neural foramen.C3-C4: The disc height is maintaine d. There is hyperintensity within the disc.There is left greater than right face t hypertrophy. Central canal measures 12mm. The neural foramina are patent.C4-C5 : Dehydrated disc with diffuse bulge/osteophyte complex. There is subtlegrade 1 anterolisthesis of C4 relative to C5. There is bilateral facethypertrophy, righ t greater than left. Central canal measures 12 mm with partialeffacement of vent ral CSF space. There is moderate to severe narrowing of theneural foramina, righ t greater than left.C5-C6: Desiccated disc with circumferential disc osteophyte complex. There isbilateral facet and uncinate hypertrophy. Central canal measur es 9 mm withslight ventral spinal cord contour deformity. There is severe narrow ing of leftneural foramen.C6-C7: Desiccated disc with circumferential disc osteo phyte complex. There isleft greater than right uncinate hypertrophy. Facets are unremarkable. Centralcanal measures 7 mm with ventral spinal cord contour deform ity. There ismoderate to severe narrowing of the left neural foramen and mild na rrowing ofthe right.C7-T1: Intervertebral disc height and signal are maintained . There is mildleft facet hypertrophy. There is no stenosis.IMPRESSION:1. Spinal stenosis with ventral spinal cord contour deformities at C4-C5 andC5-C6. There is no evidence of spinal cord edema or myelopathy.2. Multiple levels of potentia lly significant (moderate or worse) neuralforamen narrowing detailed by level ab ove3. Increased signal in the C3-C4 disc without signal abnormality in theverteb ral bodies or prevertebral soft tissues is likely degenerative. Earlydiscitis is thought less likely. Correlation with complete blood count and ESRrecommended.- -Read by: Ricci Box MDDictated Date/time: 08/02/18 11:48Electroni jayda Signed by: Ricci Box MD 08/02/1912:56FINAL R EPORTUnAlta View Hospital PhysiciansNegative Retinal Eye Exam (Diabetic) 2018-07-17 05:00:00* Test Item Value Reference Range Interpretation Comments Negative Diabetic Eye Screening (test code = Negative Diabetic Eye Screening) 17Jul2018 [facility][] IRON, TIBC AND FERRITIN [id number] 16:45:00* Test Item Value Reference Range Interpretation Comments IRON, TOTAL (test code = IRON, TOTAL) 74 {mcg/dl} 45-160 N IRON BINDING CAPACITY (test code = IRON BINDING CAPACITY) 36 0 {mcg/dL ca} 250-450 N % SATURATION (test code = % SATURATION) 21 {% CALC} 11-50 N FERRITIN (test code = FERRITIN) 70 ng/ml 20-288 N [facility]] CBC (INCLUDES DIFF/PLT)2018-06-06 16:45:00* Test Item Value Reference Range Interpretation Comments WHITE BLOOD CELL COUNT (test code = WHITE BLOOD CELL COUNT) 10.3 {Thousand/u} 3.8-10.8 N RED BLOOD CELL COUNT (test code = RED BLOOD CELL COUNT) 4.79 {Million/uL} 3.80-5.10 N HEMAGLOBIN; Normal (test code = 97597-4) 14.1 g/dl 11.7-15.5 N HEMATOCRIT; Normal (test code = 4544-3) 41.3 % 35.0-45.0 N MCV; Normal (test code = 787-2) 86.2 fL 80.0-100.0 N MCHC; Normal (test code = 29652-4) 34.1 g/dl 32.0-36.0 N RDW; Normal (test code = 788-0) 12.8 % 11.0-15.0 N PLATELET COUNT; Normal (test code = 777-3) 349 {Thousand/u} 140-400 N MPV; Normal (test code = 86743-7) 9.4 fL 7.5-12.5 N ABSOLUTE NEUTROPHILS (test code = ABSOLUTE NEUTROPHILS) 7086 {cells/uL} 2424-3302 N ABSOLUTE LYMPHOCYTES (test code = ABSOLUTE LYMPHOCYTES) 2050 {cells/uL} 850-3900 N ABSOLUTE MONOCYTES (test code = ABSOLUTE MONOCYTES) 711 {cells/uL} 200-950 N ABSOLUTE EOSINOPHILS (test code = ABSOLUTE EOSINOPHILS) 381 {cells/ uL} 15-500 N ABSOLUTE BASOPHILS (test code = ABSOLUTE BASOPHILS) 72 {cells/uL} 0 -200 N NEUTROPHILS (test code = NEUTROPHILS) 68.8 % N LYMPHOCYTES (test code = LYMPHOCYTES) 19.9 % N MONOCYTES; Normal (test code = 01880-3) 6.9 % N EOSINOPHILS; Normal (test code = 12587-2) 3.7 % N BASOPHILS; Normal (test code = 77449-7) 0.7 % N [facility]] CREATINE KINASE, [id number] 16:44:00* Test Item Value Reference Range Interpretation Comments CREATINE KINASE, TOTAL (test code = CREATINE KINASE, TOTAL) 58 u/l 29-143 N [facility]] SED RATE BY MODIFIED [id number] 16:44:00* Test Item Value Reference Range Interpretation Comments SED RATE BY MODIFIED WESTERGREN (test code = SED RATE BY MODIFIED WESTERGREN) 14 mm/h < OR = 30 N [facility]] URINALYSIS, COMPLETE W/REFLEX TO CULTURE 2018-06-06 16:44:00* Test Item Value Reference Range Interpretation Comments COLOR; Normal (test code = 5778-6) DARK YELLOW YELLOW N APPEARANCE (test code = APPEARANCE) HAZY CLEAR A SPECIFIC GRAVITY; Normal (test code = 2965-2) 1.030 1.001-1. 035 N PH; Normal (test code = 2756-5) < OR = 5.0 5.0-8.0 N GLUCOSE; Normal (test code = 1547-9) NEGATIVE NEGATIVE N BILIRUBIN; Normal (test code = 82940-6) NEGATIVE NEGATIVE N KETONES; Abnormal (test code = 44635-4) TRACE NEGATIVE A OCCULT BLOOD; Normal (test code = 04391-8) NEGATIVE NEGATIVE N PROTEIN; Normal (test code = 01002-3) NEGATIVE NEGATIVE N NITRITE (test code = NITRITE) NEGATIVE NEGATIVE N LEUKOCYTE ESTERASE (test code = LEUKOCYTE ESTERASE) NEGATIVE NE GATIVE N WBC; Normal (test code = 6690-2) 0-5 < OR = 5 N RBC; Normal (test code = 789-8) 0-2 < OR = 2 N SQUAMOUS EPITHELIAL CELLS; Abnormal (test code = 10079-9) 6-10 < OR = 5 A BACTERIA; Normal (test code = 630-4) NONE SEEN NONE SEEN N CALCIUM OXALATE CRYSTALS; Normal (test code = 57995-1) FEW NONE OR FEW N HYALINE CAST; Normal (test code = 99884-6) NONE SEEN NONE SEEN N COMMENTS (test code = 32856-2) MODERATE MUCOUS THREADS REFLEXIVE URINE CULTURE (test code = REFLEXIVE URINE C ULTURE) NO CULTURE INDICATED [facility]] DNA (DS) [id number] 16:44:00* Test Item Value Reference Range Interpretation Comments DNA (DS) ANTIBODY (test code = DNA (DS) ANTIBODY) <1 N IU/mL Interpretation < or = 4 Negative 5-9 Indeterminate > or = 10 Positive [facility][] SM AND SM/FURNACE CHECKER [id number] 16:44:00* Test Item Value Reference Range Interpretation Comments SM ANTIBODY (test code = SM ANTIBODY) <1.0 NEG <1.0 NEG N SM/FURNACE CHECKER ANTIBODY (test code = SM/FURNACE CHECKER ANTIBODY) <1.0 NEG <1.0 NEG N [facility]] COMPLEMENT COMPONENT [id number] 16:44:00 * Test Item Value Reference Range Interpretation Comments COMPLEMENT COMPONENT C3C (test code = COMPLEMENT COMPONENT C 3C) 158 mg/dl 83-193 N [facility]] COMPLEMENT COMPONENT [id number] 16:44:00 * Test Item Value Reference Range Interpretation Comments COMPLEMENT COMPONENT C4C (test code = COMPLEMENT COMPONENT C4C) 28 mg/dl 15-57 N [facility]] C-REACTIVE [id number] 16:44:00* Test Item Value Reference Range Interpretation Comments C-REACTIVE PROTEIN (test code = C-REACTIVE PROTEIN) 4.3 mg/L <8 .0 N [facility] lateral Bilateral [id number] 16:24:00EXAM: XR BILATERAL HAND 2 VIEWSDATE: 06/06/2018 16:24 CSTINDICATION: - M15.9 Polyosteoarthritis, unspecifiedCOMPARISON: Bilateral hand radiographs 03/21/2017TECHNIQUE: Bilateral PA, lateral radiographs of the hands.FINDINGS:Right hand:Diffuse osteopenia noted.No fracture, periosteal reaction, or erosions identified.Joint alignment is normal.Unchanged joint space narrowing and moderate-large osteophytes present at thefirst CMC, second through 5th PIP, third and 5th DIP, and first IP joints.Small osteophytes and joint space narrowing present at the triscaphe joint.Soft tissues are unremarkable.Left hand:Diffuse osteopenia present.No fracture, periosteal reaction, or erosions identified.Unchanged appearance of third PIP arthroplasty with out evidence of hardwarefailure.There remains less than 1 mm perihardware lucency about the prostheticcomponents with unchanged volar tilt of the proximal phalangeal prosthesis.Postoperative changes of trapezium resection noted.Minimal ulnar subluxation of the second distal phalanx noted at the DIP joint.Unchanged joint space narrowing and moderate-large osteophytes present at thethird and 5th PIP, second and 5th DIP, and first IP joints.Small osteophytes and joint space narrowing present at the triscaphe joint.Soft tissues are unremarkable.IMPRESSION:Moderate-severe osteoarthrosis of bilateral interphala ngeal joints asdescribed.Unchanged appearance of left third PIP joint arthroplas ty.Moderate-severe osteoarthrosis of the right first CMC joint.Diffuse osteopeni a.Overall, findings are similar to the prior exam.--Read by: Rm Truong MDDictated Date/time: 06/07/18 08:27Electronically Signed by: Omer Truong MD 06/07/1907:40FINAL REPORTUnAlta View Hospital PhysiciansGlucose (Point of Care In Office)2018-05-10 16:21:00* Test Item Value Reference Range Interpretation Comments Glucose POC Lifescan (test code = Glucose POC Lifescan) 125 [facility]] [id number] 12:21:01* Test Item Value Reference Range Interpretation Comments Segmented Neutrophils (test code = 09450-8) 65.6 % 45.0-75.0 Monocytes (test code = 70028-1) 7.2 % 2.0-12.0 Lymphocytes (test code = 70913-5) 22.0 % 20.0-40.0 Eosinophils; Above High Threshold (test code = 96456-4) 4.3 % 0.0-4.0 Basophils (test code = 706-2) 0.9 % 0.0-1.0 Segs-Bands # (test code = 81224-0) 5.9 {K/CMM} 1.5-8.1 Lymphocytes # (test code = 91115-0) 2.0 {K/CMM} 1.0-5.5 Monocytes # (test code = 66377-0) 0.6 {K/CMM} 0.0-0.8 Eosinophils # (test code = 14039-4) 0.4 {K/CMM} 0.0-0.5 Basophils # (test code = 67545-6) 0.1 {K/CMM} 0.0-0.2 [facility]] CMP [id number] 12:21:01* Test Item Value Reference Range Interpretation Comments Sodium Level (test code = 2951-2) 138 {mEq/l} 135-145 Potassium Level (test code = 2823-3) 3.7 {mEq/l} 3.5-5.1 Chloride Level (test code = 2075-0) 100 {mEq/l} 95-109 Carbon Dioxide; Above High Threshold (test code = 2027-) 35 {mEq/l } 24-32 AGAP; Below Low Threshold (test code = 02011-5) 6.7 {mEq/l} 10.0-2 0.0 Glucose Lvl; Above High Threshold (test code = 2345-7) 124 mg/dl 70-99 Adult reference range values reflect the clinical guidelinesof the [place] Diabetes [employer]. Creatinine Lvl (test code = 2160-0) 1.10 mg/dl 0.50-1.40 Blood Urea Nitrogen; Above High Threshold (test code = 3094-0) 24 m g/dl 7-22 BUN/Creatinine Ratio (test code = 3097-3) 22 6-25 Total Protein (test code = 2885-2) 7.5 g/dl 6.4-8.4 Albumin Lvl (test code = 1751-7) 4.1 g/dl 3.5-5.0 Globulin (test code = 41377-1) 3.4 g/dl 2.7-4.2 A/G Ratio (test code = 1759-0) 1.2 0.7-1.6 Calcium Level Total (test code = 91244-4) 9.2 mg/dl 8.5-10.5 ALT (test code = 1743-4) 21 u/l 0-65 AST (test code = 18245-9) 14 u/l 0-37 Alk Phos (test code = 1783-0) 92 u/l 39-136 Bili Total (test code = 1974-2) 0.3 mg/dl 0.2-1.3 eGFR (test code = 38458-8) 51 {ML/MIN/1.7} The eGFR is calculated using the CKD-EPI formula. In most young, healthyindividuals the eGFR will be >90 mL/min/1.73m2. The eGFR declines with age. AneGFR of 60-89 may be normal in some populations, particularly the elderly, forwhom the CKD-EPI formula has not been extensively validated. Use of the eGFR isnot recommended in the following populations:Individuals with unstable creatinine concentrations, including patients and those with serious co-morbid conditions.Patients with extremes in muscle mass or diet.The data above are obtained from the National Kidney Disease Education Program(NKDEP) which additionally recommends that when the eGFR is used in patientswith extremes of body mass index for purposes of drug dosing, the eGFR shouldbe multiplied by the estimated BMI. [facility]] TSH, 3RD GENERATION W/REFLEX TO FT4 2018-05-03 12:21:01* Test Item Value Reference Range Interpretation Comments TSH (test code = 27297-9) 0.592 {uIU/ml} 0.360-3.740 [facility][] LIPID PANEL WITH REFLEX TO DIRECT LDL 2018-05-03 12:21:01* Test Item Value Reference Range Interpretation Comments Chol (test code = 2093-3) 173 mg/dl <=199 Trig (test code = 2571-8) 86 mg/dl <=149 HDL Cholesterol (test code = 2085-9) 62 mg/dl >=61 LDL (test code = 91166-0) 94 mg/dl <=99 VLDL (test code = VLDL) 17 CHD Risk; Below Low Threshold (test code = 76409-9) 2.79 3. 90-5.80 [facility][H] Iron, TIBC \\T\\ [id number] 12:21:01* Test Item Value Reference Range Interpretation Comments Iron (test code = 2498-4) 107 ug/dL 30-160 % [place] (test code = 2502-3) 29 % 12-57 TIBC (test code = 2500-7) 370 ug/dL 228-428 UIBC (test code = UIBC) 263 ug/dL 110-370 Ferritin Lvl (test code = 2276-4) 57 ng/ml 5-204 [facility]] HEMOGLOBIN [id number] 12:21:01* Test Item Value Reference Range Interpretation Comments Hemoglobin A1c; Above High Threshold (test code = 4548-4) 6.3 % <=5.6 [facility]] CBC (INCLUDES DIFF/PLT)2018-05-03 12:21:00* Test Item Value Reference Range Interpretation Comments WBC (test code = 6690-2) 9.0 {K/CMM} 3.7-10.4 RBC (test code = 789-8) 4.64 {M/CMM} 4.20-5.40 Hgb (test code = 718-7) 13.8 g/dl 12.0-16.0 Hct (test code = 38088-1) 40.9 % 36.0-48.0 MCV (test code = 787-2) 88.2 fL 80.0-98.0 MCH (test code = 785-6) 29.8 pg 27.0-31.0 MCHC (test code = 786-4) 33.8 g/dl 32.0-36.0 RDW (test code = 788-0) 13.8 % 11.5-14.5 Platelet (test code = 79986-9) 313 {K/CMM} 133-450 Mean Platelet Volume (test code = 30538-2) 8.0 fL 7.4-10.4 [facility]iciansNegative Retinal Eye Exam (Diabetic)2018-03-06 06:00:00* Test Item Value Reference Range Interpretation Comments Negative Diabetic Eye Screening (test code = Negative Diabetic Eye Screening) 06Mar2018 [facility]] CBC (INCLUDES DIFF/PLT)2018-02-06 14:11:01* Test Item Value Reference Range Interpretation Comments WBC; Above High Threshold (test code = 6690-2) 10.6 {K/CMM} 3.7-10. 4 RBC (test code = 789-8) 4.95 {M/CMM} 4.20-5.40 Hgb (test code = 718-7) 14.1 g/dl 12.0-16.0 Hct (test code = 87376-6) 43.4 % 36.0-48.0 MCV (test code = 787-2) 87.8 fL 80.0-98.0 MCH (test code = 785-6) 28.5 pg 27.0-31.0 MCHC (test code = 786-4) 32.5 g/dl 32.0-36.0 RDW; Above High Threshold (test code = 788-0) 15.9 % 11.5-14. 5 Platelet (test code = 70023-1) 436 {K/CMM} 133-450 Mean Platelet Volume (test code = 08821-0) 7.5 fL 7.4-10.4 [facility][H] Sawyixjzazgd4859-57-67 14:11:01* Test Item Value Reference Range Interpretation Comments Segmented Neutrophils (test code = 93452-8) 73.6 % 45.0-75.0 Monocytes (test code = 70065-9) 5.8 % 2.0-12.0 Lymphocytes; Below Low Threshold (test code = 20867-2) 17.4 % 20.0-40.0 Eosinophils (test code = 52091-5) 2.4 % 0.0-4.0 Basophils (test code = 706-2) 0.8 % 0.0-1.0 Segs-Bands # (test code = 76085-2) 7.8 {K/CMM} 1.5-8.1 Lymphocytes # (test code = 72538-5) 1.8 {K/CMM} 1.0-5.5 Monocytes # (test code = 65554-8) 0.6 {K/CMM} 0.0-0.8 Eosinophils # (test code = 21623-1) 0.3 {K/CMM} 0.0-0.5 Basophils # (test code = 43527-9) 0.1 {K/CMM} 0.0-0.2 [facility][H] Iron, TIBC \\T\\ Mxvfnejh9176-12-44 14:11:01* Test Item Value Reference Range Interpretation Comments Iron (test code = 2498-4) 102 ug/dL 30-160 % [place] (test code = 2502-3) 27 % 12-57 TIBC (test code = 2500-7) 371 ug/dL 228-428 UIBC (test code = UIBC) 269 ug/dL 110-370 Ferritin Lvl (test code = 2276-4) 60 ng/ml 5-204 [facility] ([facility])2018-02-06 13:19:00* Test Item Value Reference Range Interpretation Comments Glucose POC Lifescan (test code = Glucose POC Lifescan) 137 [facility][O] Hemoglobin A1c (in office)2018-02-06 13:18:00 * Test Item Value Reference Range Interpretation Comments HEMOGLOBIN A1c (test code = 4548-4) 5.8 [facility][O] Lipid Panel (In Office)2018-02-06 13:18:00* Test Item Value Reference Range Interpretation Comments CHOLESTEROL, TOTAL (test code = 2093-3) 169 HDL CHOLESTEROL (test code = 2085-9) 56 TRIGLYCERIDES (test code = 2571-8) 100 LDL-CHOLESTEROL (test code = 80558-9) 92 NON HDL CHOLESTEROL (test code = NON HDL CHOLESTEROL) 112 T. Chol/HDL Ratio (test code = 9830-1) 3.0 GLUCOSE (test code = 1547-9) 129 [facility][O] Urine Dipstick (In Office)2018-01-30 08:46:00 * Test Item Value Reference Range Interpretation Comments Glucose (test code = Glucose) normal N LEUKOCYTES (test code = LEUKOCYTES) ++ NITRITE (test code = 26696-0) ++ UROBILINOGEN; Normal (test code = 84158-7) normal N PROTEIN; Normal (test code = 77158-2) neg N pH (test code = pH) 5 N URINE BLOOD (test code = 30705-4) +250 SPECIFIC GRAVITY; Normal (test code = 2965-2) 1.015 N KETONES; Normal (test code = 49781-5) neg N BILIRUBIN; Normal (test code = 70012-4) neg N COLOR URINE; Normal (test code = 5778-6) yellow N APPEARANCE; Normal (test code = 5767-9) dark N [facility]] CULTURE, URINE, [id number] 00:00:00* Test Item Value Reference Range Interpretation Comments CULTURE (test code = CULTURE) See Comment A CULTURE, URINE, ROUTINE MICRO NUMBER: [id number] TEST STATUS: FINAL SPECIMEN SOURCE: URINE SPECIMEN QUALITY: ADEQUATE RESULT: Greater than 100,000 CFU/mL of Escherichia coli E.coli INT LIZBETH AMOX/CLAVULANATE R >=32 AMPICILLIN R >=32 AMP/SULBACTAM R >=32 CEFAZOLIN R >=64 1 CEFEPIME S <=1 CEFTRIAXONE S <=1 CIPROFLOXACIN R >=4 GENTAMICIN S <=1 IMIPENEM S <=0.25 LEVOFLOXACIN R >=8 NITROFURANTOIN I 64 PIP/TAZOBACTAM R >=128 TOBRAMYCIN S <=1 TRIMETHOPRIM/SULFA R >=320S=Susceptible I=Intermediate R=Resistant * = Not TestedNR = Not Reported NN = See Therapy CommentsTHERAPY COMMENTS Note 1: For uncomplicated U TI caused by E. coli, K. pneumoniae or P. mirabilis: Cefazolin is susceptible if LIZBETH <32 mcg/mL and predicts susceptible to the oral agents cefaclor, cefdinir, cefpodoxime, cefprozil, cefuroxime, cephalexin and loracarbef. [facility] PhysiciansRIBS VIKI Marcos/EOY2296-61-14 23:08:00 [place] [address] Patient Name: ALEXANDER RICO MR #: [id number] : 1945 Age/Sex: 72/F Req #: [id number] Adm Physician: Ordered by: SONIA WILCOX MD Report #: [id number] Location: ER Room/Bed: Procedure: [id number] DX/RIBS UNILAT W/CXR Exam Date: 12/20/17 Exam Time: 2230 REPORT STAT US: Signed EXAMINATION: RIBS UNILAT W/CXR INDICATION: Lef t sided chest pain status post fall COMPARISON: None FINDINGS: TUBES and LINES: None. LUNGS: Lungs are well inflated. Lungs are clear . There is no evidence of pneumonia or pulmonary edema. PLEURA: No ple ural effusion or pneumothorax. HEART AND MEDIASTINUM: The cardiomediastina l silhouette is unremarkable. BONES AND SOFT TISSUES: On the frontal v iew of the chest there is a questionable notch at the lateral border of the le ft ninth rib. Soft tissues are remarkable for bilateral surgical clips in the region of the axilla and breast. UPPER ABDOMEN: No free air under the di aphragm. IMPRESSION: No acute intrathoracic abnormality, however, th ere is a cortical irregularity noted in a single frontal view of the chest inv olving the lateral margin of the left ninth rib. Correlation for point tendern ess at the lower lateral chest is recommended Signed by: Dr. Jessee Hallman ra, M.D. on 12/20/2017 11:13 PM Dictated By: JESSEE DEE MD Elec tronically Signed By: JESSEE DEE MD on 12/20/172312 Transcribed By: SIRENA on 12/20/172312 COPY TO: SONIA WILCOX MD CT CERVICAL SPINE [id number] 22:40:00 [place] [address] Patient Name: ALEXANDER RICO MR #: [id number] : 1945 Age/Sex: 72/F Req #: [id number] Adm Physician: Ordered by: SONIA WILCOX MD Report #: [id number] Location: ER Room/Bed: Procedure: [id number] CT/CT CERVICAL SPINE W O Exam Date: Exam Time: REPORT STATUS: Sima d History: Fall Comparison studies: None Technique: Axial images we re obtained through the cervical region.. Coronal and sagittal images reconstr ucted from the axial data.. Intravenous contrast: None Findings: Fra ctures: None. Soft tissues: No gross abnormalities. Atlantoaxial articula tion: No acute abnormality. Changes given by decreased predental space, margin al osteophytes and sclerosis.. Alignment: Straightening of the cervical spine lordosis. Visualized extremities of C4 over C5 and C5 over C6.. No scoliosis. Cervicomedullary junction: No abnormalities. The foramen magnum is patent. Vertebrae: No infection or neoplasm. Degenerative changes: At C2-3, that doesn't present facet hypertrophy resulting in left foraminal narr owing. At C3-4, bilateral uncinate process moderate right and severe left fora jasmin narrowing. At C4-5, bilateral uncinate process and facet hypertrophy r esulting in moderate bilateral foraminal narrowing At C5-C6, bilateral uncin ate process hypertrophy and facet hypertrophy results in moderate right and se yury left foraminal narrowing. At C6-7, disc degeneration with decreased inter vertebral space. Diffuse disc osteophyte complex, bilateral uncinate processes and facet hypertrophy resulting in moderate canal stenosis right and severe l eft foraminal narrowing. Atherosclerotic calcifications of the carotid b ulbs.. IMPRESSION: 1. No acute cervical spine abnormalities. Degenera tive changes as described above 2. Cannot exclude ligament, spinal cord and or vascular abnormalities on the basis of this examination. Signed by : DR Eamon Hernandez M.D. on 12/20/2017 10:48 PM Dictated By: EAMON DUMONT MD 224 8 Transcribed By: SIRENA on 12/20/17 9260 COPY TO: SONIA WILCOX MD CT BRAIN [id number] 22:34:00 [facility] [address] [place] [address] Patient Name: ALEXANDER RICO MR #: [id number] : 1945 Age/Sex: 72/F Req #: [id number] [facility] Physician: Ordered by: SONIA WLICOX MD Report #: [id number] Location: ER Room/Bed: Procedure: [id number] CT/CT BRAIN WO Exam D ate: Exam Time: REPORT STATUS: Signed Exam ination: CT BRAIN WO History: Fall, head injury. Comparison studies:None Technique: Axial images were obtained from the skull base to the vertex. Coronal and sagittal images reconstructed from the axial data. Intravenous contrast: None Findings: Scalp: Normal. Bones: No fractures, blasti c or lytic lesions. Brain sulci: Appropriate for age. Ventricles: Normal in size and configuration. No hydrocephalus. Extra-axial space: No abnorm alities. Parenchyma: No abnormal densities. No masses, hemorrhage, ac tenzin or chronic vascular insults. Sellar/suprasellar region: No abnormalitie s. Craniocervical junction: Patent foramen magnum. No Chiari one malformation. Incidental findings: Atherosclerotic calcifications in the carotid siph ons . Impression:. 1. No acute intracranial abnormalities. Signed by: DR Eamon Hernandez M.D. on 12/20/2017 10:39 PM Dictated By: DAVID DUMONT MD 2 239 Transcribed By: SIRENA on 12/20/17 9236 COPY TO: TAYA WILCOX MD Hemoccult [id number] 16:09:00* Test Item Value Reference Range Interpretation Comments RESULT 1: (test code = RESULT 1:) Negative RESULT 2: (test code = RESULT 2:) Negative RESULT 3: (test code = RESULT 3:) Negative [facility]] CULTURE, URINE, [id number] 00:00:00* Test Item Value Reference Range Interpretation Comments CULTURE (test code = CULTURE) See Comment CULTURE, URINE, ROUTINE MICRO NUMBER: [id number] TEST STATUS: FINAL SPECIMEN SOURCE: URINE SPECIMEN QUALITY: ADEQUATE RESULT: Multiple organisms present, each less than 10,000 CFU/mL. These organisms, commonly found on external and internal genitalia, are considered to be colonizers. No further testing performed. [facility]] CMP W/PAMQ6100-73-75 14:48:00* Test Item Value Reference Range Interpretation Comments GLUCOSE; Above High Threshold (test code = 1547-9) 105 mg/dl 65- 99 Fasting reference interval For someone without known diabetes, a glucose valuebetween 100 and 125 mg/dL is consistent withprediabetes and should be confirmed with afollow-up test. UREA NITROGEN (BUN) (test code = UREA NITROGEN (BUN)) 14 mg/dl 7-25 N CREATININE (test code = CREATININE) 0.96 mg/dl 0.60-0.93 For patients >49 years of age, the reference limitfor Creatinine is approximately 13% higher for peopleidentified as -Lao. eGFR NON- (test code = eGFR NON-ZOE N CZECH) 60 {ML/MIN/1.7} > OR = 60 N eGFR (test code = eGFR ) 69 {ML/MIN/1.7} > OR = 60 N BUN/CREATININE RATIO (test code = BUN/CREATININE RATIO) 15 {CALC} 6-22 N SODIUM (test code = SODIUM) 142 mmol/L 135-146 N POTASSIUM (test code = POTASSIUM) 3.9 mmol/L 3.5-5.3 N CHLORIDE (test code = CHLORIDE) 101 mmol/L 98-110 N CARBON DIOXIDE (test code = CARBON DIOXIDE) 33 mmol/L 20-31 CALCIUM (test code = CALCIUM) 9.9 mg/dl 8.6-10.4 N PROTEIN, TOTAL (test code = PROTEIN, TOTAL) 7.5 g/dl 6.1-8.1 N ALBUMIN (test code = ALBUMIN) 4.4 g/dl 3.6-5.1 N GLOBULIN (test code = GLOBULIN) 3.1 {G/DL CALC} 1.9-3.7 N ALBUMIN/GLOBULIN RATIO (test code = ALBUMIN/GLOBULIN RATIO) 1.4 {CALC} 1.0-2.5 N BILIRUBIN, TOTAL; Normal (test code = 78089-6) 0.4 mg/dl 0.2-1.2 N ALKALINE PHSPHATASE (test code = ALKALINE PHSPHATASE) 72 u/l 33-130 N AST; Normal (test code = 1916-6) 13 u/l 10-35 N ALT; Normal (test code = 1742-6) 12 u/l 6-29 N [facility]] MICROALBUMIN, RANDOM URINE (W/CREATININE) 2017-10-31 14:48:00* Test Item Value Reference Range Interpretation Comments CREATININE, RANDOM URINE (test code = CREATININE, RANDOM URI NE) 127 mg/dl 20-320 N MICROALBUMIN (test code = MICROALBUMIN) 1.7 mg/dl N Reference RangeNot established MICROALBUMIN/CREATININE RATIO, RANDOM UR INE (test code = MICROALBUMIN/CREATININE RATIO, RANDOM URINE) 13 {MCG/MG CRE} <30 N The ADA de fines abnormalities in albuminexcretion as follows: Category Result (mcg/mg creatinine) Normal <30Microalbuminuria 30-299 Clinical albuminuria > OR = 300 The ADA recommends that at least two of threespecimens collected within a 3-6 month period beabnormal before considering a patient to bewithin a diagnostic category. [facility]] T4, [id number] 14:48:00* Test Item Value Reference Range Interpretation Comments T4, FREE (test code = T4, FREE) 1.3 ng/dl 0.8-1.8 N [facility]] TSH, 3RD [id number] 14:48:00* Test Item Value Reference Range Interpretation Comments TSH; Normal (test code = 83727-3) 0.87 {MIU/L} 0.40-4.50 N [facility][O] Hemoglobin A1c (in office)2017-10-31 13:59:00 * Test Item Value Reference Range Interpretation Comments HEMOGLOBIN A1c (test code = 4548-4) 5.8 [facility]2017-10-31 13:58:00* Test Item Value Reference Range Interpretation Comments Glucose POC Lifescan (test code = Glucose POC Lifescan) 129 [facility][O] Lipid Panel (In Office)2017-10-31 13:58:00* Test Item Value Reference Range Interpretation Comments CHOLESTEROL, TOTAL (test code = 2093-3) 135 HDL CHOLESTEROL (test code = 2085-9) 58 TRIGLYCERIDES (test code = 2571-8) 85 LDL-CHOLESTEROL (test code = 43776-4) 60 NON HDL CHOLESTEROL (test code = NON HDL CHOLESTEROL) 77 T. Chol/HDL Ratio (test code = 9830-1) 2.3 GLUCOSE (test code = 1547-9) 122 [facility]] CBC (INCLUDES DIFF/PLT)2017-09-28 16:00:01* Test Item Value Reference Range Interpretation Comments WBC; Above High Threshold (test code = 6690-2) 11.0 {K/CMM} 3.7-10. 4 RBC (test code = 789-8) 4.74 {M/CMM} 4.20-5.40 Hgb (test code = 718-7) 12.4 g/dl 12.0-16.0 Hct (test code = 84701-0) 37.8 % 36.0-48.0 MCV; Below Low Threshold (test code = 787-2) 79.9 fL 80.0-98.0 MCH; Below Low Threshold (test code = 785-6) 26.2 pg 27.0-31.0 MCHC (test code = 786-4) 32.8 g/dl 32.0-36.0 RDW; Above High Threshold (test code = 788-0) 25.4 % 11.5-14. 5 Platelet (test code = 35714-8) 370 {K/CMM} 133-450 Mean Platelet Volume (test code = 02033-3) 7.5 fL 7.4-10.4 [facility]] Prrnjtthdygi2246-28-33 16:00:01* Test Item Value Reference Range Interpretation Comments Segmented Neutrophils (test code = 64431-4) 68.9 % 45.0-75.0 Monocytes (test code = 15892-2) 7.0 % 2.0-12.0 Lymphocytes; Below Low Threshold (test code = 01381-3) 19.9 % 20.0-40.0 Eosinophils (test code = 48452-8) 3.2 % 0.0-4.0 Basophils (test code = 706-2) 1.0 % 0.0-1.0 Segs-Bands # (test code = 49685-1) 7.6 {K/CMM} 1.5-8.1 Lymphocytes # (test code = 78823-6) 2.2 {K/CMM} 1.0-5.5 Monocytes # (test code = 14676-6) 0.8 {K/CMM} 0.0-0.8 Eosinophils # (test code = 28756-8) 0.4 {K/CMM} 0.0-0.5 Basophils # (test code = 98895-3) 0.1 {K/CMM} 0.0-0.2 Anisocyte; Abnormal (test code = 61637-3) 1+ None Seen A [facility] DjvvuhsqxgHbrrmvrk1066-42-32 12:01:00* Test Item Value Reference Range Interpretation Comments Ferritin (test code = 2276-4) 21.77 4.63-204.00 [facility] 12:01[facility]* Test Item Value Reference Range Interpretation Comments Ferritin (test code = 2276-4) 21.77 4.63-204.00 [facility] BrookB-Type Natriuretic Htuqpfy0713-18-84 11:16:00* Test Item Value Reference Range Interpretation Comments B-Type Natriuretic Peptide (test code = 46668-8) -10.0 0-100 [facility] Natriuretic Klivcqg6988-37-12 11:16:00* Test Item Value Reference Range Interpretation Comments B-Type Natriuretic Peptide (test code = 59145-9) -10.0 0-100 [facility] BrookCreatine Kinase RM1187-55-64 11:09:00* Test Item Value Reference Range Interpretation Comments Creatine Kinase MB (test code = 42303-6) 0.70 0-5.0 [facility] BrookTroponin [id number] 11:09:00* Test Item Value Reference Range Interpretation Comments Troponin I (test code = JFX3149) -0.001 0-0.300 [facility] BrookCreat[facility] Kinase [id number] 11:09:00* Test Item Value Reference Range Interpretation Comments Creatine Kinase MB (test code = 56576-3) 0.70 0-5.0 [facility] BrookTroponin [id number] 11:09:00* Test Item Value Reference Range Interpretation Comments Troponin I (test code = PDQ6517) -0.001 0-0.300 [facility] BrookProthrombin Pkup7022-17-85 11:00:00* Test Item Value Reference Range Interpretation Comments Prothrombin Time (test code = 5902-2) 12.4 11.9-14.5 [facility] BrookProthromb Time International Ratio 2017-09-04 11:00:00* Test Item Value Reference Range Interpretation Comments Prothromb Time International Ratio (test code = 6301-6) 1.00 Oral Anticoagulant Therapy INR Values:1. Low Intensity Therapy 1.5 - 2.02 . Moderate Intensity Therapy 2.0 - 3.03. High Intensity Therapy(1) 2.5 - 3. 54. High Intensity Therapy(2) 3.0 - 4.05. Panic Value INR > 5.0 [facility] BrookActivated Partial Thromboplast Time 2017-09-04 11:00:00* Test Item Value Reference Range Interpretation Comments Activated Partial Thromboplast Time (test code = 94563-6) 28.1 23.8-35.5 [facility] Tuuva4988-65-06 11:00:00* Test Item Value Reference Range Interpretation Comments Sodium Level (test code = 2951-2) 140 136-145 [facility] BrookPotassium Rrvvs9304-91-93 11:00:00* Test Item Value Reference Range Interpretation Comments Potassium Level (test code = 2823-3) 3.4 3.5-5.1 L [facility] BrookChloride Pykxq9659-97-41 11:00:00* Test Item Value Reference Range Interpretation Comments Chloride Level (test code = 2075-0) 101 98-107 [facility] BrookCarbon Dioxide Zamjb3480-22-84 11:00:00* Test Item Value Reference Range Interpretation Comments Carbon Dioxide Level (test code = 2028-9) 30 22-29 H [facility] BrookAnion Atz2916-89-27 11:00:00* Test Item Value Reference Range Interpretation Comments Anion Gap (test code = 40273-4) 12.4 8-16 [facility] BrookBlood Urea Zfeiqiah2556-38-27 11:00:00* Test Item Value Reference Range Interpretation Comments Blood Urea Nitrogen (test code = 3094-0) 16 7-26 [facility] BrookCreatinine2018-04-30 11:00:00* Test Item Value Reference Range Interpretation Comments Creatinine (test code = 2160-0) 1.03 0.57-1.11 [facility] BrookBUN/Creatinine Viszm7276-35-88 11:00:00* Test Item Value Reference Range Interpretation Comments BUN/Creatinine Ratio (test code = 3097-3) 16 6-25 [facility] BrookEstimat Glomerular Filtration Rate 2017-09-04 11:00:00* Test Item Value Reference Range Interpretation Comments Estimat Glomerular Filtration Rate (test code = 05270-0) 53 >60 L Ranges were taken from the National Kidney Disease Education Program and the [facility] literature.Reference ranges:60 or greater: Hdvpvp84-70 ( for 3 consecutive months): Chronic kidney disease 15 or less: Kidney failureAdventHealth Rollins BrookGlucose Eiszf4895-94-90 11:00:00* Test Item Value Reference Range Interpretation Comments Glucose Level (test code = XVV7552) 142 74-118 H [facility] BrookCalcium Ukzea2803-47-70 11:00:00* Test Item Value Reference Range Interpretation Comments Calcium Level (test code = 47455-9) 9.7 8.4-10.2 [facility] BrookTotal Chndknovt1084-02-79 11:00:00* Test Item Value Reference Range Interpretation Comments Total Bilirubin (test code = 1975-2) 0.3 0.2-1.2 [facility] BrookAspartate Amino Transf (AST/SGOT) 2017-09-04 11:00:00* Test Item Value Reference Range Interpretation Comments Aspartate Amino Transf (AST/SGOT) (test code = Aspartate Amino Transf (AST/SGOT)) 13 5-34 [facility] BrookAlanine Aminotransferase (ALT/SGPT) 2017-09-04 11:00:00* Test Item Value Reference Range Interpretation Comments Alanine Aminotransferase (ALT/SGPT) (test code = 1742-6) 12 0-55 [facility] BrookTotal Tutelfg7338-47-51 11:00:00* Test Item Value Reference Range Interpretation Comments Total Protein (test code = 2885-2) 7.7 6.5-8.1 [facility] BrookAlbumin2018-04-30 11:00:00* Test Item Value Reference Range Interpretation Comments Albumin (test code = 1751-7) 3.7 3.5-5.0 [facility] BrookGlobulin2018-04-30 11:00:00* Test Item Value Reference Range Interpretation Comments Globulin (test code = 38500-0) 4.0 2.3-3.5 H [facility] BrookAlbumin/Globulin Xmrpf4286-22-18 11:00:00 * Test Item Value Reference Range Interpretation Comments Albumin/Globulin Ratio (test code = 1759-0) 0.9 0.8-2.0 [facility] BrookAlkaline Mgolsvgezws6377-60-11 11:00:00* Test Item Value Reference Range Interpretation Comments Alkaline Phosphatase (test code = 6768-6) 85 40-150 [facility] BrookCreatine Kdyhto9376-45-88 11:00:00* Test Item Value Reference Range Interpretation Comments Creatine Kinase (test code = 2157-6) 50 29-168 [facility] BrookProthrombin Xoyb6327-00-64 11:00:00* Test Item Value Reference Range Interpretation Comments Prothrombin Time (test code = 5902-2) 12.4 11.9-14.5 [facility] BrookProthromb Time International Ratio 2017-09-04 11:00:00* Test Item Value Reference Range Interpretation Comments Prothromb Time International Ratio (test code = 6301-6) 1.00 Oral Anticoagulant Therapy INR Values:1. Low Intensity Therapy 1.5 - 2.02 . Moderate Intensity Therapy 2.0 - 3.03. High Intensity Therapy(1) 2.5 - 3. 54. High Intensity Therapy(2) 3.0 - 4.05. Panic Value INR > 5.0 [facility] BrookActivated Partial Thromboplast Time 2017-09-04 11:00:00* Test Item Value Reference Range Interpretation Comments Activated Partial Thromboplast Time (test code = 48019-3) 28.1 23.8-35.5 [facility]odium Brsns6541-73-34 11:00:00* Test Item Value Reference Range Interpretation Comments Sodium Level (test code = 2951-2) 140 136-145 [facility] BrookPotassium Dsgue4184-04-82 11:00:00* Test Item Value Reference Range Interpretation Comments Potassium Level (test code = 2823-3) 3.4 3.5-5.1 L [facility] BrookChloride Tosvw0351-96-53 11:00:00* Test Item Value Reference Range Interpretation Comments Chloride Level (test code = 2075-0) 101 98-107 [facility] BrookCarbon Dioxide Xhldy7945-81-82 11:00:00* Test Item Value Reference Range Interpretation Comments Carbon Dioxide Level (test code = 2028-9) 30 22-29 H [facility] BrookAnion Qgu2391-65-96 11:00:00* Test Item Value Reference Range Interpretation Comments Anion Gap (test code = 52783-5) 12.4 8-16 [facility] BrookBlood Urea Ycxxleqk3459-35-68 11:00:00* Test Item Value Reference Range Interpretation Comments Blood Urea Nitrogen (test code = 3094-0) 16 7-26 [facility] BrookCreatinine2018-04-30 11:00:00* Test Item Value Reference Range Interpretation Comments Creatinine (test code = 2160-0) 1.03 0.57-1.11 [facility] BrookBUN/Creatinine Yoggt2144-48-82 11:00:00* Test Item Value Reference Range Interpretation Comments BUN/Creatinine Ratio (test code = 3097-3) 16 6-25 [facility] BrookEstimat Glomerular Filtration Rate 2017-09-04 11:00:00* Test Item Value Reference Range Interpretation Comments Estimat Glomerular Filtration Rate (test code = 29622-0) 53 >60 L Ranges were taken from the National Kidney Disease Education Program and the [facility] literature.Reference ranges:60 or greater: Esvjwc70-13 ( for 3 consecutive months): Chronic kidney disease 15 or less: Kidney failureCHI [facility] Medical CenterGlucose Qzods6817-49-41 11:00:00* Test Item Value Reference Range Interpretation Comments Glucose Level (test code = RXR0125) 142 74-118 H [facility] BrookCalcium Tsjfj7662-25-83 11:00:00* Test Item Value Reference Range Interpretation Comments Calcium Level (test code = 86112-6) 9.7 8.4-10.2 [facility] BrookTotal Yggwvcama2758-83-71 11:00:00* Test Item Value Reference Range Interpretation Comments Total Bilirubin (test code = 1975-2) 0.3 0.2-1.2 [facility] BrookAspartate Amino Transf (AST/SGOT) 2017-09-04 11:00:00* Test Item Value Reference Range Interpretation Comments Aspartate Amino Transf (AST/SGOT) (test code = Aspartate Amino Transf (AST/SGOT)) 13 5-34 [facility] Amin[facility] (ALT/SGPT) 2017-09-04 11:00:00* Test Item Value Reference Range Interpretation Comments Alanine Aminotransferase (ALT/SGPT) (test code = 1742-6) 12 0-55 [facility] BrookTotal [id number] 11:00:00* Test Item Value Reference Range Interpretation Comments Total Protein (test code = 2885-2) 7.7 6.5-8.1 [facility] BrookAlbumin2018-04-30 11:00:00* Test Item Value Reference Range Interpretation Comments Albumin (test code = 1751-7) 3.7 3.5-5.0 [facility] BrookGlobulin2018-04-30 11:00:00* Test Item Value Reference Range Interpretation Comments Globulin (test code = 07125-0) 4.0 2.3-3.5 H [facility] BrookAlbumin/Globulin [id number] 11:00:00 * Test Item Value Reference Range Interpretation Comments Albumin/Globulin Ratio (test code = 1759-0) 0.9 0.8-2.0 [facility] BrookAlkaline Ianzpyqquzt2065-82-83 11:00:00* Test Item Value Reference Range Interpretation Comments Alkaline Phosphatase (test code = 6768-6) 85 40-150 [facility] BrookCreatine Gvvdkx0957-81-90 11:00:00* Test Item Value Reference Range Interpretation Comments Creatine Kinase (test code = 2157-6) 50 29-168 [facility] BrookIron Vewgl3262-87-27 10:59:00* Test Item Value Reference Range Interpretation Comments Iron Level (test code = 2498-4) 120 50-170 [facility] BrookTotal Iron Binding Udwfimir1285-44-50 10:59:00* Test Item Value Reference Range Interpretation Comments Total Iron Binding Capacity (test code = 2500-7) 470 261-4 78 [facility] BrookPercent Iron Kosjcbjcad7096-53-50 10:59:00* Test Item Value Reference Range Interpretation Comments Percent Iron Saturation (test code = 2502-3) 26 15-50 [facility] BrookTransferrin2018-04-30 10:59:00* Test Item Value Reference Range Interpretation Comments Transferrin (test code = 3034-6) 336 180-382 [facility] BrookIron Oxppx2153-02-73 10:59:00* Test Item Value Reference Range Interpretation Comments Iron Level (test code = 2498-4) 120 50-170 [facility] BrookTotal Iron Binding Ripwuivf7112-20-84 10:59:00* Test Item Value Reference Range Interpretation Comments Total Iron Binding Capacity (test code = 2500-7) 470 261-4 78 [facility] BrookPercent Iron Omsjvqkcbs2092-23-73 10:59:00* Test Item Value Reference Range Interpretation Comments Percent Iron Saturation (test code = 2502-3) 26 15-50 [facility] BrookTransferrin2018-04-30 10:59:00* Test Item Value Reference Range Interpretation Comments Transferrin (test code = 3034-6) 336 180-382 [facility] BrookWhite Blood Lfwsv3877-33-68 10:50:00* Test Item Value Reference Range Interpretation Comments White Blood Count (test code = 6690-2) 9.77 4.8-10.8 [facility] BrookRed Blood Vkmey2685-73-78 10:50:00* Test Item Value Reference Range Interpretation Comments Red Blood Count (test code = 789-8) 4.93 3.6-5.1 [facility] BrookHemoglobin2018-04-30 10:50:00* Test Item Value Reference Range Interpretation Comments Hemoglobin (test code = 27744-4) 12.1 12.0-16.0 [facility] BrookHematocrit2018-04-30 10:50:00* Test Item Value Reference Range Interpretation Comments Hematocrit (test code = 4544-3) 38.9 34.2-44.1 [facility] BrookMean Corpuscular Eparzi3156-90-15 10:50:00* Test Item Value Reference Range Interpretation Comments Mean Corpuscular Volume (test code = 787-2) 78.9 81-99 L [facility] BrookMean Corpuscular Zopsjietio3261-57-10 10:50:00* Test Item Value Reference Range Interpretation Comments Mean Corpuscular Hemoglobin (test code = 785-6) 24.5 28-32 L [facility] BrookMean Corpuscular Hemoglobin Concent 2017-09-04 10:50:00* Test Item Value Reference Range Interpretation Comments Mean Corpuscular Hemoglobin Concent (test code = 786-4) 31.1 31-35 [facility] BrookRed Cell Distribution Vbyhx9757-34-15 10:50:00* Test Item Value Reference Range Interpretation Comments Red Cell Distribution Width (test code = 31072-6) 24.1 11.7 -14.4 H [facility] BrookPlatelet Niwjt1701-40-79 10:50:00* Test Item Value Reference Range Interpretation Comments Platelet Count (test code = 777-3) 355 140-360 [facility] BrookNeutrophils (%) (Auto)2017-09-04 10:50:00 * Test Item Value Reference Range Interpretation Comments Neutrophils (%) (Auto) (test code = 71652-1) 72.6 38.7-80.0 [facility] BrookLymphocytes (%) (Auto)2017-09-04 10:50:00 * Test Item Value Reference Range Interpretation Comments Lymphocytes (%) (Auto) (test code = 736-9) 17.1 18.0-39.1 L [facility] BrookMonocytes (%) (Auto)2017-09-04 10:50:00* Test Item Value Reference Range Interpretation Comments Monocytes (%) (Auto) (test code = 5905-5) 6.1 4.4-11.3 [facility] BrookEosinophils (%) (Auto)2017-09-04 10:50:00 * Test Item Value Reference Range Interpretation Comments Eosinophils (%) (Auto) (test code = 713-8) 3.1 0.0-6.0 [facility] BrookBasophils (%) (Auto)2017-09-04 10:50:00* Test Item Value Reference Range Interpretation Comments Basophils (%) (Auto) (test code = 706-2) 0.7 0.0-1.0 [facility] BrookIM GRANULOCYTES %2017-09-04 10:50:00* Test Item Value Reference Range Interpretation Comments IM GRANULOCYTES % (test code = IM GRANULOCYTES %) 0.4 0.0- 1.0 [facility] BrookNeutrophils # (Auto)2017-09-04 10:50:00* Test Item Value Reference Range Interpretation Comments Neutrophils # (Auto) (test code = 751-8) 7.1 2.1-6.9 H [facility] BrookLymphocytes # (Auto)2017-09-04 10:50:00* Test Item Value Reference Range Interpretation Comments Lymphocytes # (Auto) (test code = 22810-6) 1.7 1.0-3.2 [facility] BrookMonocytes # (Auto)2017-09-04 10:50:00* Test Item Value Reference Range Interpretation Comments Monocytes # (Auto) (test code = 742-7) 0.6 0.2-0.8 [facility] BrookEosinophils # (Auto)2017-09-04 10:50:00* Test Item Value Reference Range Interpretation Comments Eosinophils # (Auto) (test code = 711-2) 0.3 0.0-0.4 [facility] BrookBasophils # (Auto)2017-09-04 10:50:00* Test Item Value Reference Range Interpretation Comments Basophils # (Auto) (test code = 704-7) 0.1 0.0-0.1 [facility] BrookAbsolute Immature Granulocyte (auto 2017-09-04 10:50:00* Test Item Value Reference Range Interpretation Comments Absolute Immature Granulocyte (auto (stefan t code = Absolute Immature Granulocyte (auto) 0.04 0-0.1 [facility] BrookWhite Blood Tesqv0431-75-13 10:50:00* Test Item Value Reference Range Interpretation Comments White Blood Count (test code = 6690-2) 9.77 4.8-10.8 [facility] BrookRed Blood Woqdb1579-01-03 10:50:00* Test Item Value Reference Range Interpretation Comments Red Blood Count (test code = 789-8) 4.93 3.6-5.1 [facility] BrookHemoglobin2018-04-30 10:50:00* Test Item Value Reference Range Interpretation Comments Hemoglobin (test code = 91827-5) 12.1 12.0-16.0 [facility] BrookHematocrit2018-04-30 10:50:00* Test Item Value Reference Range Interpretation Comments Hematocrit (test code = 4544-3) 38.9 34.2-44.1 [facility] BrookMean Corpuscular Jgpvpg5173-76-04 10:50:00* Test Item Value Reference Range Interpretation Comments Mean Corpuscular Volume (test code = 787-2) 78.9 81-99 L [facility] BrookMean Corpuscular Jomjpgeakt7142-50-65 10:50:00* Test Item Value Reference Range Interpretation Comments Mean Corpuscular Hemoglobin (test code = 785-6) 24.5 28-32 L [facility] BrookMean Corpuscular Hemoglobin Concent 2017-09-04 10:50:00* Test Item Value Reference Range Interpretation Comments Mean Corpuscular Hemoglobin Concent (test code = 786-4) 31.1 31-35 [facility] BrookRed Cell Distribution Lbbgu6962-73-25 10:50:00* Test Item Value Reference Range Interpretation Comments Red Cell Distribution Width (test code = 85053-6) 24.1 11.7 -14.4 H [facility] BrookPlatelet Nlcba4711-81-95 10:50:00* Test Item Value Reference Range Interpretation Comments Platelet Count (test code = 777-3) 355 140-360 [facility] BrookNeutrophils (%) (Auto)2017-09-04 10:50:00 * Test Item Value Reference Range Interpretation Comments Neutrophils (%) (Auto) (test code = 06514-1) 72.6 38.7-80.0 [facility] BrookLymphocytes (%) (Auto)2017-09-04 10:50:00 * Test Item Value Reference Range Interpretation Comments Lymphocytes (%) (Auto) (test code = 736-9) 17.1 18.0-39.1 L [facility] BrookMonocytes (%) (Auto)2017-09-04 10:50:00* Test Item Value Reference Range Interpretation Comments Monocytes (%) (Auto) (test code = 5905-5) 6.1 4.4-11.3 [facility] BrookEosinophils (%) (Auto)2017-09-04 10:50:00 * Test Item Value Reference Range Interpretation Comments Eosinophils (%) (Auto) (test code = 713-8) 3.1 0.0-6.0 [facility] BrookBasophils (%) (Auto)2017-09-04 10:50:00* Test Item Value Reference Range Interpretation Comments Basophils (%) (Auto) (test code = 706-2) 0.7 0.0-1.0 [facility] BrookIM GRANULOCYTES %2017-09-04 10:50:00* Test Item Value Reference Range Interpretation Comments IM GRANULOCYTES % (test code = IM GRANULOCYTES %) 0.4 0.0- 1.0 [facility] BrookNeutrophils # (Auto)2017-09-04 10:50:00* Test Item Value Reference Range Interpretation Comments Neutrophils # (Auto) (test code = 751-8) 7.1 2.1-6.9 H [facility] BrookLymphocytes # (Auto)2017-09-04 10:50:00* Test Item Value Reference Range Interpretation Comments Lymphocytes # (Auto) (test code = 98645-0) 1.7 1.0-3.2 [facility] BrookMonocytes # (Auto)2017-09-04 10:50:00* Test Item Value Reference Range Interpretation Comments Monocytes # (Auto) (test code = 742-7) 0.6 0.2-0.8 [facility] BrookEosinophils # (Auto)2017-09-04 10:50:00* Test Item Value Reference Range Interpretation Comments Eosinophils # (Auto) (test code = 711-2) 0.3 0.0-0.4 [facility] BrookBasophils # (Auto)2017-09-04 10:50:00* Test Item Value Reference Range Interpretation Comments Basophils # (Auto) (test code = 704-7) 0.1 0.0-0.1 [facility] BrookAbsolute Immature Granulocyte (auto 2017-09-04 10:50:00* Test Item Value Reference Range Interpretation Comments Absolute Immature Granulocyte (auto (stefan t code = Absolute Immature Granulocyte (auto) 0.04 0-0.1 [facility]] CBC (INCLUDES DIFF/PLT)2017-08-08 16:48:01* Test Item Value Reference Range Interpretation Comments WBC; Above High Threshold (test code = 6690-2) 10.8 {K/CMM} 3.7-10. 4 RBC (test code = 789-8) 4.30 {M/CMM} 4.20-5.40 Hgb; Below Low Threshold (test code = 718-7) 9.4 g/dl 12.0-16.0 Hct; Below Low Threshold (test code = 34562-9) 30.4 % 36.0-48 .0 MCV; Below Low Threshold (test code = 787-2) 70.7 fL 80.0-98.0 MCH; Below Low Threshold (test code = 785-6) 21.9 pg 27.0-31.0 MCHC; Below Low Threshold (test code = 786-4) 31.0 g/dl 32.0-36. 0 RDW; Above High Threshold (test code = 788-0) 16.9 % 11.5-14. 5 Platelet; Above High Threshold (test code = 83201-3) 481 {K/CMM} 1 33-450 Mean Platelet Volume; Below Low Threshold (test code = 53696-6) 6.9 fL 7.4-10.4 [facility]] Kcskiakuzduf8698-08-58 16:48:01* Test Item Value Reference Range Interpretation Comments Segmented Neutrophils (test code = 39838-8) 68.1 % 45.0-75.0 Monocytes (test code = 90124-8) 6.6 % 2.0-12.0 Lymphocytes (test code = 82160-3) 20.8 % 20.0-40.0 Eosinophils (test code = 94321-7) 3.6 % 0.0-4.0 Basophils (test code = 706-2) 0.9 % 0.0-1.0 Segs-Bands # (test code = 03421-8) 7.4 {K/CMM} 1.5-8.1 Lymphocytes # (test code = 47961-4) 2.2 {K/CMM} 1.0-5.5 Monocytes # (test code = 80804-0) 0.7 {K/CMM} 0.0-0.8 Eosinophils # (test code = 33163-0) 0.4 {K/CMM} 0.0-0.5 Basophils # (test code = 49071-5) 0.1 {K/CMM} 0.0-0.2 Microcyte (test code = Microcyte) 2+ None Seen A [facility]] FOLATE, [id number] 16:48:01* Test Item Value Reference Range Interpretation Comments Folate Level (test code = 2284-8) 24.0 ng/ml >=3.0 [facility][H] Celiac Pnl w/Rflx Endomy Ab [id number] 16:48:01* Test Item Value Reference Range Interpretation Comments IgA Lvl (test code = 2458-8) 248.0 mg/dl 68.0-378.0 Gliadin (Deamidated Peptide)IgA Ab (test code = 06720-6) <0.2 <=14.9 Gliadin (Deamidated Peptide)IgG Ab (test code = 88917-0) <0.4 <=14.9 Tissue Transglutaminase (tTG) IgA (test code = 05810-0) <0.5 <=14.9 Tissue Transglutaminase (tTg) IgG (test code = 60970-4) <0.8 <=14.9 [facility]iciansGlucose ([facility] In Office)2017-08-01 13:30:00* Test Item Value Reference Range Interpretation Comments Glucose POC Lifescan (test code = Glucose POC Lifescan) 133 [facility][O] Lipid Panel (In Office)2017-08-01 13:28:00* Test Item Value Reference Range Interpretation Comments CHOLESTEROL, TOTAL (test code = 2093-3) 157 HDL CHOLESTEROL (test code = 2085-9) 67 TRIGLYCERIDES (test code = 2571-8) 82 LDL-CHOLESTEROL (test code = 36848-3) 74 NON HDL CHOLESTEROL (test code = NON HDL CHOLESTEROL) 90 T. Chol/HDL Ratio (test code = 9830-1) 2.4 GLUCOSE (test code = 1547-9) 132 [facility][O] Hemoglobin A1c (in office)2017-08-01 13:27:00 * Test Item Value Reference Range Interpretation Comments HEMOGLOBIN A1c (test code = 4548-4) 5.9 [facility]iciansXRAY Shoulder 2+ Views Bilateral [id number] 16:27:00EXAM: XR BILATERAL SHOULDER 3 VIEWSDATE: 07/31/2017 4:10 [...] the left.--This report was dictated by a Eligibility Worker/Fellow. I have personallyreviewed the images aswell as the Resident's interpretation and agree with the findings.Read by: Amparo Steward MD Resident: Fannie Steward MDDictated Date/time: 07/31/17 17:31Electronically Signed by: China Keith MD 07/31/1817:07FINAL REPORTUnAl[facility]] RETICULOCYTE [id number] 15:22:01* Test Item Value Reference Range Interpretation Comments Reticulocyte Count Automated (test code = 36089-3) 1.5 % 0.5 -1.5 [facility]] THYROID PEROXIDASE [id number] 15:22:01* Test Item Value Reference Range Interpretation Comments Thyroid Peroxidase (TPO) Antibody (test code = 45989-1) <28 <=60 [facility][] PROTEIN, TOTAL W/CREAT, RANDOM URINE 2017-07-31 15:22:01* Test Item Value Reference Range Interpretation Comments U Creatinine (test code = 2161-8) 36.20 mg/dl No established reference ranges. Urine Protein Level (test code = 2888-6) <5.0 No established reference ranges. U Prot/Creat (test code = 2890-2) <0.14 [facility]] CREATINE KINASE, [id number] 15:22:01* Test Item Value Reference Range Interpretation Comments Creatine Kinase (test code = 2157-6) 96 u/l 12-191 [facility][] Iron, TIBC \\T\\ [id number] 15:22:01* Test Item Value Reference Range Interpretation Comments Iron; Below Low Threshold (test code = 2498-4) 21 ug/dL 30-160 % [place]; Below Low Threshold (test code = 2502-3) 4 % 1 2-57 TIBC; Above High Threshold (test code = 2500-7) 537 ug/dL 228-42 8 UIBC (test code = UIBC) 516 ug/dL 110-370 Ferritin Lvl; Below Low Threshold (test code = 2276-4) 4 ng/ml 5-204 [facility]] [id number] 15:22:01* Test Item Value Reference Range Interpretation Comments Haptoglobin; Above High Threshold (test code = 45378-6) 278 mg/dl 16-200 [facility]] C-REACTIVE [id number] 15:22:01* Test Item Value Reference Range Interpretation Comments CRP (test code = CRP) 4.2 mg/L <=2.9 [facility]] SED RATE BY MODIFIED [id number] 15:22:01* Test Item Value Reference Range Interpretation Comments Sedimentation Rate; Above High Threshold (test code = 13190-0) 4 8 {mm/hr} 0-20 [facility]] URINALYSIS, COMPLETE W/REFLEX TO CULTURE 2017-07-31 15:22:01* Test Item Value Reference Range Interpretation Comments UA Turbidity (test code = 82530-0) Clear Clear UA Spec Grav (test code = 2965-2) 1.006 <=1.030 UA pH (test code = 2756-5) 7.0 5.0-8.0 UA Protein (test code = 98432-1) Negative Negative UA Glucose (test code = 2349-9) Negative Negative UA Ketones (test code = 98857-2) Negative Negative UA Bili (test code = 25655-2) Negative Negative UA Blood; Abnormal (test code = 798-9) Small Negative A UA Nitrite (test code = 38020-2) Negative Negative UA Leuk Est (test code = 45894-3) Negative Negative UA Sq Epi (test code = 03009-0) None Seen UA Color (test code = 96705-1) Ltyellow UROBILINOGEN (test code = 06534-9) <=1.0 0.1-1.0 UA Spec Grav (test code = 5810-7) 1.006 <=1.030 UA pH (test code = 5803-2) 7.0 5.0-8.0 UA Glucose (test code = 01597-5) Negative Negative UA Bili (test code = 5770-3) Negative Negative UA Blood; Abnormal (test code = 5794-3) Small Negative A UA Nitrite (test code = 5802-4) Negative Negative UA Leuk Est (test code = 5799-2) Negative Negative UA Sq Epi (test code = 86090-1) None Seen UA Color (test code = 5778-6) Ltyellow UROBILINOGEN (test code = 05846-5) <=1.0 0.1-1.0 [facility]] HLA-B27, DNA [id number] 15:22:01* Test Item Value Reference Range Interpretation Comments HLA B27 (test code = HLA B27) Negative Negative [facility]] CARDIOLIPIN AB (IGA,IGG,IGM)2017-07-31 15:22:01* Test Item Value Reference Range Interpretation Comments Cardiolipin Antibody IgA (test code = 5076-5) <0.5 <=19.9 Cardiolipin Antibody IgG (test code = 3181-5) <1.6 <=19.9 Cardiolipin Antibody IgM (test code = 3182-3) 0.3 {MPL-U/mL} <=19.9 [facility][] Wmwg-2-Dfasj IgG/IgA/ [id number] 15:22:01 * Test Item Value Reference Range Interpretation Comments Beta 2 Clycoprotein 1 Antibody IgA (test code = 34817-5) <0.6 <=19.9 Beta 2 Glycoprotein 1 Antibody IgG (test code = 09751-8) <1.4 <=19.9 Beta 2 Glycoprotein 1 Antibody IgM (test code = 20068-4) 0.4 U/ml <=19.9 [facility]] Lupus Anticoagulant [id number] 15:22:01 * Test Item Value Reference Range Interpretation Comments dRVV (test code = 92027-4) 0.59 <=1.20 Hexagonal Phospholipid Neutralization (test code = 81695-8) Negativ e Negative Lup Interp (test code = Lup Interp) SEE NOTES Negative for lupus anticoagulant by DRVV screen and hexagonalphospholipidneutralization test. If there is a strong clinical suspicion oflupus anticoagulant, additional testing, to include repeat studies at aclinically appropriate interval and anticardiolipin antibody assays, isrecommended. Interpretation performed at [facility].Electronic Signature Leif Baumann MD 08/02/17 3:31 PM [facility]] LACTATE DEHYDROGENASE ISOENZYME PANEL 2017-07-31 15:22:01* Test Item Value Reference Range Interpretation Comments Lactate Dehydrogenase Total (test code = Lactate Dehyd rogenase Total) 169 {iu/l} 119-226 Lactate Dehydrogenase 1 (test code = 61566-9) 17 % 17-32 Lactate Dehydrogenase 2 (test code = Lactate Dehydrogenase 2) 29 % 25-40 Lactate Dehydrogenase 3 (test code = Lactate Dehydrogenase 3) 25 % 17-27 Lactate Dehydrogenase 4 (test code = Lactate Dehydrogenase 4) 13 % 5-13 Lactate Dehydrogenase 5 (test code = Lactate Dehydrogenase 5) 16 % 4-20 Performed At: [facility] [id number] Leif King MD Ph:[phone] At: [facility] [address] [id number] Kyle L MD Ph:[phone] [facility][H] Immunofixation Byrvjupjdtpuwo7324-01-67 15:22:01* Test Item Value Reference Range Interpretation Comments Immunofixation Electrophoresis Pattern ( test code = Immunofixation Electrophoresis Pattern) SEE NOTES Diffuse ly immunoreactive bands are noted in the IgG, IgA, IgM, kappa and lambdalanes. No monoclonal bands are identified. [facility] Immunofixation Electrophoresis Interpret ation (test code = Immunofixation Electrophoresis Interpretation) SEE NOTES Serum immunofixation electrophoresis reveals a polyclonal pattern ofimmunoglobulins. No monoclonal proteins are identified. Interpretationperformed at [facility].Electronic Signature Kerry Roberts MD 08/06/17 9:36 PM [facility][H] Protein Bgjeqiwjqtndbgw3010-05-84 15:22:01* Test Item Value Reference Range Interpretation Comments Albumin Percent (test code = Albumin Percent) 52.9 {REL %} 55.8-66. 1 Alpha 1 Percent (test code = Alpha 1 Percent) 5.3 {REL %} 2.8-4.9 Alpha 2 Percent (test code = Alpha 2 Percent) 13.0 {REL %} 7.0-11.9 Beta Percent (test code = Beta Percent) 14.5 {REL %} 7.8-13.7 Gamma % (test code = Gamma %) 14.3 {REL %} 11.1-18.7 Albumin (SPE) (test code = Albumin (SPE)) 3.86 g/dl 3.57-5.55 Alpha 1 Globulin (test code = Alpha 1 Globulin) 0.39 g/dl 0.18-0 .41 Alpha 2 Globulin (test code = 38658-9) 0.95 g/dl 0.45-1.00 Beta Globulin (test code = Beta Globulin) 1.06 g/dl 0.50-1.15 Gamma Globulin (test code = Gamma Globulin) 1.04 g/dl 0.71-1.57 Total Protein (SPE) (test code = 2885-2) 7.4 g/dl 6.4-8.4 SPE Interpretation (test code = SPE Interpretation) SEE NOTES Total protein and serum albumin levels are within reference ranges. Allglobulin fractions are present in a normal distribution. No definitemonoclonal proteins are identified. However, an area of asymmetry is notedwithin the polyclonal gamma fraction and, therefore, an underlying monoclonalprotein cannot be excluded. Clinical correlation is recommended withimmunofixation electrophoresis of serum and urine if clinicallyindicated.Interpretation performed at [facility].Electronic Signature Kerry Roberts MD 08/06/17 9:52 PM [facility][] PATHOLOGIST REVIEW OF PERIPHERAL SMEAR 2017-07-31 15:22:01Microcytic, hypochromic anemia with anisopoikilocytosis including leukocytes. Mild leukocytosis with absolute neutrophilia. Mild thrombocytosis. Nodiagnostic morphologic abnormalities of white blood cells or platelets areidentified. Clinical correlation is recommended.Electronic Signature Kerry Roberts MD 08/01/17 2:44 [facility] [[facility]] SJOGRENS ANTIBODIES (SS-A,SS-B)2017-07-14 14:27:01* Test Item Value Reference Range Interpretation Comments SS-A (Ro) Antibody (test code = 5351-2) 0.2 {AI} <=0.9 SS-b (La) Antibody (test code = 5353-8) <0.2 <=0.9 [facility][] FURNACE CHECKER [id number] 14:27:01* Test Item Value Reference Range Interpretation Comments FURNACE CHECKER Ab (test code = FURNACE CHECKER Ab) 0.2 {AI} <=0.9 [facility]] SM [id number] 14:27:01* Test Item Value Reference Range Interpretation Comments Sm Ab (test code = 01535-3) <0.2 <=0.9 [facility][] HEPATITIS B SURFACE ANTIGEN W/REFL CONFIRM 2017-06-20 16:01:01* Test Item Value Reference Range Interpretation Comments Hepatitis B Surface Antigen (test code = 5195-3) Negative Negat suleman [facility]] VITAMIN [id number] 16:01:01* Test Item Value Reference Range Interpretation Comments Vitamin B12 Level (test code = Vitamin B12 Level) 1004 pg/ml 254- 1320 Vitamin B12 Level (test code = 2132-9) 1004 pg/ml 254-1320 [facility][H] Protein [id number] 16:01:01* Test Item Value Reference Range Interpretation Comments Albumin Percent (test code = Albumin Percent) 52.3 {REL %} 55.8-66. 1 Alpha 1 Percent (test code = Alpha 1 Percent) 5.7 {REL %} 2.8-4.9 Alpha 2 Percent (test code = Alpha 2 Percent) 13.3 {REL %} 7.0-11.9 Beta Percent (test code = Beta Percent) 14.0 {REL %} 7.8-13.7 Gamma % (test code = Gamma %) 14.7 {REL %} 11.1-18.7 Albumin (SPE) (test code = Albumin (SPE)) 4.13 g/dl 3.57-5.55 Alpha 1 Globulin (test code = Alpha 1 Globulin) 0.45 g/dl 0.18-0 .41 Alpha 2 Globulin; Above High Threshold (test code = 64840-2) 1.05 g/dl 0.45-1.00 Beta Globulin (test code = Beta Globulin) 1.11 g/dl 0.50-1.15 Gamma Globulin (test code = Gamma Globulin) 1.16 g/dl 0.71-1.57 Total Protein (SPE) (test code = Total Protein (SPE)) 7.9 g/dl 6.4-8.4 SPE Interpretation (test code = SPE Interpretation) SEE NOTES Total protein and serum albumin levels are within reference ranges. Allglobulin fractions are present in a normal distribution, with minor nonspecificchanges. No definite monoclonal proteins are identified. However, an area ofasymmetry is noted within the polyclonal gamma fraction and, therefore, anunderlying monoclonal protein cannot be excluded. Clinical correlation isrecommended with immunofixation electrophoresis of serum and urine ifclinically indicated.Interpretation performed at [facility].Electronic Signature Garrett Mack MD 06/21/17 8:40 PM Total Protein (SPE) (test code = 2885-2) 7.9 g/dl 6.4-8.4 [facility]] PROTEIN, TOTAL AND PROTEIN ELECTROPHORESIS, RANDOM [id number] 16:01:01* Test Item Value Reference Range Interpretation Comments Specimen Type (UPE) (test code = Specimen Type (UPE)) random, 50x Total Protein (UPE) (test code = Total Protein (UPE)) 11 mg/dl Interpretation (UPE) (test code = Interpretation (UPE)) SEE NOTES Urine protein electrophoresis shows minimal proteinuria. No monoclonal bandsare identified; however, evaluation is limited by the small amount of proteinand the resulting lack of discernible bands on the electrophoreticgel.Interpretation performed at [facility].Electronic Signature Garrett Mack MD 06/21/17 8:48 PM Total Protein (UPE) (test code = 2885-2) 11 mg/dl [facility][H] Immunofixation Vhbxmqvzoqgkcq7468-07-57 16:01:01* Test Item Value Reference Range Interpretation Comments Immunofixation Electrophoresis Pattern ( test code = Immunofixation Electrophoresis Pattern) SEE NOTES Diffuse ly immunoreactive bands are noted in the IgG, IgA, IgM, kappa and lambdalanes. No monoclonal bands are identified. [facility] Immunofixation Electrophoresis Interpret ation (test code = Immunofixation Electrophoresis Interpretation) SEE NOTES Serum immunofixation electrophoresis reveals a polyclonal pattern ofimmunoglobulins. No monoclonal proteins are identified. Interpretationperformed at [facility].Electronic Signature Garrett Mack MD 06/21/17 8:54 PM [facility]] HEPATITIS C [id number] 16:01:01* Test Item Value Reference Range Interpretation Comments Hepatitis C Antibody (test code = 70362-7) Negative [facility]] VITAMIN [id number] 16:01:01* Test Item Value Reference Range Interpretation Comments Vitamin B6 Level (test code = Vitamin B6 Level) 81.6 {UG/L} 2.0-32 .8 This test was developed and its performance characteristicsdetermined by [facility]. It has not been cleared orapproved by the Food and Drug Administration.Performed At: [address] [id number] King MD Ph:[phone] [facility]] CMP [id number] 13:50:01* Test Item Value Reference Range Interpretation Comments Sodium Level (test code = Sodium Level) 139 {mEq/l} 135-145 Potassium Level (test code = Potassium Level) 3.5 {mEq/l} 3.5-5.1 Chloride Level (test code = Chloride Level) 102 {mEq/l} 95-109 Carbon Dioxide (test code = Carbon Dioxide) 31 {mEq/l} 24-32 AGAP (test code = AGAP) 9.5 {mEq/l} 10.0-20.0 Glucose Lvl (test code = Glucose Lvl) 124 mg/dl 70-99 Adult reference range values reflect the clinical guidelinesof the [place] Diabetes [employer]. Creatinine Lvl (test code = Creatinine Lvl) 1.20 mg/dl 0.50-1.40 Blood Urea Nitrogen (test code = Blood Urea Nitrogen) 24 mg/dl 7-22 BUN/Creatinine Ratio (test code = BUN/Creatinine Ratio) 20 6-25 Total Protein (test code = 55911-5) 7.7 g/dl 6.4-8.4 Albumin Lvl (test code = 1751-7) 3.8 g/dl 3.5-5.0 Globulin (test code = Globulin) 3.9 g/dl 2.7-4.2 A/G Ratio (test code = A/G Ratio) 1.0 0.7-1.6 Calcium Level Total (test code = Calcium Level Total) 9.4 mg/dl 8.5-10.5 ALT (test code = 1742-6) 30 u/l 0-65 AST (test code = 1916-6) 18 u/l 0-37 Bili Total (test code = 48782-2) 0.3 mg/dl 0.2-1.3 Alk Phos (test code = 1783-0) 67 u/l 39-136 eGFR (test code = eGFR) 46 {ML/MIN/1.7} T he eGFR is calculated using the CKD-EPI formula. In most young, healthyindividuals the eGFR will be >90 mL/min/1.73m2. The eGFR declines with age. AneGFR of 60-89 may be normal in some populations, particularly the elderly, forwhom the CKD-EPI formula has not been extensively validated. Use of the eGFR isnot recommended in the following populations:Individuals with unstable creatinine concentrations, including patients and those with serious co-morbid conditions.Patients with extremes in muscle mass or diet.The data above are obtained from the National Kidney Disease Education Program(NKDEP) which additionally recommends that when the eGFR is used in patientswith extremes of body mass index for purposes of drug dosing, the eGFR shouldbe multiplied by the estimated BMI. [facility]] T4, [id number] 13:50:01* Test Item Value Reference Range Interpretation Comments T4 Free (test code = T4 Free) 1.11 ng/dl 0.76-1.46 [facility][QL] TSH, 3RD [id number] 13:50:01* Test Item Value Reference Range Interpretation Comments TSH (test code = 77509-9) 0.638 {uIU/ml} 0.360-3.740 [facility]iciansGlucose ([facility] of [facility] In Office)2017-04-21 13:24:00* Test Item Value Reference Range Interpretation Comments Glucose POC Lifescan (test code = Glucose POC Lifescan) 133 [facility][O] Hemoglobin A1c (in office)2017-04-21 13:23:00 * Test Item Value Reference Range Interpretation Comments HEMOGLOBIN A1c (test code = 4548-4) 5.6 [facility][O] Lipid Panel (In Office)2017-04-21 13:23:00* Test Item Value Reference Range Interpretation Comments CHOLESTEROL, TOTAL (test code = 2093-3) 126 HDL CHOLESTEROL (test code = 2085-9) 62 TRIGLYCERIDES (test code = 2571-8) 94 LDL-CHOLESTEROL (test code = 07320-7) 45 NON HDL CHOLESTEROL (test code = NON HDL CHOLESTEROL) 64 T. Chol/HDL Ratio (test code = 9830-1) 2.0 GLUCOSE (test code = 1547-9) 140 [facility]iciansX[facility] Hand AP lateral Bilateral [id number] 09:36:00EXAM: XR BILATERAL HAND 2 VIEWSDATE: 03/21/2017 9:35 AM CSTINDICATION: - M15.9 Polyosteoarthritis, unspecifiedCOMPARISON: None.TECHNIQUE: PA and lateral radiographs of the bilateral hands.FINDINGS: No acute fracture or malalignment is identified. There is moderateto severe PIP and DIP joint space narrowing of the bilateral digits. Marginalosteophyte formation is present across the phalanges. Silastic silicone jointreplacement of the 3rd digit PIP joint is present with satisfactory appearance.Carpometacarpal and carpal joints are maintained. No soft tissue abnormality isidentified.IMPRESSION: 1. Osteoarthritis of the bilateral hands as above.2. Satisfactory appearance of 3rd digit joint Silastic joint replacement.--This report was dictated by a Eligibility Worker/Fellow. I have personallyreviewed the images aswell as the Resident's interpretation and agree with the findings.Read by: Wanda Bach MD Resident: Wanda Bachctalisha Date/time: 03/21/17 10:40Electronically Signed by: Damián Floyd MD 03/22/1700:11FINAL REPORTUnAl[facility] View [facility] PhysiciansXRAY Spine cervical 2 or 3 view [id number] 09:36:00EXAM: XR CERVICAL SPINE 3 VIEWSDATE: 03/21/2017 9:35 AM CSTINDICATION: CervicalgiaCOMPARISON: None.TECHNIQUE: AP, open-mouth odontoid and lateral views of the cervical spineFINDINGS: There is bony demineralization. There is loss of normal cervicallordosis due to multilevel degenerative changes. There is grade 1anterolisthesis of L2 relative to L3.This includes moderate disc height loss atC5-C6, and marked disc height loss at C6-C7. The remainder of vertebral bodyheights and the remainder of the disc heights are overall preserved.Multileveluncovertebral and facet hypertrophy is present marginal osteophyte formation. No prevertebral or paraspinous soft tissue abnormality is identified.IMPRESSION: Marked degenerative changes as above, worse at the levels of C5-C6and C6-C7.--This report was dictated by a Eligibility Worker/Fellow. I have personallyreviewed the images aswell as the Resident's interpretation and agree with the findings.Read by: Wanda Bach MD Resident: Wanda Bach Date/time: 03/21/17 10:46Electronically Signed by: Damián Floyd MD 03/22/1700:11FINAL REPORTUnAlta View Hospital Physicians[O] Urine Dipstick (In Office)2017-03-06 15:02:00* Test Item Value Reference Range Interpretation Comments LEUKOCYTES (test code = LEUKOCYTES) trace N NITRITE; Normal (test code = 50014-2) neg N UROBILINOGEN; Normal (test code = 14069-2) neg N PROTEIN (test code = 55344-8) trace pH (test code = pH) 5 N URINE BLOOD (test code = 92402-8) trace SPECIFIC GRAVITY (test code = 2965-2) 1.000 KETONES; Normal (test code = 35509-3) neg N BILIRUBIN; Normal (test code = 07521-8) neg N GLUCOSE; Normal (test code = 1547-9) neg N COLOR URINE; Normal (test code = 5778-6) yellow N [facility]] CULTURE, URINE, [id number] 00:00:00* Test Item Value Reference Range Interpretation Comments CULTURE (test code = CULTURE) See Comment A CULTURE, URINE, ROUTINE MICRO NUMBER: [id number] TEST STATUS: FINAL SPECIMEN SOURCE: URINE SPECIMEN QUALITY: ADEQUATE RESULT: 10,000-50,000 CFU/mL of Escherichia coli COMMENT: Additional organism(s) less than 10,000 CFU/mL isolated. These organisms, commonly found on external and internal genitalia, are considered colonizers. No further testing performed. E.coli INT LIZBETH AMOX/CLAVULANATE I 16 AMPICILLIN R >=32 AMP/SULBACTAM R >=32 CEFAZOLIN R 8 1 CEFEPIME S <=1 CEFTRIAXONE S <=1 CIPROFLOXACIN R >=4 ERTAPENEM S <=0.5 GENTAMICIN S <=1 IMIPENEM S <=0.25 LEVOFLOXACIN R >=8 NITROFURANTOIN I 64 PIP/TAZOBACTAM S <=4 TOBRAMYCIN S <=1 TRIMETHOPRIM/SULFA S <=20S=Susceptible I=Intermediate R=Resistant * = Not TestedNR = Not Reported NN = See Therapy CommentsTHERAPY COMMENTS Note 1: ORAL therapy: A cefazolin LIZBETH of < 32 predicts susceptibility to the oral agents cefaclor, cefdinir, cefpodoxime, cefprozil, cefuroxime, cephalexin, and loracarbef when used for therapy of uncomplicated UTIs due to E. coli, K. pneumoniae, and P. mirabilis. PARENTERAL therapy: A cefazolin LIZBETH of > 8 indicates resistance to parenteral cefazolin. An alternate test method must be performed to to confirm susceptibility to parenteral cefazolin. [facility][Q] RHEUMATOID FACTOR (IGA, IGG, IGM)2017-02-10 13:19:00* Test Item Value Reference Range Interpretation Comments RHEUMATOID FACTOR (IGG) (test code = RHEUMATOID FACTOR (IGG)) <5 Reference Range: <=6 NEGATIVE >6 POSITIVE RHEUMATOID FACTOR (IGA) (test code = RHEUMATOID FACTOR (IGA)) <5 Reference Range: <=6 NEGATIVE >6 POSITIVE RHEUMATOID FACTOR (IGM) (test code = RHEUMATOID FACTOR (IGM)) <5 Reference Range: <=6 NEGATIVE >6 POSITIVE [facility]] BASIC METABOLIC PANEL [id number] 13:19:00* Test Item Value Reference Range Interpretation Comments GLUCOSE; Normal (test code = 1547-9) 88 mg/dl 65-99 N Fasting reference interval UREA NITROGEN (BUN) (test code = UREA NITROGEN (BUN)) 17 mg/dl 7-25 N CREATININE (test code = CREATININE) 1.24 mg/dl 0.60-0.93 For patients >49 years of age, the reference limitfor Creatinine is approximately 13% higher for peopleidentified as -Lao. eGFR NON- (test code = eGFR NON-ZOE N CZECH) 44 {ML/MIN/1.7} > OR = 60 eGFR (test code = eGFR ) 51 {ML/MIN/1.7} > OR = 60 BUN/CREATININE RATIO (test code = BUN/CREATININE RATIO) 14 {CALC} 6-22 N SODIUM (test code = SODIUM) 140 mmol/L 135-146 N POTASSIUM (test code = POTASSIUM) 4.0 mmol/L 3.5-5.3 N CHLORIDE (test code = CHLORIDE) 101 mmol/L 98-110 N CARBON DIOXIDE (test code = CARBON DIOXIDE) 29 mmol/L 20-31 N CALCIUM (test code = CALCIUM) 9.8 mg/dl 8.6-10.4 N [facility]] SED RATE BY MODIFIED [id number] 13:19:00* Test Item Value Reference Range Interpretation Comments SED RATE BY MODIFIED WESTERGREN (test code = SED RATE BY MODIFIED WESTERGREN) 39 mm/h < OR = 30 [facility][] CYCLIC CITRULLINATED PEPTIDE (CCP) AB (IGG) 2017-02-10 13:19:00* Test Item Value Reference Range Interpretation Comments CYCLIC CITRULLINATED PEPTIDE (CCP) AB (I GG) (test code = CYCLIC CITRULLINATED PEPTIDE (CCP) AB (IGG)) <16 N Referenc e RangeNegative: <20Weak Positive: 20-39Moderate Positive: 40-59Strong Positive: >59 [facility][Q] ANACHOICE(TM) SPECIFIC AB CASCADING REFLEX 2017-02-10 13:19:00* Test Item Value Reference Range Interpretation Comments ANACHOICE(TM) SCREEN (test code = ANACHOICE(TM) SCREEN) NEGATIVE NEGATIVE N A negative SHERRY Multiplex, with Reflex to 11 Antibody [place] indicates the absence of detectable antibodiesto component analytes consisting of double stranded DNA(dsDNA), chromatin, ribonucleoprotein (FURNACE CHECKER), Guillen/FURNACE CHECKER(Sm/FURNACE CHECKER), Guillen (Sm), SS-A, SS-B, Kae-1, centromere B,Scl-70 and ribosomal P. A negative result should be interpreted in the contextof the clinical and laboratory findings and does notrule out autoimmune disease characterized by otherautoantibody specificities such as rheumatoid arthritis, autoimmune hepatitis, primary biliary cirrhosis, autoimmune thyroiditis, Laporte's disease,pernicious anemia, autoimmune neuropathies, vasculitis,celiac disease, and bullous disease. Visit Physician FAQs for interpretation of allantibodies in the [place], prevalence, and associationwith diseases at [email or web address] [facility]] C-REACTIVE [id number] 13:19:00* Test Item Value Reference Range Interpretation Comments C-REACTIVE PROTEIN (test code = C-REACTIVE PROTEIN) 3.6 mg/L <8 .0 N Please note recent reference range and units of measure changes [facility] Chest 2 views [id number] 11:43:00Exam: Two-view chest x-rayReason for Exam: - chronic coughComparison Exam: None Discussion:Cardiomediastinal silhouette is within normal limits. Both hemidiaph ragms wellvisualized. No pulmonary edema or pleural effusions. No focal lungco nsolidations. Trachea is midline.No acute bony abnormalities. Mild multilevel d egenerative disc disease seenwithin the thoracic spine.Impression:1. No acute c ardiopulmonary abnormalities.--Read by: Janes Montilla MDDictated Date/ti me: 02/10/17 12:05Electronically Signed by: Janes Montilla MD 02/11/1712:08FINAL REPORTUnShriners Hospitals for Children Bone Density [employer] [id number] 11:01:00BONE DENSITY EVALUATION: 02/10/2017CLINICAL DATA: Post menopausal and clinical risk for osteoporosis. EncounterFor Screening For Osteoporosis, Unspecified Menopausal And PerimenopausalDisorder/Z13.820 , N95.9RISK FACTORS: race. FINDINGS:Bone density evaluation was performed 02/10/2017 on the right femur n tutu usinga Hologic unit. The BMD average for the exam is 0.948 g/cm2. The T-sco re is0.90 and the Z-score is 2.70. This matches the World Health Organization's criteria for normal bone density and places the patient within normal limits off racture risk. An additional bone density evaluation was performed 02/10/2017 on the leftfemur neck using a Hologic unit. The BMD average for the exam is 0.879 g/cm2.The T-score is 0.30 and the Z-score is 2.10. This matches the World Healt hOrganization's criteria for normal bone density and places the patient withinno rmal limits of fracture risk. An additional bone density evaluation was performe d 02/10/2017 on the right hipusing a Hologic unit. The BMD average for the exam is 0.951 g/cm2. The T-scoreis 0.10 and the Z-score is 1.60. This matches the W orld Health Organization'scriteria for normal bone density and places the patien t within normal limits offracture risk. An additional bone density evaluation wa s performed 02/10/2017 on the left hipusing a Hologic unit. The BMD average for the exam is 0.918 g/cm2. The T-scoreis -0.20 and the Z-score is 1.30. This mat ches the World Health Organization'scriteria for normal bone density and places the patient within normal limits offracture risk. An additional bone density radha luation was performed 02/10/2017 on the AP L1-S0japyfd of spine using a Hologic unit. The BMD average for the exam is 1.234 g/cm2. The T-score is 2.00 and the Z -score is 4.00. This matches the WorldHealth Organization's criteria for normal bone density and places the patientwithin normal limits of fracture risk. IMPRE SSION: BONE DENSITY WITHIN NORMAL LIMITSPatient is at normal risk for fracture. Patient consult w/primary careprovider is recommended. This exam was interpre alcides at [id number] for [facility], 15. Arlen Sullivan M.D. ms/penrad:02/13/2017 09:4 0:05 Armament Repairer(s): Odin KHAN(Dandy)(Sherrie), [facility]-- Read by: Arlen Sullivan MDDictated Date/time: 02/13/17 09:40Electronically Signed by: Arlen Sullivan MD 02/13/1709:40FINAL REPORT [facility]iciansNegative Retinal Eye Exam (Diabetic)2016-09-16 05:00:00* Test Item Value Reference Range Interpretation Comments Negative Diabetic Eye Screening (test code = Negative Diabetic Eye Screening) [id number] [facility]iciansCHEM [id number] 11:10:0062[facility] CHEM XFIXK9256-22-63 11:10:0010[facility]annCHEM LYRBN6201-52-84 11:10:58823 [facility] RBGQG5928-24-97 11:10:003.6[facility]annCHEM PANEL 2016-02-22 11:10:40706Ccdntjfh HermannCHEM LRFVX7030-58-49 11:10:000.94[facility]annCHEM BAYFK9295-19-22 11:10:0098[facility] QULEJ3158-42-20 11:10:008.2[facility] KQNOW0711-98-77 11:10:0027[facility]annCHE[facility] PRMWG5892-28-44 11:10:0010.6[facility] RrsdozdMNUXEJKUEF4294-74-24 11:10:0082.4 [facility] NtkuukpLXWSLWYGMB4540-08-62 11:10:00* Test Item Value Reference Range Interpretation Comments MCH (test code = MCH) 26.8 pg 27.0-31.0 [facility]KatlvxqAUFBJRKQVV0035-47-06 11:10:0032.5[facility]annHEMATOLOGY 2016-02-22 11:10:0032.6[facility] IodgiopYCFCERYDIS5236-69-13 11:10:006.7[facility] AzhdjomOHBVUBBPSD8212-85-90 11:10:0015.1[facility] CfdtuhxWIZVAFXNWS9010-56-26 11:10:16854Zcehejzo GxuoqwlBRSZZGDNVH0615-29-08 11:10:0010.4[facility] EHLNDJKUWO8672-74-22 11:10:003.94[facility] KcuvjmeONHUCLLKBA3226-06-66 11:10:00 10.6[facility] JkbvhcfBYPDRQZUVP4228-53-45 11:10:000.1[facility]annHEMATOLOGY 2016-02-22 11:10:000.4[facility] CugiepjERKZGGCYSJ4739-87-18 11:10:000.9[facility] MozbjfbSTFFLRQHXS7500-98-64 11:10:008.8[facility] HllxvzdTMANBESFQX2715-76-01 11:10:0020.9[facility] BbzzeolMCTQBFGQIK1243-95-26 11:10:0065.9[facility] [place] YHRQRXYIBQ1204-80-90 11:10:006.9[facility] JfhmwcuNUSVVLLPFK5441-14-75 11:10:002.2 [facility] MnaxwpySGAAJXTIXK3682-46-96 11:10:000.7[facility]annHEMATOLOGY 2016-02-22 11:10:003.7[facility]annCHEM IGOQY1896-85-72 10:26:000.7[facility] MzqyaaxYKNXPNDWMCVF3633-14-16 10:26:0010.5[facility] VvsjrvyISVFJKHECSVV2083-90-27 10:26:0027[facility] MyaasxwMPKTXQCRCZWS6826-18-08 10:26:17354Qrahxokr [place] NJTXWKLZZCWV9392-56-93 10:26:55548Gvlgarut MjkwjcqRKJNMGZDLQFB0150-22-81 10:26:003.5[facility] DzogpdmMOXTZIJQFQEY7448-38-05 10:26:008.4[facility] [place] WDEAEQWAXPUB7917-33-92 10:26:001.20[facility] YwptvkkBSASMQJEQSQI7553-96-26 10:26:0046[facility] CsccxjeMDVEVWQEERRM3254-43-65 10:26:0097[facility] HRQNQLNWYFSY3679-36-13 10:26:0011[facility] UryuvorAYFEEUKDTC2586-99-55 10:26:00 0.1[facility] VezqlwcMNYBCSKLXX9497-01-29 10:26:000.4[facility]annHEMATOLOGY 2016-02-21 10:26:000.9[facility] SixebxoNKGRKWXRNK5985-05-54 10:26:002.7[facility] GfggvdlPKHWJLHKHB1941-48-07 10:26:0013.5[facility] OmmsgtcMARWXVKXEN1343-54-60 10:26:0076.8[facility] DufarueJTDDSWZMZE1084-64-76 10:26:001.9[facility] WPJICODBRF6034-82-58 10:26:000.9[facility] OupxnikSRFNARMYZD4651-50-16 10:26:006.1 [facility] BrtrilqRSDJIXCRLG3454-76-46 10:26:0011.0[facility]annHEMATOLOGY 2016-02-21 10:26:00* Test Item Value Reference Range Interpretation Comments MCH (test code = MCH) 26.2 pg 27.0-31.0 [facility] VzaxlpdHMJJTUADRF7982-30-40 10:26:0082.4[facility]annHEMATOLOGY 2016-02-21 10:26:0015.1[facility] FsticweTMEHIHXXPW8818-83-62 10:26:0031.8[facility] CpibsbtUCKKSOHYMZ8864-32-06 10:26:97269Dwkumorg CgxtzpvMYBRGIAJRV3348-65-11 10:26:006.3[facility] RhbhzypPOMRDTGUNZ5248-91-29 10:26:0014.4[facility] [place] VBVJWMNDKJ1152-30-55 10:26:0010.7[facility] PfmllmfWSCFJXXNNU9463-10-66 10:26:00 4.07[facility] SpeujeuJDMHOEJTPV3705-32-85 10:26:0033.5[facility] HermannHEMATOLOGY 2016-02-20 10:13:006.7[facility] ZcrpqbuNPELHGZHRH9517-26-26 10:13:0020.0[facility] RpnkjfkFZDNRSMKDM2183-62-42 10:13:002.5[facility] YerhsjgKCBMOBRXTX1716-15-77 10:13:000.8[facility] VkobgqiMJKUUAHXEA4483-65-64 10:13:008.1[facility] [place] YDBYIMHBYP4812-52-30 10:13:002.3[facility] PzjrjtnKCGOCPSEMN5945-95-01 10:13:000.8 [facility] VqxblxvRTWICQGBAT6495-34-45 10:13:000.3[facility]annHEMATOLOGY 2016-02-20 10:13:000.1[facility] IpmrlowDBEVIUQFKN7631-45-86 10:13:0070.0[facility] VjdgdmgNFZSXXVLIF3624-97-80 10:13:0011.6[facility] QnforyiVLVRFUDAOB8127-45-62 10:13:004.09[facility] NlbmsfvFEFDQSNJOG2894-84-49 10:13:0081.5[facility] [place] ZKBJMVRECF3202-81-00 10:13:00* Test Item Value Reference Range Interpretation Comments MCH (test code = MCH) 27.0 pg 27.0-31.0 [facility] GbuyrlbWIGCTJOQQN7549-31-99 10:13:0033.1[facility]annHEMATOLOGY 2016-02-20 10:13:0015.3[facility] TqftacnSHXDGWKPUZ8609-72-17 10:13:0011.1[facility] XaprqvpVNEPNOCPKT6642-76-34 10:13:0033.3[facility] FtxizcnJNXUSAPNZK0841-36-12 10:13:006.4[facility] DcggzqkRMNFJPBMRR7904-82-23 10:13:04673Zzgiykag HermannCHEM ZGQBE4174-82-82 10:08:009.1[facility] HermannCHEM MXFXA2076-41-42 10:08:0026 [facility]annCHEM ATSES1011-19-35 10:08:94998Ygeqxfyp HermannCHEM PANEL 2016-02-19 10:08:003.6[facility] HermannCHEM JUEES7738-92-52 10:08:0046[facility]annCHEM XFOFM9407-09-19 10:08:62761Qibcqgax HermannCHEM BEVPQ0000-95-10 10:08:009[facility] HermannCHEM DFSRL8881-99-76 10:08:001.20[facility] HermannCHEM YNQSA8893-46-20 10:08:66056Qrboftoe HermannCHEM PLEKX6640-71-14 10:08:0011.6 [facility]annCHEM BYWVO8285-69-71 10:00:002.1[facility] HermannHEMATOLOGY 2016-02-16 12:02:00* Test Item Value Reference Range Interpretation Comments PTT (test code = PTT) 32.9 s 22.9-35.8 [facility]ann[facility] AND FAARQ6351-58-82 05:45:00>=1.050 *ABN*(02/16/16 12:45 AM)[facility] HJBBJ3427-65-57 05:45:005.0[facility] AND JLAMG6353-05-80 05:45:00Clear (02/16/16 12:45 AM)[facility] PNNOZ9569-28-24 05:45:00Yellow *NA*(02/16/16 12:45 AM)[facility] ALPVR7053-41-27 05:45:00Negative (02/16/16 12:45 AM)[facility] HGASI3712-17-82 05:45:00Small *ABN*(02/16/16 12:45 AM)[facility] SCMEX5048-79-32 05:45:00Negative *NA*(02/16/16 12:45 AM)[facility] WLTHW5240-93-77 05:45:0021[facility]annUR[facility] AND LZAPT7526-44-58 05:45:00 6[facility] AND GYAJU4671-38-36 05:45:00Small *ABN*(02/16/16 12:45 AM)[facility] PEYWR7962-49-03 05:45:002[facility] HermannCHEM PANEL 2016-02-16 01:31:008.3[facility] [id number] 01:31:003.5[facility] [id number] 01:31:0027[facility] [id number] 01:31:0079[facility] [id number] 01:31:0022[facility] [id number] 01:31:00<0.1[facility] [id number] 01:31:0012 [facility] [id number] 01:31:000.7[facility]ann[facility] PANEL 2016-02-16 01:31:004.8[facility] [id number] 01:31:12337Tljrstxk HermannCHEST 2 VIEWS [place] [address] Patient Name: ALEXANDER RICO MR #: [id number] : 1945 Age/Sex: 72/F Req #: [id number] Adm Physician: Ordered by: YURI AZEVEDO NP Report #: [id number] Location: ER Room/Bed: Procedure: [id number] DX/CHEST 2 VIEWS Exam Date: 09/04/17 Exam Time: 1050 REPORT STATUS: Signed PROCEDURE: X-RAY CHEST, TWO VIEWS COMPARISON: 06/16/2009. INDICATIONS: ANEM IA, WEAKNESS FINDINGS: The lungs are well-inflated. No focal airsp mable consolidation, pleural effusion, or pneumothorax. Surgical clips project over the bilateral chest andres, unchanged. No acute osseous abnormality . Stable cardiomediastinal contour. No pulmonary edema. Right sided skin fold. CONCLUSION: No acute cardiopulmonary abnormality. Dictated by: Heavenly Pinto M.D. on 09/04/2017 at 11:15 Electronically appro argenis by: Heavenly Pinto M.D. on 09/04/2017 at 11:15 Dictated By: LISA PINTO MD 1115 Trans cribed By: CHERYL on 09/04/17 1115 COPY TO: YURI AZEVEDO NP
--- OUTSIDE RECORDS SUMMARY | 2019-10-17 21:48 | XMS REPORT | Summary of Care ---
Author Author [facility] Address [address] [place] [address] Phone Unavailable Care Team Providers Care Scaffolding Helper Name Role Phone SAMARA Herzog, RADHA Unavailable Unavailable SHILOH Herzog, CORIE Unavailable Unavailable LAINE Herzog, CEFERINO Unavailable Unavailable JOSE LUIS D.O., JOSÉ MIGUEL Unavailable Unavailable LEON OPTICAL COATING TECHNICIAN, MERCEDEZ Unavailable Unavailable THU Herzog, ARABELLA Unavailable Unavailable LEENA Herzog, FREDDY Unavailable Unavailable JOSE RAMESH, DIVYA Villalobos Unavailable Unavailable YNES [facility] RNBC CPN, ODIN Unavailable Unav ailable SHILOH RAMESH [place], CORIE Unavailable Unavailable Laine RAMESH, Ceferino Unavailable Unavailable THU RAMESH, ARABELLA Unavailable Unavailable PAULINO RAMESH [place], JOY TUCKER Unavailable Unavailable JOSE Herzog, DIVYA Unavailable Unavailable LEENA RAMESH, FREDDY W Unavailable Unavailable DUKE NEDRA [place], DANNY RAMOS Unavailable Unavailab butch ANDERSON MD, LIZ Unavailable Unavailable YEH DO [place], JOSÉ MIGUEL Unavailable Unavailable Unavailable Unavailable Functional [...] 1 TABLET DAILY DIRECTED. * Refills: 0 RAHDA PASCUAL M.D. * Start : 24-Sep-2013 Active Pantoprazole Sodium 40 MG Oral Tablet Delayed Release TAKE 1 TABLET DAILY * Quantity: 90 Refills: 1 YEH D.O.JOSÉ MIGUEL * Start : 17-Jun-2014 Active Viibryd 20 MG Oral Tablet TAKE 1 TABLET DAILY * Quantity: 90 Refills: 1 YEH D.Teddy.JOSÉ MIGUEL * Start : 19-Mar-2015 Active Dicyclomine [...] DAILY. * Quantity: 90 Refills: 0 YEH D.O.JOÉS MIGUEL * Start : 30-Jan-2018 Active 30 [...] a week * Quantity: 45 Refills: 2 SAMARA Herzog RADHA * Start : 16-Aug-2018 Active HYDROcodone-Acetaminophen 5-300 MG Oral Tablet TAKE 1 TABLET EVERY 4 TO 6 HOURS NEEDED. * Quantity: 30 Refills: 0 FREDDY STERN M.D. * Start : 15-Nov-2018 Active Ramelteon 8 MG Oral Tablet TAKE 1 TABLET AT BEDTIME. * Quantity: 30 Refills: 5 YEH D.O., CAMERONMELLY * Start : 09-Apr-2019 Active DULoxetine HCl [...] Tdap (Boostrix) on: 06-Aug-2014 Influenza Comments: Approx [id number] Prevnar 13 Intramuscular Suspension Lot #: [id number] on: 11-Oct-2016 Influenza, seasonal, injectable on: 26-Mar-2019 Pneumovax 23 25 MCG/0.5ML Injection Inje ctable Lot #: [id number] on: 09-Apr-2019 Family History Name Dates Details [...] Details - Status: Name Dates Details Never smoked tobacco (finding) Vital Signs Date Test Result Details [id number]-[id number]:20 Physical Findings 9 Status: Comments: PH Q-9 Adult Depression Screening Results Date Description Value Details Results not documented Plan of Care Name Dates Details Planned Observations Planned Goals not documented Planned Encounters Appointment; ILZ ANDERSON M.D. On: 23-Jul-2019 15:00 Appointment; RADHA [...] Diagnosis: Problem not documented On: 03-May-2019 12:00 Appointment; ODIN QUICK APRN Encounter Diagnosis: Problem not documented On: 28-Jun-2019 12:30
--- OUTSIDE RECORDS SUMMARY | 2019-10-17 21:48 | XMS REPORT | Summary of Care ---
Author Author MEE Whiting M.A. Organization Unknown Address Unknown Phone Unavailable Care Team Providers Care Chest Painting And Sealing Supervisor Name Role Phone SAMARA Herzog, RADHA Unavailable Unavailable SHILOH Herzog, FAROKH Unavailable Unavailable LAINE Herzog, CEFERINO Unavailable Unavailable YEVon D.O., CAMERON-ISATU Unavailable Unavailable LEON PRINTING PLATE SETTER, MERCEDEZ Unavailable Unavailable Henok Gayle, Mee Unavailable Unavailable YNESVERONICA GARCIA, ODIN Unavailable Unavailable THU Herzog, JULIOA Unavailable Unavailable LEENA Herzog, FREDDY Unavailable Unavailable JOSE RAMESH, DIVYA Villalobos Unavailable Unavailable [facility] RNBC CPN, ODIN Unavailable Unav ailable SHILOH RAMESH [place], FAROKH Unavailable Unavailable Laine RAMESH, Ceferino Unavailable Unavailable THU RAMESH, ELENIUSTAFA Unavailable Unavailable PAULINO RAMESH [place], JOY TUCKER Unavailable Unavailable JOSE Herzog, DIVYA Unavailable Unavailable LEENA RAMESH, FREDDY W Unavailable Unavailable DUKE NEDRA [place], DANNY RAMOS Unavailable Unavailab Ambreen RAMESH, LIZ Unavailable Unavailable YEH DO [place], JOSÉ [...] Status: Active Depression (311, F32.9) Status: Active Acute pain of right knee [...] Essential (primary) hypertension (401.9, I10) Status: Active Body aches (780.96, R52) Status: Active Asthma exacerbation (493.92, J45.901) Status: Active Acute bronchitis (466.0, J20.9) Status: Active Acute sinusitis (461.9, J01.90) Status: Active Medications Name Dates Details Levothyroxine Sodium 125 MCG Oral Tablet TAKE 1 TABLET DAILY MONDAY THROUGH MONDAY only Quantity: 78 YEH D.O., CAMERON-ISATU * Start : 13-Aug-2012 Active Montelukast Sodium 10 MG Oral Tablet TAKE 1 TABLET DAILY * Quantity: 90 Refills: 1 YEH D.O., CAMERON-ISATU * Start : 13-Aug-2012 Active Accu-Chek Guide [...] Refills: 0 * Start : 22-Aug-2017 Active Benzonatate 100 MG Oral Capsule TAKE 1 CAPSULE 3 TIMES DAILY NEEDED. * Quantity: 90 Refills: 0 ODIN QUICK APRN * Start : 23-Dec-2017 Active Albuterol Sulfate 0.63 MG/3ML Inhalation Nebulization Solution USE 1 UNIT DOSE IN NEBULIZER EVERY 4 TO 6 HOURS NEEDED. * Quantity: 1 Refills: 2 ODIN QUICK APRN * Start : 23-Dec-2017 Active 25 x 3 ML Plas Cont Nebulizer/Tubing/Mouthpiece KIT USE DIRECTED. * Quantity: 1 [...] a day * Quantity: 60 Refills: 0 SIHLOH Herzog HOMERVon * Start : 06-Jun-2018 Active Acetaminophen 500 [...] JOSÉ MIGUEL * Start : 09-Apr-2019 Active tiZANidine HCl - 4 MG Oral Tablet TAKE 1 TABLET 3 TIMES DAILY NEEDED. * Quantity: 60 Refills: 1 YEH D.O., JOSÉ MIGUEL * Start : 16-Apr-2019 Active Metoprolol Succinate ER 50 MG Oral Tablet Extended Release 24 Hour TAKE 1 TABLET BY MOUTH EVERY DAY * Quantity: 30 Refills: 5 YEH D.O., JOSÉ MIGUEL * Start : 03-May-2019 Active Amoxicillin-Pot Clavulanate 875-125 MG Oral Tablet TAKE 1 TABLET EVERY 12 HOURS FOR 10 DAYS UNTIL GONE. * Quantity: 20 Refills: 0 YNES PRINTING PLATE SETTER, ODIN * Start : 28-Jun-2019 Active predniSONE 10 MG Oral Tablet TAKE 1 TABLET BY MOUTH TWICE DAILY FOR 5 DAYS, THEN 1 TABLET ONCE DAILY FOR 5 DA YS. * Quantity: 15 Refills: 0 YNES PRINTING PLATE SETTER, ODIN * Start : 28-Jun-2019 Active Allergies and Adverse Reactions Name Dates [...] Tdap (Boostrix) on: 06-Aug-2014 Influenza Comments: Approx [id number] Prevnar 13 Intramuscular Suspension Lot #: [id number] on: 11-Oct-2016 Influenza, seasonal, injectable on: 26-Mar-2019 Pneumovax 23 25 MCG/0.5ML Injection Inje ctable Lot #: [id number] on: 09-Apr-2019 Family History Name Dates Details [...] (finding) Vital Signs Date Test Result Details :45 Systolic blood pressure 140 mm[Hg] Status: Comments : Location: LUE; Position: Sitting Diastolic blood pressure 76 mm[Hg] Status: Comment s: Location: LUE; Position: Sitting Body height 70 in Status: Weight 238.5625 lb Status: Body mass index (BMI) [Ratio] 34.23 kg/m2 Status: Body surface area Derived from formula 2.25 m2 S tatus: Body temperature 97.5 f Status: Comments: Me thod: Temporal Heart Rate 65 /min Status: Comments: Lo cation: L Brachial Artery; Respiratory rate 16 /min Status: Comments: Qu ality: Normal 01-Adg-953721:20 Physical Findings 9 Status: Comments: PH Q-9 Adult Depression Screening Results Date Description Value Details 06-Vxv-930791:07 [O] Flu Test (in Office ) Flu A Negative (Normal) Flu B Negative (Normal) Plan of Care Name Dates Details Planned Observations Planned Goals not documented Planned Encounters Appointment; LIZ ANDERSON M.D. On: 23-Jul-2019 15:00 Appointment; RADHA PASCUAL M.D. On: 29-Jul-2019 14:45 Instructions Name Dates Details Instructions not documented Encounters Appointment; DIVYA GARCIA M.D. Encounter Diagnosis: Problem not documented On: 10-Jul-2017 8:45 Appointment; [facility], [facility] Encounter Diagnosis: Problem not documented On: 17-Jul-2017 [...] not documented On: 05-Dec-2017 14:30 Appointment; CEFERINO JAGN M.D. Encounter Diagnosis: Problem not documented On: [...]
--- OUTSIDE RECORDS SUMMARY | 2019-10-17 21:48 | XMS REPORT | Summary of Care ---
Author Author ALEXANDER Whiting M.A. Organization Unknown Address Unknown Phone Unavailable Care Team Providers Care Contingents Supervisor Name Role Phone SAMARA Herzog, RADHA Unavailable Unavailable SHILOH Herzog, CORIE Unavailable Unavailable LAINE Herzog, CEFERINO Unavailable Unavailable YEVon D.O., CAMERON-ISATU Unavailable Unavailable LEON PACKAGING TECHNICIAN, MERCEDEZ Unavailable Unavailable YNES PACKAGING TECHNICIAN, ODIN Unavailable Unavailable THU Herzog, ARABELLA Unavailable Unavailable LEENA Herzog, FREDDY Unavailable Unavailable JOSE RAMESH, DIVYA Villalobos Unavailable Unavailable YNES [facility] RNBC CPN, ODIN Unavailable Unav ailable SHILOH RAMESH [place], CORIE Unavailable Unavailable Laine RAMESH, Ceferino Unavailable Unavailable THU RAMESH, ARABELLA Unavailable Unavailable PAULINO RAMESH [place], JOY TUCKER Unavailable Unavailable JOSE Herzog, DIVYA Unavailable Unavailable LEENA RAMESH, FREDDY W Unavailable Unavailable DUKE [place], DANNY RAMOS Unavailable Unavailab butch ANDERSON [...] Active Body aches (780.96, R52) Status: Active Medications Name Dates Details Levothyroxine [...] a day * Quantity: 2 Refills: 3 SAMARA Sherrie.RADHA Goff * Start : 21-Mar-2013 Active 102 Unit Box Ventolin HFA 108 (90 Base) MCG/ACT Inhalation Aerosol Solution USE 2 INHALATIONS ORALLY 3 TIMES DAILY NEEDED * Quantity: 3 Refills: 1 YEH D.O., MIRELAN * Start : 16-May-2013 Active 18 GM [...] JOSÉ MIGUEL * Start : 19-Mar-2015 Active Dicyclomine [...] DAILY * Quantity: 90 Refills: 0 SAMARA Herzog RADHA * Start : 10-May-2018 Active Hydroxychloroquine Sulfate 200 MG Oral Tablet Take 1 tablet by mouth twice a day * Quantity: 60 Refills: 0 SHILOH HerzogCORIE * Start : 06-Jun-2018 Active Acetaminophen 500 [...] * Quantity: 30 Refills: 5 YEH D.O., MIRELAN * Start : 03-May-2019 Active Allergies and [...] Z86.73) Status: Resolved Procedures Procedure Dates Details [O] Flu Test (in Office ) Date: 28-Jun-2019 History of Oophorectomy - Unilateral (Removal Of [...] Tdap (Boostrix) on: 06-Aug-2014 Influenza Comments: Approx [id number] Prevnar 13 Intramuscular Suspension Lot #: [id number] on: 11-Oct-2016 Influenza, seasonal, injectable on: 26-Mar-2019 Pneumovax 23 25 MCG/0.5ML Injection Inje ctable Lot #: [id number] on: 09-Apr-2019 Family History Name Dates Details Family history of Congestive Heart Failu re Comments: Family History Status: Active Family history of Diabetes Mellitus (V18 .0) Comments: Family History Status: Active Family history of Coronary Artery Diseas e (.49) Comments: Family History Status: Active Family history [...] (finding) Vital Signs Date Test Result Details [id number]-[id number]:45 Systolic blood pressure 140 mm[Hg] Status: Comments [...] Artery; Respiratory rate 16 /min Status: Comments: [place]ad[place] duke: Normal 56-Hpj-433369:20 Physical Findings 9 Status: Comments: PH Q-9 Adult Depression Screening Results Date Description Value Details Results not documented Plan of Care Name Dates Details Planned Observations Planned Goals not documented Planned Encounters Appointment; LIZ ANDERSON M.D. On: 23-Jul-2019 15:00 Appointment; RADHA PASCUAL M.D. On: 29-Jul-2019 14:45 Interventions Provided Labs/Procedures/Imaging* [O] Flu Test (in Office ); To Be Done: 28 Jun 2019 Instructions Name Dates Details Instructions not documented [...]
--- OUTSIDE RECORDS SUMMARY | 2019-10-17 21:48 | XMS REPORT | Summary of Care ---
Author Author [facility] Address [address] [place] [address] Phone Unavailable Care Team Providers Care Medical Education Manager Name Role Phone SAMARA Herzog, RADHA Unavailable Unavailable SHILOH Herzog, FAROKVon Unavailable Unavailable LAINE Herzog, CEFERINO Unavailable Unavailable YEVon D.O., CAMERON-ISATU Unavailable Unavailable LEON RECORDING STUDIO SETUP WORKER, MERCEDEZ Unavailable Unavailable YNES RECORDING STUDIO SETUP WORKER, ODIN Unavailable Unavailable THU Herzog, ARABELLA Unavailable Unavailable LEENA Herzog, FREDDY Unavailable Unavailable JOSE RAMESH, DIVYA Villalobos Unavailable Unavailable YNES [facility] RNBC CPN, DOIN Unavailable Unav ailable SHILOH RAMESH [place], FARVINCE Unavailable Unavailable Laine RAMESH, Ceferino Unavailable Unavailable THU RAMESH, ARABELLA Unavailable Unavailable PAULINO RAMESH [place], JOY TUCKER Unavailable Unavailable JOSE Herzog, DIVYA Unavailable Unavailable LEENA RAMESH, FREDYD W Unavailable Unavailable DUKE NEDRA [place], DANNY RAMOS Unavailable Unavailab butch ANDERSON MD, LIZ Unavailable Unavailable YEH DO [place], JOSÉ MIGUEL Unavailable Unavailable Unavailable Unavailable Functional [...] a day * Quantity: 100 Refills: 6 SAMARA Balderas.RADHA Goff * Start : 14-Aug-2012 Active Accu-Chek FastClix Lancets Check BG 2x a day * Quantity: 2 Refills: 3 RADHA PASCUAL M.D. * Start : 21-Mar-2013 Active 102 Unit Box Ventolin HFA 108 (90 Base) MCG/ACT Inhalation Aerosol Solution USE 2 INHALATIONS ORALLY 3 TIMES DAILY NEEDED * Quantity: 3 Refills: 1 YEH D.JOSÉ MIGUEL Ayon * Start : 16-May-2013 Active 18 GM [...] DAILY. * Quantity: 1 Refills: 5 YEH D.Teddy.JOSÉ MIGUEL * Start : 11-Oct-2016 Active 14 [...] day * Quantity: 60 Refills: 0 SHILOH Herzog, CORIE * Start : 06-Jun-2018 Active Acetaminophen 500 MG Oral Tablet TAKE 2 TABLET Every 8 hours PRN MDD:3000 * Quantity: 90 Refills: 0 TOMMY ANDINO M.D.AFTobin * Start : 24-Jul-2018 Active Ferrous Sulfate [...] GONE. * Quantity: 20 Refills: 0 YNES RECORDING STUDIO SETUP WORKER, ODIN * Start : 28-Jun-2019 Active predniSONE 10 MG Oral Tablet TAKE 1 TABLET BY MOUTH TWICE DAILY FOR 5 DAYS, THEN 1 TABLET ONCE DAILY FOR 5 DA YS. * Quantity: 15 Refills: 0 YNES RECORDING STUDIO SETUP WORKER, ODIN * Start : 28-Jun-2019 Active Allergies [...] Tdap (Boostrix) on: 06-Aug-2014 Influenza Comments: Approx [id number] Prevnar 13 Intramuscular Suspension Lot #: [id number] on: 11-Oct-2016 Influenza, seasonal, injectable on: 26-Mar-2019 Pneumovax 23 25 MCG/0.5ML Injection Inje ctable Lot #: [id number] on: 09-Apr-2019 Family History Name Dates Details [...] 16 /min Status: Comments: Qu ality: Normal 71-Rml-160851:20 Physical Findings 9 Status: Comments: PH Q-9 Adult Depression Screening Results Date Description Value Details 57-Woc-801036:07 [O] Flu Test (in Office ) Flu A Negative (Normal) Flu B Negative (Normal) Plan of Care Name Dates Details Planned Observations Planned Goals not documented Planned Encounters Appointment; LIZ ANDERSON M.D. On: 23-Jul-2019 15:00 Appointment; RADHA PASCUAL M.D. On: 29-Jul-2019 14:45 Instructions Name Dates Details Instructions not documented Encounters Appointment; [facility], JUDIE Encounter Diagnosis: Problem not documented On: [...] Diagnosis: Problem not documented On: 28-Jun-2019 12:30 Appointment; JOSÉ MIGUEL AMAYA D.O. Encounter Diagnosis: Problem not documented On: 12-Jul-2019 12:00
--- OUTSIDE RECORDS SUMMARY | 2019-10-17 21:48 | XMS REPORT | Summary of Care ---
Author Author ALEXANDER QUICK APRN Organization Unknown Address Unknown Phone Unavailable Care Team Providers Care Bulk Pigment Reducer Name Role Phone SAMARA Herzog, RADHA Unavailable Unavailable SHILOH Herzog, CORIE Unavailable Unavailable LAINE Herzog, CEFERINO Unavailable Unavailable YEVon D.O., CAMERON-ISATU Unavailable Unavailable LEON RADIOCOMMUNICATIONS TECHNICIAN, MERCEDEZ Unavailable Unavailable YNES RADIOCOMMUNICATIONS TECHNICIAN, ODIN Unavailable Unavailable THU Herzog, ARABELLA Unavailable Unavailable LEENA Herzog, FREDDY Unavailable Unavailable JOSE RAMESH, DIVYA Villalobos Unavailable Unavailable Y[facility]ES [facility] RNBC CPN, ODIN Unavailable Unav ailable SHILOH RAMESH [place], CORIE Unavailable Unavailable Laine RAMESH, Ceferino Unavailable Unavailable THU RAMESH, ARABELLA Unavailable Unavailable PAULINO RAMESH [place], JOY TUCKER Unavailable Unavailable JOSE Herzog, DIVYA [...] day * Quantity: 100 Refills: 6 SAMARA Sherrie.[place], RADHA * Start : 14-Aug-2012 Active Accu-Chek FastClix Lancets Check BG 2x a day * Quantity: 2 Refills: 3 SAMARA RADHA Herzog * Start : 21-Mar-2013 Active 102 Unit [...] DAILY * Quantity: 90 Refills: 0 SAMARA Herzog, RADHA * Start : 10-May-2018 Active Hydroxychloroquine Sulfate 200 MG Oral Tablet Take 1 tablet by mouth twice a day * Quantity: 60 Refills: 0 SHILOH Herzog, CORIE * Start : 06-Jun-2018 Active Acetaminophen 500 MG Oral Tablet TAKE 2 TABLET Every 8 hours PRN MDD:3000 * Quantity: 90 Refills: 0 THU Herzog, TOMMYAFTobin * Start : 24-Jul-2018 Active Ferrous Sulfate [...] UNTIL GONE. * Quantity: 20 Refills: 0 ODIN QUICK APRN * Start : 28-Jun-2019 Active predniSONE 10 MG Oral Tablet TAKE 1 TABLET BY MOUTH TWICE DAILY FOR 5 DAYS, THEN 1 TABLET ONCE DAILY FOR 5 DA YS. * Quantity: 15 Refills: 0 ODIN QUICK APRN * Start : 28-Jun-2019 Active MethylPREDNISolone Acetate 80 MG/ML Injection Suspension ADMINISTER 80 MG INTRAMUSCULARLY IN GLUTEAL DELTOID ONCE TODAY IN CLINIC. * Refills: 0 ODIN QUICK APRN * Start : 28-Jun-2019 Admin Requested Allergies and Adverse Reactions Name Dates Details [...] Tdap (Boostrix) on: 06-Aug-2014 Influenza Comments: Approx [id number] Prevnar 13 Intramuscular Suspension Lot #: [id number] on: 11-Oct-2016 Influenza, seasonal, injectable on: 26-Mar-2019 Pneumovax 23 25 MCG/0.5ML Injection Inje ctable Lot #: [id number] on: 09-Apr-2019 Family History Name Dates Details [...] (finding) Vital Signs Date Test Result Details 91-[id number]:45 Systolic blood pressure 140 mm[Hg] Status: Comments [...] Respiratory rate 16 /min Status: Comments: Qu laithty: Normal 28-Mad-058037:20 Physical Findings 9 Status: Comments: PH Q-9 Adult Depression Screening Results Date Description Value Details 66-Spf-731634:07 [O] Flu Test (in Office ) Flu A Negative (Normal) Flu B Negative (Normal) Plan of Care Name Dates Details Planned Observations Planned Goals not documented Planned Encounters Appointment; LIZ ANDERSON M.D. On: 23-Jul-2019 15:00 Appointment; RADHA PASCUAL M.D. On: 29-Jul-2019 14:45 Planned Medications MethylPREDNISolone Acetate 80 MG/ML Inje ction Suspension Ordered: 28-Jun-2019 Held Interventions Provided Medication Changes* Albuterol Sulfate 0.63 MG/3ML Inhalation Nebulization Solution - Renew * Amoxicillin-Pot Clavulanate 875-125 MG Oral Tablet - Start * Benzonatate 100 MG Oral Capsule - Renew * predniSONE 10 MG Oral Tablet - Start Labs/Procedures/Imaging* [O] Flu Test (in Office ); Done: 28 Jun 2019 Instructions Name Dates Details Instructions not documented Encounters Appointment; DIVYA GARCIA M.D. Encounter Diagnosis: Problem not documented On: 10-Jul-2017 8:45 [facility] Encounter Diagnosis: Problem not documented On: 17-Jul-2017 [...] Problem not documented On: 03-May-2019 12:00 Appointment; YNES, ODIN, RADIOCOMMUNICATIONS TECHNICIAN Encounter Diagnosis: Problem not documented On: 28-Jun-2019 12:30
--- OUTSIDE RECORDS SUMMARY | 2019-10-17 21:48 | XMS REPORT | Summary of Care ---
Author Author [place] [facility] Address [address] [place] [address] Phone Unavailable Care Team Providers Care Lumber Hacker Name Role Phone SAMARA Herzog, RADHA Unavailable Unavailable SHILOH Herzog, FAROKVon Unavailable Unavailable LAINE Herzog, CEFERINO Unavailable Unavailable YEVon D.O., CAMERON-ISATU Unavailable Unavailable LEON SCRAP DROP ENGINEER, MERCEDEZ Unavailable Unavailable YNES SCRAP DROP ENGINEER, ODIN Unavailable Unavailable THU Herzog, ARABELLA Unavailable Unavailable LEENA Herzog, FREDDY Unavailable Unavailable JOSE RAMESH, DIVYA Villalobos Unavailable Unavailable YNES [facility] RNBC CPN, ODIN Unavailable Unav ailable SHILOH RAMESH [place], FARVINCE Unavailable Unavailable Laine RAMESH, Ceferino Unavailable Unavailable THU RAMESH, ARABELLA Unavailable Unavailable PAULINO RAMESH [place], JOY TUCKER Unavailable Unavailable JOSE Herzog, DIVYA Unavailable Unavailable LEENA RAMESH, FREDDY W Unavailable Unavailable DUKE NEDRA [place], DANNY RAMOS Unavailable Unavailab butch ANDERSON MD, LIZ Unavailable Unavailable YEH DO [place], JOSÉ MIGUEL Unavailable Unavailable Unavailable Unavailable Functional [...] Tdap (Boostrix) on: 06-Aug-2014 Influenza Comments: Approx [id number] Prevnar 13 Intramuscular Suspension Lot #: [id number] on: 11-Oct-2016 Influenza, seasonal, injectable on: 26-Mar-2019 Pneumovax 23 25 MCG/0.5ML Injection Inje ctable Lot #: [id number] on: 09-Apr-2019 Family History Name Dates Details [...] (finding) Vital Signs Date Test Result Details 91-[id number]:45 Systolic blood pressure 140 mm[Hg] Status: Comments [...] 16 /min Status: Comments: Qu ality: Normal 98-Jmt-887312:20 Physical Findings 9 Status: Comments: PH Q-9 Adult Depression Screening Results Date Description Value Details 97-Vlu-547509:07 [O] Flu Test (in Office ) Flu [...] not documented On: 30-Aug-2018 9:00 Appointment; RADHA PSACUAL M.D. Encounter Diagnosis: Problem not documented On: [...]
--- OUTSIDE RECORDS SUMMARY | 2019-10-17 21:48 | XMS REPORT | Summary of Care ---
Author Author ALEXANDER Matamoros M.A. Organization Unknown Address [facility] Phone Unavailable Care Team Providers Care Benefits Specialist Name Role Phone SAMARA Herzog, RADHA Unavailable Unavailable SHILOH Herzog, CORIE Unavailable Unavailable LAINE Herzog, CEFERINO Unavailable Unavailable YEVon D.O., JOSÉ MIGUEL Unavailable Unavailable LEON ADMINISTRATIVE ASSISTANT COORDINATOR, MERCEDEZ Unavailable Unavailable THU Herzog, ARABELLA Unavailable Unavailable LEENA Herzog, FREDDY Unavailable Unavailable JOSE RAMESH, DIVYA Villalobos Unavailable Unavailable YNES [facility] RNBC CPN, ODIN Unavailable Unav ailable SHILOH RAMESH MD, CORIE Unavailable Unavailable Laine RAMESH, Ceferino Unavailable Unavailable THU RAMESH, ARABELLA Unavailable Unavailable PAULINO RAMESH MD, JOY TUCKER Unavailable Unavailable JOSE Herzog, DIVYA Unavailable Unavailable LEENA RAMESH, FREDDY W Unavailable Unavailable DUKE NEDRA MD, DANNY RAMOS Unavailable Unavailab Ambreen RAMESH, LIZ Unavailable Unavailable YEH DO MD, JOSÉ MIGUEL Unavailable Unavailable Unavailable Unavailable Functional [...] DAILY * Quantity: 90 Refills: 1 YEH D.JOSÉ MIGUEL Ayon * Start : 17-Jun-2014 Active Viibryd 20 MG Oral Tablet TAKE 1 TABLET DAILY * Quantity: 90 Refills: 1 YEH D.JOSÉ MIGUEL Ayon * Start : 19-Mar-2015 Active Dicyclomine HCl [...] * Quantity: 90 Refills: 0 THU Herzog, ARABELLA * Start : 24-Jul-2018 Active Ferrous [...] Tdap (Boostrix) on: 06-Aug-2014 Influenza Comments: Approx [id number] Prevnar 13 Intramuscular Suspension Lot #: [id number] on: 11-Oct-2016 Influenza, seasonal, injectable on: 26-Mar-2019 Pneumovax 23 25 MCG/0.5ML Injection Inje ctable Lot #: [id number] on: 09-Apr-2019 Family History Name Dates Details [...] (finding) Vital Signs Date Test Result Details [id number] Physical Findings 9 Status: Comments: PH Q-9 Adult Depression Screening Results Date Description Value Details Results not documented Plan of Care Name Dates Details Planned Observations Planned Goals not documented Planned Encounters Appointment; ODIN QUICK APRN On: 28-Jun-2019 12:30 Appointment; LIZ ANDERSON M.D. On: 23-Jul-2019 15:00 Appointment; RADHA PASCUAL M.D. On: 29-Jul-2019 14:45 Interventions Provided Medication Changes* Rosuvastatin Calcium 10 MG Oral Tablet - Renew Instructions Name Dates Details Instructions not documented [...] Problem not documented On: 24-Jul-2018 10:00 Appointment; LZI ANDERSON M.D. Encounter Diagnosis: Problem not documented [...]
--- OUTSIDE RECORDS SUMMARY | 2019-10-17 21:48 | XMS REPORT | Summary of Care ---
Author Author [facility] Address [address] [place] [address] Phone Unavailable Care Team Providers Care Informatica Architect Name Role Phone SAMARA Herzog, RADHA Unavailable Unavailable SHILOH Herzog, FAROKVon Unavailable Unavailable LAINE Herzog, CEFERINO Unavailable Unavailable YEVon D.O., CAMERON-ISATU Unavailable Unavailable LEON DYE RANGE OPERATOR CLOTH, MERCEDEZ Unavailable Unavailable YNES DYE RANGE OPERATOR CLOTH, ODIN Unavailable Unavailable THU Herzog, ARABELLA Unavailable Unavailable LEENA Herzog, FREDDY Unavailable Unavailable JOSE RAMESH, DIVYA Villalobos Unavailable Unavailable YNES [facility] RNBC CPN, ODIN Unavailable Unav ailable SHILOH RAMESH [place], FARVINCE Unavailable Unavailable Laine RAMESH, Ceferino Unavailable Unavailable THU RAMESH, ARABELLA Unavailable Unavailable PAULINO RAMESH [place], JOY TUCKER Unavailable Unavailable JOSE Herzog, DIVYA Unavailable Unavailable LEENA RAMESH, FREDDY W Unavailable Unavailable DUKE NEDRA [place], DANNY RAMOS Unavailable Unavailab butch ANDERSON MD, LIZ Unavailable Unavailable YEH DO [place], JOSÉ MIGUEL Unavailable Unavailable Unavailable Unavailable Functional [...] * Quantity: 90 Refills: 1 YEH D.O., MIRELAN * Start : 13-Aug-2012 Active Accu-Chek Guide In Vitro Strip TEST DIRECTED TWICE A DAY * Quantity: 2 Refills: 3 RADHA PASCUAL M.D. * Start : 13-Aug-2012 Active 100 Strip Box Vitamin D3 50 MCG (2000 [place]) Oral Capsule 1 a day * Quantity: 100 Refills: 6 SAMARA Sherrie.RADHA Goff * Start : 14-Aug-2012 Active B-12 TR 1000 MCG Oral Tablet Extended Release TAKE 1 TABLET DAILY DIRECTED. * Refills: 0 RADHA PASCUAL M.D. * Start : 24-Sep-2013 Active Accu-Chek FastClix Lancets Check BG 2x [...] D.O.JOSÉ MIGUEL * Start : 19-Mar-2015 Active Advair Diskus 250-50 MCG/DOSE Inhalation Aerosol Powder Breath Activated INHALE 1 PUFF TWICE DAILY. * Quantity: 1 Refills: 5 YEH D.O., JOSÉ MIGUEL * Start : 11-Oct-2016 Active 14 Each Pack amLODIPine Besylate 10 MG Oral Tablet TAKE 1 TABLET DAILY * Quantity: 90 Refills: 2 YEH D.O., JOSÉ MIGUEL * Start : 17-Apr-2017 Active Rosuvastatin Calcium 10 MG Oral Tablet TAKE 1 TABLET AT BEDTIME (REPLACING PRAVASTATIN) * Quantity: 90 Refills: 0 RADHA PASCUAL M.D. * Start : 21-Mar-2016 Active Vitamin C 100 MG Oral Tablet One tablet taken with iron pills - per PT * Refills: 0 * Start : 22-Aug-2017 Active Nebulizer/Tubing/Mouthpiece KIT USE DIRECTED. * Quantity: 1 Refills: 0 MERCEDEZ LEON APRN * Start : 23-Dec-2017 Active Acetaminophen 500 MG Oral Tablet TAKE 2 TABLET Every 8 hours PRN MDD:3000 * Quantity: 90 Refills: 0 TOMMY ANDINO M.D.AFTobin * Start : 24-Jul-2018 Active HYDROcodone-Acetaminophen 5-300 [...] MATAMOROS M.D. * Start : 06-Jun-2018 Active Albuterol Sulfate 0.63 MG/3ML Inhalation Nebulization Solution USE 1 UNIT DOSE IN NEBULIZER EVERY 4 TO 6 HOURS NEEDED. * Quantity: 1 Refills: 2 ODIN QUICK APRN * Start : 23-Dec-2017 Active 25 x 3 ML Plas Cont Amoxicillin-Pot Clavulanate 875-125 MG Oral Tablet TAKE 1 TABLET EVERY 12 HOURS FOR 10 DAYS UNTIL GONE. * Quantity: 20 Refills: 0 ODIN QUICK APRN * Start : 28-Jun-2019 Active Benzonatate 100 MG Oral Capsule TAKE 1 CAPSULE 3 TIMES DAILY NEEDED. * Quantity: 90 Refills: 0 YNES DYE RANGE OPERATOR CLOTH, ODIN * Start : 23-Dec-2017 Active predniSONE 10 MG Oral Tablet TAKE 1 TABLET BY MOUTH TWICE DAILY FOR 5 DAYS, THEN 1 TABLET ONCE DAILY FOR 5 DA YS. * Quantity: 15 Refills: 0 YNES DYE RANGE OPERATOR CLOTH, ODIN * Start : 28-Jun-2019 Active Allergies [...] Tdap (Boostrix) on: 06-Aug-2014 Influenza Comments: Approx [id number] Prevnar 13 Intramuscular Suspension Lot #: [id number] on: 11-Oct-2016 Influenza, seasonal, injectable on: 26-Mar-2019 Pneumovax 23 25 MCG/0.5ML Injection Inje ctable Lot #: [id number] on: 09-Apr-2019 Family History Name Dates Details [...] 16 /min Status: Comments: Qu ality: Normal [id number] Physical Findings 9 Status: Comments: PH Q-9 Adult Depression Screening Results Date Description Value Details [id number] [O] Flu Test (in Office ) Flu A Negative (Normal) Flu B Negative (Normal) Plan of Care Name Dates Details Planned Observations Planned Goals not documented Planned Encounters Appointment; JOSÉ MIGUEL AMAYA D.O. On: 12-Jul-2019 12:00 Appointment; LIZ ANDERSON M.D. On: 23-Jul-2019 15:00 Appointment; RADHA PASCUAL M.D. On: 29-Jul-2019 14:45 Instructions Name Dates Details Instructions not documented Encounters Appointment; DIVYA GARCIA M.D. Encounter Diagnosis: Problem not documented On: 10-Jul-2017 8:45 [facility] Encounter Diagnosis: Problem not documented On: [...]
--- OUTSIDE RECORDS SUMMARY | 2019-10-17 21:49 | XMS REPORT | Summary of Care ---
Author Author JOSE LUIS Mullins, ALEXANDER Marcus Organization Unknown Address Unknown Phone Unavailable Care Team Providers Care Senior Safety Management Consultant Name Role Phone SAMARA Herzog, RADHA Unavailable Unavailable SHILOH Herzog, FAROKH Unavailable Unavailable JOSE LUIS Awad.Gabo, CAMERON-ISATU Unavailable Unavailable LEON PROJECT CONSTRUCTION ASSISTANT MANAGER, MERCEDEZ Unavailable Unavailable YNES PROJECT CONSTRUCTION ASSISTANT MANAGER, ODIN Unavailable Unavailable THU Herzog, JULIOA Unavailable Unavailable LEENA Herzog, FREDDY Unavailable Unavailable JOSE RAMESH, DIVYA Villalobos Unavailable Unavailable YNES [facility] RNBC CPN, ODIN Unavailable Unav ailable SHILOH RAMESH [place], FARVINCE Unavailable Unavailable Precious RAMESH, Ceferino Unavailable Unavailable THU RAMESH, ARABELLA Unavailable Unavailable PAULINO RAMESH [place], JOY TUCKER Unavailable Unavailable JOSE Herzog, DIVYA Unavailable Unavailable LEENA RAMESH, FREDDY W Unavailable Unavailable DUKE PA [place], DANNY RAMOS Unavailable Unavailab butch ANDERSON MD, LIZ Unavailable Unavailable YEVon DO [place], JOSÉ MIGUEL Unavailable Unavailable Unavailable Unavailable Functional [...] D.O.JOSÉ MIGUEL * Start : 19-Mar-2015 Active Rosuvastatin Calcium [...] D.O.JOSÉ MIGUEL * Start : 30-Jan-2018 Active Tradjenta 5 MG Oral Tablet TAKE 1 TABLET DAILY * Quantity: 90 Refills: 0 RADHA PASCUAL M.D. * Start : 10-May-2018 Active Hydroxychloroquine Sulfate 200 MG Oral Tablet Take 1 tablet by mouth twice a day * Quantity: 60 Refills: 0 AGNIESZKADEBBIE Herzog CORIE * Start : 06-Jun-2018 Active Acetaminophen 500 MG Oral Tablet TAKE 2 TABLET Every 8 hours PRN MDD:3000 * Quantity: 90 Refills: 0 THU Herzog MOUSTAFA * Start : 24-Jul-2018 Active Ferrous Sulfate 325 (65 Fe) MG Oral Tablet TAKE 1 TABLET 2x a week * Quantity: 45 Refills: 2 RADHA PASCUAL M.D. * Start : 16-Aug-2018 Active HYDROcodone-Acetaminophen 5-300 MG Oral Tablet TAKE 1 TABLET EVERY 4 TO 6 HOURS NEEDED. * Quantity: 30 Refills: 0 FREDDY STERN M.D. * Start : 15-Nov-2018 Active tiZANidine HCl - 4 MG Oral Tablet TAKE 1 TABLET 3 TIMES DAILY NEEDED. * Quantity: 60 Refills: 1 YEH D.O.JOSÉ MIGUEL * Start : 16-Apr-2019 Active Metoprolol Succinate ER 25 MG Oral Tablet Extended Release 24 Hour TAKE 1 TABLET DAILY. * Quantity: 90 Refills: 1 YEH D.O., JOSÉ MIGUEL * Start : 03-May-2019 Active predniSONE 10 MG Oral Tablet TAKE 1 TABLET BY MOUTH TWICE DAILY FOR 5 DAYS, THEN 1 TABLET ONCE DAILY FOR 5 DA YS. * Quantity: 15 Refills: 0 ODIN QUICK APRN * Start : 28-Jun-2019 Active traZODone HCl - 50 MG Oral Tablet TAKE 1 TO 2 TABLETS 30 MINUTES BEFORE BEDTIME NEEDED FOR INSOMNIA. * Quantity: 60 Refills: 5 YEH D.O.JOSÉ MIGUEL * Start : 12-Jul-2019 Active Allergies and Adverse Reactions Name Dates [...] Tdap (Boostrix) on: 06-Aug-2014 Influenza Comments: Approx [id number] Prevnar 13 Intramuscular Suspension Lot #: [id number] on: 11-Oct-2016 Influenza, seasonal, injectable on: 26-Mar-2019 Pneumovax 23 25 MCG/0.5ML Injection Inje ctable Lot #: [id number] on: 09-Apr-2019 Family History Name Dates Details [...] (finding) Vital Signs Date Test Result Details :12 Systolic blood pressure 123 mm[Hg] Status: Comments : Location: LUE; Position: Sitting Diastolic blood pressure 71 mm[Hg] Status: Comment s: Location: LUE; Position: Sitting Weight 236 lb Status: Body mass index (BMI) [Ratio] 33.86 kg/m2 Status: Body surface area Derived from formula 2.24 m2 S tatus: Body height 70 in Status: Body temperature 97 f Status: Comments: Me thod: Temporal Respiratory rate 16 /min Status: Physical Findings 0 Status: Comments: Al quianaol Screen - How many times in the past yr have you had 5 (for M) or 4 (for F) or 4 (for all > 65yrs) or more drinks in a day? Heart Rate 71 /min Status: :45 Systolic blood pressure 140 mm[Hg] Status: Comments : Location: LUE; Position: Sitting Diastolic blood pressure 76 mm[Hg] Status: Comment s: Location: LUE; Position: Sitting Weight 238.5625 lb Status: Body mass index (BMI) [Ratio] 34.23 kg/m2 Status: Body surface area Derived from formula 2.25 m2 S tatus: Body height 70 in Status: Body temperature 97.5 f Status: Comments: Me thod: Temporal Respiratory rate 16 /min Status: Heart Rate 65 /min Status: Comments: Lo cation: L Brachial Artery; :20 Physical Findings 9 Status: Comments: PH Q-9 Adult Depression Screening Results Date Description Value Details [id number] [O] Flu Test (in Office ) Flu A Negative (Normal) Flu B Negative (Normal) Plan of Care Name Dates Details Planned Observations Planned Goals not documented Planned Encounters Appointment; LIZ ANDERSON M.D. On: 23-Jul-2019 15:00 Appointment; RADHA PASCUAL M.D. On: 29-Jul-2019 14:45 Interventions Provided Medication Changes* Losartan Potassium 100 MG Oral Tablet - Renew * Metoprolol Succinate ER 25 MG Oral Tablet Extended Release 24 Hour - Renew * traZODone HCl - 50 MG Oral Tablet - Start Plan* Depression - Improved. Continue Viibryd to 20 mg. Start Duloxetine * Dry Mouth - New. Stop Dicyclomine, Duloxetine * Back Pain with sciatica RLE - New. Increased Tizandine from 2 mg to 4 mg. Referred Pt for physical therapy. Instructed Pt not to operate heavy machinery while on medication. Duloxetine may also help with sciatic pain * Asthma Exacerbation/Seasonal Allergic Rhinitis - Improved. Continue Advair, Singulair. Continue Proair PRN. Continue Zyrtec in AM. * CKD - stable. Continue to monitor. Avoid NSAIDs * Dm-II - stable. Continue current regimen. Asked Pt to monitor blood sugars 2/2 recent steroid usage * Hypothyroidism - stable. Continue Levothyroxine * Follow-up in 1 month, sooner if needed Instructions Name Dates Details Instructions not documented Encounters Appointment; [facility], [facility] Encounter Diagnosis: Problem not documented On: [...] not documented On: 16-Oct-2018 14:00 Appointment; CEFERINO JAGN M.D. Encounter Diagnosis: Problem [...]
--- OUTSIDE RECORDS SUMMARY | 2019-10-17 21:49 | XMS REPORT | Summary of Care ---
Author Author JOSE LUIS Mullins, ALEXANDER Marcus Organization Unknown Address Unknown Phone Unavailable Care Team Providers Care Hoisting Laborer Name Role Phone SAMARA Herzog, RADHA Unavailable Unavailable SHILOH Herzog, FAROKH Unavailable Unavailable JOSE LUIS Awad.Gabo, CAMERON-ISATU Unavailable Unavailable LEON INSULATION AND FLOORING ASSEMBLER, MERCEDEZ Unavailable Unavailable YNES INSULATION AND FLOORING ASSEMBLER, ODIN Unavailable Unavailable THU Herzog, JULIOA Unavailable Unavailable LEENA Herzog, FREDDY Unavailable Unavailable JOSE RAMESH, DIVYA Villalobos Unavailable Unavailable YNES [facility] RNBC CPN, ODIN Unavailable Unav ailable SHILOH RAMESH [place], FARVINCE Unavailable Unavailable Precious RAMESH, Ceferino Unavailable Unavailable THU RAMESH, ARABELLA Unavailable Unavailable PAULINO RAMESH [place], JOY TUCKER Unavailable Unavailable JOSE Herzog, DIVYA Unavailable Unavailable LEENA RAMESH, FREDDY W Unavailable Unavailable DUKE NEDRA [place], DANNY RAMOS Unavailable Unavailab butch ANDERSON MD, LIZ Unavailable Unavailable YEVon DO [place], JOSÉ MIGUEL Unavailable Unavailable Unavailable Unavailable Functional Status Name Dates Details Functional status health issues are not documented Status: Name Dates Details Cognitive status health issues are not d ocumented Status: Problems Name Dates Details Colon cancer screening (V76.51, Z12.11) Status: Active [...] tract infection) (5 99.0, N39.0) Status: Active 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, K22.70) Status: Active Depression (311, F32.9) Status: Active Acute pain of right knee (719.46, M25.56 1) Status: Active 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 (724.2, M54.41) Status: Active Hypothyroidism (244.9, E03.9) Status: Active Essential (primary) hypertension (401.9, I10) Status: Active Body aches (780.96, R52) Status: Active Asthma exacerbation (493.92, J45.901) Status: Active Acute bronchitis (466.0, J20.9) Status: Active Acute sinusitis (461.9, J01.90) Status: Active Chronic insomnia (780.52, F51.04) Status: Active CKD (chronic kidney disease) (585.9, N18 .9) Status: Active Asthma, persistent (493.90) Status: Active Chronic major depressive disorder, recur rent episode (296.30, F33.9) Status: Active Diabetes mellitus, type II (250.00, E11. 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 * Start : 13-Aug-2012 Active 100 Strip Box Vitamin D3 50 MCG (2000 [place]) Oral Capsule 1 a day * Quantity: 100 Refills: 6 SAMARARADHA Buck M.D. * Start : 14-Aug-2012 Active Accu-Chek FastClix Lancets Check BG 2x a day * Quantity: 2 Refills: 3 SAMARARADHA Buck M.D. * Start : 21-Mar-2013 Active 102 [...] HOURS NEEDED. * Quantity: 1 Refills: 2 YNESODIN MARTIN APRN * Start : 23-Dec-2017 Active 25 [...] DAILY. * Quantity: 90 Refills: 1 YEH D.O.JOSÉ MIGUEL * Start : 03-May-2019 Active predniSONE [...] INSOMNIA. * Quantity: 60 Refills: 5 YEH D.O., JOSÉ MIGUEL * Start : 12-Jul-2019 Active Allergies [...] Tdap (Boostrix) on: 06-Aug-2014 Influenza Comments: Approx [id number] Prevnar 13 Intramuscular Suspension Lot #: [id number] on: 11-Oct-2016 Influenza, seasonal, injectable on: 26-Mar-2019 Pneumovax 23 25 MCG/0.5ML Injection Inje ctable Lot #: [id number] on: 09-Apr-2019 Family History Name Dates Details Family history of Congestive Heart Failu re Comments: Family History Status: Active Family history of Diabetes Mellitus (V18 .0) Comments: Family History Status: Active Family history of Coronary Artery Diseas e (V1.49) Comments: Family History Status: Active Family history [...] Status: Physical Findings 0 Status: Comments: Al cohol Screen - How many times in the [...] Status: Comments: Lo cation: L Brachial Artery; [id number] Physical Findings 9 Status: Comments: PH Q-9 Adult Depression Screening Results Date Description Value Details [id number] [O] Flu Test (in Office ) Flu [...] Oral Tablet - Start Plan* Depression - Stable. Continue Viibryd to 20 mg. D/C Duloxetine * Dry Mouth - New. Stop Dicyclomine, Duloxetine * Back Pain with sciatica RLE - Stable. Continue Tizanidine. Instructed Pt not to operate heavy machinery while on medication. * Asthma Exacerbation/Seasonal Allergic Rhinitis - Stable. Start montelukast. Continue Advair, Singulair. Continue Proair PRN. Continue Zyrtec in AM. Decrease Metoprolol. * CKD - stable. Continue to monitor. Avoid NSAIDs * Dm-II - stable. Continue current regimen. Asked Pt to monitor blood sugars 2/2 recent steroid usage * Hypothyroidism - stable. Continue Levothyroxine * Follow-up in 3 month, sooner if needed Instructions Name Dates Details Instructions not documented Encounters Appointment; [facility], [facility] Encounter Diagnosis: Problem not documented On: [...] Problem not documented On: 26-Mar-2019 13:00 Appointment; OIDN QUICK APRN Encounter Diagnosis: Problem not documented [...]
--- OUTSIDE RECORDS SUMMARY | 2019-10-17 21:49 | XMS REPORT | Summary of Care ---
Author Author SAMARA Herzog, ALEXANDER Marcus Organization Unknown Address Unknown Phone Unavailable Care Team Providers Care Front Desk Admin Name Role Phone SAMARA Herzog, RADHA Unavailable Unavailable SHILOH Herzog, FAROKH Unavailable Unavailable YEH D.O., CAMERON-ISATU Unavailable Unavailable LEON ONLINE PROGRAM COORDINATOR, MERCEDEZ Unavailable Unavailable YNES ONLINE PROGRAM COORDINATOR, ODIN Unavailable Unavailable THU Herzog, JULIOA Unavailable Unavailable LEENA Herzog, FREDDY Unavailable Unavailable JOSE RAMESH, DIVYA Villalobos Unavailable Unavailable YNES [facility] RNBC CPN, ODIN Unavailable Unav ailable SHILOH RAMESH [place], FARVINCE Unavailable Unavailable Precious RAMESH, Ceferino Unavailable Unavailable THU RAMESH, ARABELLA Unavailable Unavailable PAULINO RAMESH [place], JOY TUCKER Unavailable Unavailable JOSE Herzog, DIVYA Unavailable Unavailable LEENA RAMESH, FREDDY W Unavailable Unavailable DUKE NEDRA [place], DANNY RAMOS Unavailable Unavailab butch ANDERSON MD, [...] Status: Active Anemia (285.9, D64.9) Status: Active Burning with urination (788.1, R30.0) Status: Active Leukocytes in urine (791.7, R82.998) Status: Active E. coli UTI (urinary tract infection) (5 99.0, N39.0) Status: Active 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, K22.70) Status: Active Depression (311, F32.9) Status: Active Acute pain of right knee (719.46, M25.56 1) Status: Active 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 (724.2, M54.41) Status: Active Body aches (780.96, R52) Status: Active Asthma exacerbation (493.92, J45.901) Status: Active Acute bronchitis (466.0, J20.9) Status: Active Acute sinusitis (461.9, J01.90) Status: Active Chronic insomnia (780.52, F51.04) Status: Active CKD (chronic kidney disease) (585.9, N18 .9) Status: Active Asthma, persistent (493.90) Status: Active Chronic major depressive disorder, recur rent episode (296.30, F33.9) Status: Active 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 9) Status: Active Essential (primary) hypertension (401.9, I10) Status: Active Other hyperlipidemia (272.4, E78.49) Status: Active Hypothyroidism (244.9, E03.9) Status: Active Medications Name Dates Details Levothyroxine [...] D.O.JOSÉ MIGUEL * Start : 17-Apr-2017 Active Benzonatate 100 MG Oral Capsule TAKE [...] D.O.JOSÉ MIGUEL * Start : 30-Jan-2018 Active Hydroxychloroquine Sulfate 200 MG Oral Tablet [...] JOSÉ MIGUEL * Start : 12-Jul-2019 Active Tradjenta 5 MG Oral Tablet TAKE 1 TABLET DAILY * Quantity: 90 Refills: 0 RADHA PASCUAL M.D. * Start : 10-May-2018 Active Vitamin C 100 MG Oral Tablet One tablet taken with iron pills - per PT * Refills: 0 * Start : 22-Aug-2017 Active Allergies and Adverse Reactions Name Dates [...] Tdap (Boostrix) on: 06-Aug-2014 Influenza Comments: Approx [id number] Prevnar 13 Intramuscular Suspension Lot #: [id number] on: 11-Oct-2016 Influenza, seasonal, injectable on: 26-Mar-2019 Pneumovax 23 25 MCG/0.5ML Injection Inje ctable Lot #: [id number] on: 09-Apr-2019 Family History Name Dates Details [...] Status: Comments: Lo cation: L Brachial Artery; Results Date Description Value Details [id number] [O] Flu Test (in Office ) Flu A Negative (Normal) Flu B Negative (Normal) Plan of Care Name Dates Details Planned Observations Planned Goals not documented Planned Encounters Appointment; RADHA PASCUAL M.D. On: 23-Jul-2019 10:00 Appointment; LIZ ANDERSON M.D. On: 23-Jul-2019 15:00 Interventions Provided Discussion/Summary* Discussed the importance of DM control and its complications. Stressed the importance of consistent MNT and med compliance in DM control * do SMBG. * Exercise * Take medicine. Discussed the importance of BP control. * Take medicine. MNT reiterated. Discussed the importance of Lipid control. * take LT4; serial TFT and adjust dose as needed * Review the proper way to take LT4 Instructions Name Dates Details Instructions not documented Encounters Appointment; LIZ ANDERSON M.D. Encounter Diagnosis: Problem [...] Diagnosis: Problem not documented On: 12-Jul-2019 12:00 Appointment; RADHA PASCUAL M.D. Encounter Diagnosis: Problem not documented On: 23-Jul-2019 10:00
--- OUTSIDE RECORDS SUMMARY | 2019-10-17 21:49 | XMS REPORT | Summary of Care ---
Author Author ALEXANDER Moctezuma M.A. Organization Unknown Address [facility] Phone Unavailable Care Team Providers Care Manager Convention Name Role Phone SAMARA Herzog, RADHA Unavailable Unavailable SHILOH Herzog, FAROKH Unavailable Unavailable YEH D.O., CAMERON-ISATU Unavailable Unavailable LEON WEDDING DAY COORDINATOR, MERCEDEZ Unavailable Unavailable YNES WEDDING DAY COORDINATOR, ODIN Unavailable Unavailable THU Herzog, ARABELLA Unavailable Unavailable LEENA Herzog, FREDDY Unavailable Unavailable JOSE RAMESH, DIVYA Villalobos Unavailable Unavailable YNES [facility] RNBC CPN, ODIN Unavailable Unav ailable SHILOH RAMESH [place], CORIE Unavailable Unavailable Precious RAMESH, Ceferino Unavailable Unavailable [...] day * Quantity: 100 Refills: 6 SAMARA RADHA Herzog * Start : 14-Aug-2012 Active Accu-Chek FastClix [...] MIGUEL * Start : 17-Jun-2014 Active Viibryd 40 [...] HOURS NEEDED. * Quantity: 1 Refills: 2 YNES ODIN GARCIA * Start : 23-Dec-2017 Active 25 x [...] D.O.JOSÉ MIGUEL * Start : 03-May-2019 Active Allergies and [...] Tdap (Boostrix) on: 06-Aug-2014 Influenza Comments: Approx [id number] Prevnar 13 Intramuscular Suspension Lot #: [id number] on: 11-Oct-2016 Influenza, seasonal, injectable on: 26-Mar-2019 Pneumovax 23 25 MCG/0.5ML Injection Inje ctable Lot #: [id number] on: 09-Apr-2019 Family History Name Dates Details [...] (finding) Vital Signs Date Test Result Details :35 Systolic blood pressure 131 mm[Hg] Status: Comments : Location: LUE; Position: Sitting Diastolic blood pressure 72 mm[Hg] Status: Comment s: Location: LUE; Position: Sitting Weight 240 lb Status: Body mass index (BMI) [Ratio] 34.44 kg/m2 Status: Body surface area Derived from formula 2.26 m2 S tatus: Body height 70 in Status: Body temperature 97 f Status: Comments: Me thod: Temporal Respiratory rate 16 /min Status: Heart Rate 69 /min Status: :12 Systolic blood pressure 123 mm[Hg] Status: [...] Respiratory rate 16 /min Status: Heart Rate 71 /min Status: Physical Findings 0 Status: Comments: Al cohol Screen - How many times in the past yr have you had 5 (for M) or 4 (for F) or 4 (for all > 65yrs) or more drinks in a day? :45 Systolic blood pressure 140 mm[Hg] Status: [...] Brachial Artery; Results Date Description Value Details [id number]-[id number] [O] Flu Test (in Office ) Flu A Negative (Normal) Flu B Negative (Normal) Plan of Care Name Dates Details Planned Observations Planned Goals not documented Planned Encounters Appointment; RADHA PASCUAL M.D. On: 23-Jul-2019 10:00 Appointment; LIZ ANDERSON M.D. On: 23-Jul-2019 15:00 Interventions Provided Medication Changes* Viibryd 40 MG Oral Tablet - Renew with Changes Instructions Name Dates Details Instructions not documented [...] Problem not documented On: 12-Jul-2019 12:00 Appointment; JOSÉ MIGUEL AMAYA D.O. Encounter Diagnosis: Problem not documented On: 23-Jul-2019 8:30
--- OUTSIDE RECORDS SUMMARY | 2019-10-17 21:49 | XMS REPORT | Summary of Care ---
Author Author JOSE LUIS Mullins, ALEXANDER Marcus Organization Unknown Address Unknown Phone Unavailable Care Team Providers Care Cashier Gambling Name Role Phone SAMARA Herzog, RADHA Unavailable Unavailable SHILOH Herzgo, FAROKH Unavailable Unavailable JOSE LUIS Awad.Gabo, CAMERON-ISATU Unavailable Unavailable LEON WELDER MACHINE OPERATOR, MERCEDEZ Unavailable Unavailable YNES WELDER MACHINE OPERATOR, ODIN Unavailable Unavailable THU Herzog, JULIOA Unavailable Unavailable LEENA Herzog, FREDDY Unavailable Unavailable JOSE RAMESH, DIVYA Villalobos Unavailable Unavailable YNES [facility] RNBC CPN, ODIN Unavailable Unav ailable SHILOH RAMESH [place], FARVINCE Unavailable Unavailable Precious RAMESH, Ceferino Unavailable Unavailable THU RAMESH, ARABELLA Unavailable Unavailable PAULINO RAMESH [place], JOY TUCKER Unavailable Unavailable JOSE Herzog, DIVYA Unavailable Unavailable LEENA RAMESH, FREDDY W Unavailable Unavailable DUKE NEDRA [place], DANNY RAMOS Unavailable Unavailab butch ANDERSON MD, LIZ Unavailable Unavailable YEVon DO [place], JOSÉ MIGUEL Unavailable Unavailable Unavailable Unavailable Functional [...] Tdap (Boostrix) on: 06-Aug-2014 Influenza Comments: Approx [id number] Prevnar 13 Intramuscular Suspension Lot #: [id number] on: 11-Oct-2016 Influenza, seasonal, injectable on: 26-Mar-2019 Pneumovax 23 25 MCG/0.5ML Injection Inje ctable Lot #: [id number] on: 09-Apr-2019 Family History Name Dates Details [...] Status: Comments: Lo cation: L Brachial Artery; [id number]:20 Physical Findings 9 Status: Comments: PH Q-9 Adult Depression Screening Results Date Description Value Details [id number] [O] Flu Test (in Office ) Flu [...] Dates Details Instructions not documented Encounters Appointment; [facility], [facility] Encounter Diagnosis: Problem not documented On: [...]
--- OUTSIDE RECORDS SUMMARY | 2019-10-17 21:49 | XMS REPORT | Summary of Care ---
Author Author JOSE LUIS Mullins, ALEXANDER Marcus Organization Unknown Address Unknown Phone Unavailable Care Team Providers Care Heading And Priming Operator Name Role Phone SAMARA Herzog, RADHA Unavailable Unavailable SHILOH Herzog, FAROKH Unavailable Unavailable JOSE LUIS Awad.Gabo, CAMERON-ISATU Unavailable Unavailable LEON POLISH MAKER, MERCEDEZ Unavailable Unavailable YNES POLISH MAKER, ODIN Unavailable Unavailable THU Herzog, JULIOA Unavailable Unavailable LEENA Herzog, FREDDY Unavailable Unavailable JOSE RAMESH, DIVYA Villalobos Unavailable Unavailable YNES [facility] RNBC CPN, ODIN Unavailable Unav ailable SHILOH RAMESH [place], FARVINCE Unavailable Unavailable Precious RAMESH, Ceferino Unavailable Unavailable THU RAMESH, ARABELLA Unavailable Unavailable PAULINO RAMESH [place], JOY TUCKER Unavailable Unavailable JOSE Herzog, DIVYA Unavailable Unavailable LEENA RAMESH, FREDDY W Unavailable Unavailable DUKE NEDRA [place], DANNY RAMOS Unavailable Unavailab butch ANDERSON MD, LIZ Unavailable Unavailable YEVon DO [place], JOSÉ MIGUEL Unavailable Unavailable Unavailable [...] D.O.JOSÉ MIGUEL * Start : 03-May-2019 Active Zolpidem Tartrate 5 MG Oral Tablet TAKE 1 TABLET BY MOUTH EVERY NIGHT AT BEDTIME * Quantity: 30 Refills: 0 YEH D.O.JOSÉ MIGUEL * Start : 23-Jul-2019 Active Allergies and Adverse Reactions Name Dates [...] Tdap (Boostrix) on: 06-Aug-2014 Influenza Comments: Approx [id number] Prevnar 13 Intramuscular Suspension Lot #: [id number] on: 11-Oct-2016 Influenza, seasonal, injectable on: 26-Mar-2019 Pneumovax 23 25 MCG/0.5ML Injection Inje ctable Lot #: [id number] on: 09-Apr-2019 Family History Name Dates Details [...] Brachial Artery; Results Date Description Value Details [id number] [O] Flu Test (in Office ) Flu A Negative (Normal) Flu B Negative (Normal) Plan of Care Name Dates Details Planned Observations Planned Goals not documented Planned Encounters Appointment; RADHA PASCUAL M.D. On: 23-Jul-2019 10:00 Appointment; LIZ ANDERSON M.D. On: 23-Jul-2019 15:00 Interventions Provided Medication Changes* Viibryd 40 MG Oral Tablet - Renew * Zolpidem Tartrate 5 MG Oral Tablet - Start Plan* Depression [...]
--- OUTSIDE RECORDS SUMMARY | 2019-10-17 21:49 | XMS REPORT | Summary of Care ---
Author Author [facility] Address [address] [place] [address] Phone Unavailable Care Team Providers Care Ios Programmer Name Role Phone SAMARA Herzog, RADHA Unavailable Unavailable SHILOH Herzog, FAROKH Unavailable Unavailable YEH D.O., CAMERON-ISATU Unavailable Unavailable LEON RIVET TESTER, MERCEDEZ Unavailable Unavailable YNES RIVET TESTER, ODIN Unavailable Unavailable THU Herzog, ARABELLA Unavailable Unavailable LEENA Herzog, FREDDY Unavailable Unavailable JOSE RAMESH, DIVYA Villalobos Unavailable Unavailable JOSE Herzog, DIVYA Unavailable Unavailable DUKE NEDRA [place], DANNY RAMOS Unavailable Unavailab butch ANDERSON MD, LIZ Unavailable Unavailable YEH DO [place], CAMERON-ISATU Unavailable Unavailable YNESVERONICA [facility] RNBC CPN, ODIN Unavailable Unav ailable SHILOH RAMESH [place], FAROKH Unavailable Unavailable Precious RAMESH, Ceferino Unavailable Unavailable THU RAMESH, ARABELLA Unavailable Unavailable PAULINO RAMESH [place], JOY TUCKER Unavailable Unavailable LEENA RAMESH, FREDDY Priti Unavailable Unavailable Unavailable Unavailable Functional Status Name [...] JOSÉ MIGUEL * Start : 19-Mar-2015 Active Rosuvastatin [...] DIRECTED. * Quantity: 1 Refills: 0 LEON MERCEDEZ GARCIA * Start : 23-Dec-2017 Active Losartan Potassium [...] MDD:3000 * Quantity: 90 Refills: 0 ARABELLA ANDNIO M.D. * Start : 24-Jul-2018 Active Ferrous Sulfate 325 (65 Fe) MG Oral Tablet TAKE 1 TABLET 2x a week * Quantity: 45 Refills: 2 SAMARA Herzog, RADHA * Start : 16-Aug-2018 Active HYDROcodone-Acetaminophen [...] BEDTIME * Quantity: 30 Refills: 0 YEH D.O., JOSÉ MIGUEL * Start : 23-Jul-2019 Active Allergies [...] Tdap (Boostrix) on: 06-Aug-2014 Influenza Comments: Approx [id number] Prevnar 13 Intramuscular Suspension Lot #: [id number] on: 11-Oct-2016 Influenza, seasonal, injectable on: 26-Mar-2019 Pneumovax 23 25 MCG/0.5ML Injection Inje ctable Lot #: [id number] on: 09-Apr-2019 Family History Name Dates Details [...] Brachial Artery; Results Date Description Value Details [id number] [O] Flu Test (in Office ) Flu A Negative (Normal) Flu B Negative (Normal) Plan of Care Name Dates Details Planned Observations Planned Goals not documented Planned Encounters Appointment; LIZ ANDERSON M.D. On: 23-Jul-2019 15:00 Instructions Name Dates Details Instructions not [...]
--- OUTSIDE RECORDS SUMMARY | 2019-10-17 21:49 | XMS REPORT | Summary of Care ---
Author Author [facility] Address [address] [place] [address] Phone Unavailable Care Team Providers Care Firing Pin Gauger Name Role Phone SAMARA Herzog, RADHA Unavailable Unavailable SHILOH Herzog, FAROKVon Unavailable Unavailable YEH D.O., CAMERON-ISATU Unavailable Unavailable LEON DATA PROCESSING SYSTEMS PROJECT PLANNER, MERCEDEZ Unavailable Unavailable YNES DATA PROCESSING SYSTEMS PROJECT PLANNER, ODIN Unavailable Unavailable THU Herzog, ARABELLA Unavailable Unavailable LEENA Herzog, FREDDY Unavailable Unavailable JOSE RAMESH, DIVYA Villalobos Unavailable Unavailable YNES [facility] RNBC CPN, ODIN Unavailable Unav ailable SHILOH RAMESH [place], CORIE Unavailable Unavailable Precious RAMESH, Ceferino Unavailable Unavailable THU RAMESH, ARABELLA Unavailable Unavailable PAULINO RAMESH [place], JOY TUCKER Unavailable Unavailable JOSE Herzog, DIVYA Unavailable Unavailable LEENA RAMESH, FREDDY W Unavailable Unavailable DUKE NEDRA [place], DANNY RAMOS Unavailable Unavailab butch ANDERSON MD, LIZ Unavailable Unavailable YEH DO [place], JOSÉ MIGUEL Unavailable Unavailable Unavailable Unavailable Functional [...] Tdap (Boostrix) on: 06-Aug-2014 Influenza Comments: Approx [id number] Prevnar 13 Intramuscular Suspension Lot #: [id number] on: 11-Oct-2016 Influenza, seasonal, injectable on: 26-Mar-2019 Pneumovax 23 25 MCG/0.5ML Injection Inje ctable Lot #: [id number] on: 09-Apr-2019 Family History Name Dates Details [...] Brachial Artery; Results Date Description Value Details [id number] [O] Flu Test (in Office ) Flu [...] Problem not documented On: 06-Feb-2018 13:00 Appointment; CEFEIRNO JANG M.D. Encounter Diagnosis: Problem not documented [...]
--- OUTSIDE RECORDS SUMMARY | 2019-10-17 21:50 | XMS REPORT | Summary of Care ---
Author Author SAMARA Herzog, ALEXANDER Marcus Organization Unknown Address Unknown Phone Unavailable Care Team Providers Care Stockroom Worker Name Role Phone SAMARA Herzog, RADHA Unavailable Unavailable SHILOH Herzog, FAROKH Unavailable Unavailable YEH D.O., CAMERON-ISATU Unavailable Unavailable LEON TERRITORY OUTSIDE SALES MANAGER, MERCEDEZ Unavailable Unavailable YNES TERRITORY OUTSIDE SALES MANAGER, ODIN Unavailable Unavailable THU Herzog, ELENIUSTAFA Unavailable Unavailable LEENA Herzog, FREDDY Unavailable Unavailable JOSE RAMESH, DIVYA Villalobos Unavailable Unavailable JOSE Herzog, DIVYA Unavailable Unavailable DUKE NEDRA [place], DANNY RAMOS Unavailable Unavailab butch ANDERSON MD, LIZ Unavailable Unavailable YEH DO [place], CAMERON-ISATU Unavailable Unavailable YNES [facility] RNBC CPN, ODIN Unavailable Unav ailable SHILOH RAMESH [place], FAROKH Unavailable Unavailable Precious RAMESH, Ceferino Unavailable Unavailable THU RAMESH, MOUSTAFA Unavailable Unavailable PAULINO RAMESH [place], JOY TUCKER Unavailable Unavailable LEENA RAMESH, FREDDY W Unavailable Unavailable Unavailable Unavailable Functional Status Name [...] Z86.73) Status: Resolved Procedures Procedure Dates Details [QL] CMP W/EGFR Date: 23-Jul-2019 [QL] T4, FREE Date: 23-Jul-2019 [QL] TSH, 3RD GENERATION Date: 23-Jul-2019 History of Oophorectomy - Unilateral (Removal Of [...] Tdap (Boostrix) on: 06-Aug-2014 Influenza Comments: Approx [id number] Prevnar 13 Intramuscular Suspension Lot #: [id number] on: 11-Oct-2016 Influenza, seasonal, injectable on: 26-Mar-2019 Pneumovax 23 25 MCG/0.5ML Injection Inje ctable Lot #: [id number] on: 09-Apr-2019 Family History Name Dates Details [...] (finding) Vital Signs Date Test Result Details :36 Systolic blood pressure 144 mm[Hg] Status: Diastolic blood pressure 80 mm[Hg] Status: Heart Rate 60 /min Status: :18 Systolic blood pressure 132 mm[Hg] Status: Comments : Location: RUE; Position: Sitting Diastolic blood pressure 75 mm[Hg] Status: Comment s: Location: RUE; Position: Sitting Heart Rate 58 /min Status: Body height 70 in Status: Body mass index (BMI) [Ratio] 34.79 kg/m2 Status: Body surface area Derived from formula 2.27 m2 S tatus: Weight 242.4375 lb Status: :35 Systolic blood pressure 131 mm[Hg] Status: Comments : Location: LUE; Position: Sitting Diastolic blood pressure 72 mm[Hg] Status: Comment s: Location: LUE; Position: Sitting Heart Rate 69 /min Status: Body height 70 in Status: Body mass index (BMI) [Ratio] 34.44 kg/m2 Status: Body surface area Derived from formula 2.26 m2 S tatus: Weight 240 lb Status: Body temperature 97 f Status: Comments: Me thod: Temporal Respiratory rate 16 /min Status: :12 Systolic blood pressure 123 mm[Hg] Status: Comments : Location: LUE; Position: Sitting Diastolic blood pressure 71 mm[Hg] Status: Comment s: Location: LUE; Position: Sitting Heart Rate 71 /min Status: Body height 70 in Status: Body mass index (BMI) [Ratio] 33.86 kg/m2 Status: Body surface area Derived from formula 2.24 m2 S tatus: Weight 236 lb Status: Body temperature 97 f Status: Comments: Me thod: Temporal Respiratory rate 16 /min Status: Physical Findings 0 Status: Comments: Elvin sabillon Screen - How many times in the past yr have you had 5 (for M) or 4 (for F) or 4 (for all > 65yrs) or more drinks in a day? 67-[id number]:45 Systolic blood pressure 140 mm[Hg] Status: Comments : Location: LUE; Position: Sitting Diastolic blood pressure 76 mm[Hg] Status: Comment s: Location: LUE; Position: Sitting Heart Rate 65 /min Status: Comments: Lo cation: L Brachial Artery; Body height 70 in Status: Body mass index (BMI) [Ratio] 34.23 kg/m2 Status: Body surface area Derived from formula 2.25 m2 S tatus: Weight 238.5625 lb Status: Body temperature 97.5 f Status: Comments: Me thod: Temporal Respiratory rate 16 /min Status: Results Date Description Value Details 12-[id number]:07 [O] Flu Test (in Office ) Flu A Negative (Normal) Flu B Negative (Normal) 21-Dyj-083271:15 [O] Hemoglobin A1c (in office) HEMOGLOBIN A1c 6.1 91-Moj-462391:15 Glucose (Point of Care In Office) Glucose POC Lifescan 121 28-Bcm-965674:15 [O] Lipid Panel (In Office) CHOLESTEROL, TOTAL 121 HDL CHOLESTEROL 71 TRIGLYCERIDES 65 LDL-CHOLESTEROL 37 NON HDL CHOLESTEROL 50 T. Chol/HDL Ratio 1.7 GLUCOSE 121 Plan of Care Name Dates Details Planned Observations [QLH] HEPATIC FUNCTION PANEL On: 25-Jul-2019 Intent Planned Goals not documented Planned Encounters Appointment; RADHA PASCUAL M.D. On: 12-Nov-2019 10:30 Interventions Provided Medication Changes* Tradjenta 5 MG Oral Tablet - Renew Labs/Procedures/Imaging* [QLH] CMP W/EGFR; To Be Done: 23 Jul 2019 * [QLH] T4, FREE; To Be Done: 23 Jul 2019 * [QLH] TSH, 3RD GENERATION; To Be Done: 23 Jul 2019 * [O] Hemoglobin A1c (in office); Done: 23 Jul 2019 * [O] Lipid Panel (In Office); Done: 23 Jul 2019 * Glucose (Point of Care In Office); Done: 23 Jul 2019 Discussion/Summary* A1c okay but higher trend. Continue Tradjenta. Discussed the importance of DM control and its metabolic and vascular complications. Stressed the importance of consistent MNT and med compliance in DM control * do SMBG. * Exercise * Take medicine per PCP. Discussed the importance of BP control. * Take medicine. MNT reiterated. Discussed the importance of Lipid control. * Check TFT on current dose of LT4; serial TFT and adjust dose as needed * Review the proper way to take LT4 * Spent 25/30 mins counseling Instructions Name Dates Details Instructions not documented [...] Diagnosis: Problem not documented On: 23-Jul-2019 8:30 Appointment; RADHA PASCUAL M.D. Encounter Diagnosis: Problem not documented On: 23-Jul-2019 10:00
--- OUTSIDE RECORDS SUMMARY | 2019-10-17 21:50 | XMS REPORT | Summary of Care ---
Author Author SAMARA Herzog, ALEXANDER Marcus Organization Unknown Address Unknown Phone Unavailable Care Team Providers Care Hop Worker Name Role Phone SAMARA Herzog, RADHA Unavailable Unavailable SHILOH Herzog, FAROKH Unavailable Unavailable YEH D.O., CAMERON-ISATU Unavailable Unavailable LEON CONSERVATION ASSISTANT, MERCEDEZ Unavailable Unavailable YNES CONSERVATION ASSISTANT, ODIN Unavailable Unavailable THU Herzog, MOUSTAFA Unavailable Unavailable YEH DO [place], CAMERON-ISATU Unavailable Unavailable JOSE RAMESH, DIVYA Villalobos Unavailable Unavailable SHILOH RAMESH [place], FAROKH Unavailable Unavailable Precious RAMESH, Ceferino Unavailable Unavailable THU RAMESH, MOUSTAFA Unavailable Unavailable PAULINO RAMESH [place], JOY TUCKER Unavailable Unavailable JOSE Herzog, DIVYA Unavailable Unavailable LEENA RAMESH, FREDDY Priti Unavailable Unavailable YNES [facility]EL [facility] RNBC CPN, ODIN Unavailable Unav ailable DUKE NEDRA [place], DANNY RAMOS Unavailable Unavailab butch ANDERSON MD, LIZ Unavailable Unavailable Unavailable Unavailable Functional Status [...] Active BMI 34.0-34.9,adult (V85.34, Z68.34) Status: Active Renal insufficiency (593.9, N28.9) Status: [...] Active 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, K22.70) Status: Active Acute pain of right knee (719.46, M25.56 1) Status: Active 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 (724.2, M54.41) Status: Active Body aches (780.96, R52) Status: Active Asthma exacerbation (493.92, J45.901) Status: Active Acute bronchitis (466.0, J20.9) Status: Active Acute sinusitis (461.9, J01.90) Status: Active CKD (chronic kidney disease) (585.9, N18 .9) Status: Active Asthma, persistent (493.90) Status: Active Chronic major depressive disorder, recur rent episode (296.30, F33.9) Status: Active 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 9) Status: Active Chronic insomnia (780.52, F51.04) Status: Active Sleep apnea (780.57, G47.30) Status: Active Essential (primary) hypertension (401.9, I10) [...] Refills: 0 * Start : 22-Aug-2017 Active Accu-Chek FastClix Lancets Check BG 2x a day * Quantity: 2 Refills: 3 RADHA PASCUAL M.D. * Start : 21-Mar-2013 Active 102 Unit Box Benzonatate 100 MG Oral Capsule TAKE 1 [...] LEON APRN * Start : 23-Dec-2017 Active Tradjenta 5 MG Oral Tablet TAKE 1 TABLET DAILY * Quantity: 90 Refills: 0 RADHA PASCUAL M.D. * Start : 10-May-2018 Active Hydroxychloroquine Sulfate 200 MG Oral Tablet Take 1 tablet by mouth twice a day * Quantity: 60 Refills: 0 SHILOH Herzog HOMERVon * Start : 06-Jun-2018 Active Acetaminophen 500 MG Oral Tablet TAKE 2 TABLET Every 8 hours PRN MDD:3000 * Quantity: 90 Refills: 0 THU Herzog MOUSTAFA * Start : 24-Jul-2018 Active tiZANidine HCl - 4 MG Oral [...] D.O.JOSÉ MIGUEL * Start : 23-Jul-2019 Active Aspirin 81 MG TABS TAKE 1 TABLET DAILY. * Refills: 0 Active Melatonin CAPS TAKE CAPSULE BEDTIME * Refills: 0 Active Ferrous Sulfate 325 (65 Fe) MG Oral Tablet TAKE 1 TABLET 2x a week * Quantity: 45 Refills: 2 RADHA PASCUAL M.D. * Start : 16-Aug-2018 Active Allergies and Adverse Reactions Name Dates [...] Z86.73) Status: Resolved Procedures Procedure Dates Details [N] 2D Echo complete, with Doppler 52250 Date: 23-Jul-2019 History of Oophorectomy - Unilateral [...] Tdap (Boostrix) on: 06-Aug-2014 Influenza Comments: Approx [id number] Prevnar 13 Intramuscular Suspension Lot #: [id number] on: 11-Oct-2016 Influenza, seasonal, injectable on: 26-Mar-2019 Pneumovax 23 25 MCG/0.5ML Injection Inje ctable Lot #: [id number] on: 09-Apr-2019 Family History Name Dates Details [...] /min Status: Results Date Description Value Details :07 [O] Flu Test (in Office ) Flu A Negative (Normal) Flu B Negative (Normal) :15 [O] Hemoglobin A1c (in office) HEMOGLOBIN A1c 6.1 :15 Glucose (Point of Care In Office) Glucose POC Lifescan 121 :15 [O] Lipid Panel (In Office) CHOLESTEROL, TOTAL 121 HDL CHOLESTEROL 71 TRIGLYCERIDES 65 LDL-CHOLESTEROL 37 NON HDL CHOLESTEROL 50 T. Chol/HDL Ratio 1.7 GLUCOSE 121 :31 [QLH] CMP W/EGFR GLUCOSE 108 mg/dl (Above high threshold ) Range: 65-99 Comments: Fasting reference interval For someone without known diabetes, a glucose valuebetween 100 and 125 mg/dL is consistent withprediabetes and should be confirmed with afollow-up test. UREA NITROGEN (BUN) 21 mg/dl (Normal) Range: 7- 25 CREATININE 0.99 mg/dl (Above high threshol d) Range: 0.60-0.93 Comments: For patients >49 years of age, the reference limitfor Creatinine is approximately 13% higher for peopleidentified as -Malag[place]. eGFR NON- 57 {ML/MIN/1.7} (Belo w low threshold) Range: > OR = 60 eGFR 66 {ML/MIN/1.7} (Normal) Range: > OR = 60 BUN/CREATININE RATIO 21 {CALC} (Normal) Range: 6-22 SODIUM 139 mmol/L (Normal) Range: 135- 146 POTASSIUM 3.9 mmol/L (Normal) Range: 3.5- 5.3 CHLORIDE 102 mmol/L (Normal) Range: 98-1 10 CARBON DIOXIDE 29 mmol/L (Normal) Range: 20-32 CALCIUM 9.2 mg/dl (Normal) Range: 8.6-1 0.4 PROTEIN, TOTAL 6.4 g/dl (Normal) Range: 6.1-8. 1 ALBUMIN 4.2 g/dl (Normal) Range: 3.6-5. 1 GLOBULIN 2.2 {G/DL__CALC} (Normal) Range : 1.9-3.7 ALBUMIN/GLOBULIN RATIO 1.9 {CALC} (Normal) Rang e: 1.0-2.5 BILIRUBIN, TOTAL 0.3 mg/dl (Normal) Range: 0.2- 1.2 ALKALINE PHSPHATASE 77 u/l (Normal) Range: 37-1 53 AST 13 u/l (Normal) Range: 10-35 ALT 12 u/l (Normal) Range: 6-29 28-Psv-[id number]:31 [[facility]] T4, FREE T4, FREE 1.2 ng/dl (Normal) Range: 0.8-1 .8 49-Sqs-789062:31 [[facility]] TSH, 3RD GENERATION Comments: REP ORT COMMENT:FASTING:YES TSH 1.49 {MIU/L} (Normal) Range: 0. 40-4.50 Plan of Care Name Dates Details Planned Observations Planned Goals not documented Planned Encounters Appointment; RADHA PASCUAL M.D. On: 12-Nov-2019 10:30 Appointment; JUDIE EDEN On: 08-Apr-2020 13:00 Appointment; LIZ ANDERSON M.D. On: 14-Apr-2020 13:20 Instructions Name Dates Details Instructions not documented [...] not documented On: 16-Oct-2017 15:00 Appointment; RADHA PASUCAL M.D. Encounter Diagnosis: Problem not documented On: [...] Diagnosis: Problem not documented On: 23-Jul-2019 10:00 Appointment; LIZ ANDERSON M.D. Encounter Diagnosis: Problem not documented On: 23-Jul-2019 15:00
--- OUTSIDE RECORDS SUMMARY | 2019-10-17 21:50 | XMS REPORT | Summary of Care ---
Author Author ALEXANDER Massey Organization Unknown Address Unknown Phone Unavailable Care Team Providers Care Mortuary Operations Manager Name Role Phone Massey Tri Unavailable Unavailable SAMARA Herzog, RADHA Unavailable Unavailable SHILOH Herzog, FAROKH Unavailable Unavailable YEH D.O., CAMERON-ISATU Unavailable Unavailable LEON DERRICK OPERATOR, MERCEDEZ Unavailable Unavailable YNES DERRICK OPERATOR, ODIN Unavailable Unavailable THU Herzog, MOUSTAFA Unavailable Unavailable YEVon DO [place], [place]-IS[place]U Unavailable Unavailable JOES RAMESH, DIVYA Villalobos Unavailable Unavailable SHILOH RAMESH PA, FAROKH Unavailable Unavailable Precious RAMESH, Ceferino Unavailable Unavailable THU RAMESH, TOMMYAFA Unavailable Unavailable PAULINO RAMESH PA, JOY TUCKER Unavailable Unavailable JOSE Herzog, DIVYA Unavailable Unavailable LEENA RAMESH, FREDDY Priti Unavailable Unavailable YNES NEL [facility] RNBC CPN, ODIN Unavailable Unav ailable DUKE NED[place], DANNY RAMOS Unavailable Unavailab butch ANDERSON [...] Status: Active Hyperlipidemia (272.4, E78.5) Status: Active Medications Name Dates Details Levothyroxine [...] NEEDED * Quantity: 3 Refills: 1 YEH D.OJOSÉ MIGUEL Huddleston * Start : 16-May-2013 Active 18 GM [...] a day * Quantity: 60 Refills: 0 JAMADEBBIE Herzog CORIE * Start : 06-Jun-2018 Active Acetaminophen 500 MG Oral Tablet TAKE 2 TABLET Every 8 hours PRN MDD:3000 * Quantity: 90 Refills: 0 THU Herzog MOUSTAFTobin * Start : 24-Jul-2018 Active Ferrous Sulfate 325 (65 Fe) MG Oral Tablet TAKE 1 TABLET 2x a week * Quantity: 45 Refills: 2 RADHA PASCUAL M.D. * Start : 16-Aug-2018 Active tiZANidine HCl - 4 MG Oral [...] BEDTIME * Quantity: 30 Refills: 0 YEH D.O.CAMERON-ISATU * Start : 23-Jul-2019 Active Aspirin 81 MG TABS TAKE 1 TABLET DAILY. * Refills: 0 Active Melatonin CAPS TAKE CAPSULE BEDTIME * Refills: 0 Active Allergies and Adverse Reactions Name Dates [...] Z86.73) Status: Resolved Procedures Procedure Dates Details [QLH] CMP W/EGFR Date: 23-Jul-2019 [QLH] T4, FREE Date: 23-Jul-2019 [QLH] TSH, 3RD GENERATION Date: 23-Jul-2019 [N] 2D Echo complete, with Doppler [id number] Date: 23-Jul-2019 History of Oophorectomy - Unilateral [...] Tdap (Boostrix) on: 06-Aug-2014 Influenza Comments: Approx [id number] Prevnar 13 Intramuscular Suspension Lot #: [id number] on: 11-Oct-2016 Influenza, seasonal, injectable on: 26-Mar-2019 Pneumovax 23 25 MCG/0.5ML Injection Inje ctable Lot #: [id number] on: 09-Apr-2019 Family History Name Dates Details [...] 65yrs) or more drinks in a day? 47-Rnz-331106:45 Systolic blood pressure 140 mm[Hg] Status: Comments [...] /min Status: Results Date Description Value Details 94-Vak-065183:07 [O] Flu Test (in Office ) Flu A Negative (Normal) Flu B Negative (Normal) 60-Nmr-217243:15 [O] Hemoglobin A1c (in office) HEMOGLOBIN A1c 6.1 91-Brp-462697:15 Glucose (Point of Care In Office) Glucose POC Lifescan 121 80-Tjt-623460:15 [O] Lipid Panel (In Office) CHOLESTEROL, TOTAL 121 HDL CHOLESTEROL 71 TRIGLYCERIDES 65 LDL-CHOLESTEROL 37 NON HDL CHOLESTEROL 50 T. Chol/HDL Ratio 1.7 GLUCOSE 121 Plan of Care Name Dates Details Planned Observations [N] 2D Echo complete, with Doppler 19973 On: 0 Intent Planned Goals not documented Planned Encounters [...]
--- OUTSIDE RECORDS SUMMARY | 2019-10-17 21:50 | XMS REPORT | Summary of Care ---
Author Author JOSE LUIS Mullins, ALEXANDER Marcus Organization Unknown Address Unknown Phone Unavailable Care Team Providers Care Electrical Tryout Person Name Role Phone SAMARA Herzog, RADHA Unavailable Unavailable SHILOH Herzog, FAROKVon Unavailable Unavailable JOSE LUIS Awad.Gabo, CAMERON-ISATU Unavailable Unavailable LEON CHIEF INTERNAL AUDITOR, MERCEDEZ Unavailable Unavailable YNES CHIEF INTERNAL AUDITOR, ODIN Unavailable Unavailable THU Herzog, MOUSTAFA Unavailable Unavailable JOSE LUIS [place], CAMREON-ISATU Unavailable Unavailable JOSE RAMESH, DIVYA Villalobos Unavailable Unavailable SHILOH RAMESH [place], FAROKH Unavailable Unavailable Precious RAMESH, Ceferino Unavailable Unavailable THU RAMESH, MOUSTAFA Unavailable Unavailable PAULINO RAMESH [place], JOY TUCKER Unavailable Unavailable JOSE Herzog, DIVYA Unavailable Unavailable LEENA RAMESH, FREDDY Priti Unavailable Unavailable YNES NEL [facility] RNBC CPN, ODIN Unavailable Unav ailable DUKE NEDRA [place], DANNY RAMOS Unavailable Unavailab butch ANDERSON MD, [...] PRN MDD:3000 * Quantity: 90 Refills: 0 ELENI ANDINO M.D.USTAFTobin * Start : 24-Jul-2018 Active Ferrous Sulfate [...] 23-Jul-2019 [N] 2D Echo complete, with Doppler 82765 Date: 23-Jul-2019 History of Oophorectomy - Unilateral [...] Tdap (Boostrix) on: 06-Aug-2014 Influenza Comments: Approx [id number] Prevnar 13 Intramuscular Suspension Lot #: [id number] on: 11-Oct-2016 Influenza, seasonal, injectable on: 26-Mar-2019 Pneumovax 23 25 MCG/0.5ML Injection Inje ctable Lot #: [id number] on: 09-Apr-2019 Family History Name Dates Details [...] 65yrs) or more drinks in a day? 51-Xyu-372266:45 Systolic blood pressure 140 mm[Hg] Status: Comments [...] /min Status: Results Date Description Value Details 96-Rbs-435550:07 [O] Flu Test (in Office ) Flu A Negative (Normal) Flu B Negative (Normal) 99-Omw-107429:15 [O] Hemoglobin A1c (in office) HEMOGLOBIN A1c 6.1 40-Zik-722196:15 Glucose (Point of Care In Office) Glucose POC Lifescan 121 38-Hkz-310408:15 [O] Lipid Panel (In Office) CHOLESTEROL, TOTAL 121 HDL CHOLESTEROL 71 TRIGLYCERIDES 65 LDL-CHOLESTEROL 37 NON HDL CHOLESTEROL 50 T. Chol/HDL Ratio 1.7 GLUCOSE 121 Plan of Care Name Dates Details Planned Observations Planned Goals not documented Planned Encounters Appointment; RADHA PASCUAL M.D. On: 12-Nov-2019 10:30 Appointment; JUDIE EDEN On: 08-Apr-2020 13:00 Appointment; LIZ ANDERSON M.D. On: 14-Apr-2020 13:20 Interventions Provided Medication Changes* Viibryd 40 MG Oral Tablet - Renew * Zolpidem Tartrate 5 MG Oral Tablet - Start Plan* Depression - Stable. Increase Viibry to 40 mg. * Dry Mouth - Improved. Continue to not take Dicyclomine, Duloxetine * Back Pain with sciatica RLE - Stable. Continue Tizanidine. Instructed Pt not to operate heavy machinery while on medication. Discussed that while COVID is present, it may not be prudent to start physical therapy at this point in time. If symptoms worsen, reconsider * Asthma Exacerbation/Seasonal Allergic Rhinitis - Stable. Continue montelukast. Restart Isabell-D x 2 weeks then switch to Isabell. Continue Proair PRN. * CKD - stable. Continue to monitor. [...]
--- OUTSIDE RECORDS SUMMARY | 2019-10-17 21:50 | XMS REPORT | Summary of Care ---
Author Author [facility] Address [address] [place] [address] Phone Unavailable Care Team Providers Care Cardiac Monitor Name Role Phone SAMARA Herzog, RADHA Unavailable Unavailable SHILOH Herzog, FAROKVon Unavailable Unavailable YEH D.O., CAMERON-ISATU Unavailable Unavailable LEON TESTER ELECTRONIC SCALE, MERCEDEZ Unavailable Unavailable YNES TESTER ELECTRONIC SCALE, ODIN Unavailable Unavailable THU Herzog, ELENIUSTAFA Unavailable Unavailable YEVon DO [place], CAMERON-ISATU Unavailable Unavailable JOSE RAMESH, DIVYA Villalobos Unavailable Unavailable SHILOH RAMESH [place], FARVINCE Unavailable Unavailable Precious RAMESH, Ceferino Unavailable Unavailable THU RAMESH, JULIOA Unavailable Unavailable PAULINO RAMESH [place], JOY TUCKER Unavailable Unavailable JOSE Herzog, DIVYA Unavailable Unavailable LEENA RAMESH, FREDDY Priti Unavailable Unavailable [facility] RNBC CPN, ODIN Unavailable Unav ailable DUKE NEDRA [place], DANNY RAMOS Unavailable Unavailab butch ANDERSON MD, [...] 23-Jul-2019 [N] 2D Echo complete, with Doppler 25928 Date: 23-Jul-2019 History of Oophorectomy - Unilateral [...] Tdap (Boostrix) on: 06-Aug-2014 Influenza Comments: Approx [id number] Prevnar 13 Intramuscular Suspension Lot #: [id number] on: 11-Oct-2016 Influenza, seasonal, injectable on: 26-Mar-2019 Pneumovax 23 25 MCG/0.5ML Injection Inje ctable Lot #: [id number] on: 09-Apr-2019 Family History Name Dates Details [...] 65yrs) or more drinks in a day? 70-Sbv-949114:45 Systolic blood pressure 140 mm[Hg] Status: Comments [...] /min Status: Results Date Description Value Details 04-Fsg-112617:07 [O] Flu Test (in Office ) Flu A Negative (Normal) Flu B Negative (Normal) 57-Nza-099968:15 [O] Hemoglobin A1c (in office) HEMOGLOBIN A1c 6.1 99-Otj-739462:15 Glucose (Point of Care In Office) Glucose POC Lifescan 121 15-Jvr-114448:15 [O] Lipid Panel (In Office) CHOLESTEROL, TOTAL [...]
--- OUTSIDE RECORDS SUMMARY | 2019-10-17 21:50 | XMS REPORT | Summary of Care ---
Author Author ALEXANDER Ramos R.N. Organization Unknown Address [facility] Phone Unavailable Care Team Providers Care Die Inspector Name Role Phone SAMARA Herzog, RADHA Unavailable Unavailable SHILOH Herzog, FAROKH Unavailable Unavailable YEH D.O., CAMERON-ISATU Unavailable Unavailable MONICA Herzog, MOHAMMAD Unavailable Unavailable LEON DAIRY NUTRITION CONSULTANT, MERCEDEZ Unavailable Unavailable YNES DAIRY NUTRITION CONSULTANT, ODIN Unavailable Unavailable THU Herzog, MOUSTAFA Unavailable Unavailable JOSE RAMESH, DIVYA S Unavailable Unavailable JOSE Herzog, DIVYA Unavailable Unavailable DUKE NEDRA [place], DANNY RAMOS Unavailable Unavailab butch ANDERSON MD, LIZ Unavailable Unavailable YEH DO [place], CAMERON-ISATU Unavailable Unavailable YNESVERONICA [facility] RNBC CPN, ODIN Unavailable Unav ailable SHILOH RAMESH [place], FAROKH Unavailable Unavailable Precious RAMESH, Ceferino Unavailable Unavailable THU RAMESH, ARABELLA Unavailable Unavailable PUALINO RAMESH [place], JOY TUCKER Unavailable Unavailable LEENA RAMESH, FREDDY [...] 23-Jul-2019 [N] 2D Echo complete, with Doppler 62895 Date: 23-Jul-2019 History of Oophorectomy - Unilateral [...] Tdap (Boostrix) on: 06-Aug-2014 Influenza Comments: Approx [id number] Prevnar 13 Intramuscular Suspension Lot #: [id number] on: 11-Oct-2016 Influenza, seasonal, injectable on: 26-Mar-2019 Pneumovax 23 25 MCG/0.5ML Injection Inje ctable Lot #: [id number] on: 09-Apr-2019 Family History Name Dates Details [...] 65yrs) or more drinks in a day? 29-Mik-017983:45 Systolic blood pressure 140 mm[Hg] Status: Comments [...] /min Status: Results Date Description Value Details 17-Ezh-338939:07 [O] Flu Test (in Office ) Flu A Negative (Normal) Flu B Negative (Normal) 51-Doe-521067:15 [O] Hemoglobin A1c (in office) HEMOGLOBIN A1c 6.1 62-Tvl-644314:15 Glucose (Point of Care In Office) Glucose POC Lifescan 121 49-Pfg-754326:15 [O] Lipid Panel (In Office) CHOLESTEROL, TOTAL 121 HDL CHOLESTEROL 71 TRIGLYCERIDES 65 LDL-CHOLESTEROL 37 NON HDL CHOLESTEROL 50 T. Chol/HDL Ratio 1.7 GLUCOSE 121 Plan of Care Name Dates Details Planned Observations [N] 2D Echo complete, with Doppler 30964 On: 0 Intent Planned Goals not documented Planned Encounters Appointment; RADHA PASCUAL M.D. On: 12-Nov-2019 10:30 Instructions Name Dates Details Instructions not documented Encounters Appointment; LIZ ANDERSON M.D. Encounter Diagnosis: Problem not documented On: 24-Jul-2017 13:20 Appointment; CROIE MATAMOROS M.D. Encounter Diagnosis: Problem [...]
--- OUTSIDE RECORDS SUMMARY | 2019-10-17 21:50 | XMS REPORT | Summary of Care ---
Author Author MONICA Herzog, ALEXANDER Marcus Organization Unknown Address Unknown Phone Unavailable Care Team Providers Care Senior Research Executive Name Role Phone Tri Massey Unavailable Unavailable SAMARA Herzog, RADHA Unavailable Unavailable SHILOH Herzog, FAROKH Unavailable Unavailable YEH D.O., CAMERON-ISATU Unavailable Unavailable LEON HOOKING MACHINE OPERATOR, MERCEDEZ Unavailable Unavailable YNES HOOKING MACHINE OPERATOR, ODIN Unavailable Unavailable THU Herzog, MOUSTAFA Unavailable Unavailable YEH DO [place], CAMERON-ISATU Unavailable Unavailable JOSE RAMESH, DIVYA Villalobos Unavailable Unavailable SHILOH RAMESH [place], FARELLIOTH Unavailable Unavailable Precious RAMESH, Ceferino Unavailable Unavailable THU RAMESH, ARABELLA Unavailable Unavailable PAULINO RAMESH [place], JOY TUCKER Unavailable Unavailable JOSE Herzog, DIVYA Unavailable Unavailable LEENA RAMESH, FREDDY W Unavailable Unavailable YNES [facility] RNBC CPN, ODIN Unavailable Unav ailable DUKE NEDRA [place], DANNY RAMOS Unavailable Unavailab butch ANDERSON MD, [...] * Quantity: 30 Refills: 0 YEH D.O., CAMERON-ISATU * Start : 23-Jul-2019 Active Aspirin 81 [...] 23-Jul-2019 [N] 2D Echo complete, with Doppler 57264 Date: 23-Jul-2019 History of Oophorectomy - Unilateral [...] Tdap (Boostrix) on: 06-Aug-2014 Influenza Comments: Approx [id number] Prevnar 13 Intramuscular Suspension Lot #: [id number] on: 11-Oct-2016 Influenza, seasonal, injectable on: 26-Mar-2019 Pneumovax 23 25 MCG/0.5ML Injection Inje ctable Lot #: [id number] on: 09-Apr-2019 Family History Name Dates Details [...] 65yrs) or more drinks in a day? 84-Yxj-600507:45 Systolic blood pressure 140 mm[Hg] Status: Comments [...] /min Status: Results Date Description Value Details 75-Svi-783339:07 [O] Flu Test (in Office ) Flu A Negative (Normal) Flu B Negative (Normal) 21-Fto-070474:15 [O] Hemoglobin A1c (in office) HEMOGLOBIN A1c 6.1 83-Xju-367479:15 Glucose (Point of Care In Office) Glucose POC Lifescan 121 51-Bgk-538929:15 [O] Lipid Panel (In Office) CHOLESTEROL, TOTAL 121 HDL CHOLESTEROL 71 TRIGLYCERIDES 65 LDL-CHOLESTEROL 37 NON HDL CHOLESTEROL 50 T. Chol/HDL Ratio 1.7 GLUCOSE 121 Plan of Care Name Dates Details Planned Observations [N] 2D Echo complete, with Doppler 83796 On: 0 Intent Planned Goals not documented Planned Encounters Appointment; RADHA PASCUAL M.D. On: 12-Nov-2019 10:30 Appointment; KAREY, ECHO On: 08-Apr-2020 13:00 Appointment; LIZ ANDERSON M.D. [...]
--- OUTSIDE RECORDS SUMMARY | 2019-10-17 21:51 | XMS REPORT | Summary of Care ---
Author Author JOSE LUIS Mullins, ALEXANDER Marcus Organization Unknown Address Unknown Phone Unavailable Care Team Providers Care Manufacturing Quality Engineer Name Role Phone SAMARA Herzog, RADHA Unavailable Unavailable SHILOH Herzog, FAROKVon Unavailable Unavailable JOSE LUIS Awad.Gabo, CAMERON-ISATU Unavailable Unavailable LEON FURNITURE DUSTER, MERCEDEZ Unavailable Unavailable YNES FURNITURE DUSTER, ODIN Unavailable Unavailable THU Herzog, MOUSTAFA Unavailable Unavailable JOSE LUIS [place], CAMERON-ISATU Unavailable Unavailable JOSE RAMESH, DIVYA Villalobos Unavailable Unavailable SHILOH RAMESH [place], FAROKH Unavailable Unavailable Precious RAMESH, Ceferino Unavailable Unavailable THU RAMESH, MOUSTAFA Unavailable Unavailable PAULINO RAMESH [place], JOY TUCKER Unavailable Unavailable JOSE Herzog, DIVYA Unavailable Unavailable LEENA RAMESH, FREDDY Priti Unavailable Unavailable YNES NEL [facility] RNBC CPN, ODIN Unavailable Unav ailable DUKE NEDRA [place], DANNY RAMOS Unavailable Unavailab butch ANDERSON MD, [...] E03.9) Status: Active Dyspnea on exertion (786.09, R06.00) Status: Active Hyperlipidemia (272.4, E78.5) Status: Active [...] TABLET DAILY * Quantity: 90 Refills: 0 YEH D.O., CAMERON-ISATU * Start : 13-Aug-2012 [...] 100 MG Oral Capsule TAKE 1 CAPSULE BY MOUTH THREE TIMES A DAY NEEDED * Quantity: 90 Refills: 0 ODIN QUICK [...] a day * Quantity: 60 Refills: 0 JAMAEDBBIE Herzog CORIE * Start : 06-Jun-2018 Active Acetaminophen 500 MG Oral Tablet TAKE 2 TABLET Every 8 hours PRN MDD:3000 * Quantity: 90 Refills: 0 ZACHARIAHMED Rosenda MOUSTAFA * Start : 24-Jul-2018 Active Ferrous [...] 1 YEH D.O., CAMERON-ISATU * Start : 03-May-2019 Active Zolpidem Tartrate 5 MG Oral Tablet TAKE 1 TABLET BY MOUTH EVERYDAY AT BEDTIME * Quantity: 30 Refills: 3 YEH D.O., CAMERON-ISATU * Start : 23-Jul-2019 Active Aspirin 81 MG TABS TAKE 1 TABLET DAILY. * Refills: 0 Active Melatonin CAPS TAKE CAPSULE BEDTIME * Refills: 0 Active tiZANidine HCl - 2 MG Oral Tablet TAKE 1 TABLET EVERY 6 HOURS NEEDED FOR SPASM. * Quantity: 60 Refills: 0 YEH D.O., CAMERON-ISATU * Start : 06-Aug-2019 Active Allergies and Adverse Reactions Name Dates [...] Details [N] 2D Echo complete, with Doppler 92128 Date: 23-Jul-2019 History of Oophorectomy - Unilateral [...] Tdap (Boostrix) on: 06-Aug-2014 Influenza Comments: Approx [id number] Prevnar 13 Intramuscular Suspension Lot #: [id number] on: 11-Oct-2016 Influenza, seasonal, injectable on: 26-Mar-2019 Pneumovax 23 25 MCG/0.5ML Injection Inje ctable Lot #: [id number] on: 09-Apr-2019 Family History Name Dates Details [...] pressure 131 mm[Hg] Status: Comments : Location: E; Position: Sitting Diastolic blood pressure 72 mm[Hg] Status: Comment s: Location: E; Position: Sitting Heart Rate 69 /min Status: Body height 70 in Status: Body mass index (BMI) [Ratio] 34.44 kg/m2 Status: Body surface area Derived from formula 2.26 m2 S tatus: Weight 240 lb Status: Body temperature 97 f Status: Comments: Me thod: Temporal Respiratory rate 16 /min Status: Results Date Description Value Details :15 [O] Hemoglobin A1c (in office) HEMOGLOBIN A1c 6.1 :15 Glucose (Point of Care In Office) Glucose POC Lifescan 121 :15 [O] Lipid Panel (In Office) CHOLESTEROL, TOTAL 121 HDL CHOLESTEROL 71 TRIGLYCERIDES 65 LDL-CHOLESTEROL 37 NON HDL CHOLESTEROL 50 T. Chol/HDL Ratio 1.7 GLUCOSE 121 :31 [QL] CMP W/EGFR GLUCOSE 108 mg/dl (Above high [...] is approximately 13% higher for peopleidentified as -[place]. eGFR NON- 57 {ML/MIN/1.7} (Belo w low [...] 10-35 ALT 12 u/l (Normal) Range: 6-29 :31 [QL] T4, FREE T4, FREE 1.2 ng/dl (Normal) Range: 0.8-1 .8 55-Xke-582699:31 [QL] TSH, 3RD GENERATION Comments: REPO RT COMMENT:FASTING:YES TSH 1.49 {MIU/L} (Normal) Range: 0. 40-4.50 Plan of Care Name Dates Details Planned Observations Planned Goals not documented Planned Encounters Appointment; RADHA PASCUAL M.D. On: 12-Nov-2019 10:30 Appointment; JUDIE EDEN On: 08-Apr-2020 13:00 Appointment; LIZ ANDERSON M.D. On: 14-Apr-2020 13:20 Interventions Provided Medication Changes* Zolpidem Tartrate 5 MG Oral Tablet - Renew Instructions Name Dates Details Instructions not documented Encounters Appointment; Kishan Velez M.D. Encounter Diagnosis: Problem [...]
--- OUTSIDE RECORDS SUMMARY | 2019-10-17 21:51 | XMS REPORT | Summary of Care ---
Author Author JOSE LUIS Mullins, ALEXANDER Marcus Organization Unknown Address Unknown Phone Unavailable Care Team Providers Care Union Laborer Name Role Phone ASMARA Herzog, RADHA Unavailable Unavailable SHILOH Herzog, FAROKVon Unavailable Unavailable JOSE LUIS Awad.Gaob, CAMERON-ISATU Unavailable Unavailable LEON STONEMASON APPRENTICE, MERCEDEZ Unavailable Unavailable YNES STONEMASON APPRENTICE, ODIN Unavailable Unavailable THU Herzog, MOUSTAFA Unavailable Unavailable JOSE LUIS [place], CAMERON-ISATU Unavailable Unavailable JOSE RAMESH, DIVYA Villalobos Unavailable Unavailable SHILOH RAMESH [place], FAROKH Unavailable Unavailable Precious RAMESH, Ceferino Unavailable Unavailable THU RAMESH, MOUSTAFA Unavailable Unavailable PAULINO RAMESH [place], JOY TUCKER Unavailable Unavailable JOSE Herzog, DIVYA Unavailable Unavailable LEENA RAMESH, FREDDY Priti Unavailable Unavailable YNES [facility]EL [facility] RNBC CPN, ODIN Unavailable Unav ailable DUKE N[place], DANNY RAMOS Unavailable Unavailab butch ANDERSON MD, ILZ Unavailable Unavailable Unavailable Unavailable Functional Status Name [...] Details [N] 2D Echo complete, with Doppler 52520 Date: 23-Jul-2019 History of Oophorectomy - Unilateral [...] Tdap (Boostrix) on: 06-Aug-2014 Influenza Comments: Approx [id number] Prevnar 13 Intramuscular Suspension Lot #: [id number] on: 11-Oct-2016 Influenza, seasonal, injectable on: 26-Mar-2019 Pneumovax 23 25 MCG/0.5ML Injection Inje ctable Lot #: [id number] on: 09-Apr-2019 Family History Name Dates Details [...] 65yrs) or more drinks in a day? Results Date Description Value Details :15 [O] [...] is approximately 13% higher for peopleidentified as -[place]. eGFR NON- 57 {ML/MIN/1.7} (Belo w low [...] 10-35 ALT 12 u/l (Normal) Range: 6-29 76-Pxx-879694:31 [[facility]] T4, FREE T4, FREE 1.2 ng/dl (Normal) Range: 0.8-1 .8 02-Azk-298549:31 [[facility]] TSH, 3RD GENERATION Comments: REP ORT COMMENT:FASTING:YES TSH 1.49 {MIU/L} (Normal) Range: 0. 40-4.50 Plan of Care Name Dates Details Planned Observations Planned Goals not documented Planned Encounters Appointment; RADHA PASCUAL M.D. On: 12-Nov-2019 10:30 Appointment; JUDIE EDEN On: 08-Apr-2020 13:00 Appointment; LIZ ANDERSON M.D. On: 14-Apr-2020 13:20 Interventions Provided Medication Changes* Levothyroxine Sodium 125 MCG Oral Tablet - Renew Instructions Name Dates Details Instructions not documented Encounters Appointment; CEFERINO JANG M.D. Encounter Diagnosis: Problem [...]
--- OUTSIDE RECORDS SUMMARY | 2019-10-17 21:51 | XMS REPORT | Summary of Care ---
Author Author ALEXANDER QUICK APRN Organization Unknown Address Unknown Phone Unavailable Care Team Providers Care Lock Technician Name Role Phone SAMARA Herzog, RADHA Unavailable Unavailable SHILOH Herzog, FAROKH Unavailable Unavailable YEH D.O., CAMERON-ISATU Unavailable Unavailable LEON DRUG REGULATORY AFFAIRS SPECIALIST, MERCEDEZ Unavailable Unavailable YNESVERONICA GARCIA, ODIN Unavailable Unavailable THU Herzog, MOUSTAFA Unavailable Unavailable YEVon DO [place], CAMERON-ISATU Unavailable Unavailable JOSE RAMESH, DIVYA Villalobos Unavailable Unavailable SHILOH RAMESH [place], FAROKH Unavailable Unavailable Precious RAMESH, Ceferino Unavailable Unavailable THU RAMESH, MOUSTAFA Unavailable Unavailable PAULINO RAMESH [place], JOY TUCKER Unavailable Unavailable JOSE Herzog, DIVYA Unavailable Unavailable LEENA RAMESH, FREDDY Priti Unavailable Unavailable YNES NEUMANN [facility] RNBC CPN, ODIN Unavailable Unav ailable DUKE NEDRA [place], DANNY RICHARD Unavailable Unavailab butch ANDERSON MD, LIZ Unavailable [...] Details [N] 2D Echo complete, with Doppler 97416 Date: 23-Jul-2019 History of Oophorectomy - Unilateral [...] Tdap (Boostrix) on: 06-Aug-2014 Influenza Comments: Approx [id number] Prevnar 13 Intramuscular Suspension Lot #: [id number] on: 11-Oct-2016 Influenza, seasonal, injectable on: 26-Mar-2019 Pneumovax 23 25 MCG/0.5ML Injection Inje ctable Lot #: [id number] on: 09-Apr-2019 Family History Name Dates Details [...] is approximately 13% higher for peopleidentified as -Stateless. eGFR NON- 57 {ML/MIN/1.7} (Belo w low [...] 10-35 ALT 12 u/l (Normal) Range: 6-29 73-Bfw-131943:31 [[facility]] T4, FREE T4, FREE 1.2 ng/dl (Normal) Range: 0.8-1 .8 58-Neg-595212:31 [[facility]] TSH, 3RD GENERATION Comments: REP ORT COMMENT:FASTING:YES TSH 1.49 {MIU/L} (Normal) Range: 0. 40-4.50 Plan of Care Name Dates Details Planned Observations Planned Goals not documented Planned Encounters Appointment; RADHA PASCUAL M.D. On: 12-Nov-2019 10:30 Appointment; JUDIE EDEN On: 08-Apr-2020 13:00 Appointment; LIZ ANDERSON M.D. On: 14-Apr-2020 13:20 Interventions Provided Medication Changes* Benzonatate 100 MG Oral Capsule - Renew Instructions Name Dates Details Instructions [...] Problem not documented On: 23-Jul-2019 10:00 Appointment; ILZ ANDERSON M.D. Encounter Diagnosis: Problem not documented On: 23-Jul-2019 15:00
--- OUTSIDE RECORDS SUMMARY | 2019-10-17 21:51 | XMS REPORT | Summary of Care ---
Author Author ALEXANDER Solis M.A. Organization Unknown Address [facility] Phone Unavailable Care Team Providers Care Freight Car Repairer Name Role Phone SAMARA Herzog, RADHA Unavailable Unavailable SHILOH Herzog, FAROKH Unavailable Unavailable John-Hebert Balderas.AFlaquito, Julee Unavailable Unavailable YEH D.O., CAMERON-IASTU Unavailable Unavailable LEON RECRUITMENT CONSULTANT, MERCEDEZ Unavailable Unavailable YNES RECRUITMENT CONSULTANT, JULEE Unavailable Unavailable THU Hezrog, ELENIUSTAFA Unavailable Unavailable YEH DO [place], CAMERON-ISATU Unavailable Unavailable JOSE RAMESH, DIVYA Villalobos Unavailable Unavailable SHILOH RAMESH [place], FAROKH Unavailable Unavailable Precious RAMESH, Ceferino Unavailable Unavailable THU RAMESH, ARABELLA Unavailable Unavailable PAULINO RAMESH [place], JOY TUCKER Unavailable Unavailable JOSE Herzog, DIVYA Unavailable Unavailable LEENA RAMESH, FREDDY W Unavailable Unavailable YNES [facility] RNBC CPN, JULEE Unavailable Unav ailable DUKE NEDRA [place], DANNY RAMOS Unavailable Unavailab [...] DAY NEEDED * Quantity: 90 Refills: 0 JULEE QUICK APRN * Start : 23-Dec-2017 Active Albuterol Sulfate 0.63 MG/3ML Inhalation Nebulization Solution USE 1 UNIT DOSE IN NEBULIZER EVERY 4 TO 6 HOURS NEEDED. * Quantity: 1 Refills: 2 JULEE QUICK APRN * Start : 23-Dec-2017 Active [...] SPASM. * Quantity: 60 Refills: 0 YEH D.O.DEYAO-ISATU * Start : 06-Aug-2019 Active Allergies and [...] Details [N] 2D Echo complete, with Doppler 31107 Date: 23-Jul-2019 History of Oophorectomy - Unilateral [...] Tdap (Boostrix) on: 06-Aug-2014 Influenza Comments: Approx [id number] Prevnar 13 Intramuscular Suspension Lot #: [id number] on: 11-Oct-2016 Influenza, seasonal, injectable on: 26-Mar-2019 Pneumovax 23 25 MCG/0.5ML Injection Inje ctable Lot #: [id number] on: 09-Apr-2019 Family History Name Dates Details [...] is approximately 13% higher for peopleidentified as -Burundian. eGFR NON- 57 {ML/MIN/1.7} (Belo w low [...] 10-35 ALT 12 u/l (Normal) Range: 6-29 [id number]-Hvu-[id number] [[facility]] T4, FREE T4, FREE 1.2 ng/dl (Normal) Range: 0.8-1 .8 [id number] [[facility]] TSH, 3RD GENERATION Comments: REP ORT COMMENT:FASTING:YES [...] Problem not documented On: 26-Mar-2019 13:00 Appointment; JULEE QUICK APRN Encounter Diagnosis: Problem not documented On: 27-Mar-2019 10:30 Appointment; CEFERINO JANG M.D. Encounter Diagnosis: Problem not documented On: 28-Mar-2019 16:30 Appointment; JOSÉ MIGUEL AMAYA D.O. Encounter Diagnosis: Problem not documented On: 03-Apr-2019 14:45 Appointment; JOSÉ MIGUEL AMAYA D.O. Encounter Diagnosis: Problem not documented On: 09-Apr-2019 13:00 Appointment; JOSÉ MIGUEL AMAYA D.O. Encounter Diagnosis: Problem not documented On: 03-May-2019 12:00 Appointment; JULEE QUICK APRN Encounter Diagnosis: Problem not documented [...]
--- OUTSIDE RECORDS SUMMARY | 2019-10-17 21:51 | XMS REPORT | Summary of Care ---
Author Author JOSE LUIS Mullins, ALEXANDER Marcus Organization Unknown Address Unknown Phone Unavailable Care Team Providers Care Packaging Line Attendant Name Role Phone Sara Hunter M.A. Unavailable Unavailable SAMARA Herzog, RADHA Unavailable Unavailable SHILOH Herzog, FAROKH Unavailable Unavailable YEVon D.O., CAMERON-ISATU Unavailable Unavailable LEON PHARMACOGNOSY TEACHER, MERCEDEZ Unavailable Unavailable YNES PHARMACOGNOSY TEACHER, ODIN Unavailable Unavailable THU Herzog, ELENIUSTAFA Unavailable Unavailable YEVon [place], CAMERON-ISATU Unavailable Unavailable JOSE RAMESH, DIVYA Villalobos Unavailable Unavailable SHILOH RAMESH [place], FAROKH Unavailable Unavailable Precious RAMESH, Ceferino Unavailable Unavailable THU RAMESH, ARABELLA Unavailable Unavailable PAULINO RAMESH [place], JOY TUCKER Unavailable Unavailable JOSE Herzog, DIVYA Unavailable Unavailable LEENA RAMESH, FREDDY W Unavailable Unavailable YNESVERONICA [facility] RNBC CPN, ODIN Unavailable Unav ailable [...] PASCUAL M.D. * Start : 14-Aug-2012 Active B-12 TR [...] Start : 16-May-2013 Active 18 GM Inhaler Pantoprazole Sodium 40 MG Oral Tablet Delayed Release TAKE 1 TABLET DAILY * Quantity: 90 Refills: 1 YEH D.O.JOSÉ MIGUEL * Start : 17-Jun-2014 Active Advair Diskus 250-50 MCG/DOSE Inhalation Aerosol Powder Breath Activated INHALE 1 PUFF TWICE DAILY. * Quantity: 1 Refills: 5 YEH D.O.JOSÉ MIGUEL * Start : 11-Oct-2016 Active 14 Each Pack Viibryd 40 MG Oral Tablet TAKE 1 [...] D.O.JOSÉ MIGUEL * Start : 16-Apr-2019 Active amLODIPine Besylate 10 MG Oral Tablet TAKE 1 TABLET DAILY * Quantity: 90 Refills: 2 YEH D.O.JOSÉ MIGUEL * Start : 17-Apr-2017 Active Albuterol Sulfate 0.63 MG/3ML Inhalation Nebulization Solution USE 1 UNIT DOSE IN NEBULIZER EVERY 4 TO 6 HOURS NEEDED. * Quantity: 1 Refills: 2 ODIN QUICK APRN * Start : 23-Dec-2017 Active 25 x 3 ML Plas Cont Benzonatate 100 MG Oral Capsule TAKE 1 CAPSULE 3 TIMES DAILY NEEDED. * Quantity: 90 Refills: 0 ODIN QUICK APRN * Start : 23-Dec-2017 Active Metoprolol Succinate ER 25 MG Oral [...] TAKE CAPSULE BEDTIME * Refills: 0 Active Tradjenta 5 MG Oral Tablet TAKE [...] Details [N] 2D Echo complete, with Doppler [id number] Date: 23-Jul-2019 History of Oophorectomy - Unilateral [...] Tdap (Boostrix) on: 06-Aug-2014 Influenza Comments: Approx [id number] Prevnar 13 Intramuscular Suspension Lot #: [id number] on: 11-Oct-2016 Influenza, seasonal, injectable on: 26-Mar-2019 Pneumovax 23 25 MCG/0.5ML Injection Inje ctable Lot #: [id number] on: 09-Apr-2019 Family History Name Dates Details [...] pressure 132 mm[Hg] Status: Comments : Location: E; Position: Sitting Diastolic blood pressure 75 mm[Hg] Status: Comment s: Location: [facility]; Position: Sitting Heart Rate 58 /min Status: [...] pressure 123 mm[Hg] Status: Comments : Location: E; Position: Sitting Diastolic blood pressure 71 mm[Hg] [...] is approximately 13% higher for peopleidentified as -Comoran. eGFR NON- 57 {ML/MIN/1.7} (Belo w low [...] 10-35 ALT 12 u/l (Normal) Range: 6-29 46-Oev-[id number]:31 [[facility]] T4, FREE T4, FREE 1.2 ng/dl (Normal) Range: 0.8-1 .8 53-Hln-460576:31 [[facility]] TSH, 3RD GENERATION Comments: REP ORT COMMENT:FASTING:YES TSH 1.49 {MIU/L} (Normal) Range: 0. 40-4.50 Plan of Care Name Dates Details Planned Observations Planned Goals not documented Planned Encounters Appointment; RADHA PASCUAL M.D. On: 12-Nov-2019 10:30 Appointment; JUDIE EDEN On: 08-Apr-2020 13:00 Appointment; LIZ ANDERSON M.D. On: 14-Apr-2020 13:20 Interventions Provided Medication Changes* Montelukast Sodium 10 MG Oral Tablet - Renew Instructions [...] Problem not documented On: 30-Aug-2018 9:00 Appointment; ARDHA PASCUAL M.D. Encounter Diagnosis: Problem not documented [...]
--- OUTSIDE RECORDS SUMMARY | 2019-10-17 21:51 | XMS REPORT | Summary of Care ---
Author ALEXANDER Pro M.A. Organization Unknown Address Unknown Phone Unavailable Care Team Providers Care Jazz Musician Name Role Phone SAMARA Herzog, RADHA Unavailable Unavailable SHILOH Herzog, FAROKH Unavailable Unavailable YEH D.O., CAMERON-ISATU Unavailable Unavailable LEON SUPERINTENDENT CUSTODIAN JANITOR, MERCEDEZ Unavailable Unavailable YNES SUPERINTENDENT CUSTODIAN JANITOR, ODIN Unavailable Unavailable THU Herzog, MOUSTAFA Unavailable Unavailable YEH DO [place], CAMERON-ISATU Unavailable Unavailable JOSE RAMESH, DIVYA Villalobos Unavailable Unavailable SHILOH RAMESH [place], FAROKH Unavailable Unavailable Precious RAMESH, Ceferino Unavailable Unavailable THU RAMESH, MOUSTAFA Unavailable Unavailable PAULINO RAMESH [place], JOY TUCKER Unavailable Unavailable JOSE Herzog, DIVYA Unavailable Unavailable LEENA RAMESH, FREDDY Priti Unavailable Unavailable YNES NEL [facility] RNBC CPN, ODIN Unavailable Unav ailable DUKE NEDRA [place], DANNY RICHARD Unavailable Unavailab butch ANDERSON MD, [...] DIRECTED. * Quantity: 1 Refills: 0 LEON SUPERINTENDENT CUSTODIAN JANITOR, MERCEDEZ * Start : 23-Dec-2017 Active Tradjenta 5 [...] Details [N] 2D Echo complete, with Doppler [id number] Date: 23-Jul-2019 History of Oophorectomy - Unilateral [...] Tdap (Boostrix) on: 06-Aug-2014 Influenza Comments: Approx [id number] Prevnar 13 Intramuscular Suspension Lot #: [id number] on: 11-Oct-2016 Influenza, seasonal, injectable on: 26-Mar-2019 Pneumovax 23 25 MCG/0.5ML Injection Inje ctable Lot #: [id number] on: 09-Apr-2019 Family History Name Dates Details [...] is approximately 13% higher for peopleidentified as -[place]. eGFR NON- 57 {ML/MIN/1.7} (Belo w low [...] 10-35 ALT 12 u/l (Normal) Range: 6-29 [id number]-Pfj-[id number]:31 [[facility]] T4, FREE T4, FREE 1.2 ng/dl (Normal) Range: 0.8-1 .8 87-Ljq-187467:31 [[facility]] TSH, 3RD GENERATION Comments: REP ORT COMMENT:FASTING:YES TSH 1.49 {MIU/L} (Normal) Range: 0. 40-4.50 Plan of Care Name Dates Details Planned Observations Planned Goals not documented Planned Encounters Appointment; RADHA PASCUAL M.D. On: 12-Nov-2019 10:30 Appointment; JUDIE EDEN On: 08-Apr-2020 13:00 Appointment; LIZ ANDERSON M.D. On: 14-Apr-2020 13:20 Interventions Provided Medication Changes* tiZANidine HCl - 2 MG Oral Tablet - Renew Instructions Name [...]
--- OUTSIDE RECORDS SUMMARY | 2019-10-17 21:51 | XMS REPORT | Summary of Care ---
Author Author ALEXANDER Hunter M.A. Organization Unknown Address Unknown Phone Unavailable Care Team Providers Care Information Security Analyst Name Role Phone Sara Hunter M.A. Unavailable Unavailable SAMARA Herzog, RADHA Unavailable Unavailable SHILOH Herzog, FAROKH Unavailable Unavailable YEH D.O., CAMERON-ISATU Unavailable Unavailable LEON WOODYARD OPERATOR, MERCEDEZ Unavailable Unavailable YNES WOODYARD OPERATOR, ODIN Unavailable Unavailable THU Herzog, ELENIUSTAFA Unavailable Unavailable YEH DO [place], CAMERON-ISATU Unavailable Unavailable JOSE RAMESH, DIVYA Villalobos Unavailable Unavailable SHILOH RAMESH [place], FAROKH Unavailable Unavailable Precious RAMESH, Ceferino Unavailable Unavailable THU RAMESH, ARABELLA Unavailable Unavailable PAULINO RAMESH [place], JOY TUCKER Unavailable Unavailable JOSE Herzog, DIVYA Unavailable Unavailable LEENA RAMESH, FREDDY W Unavailable Unavailable YNES [facility] RNBC CPN, ODIN Unavailable Unav [...] Details [N] 2D Echo complete, with Doppler [id number] Date: 23-Jul-2019 History of Oophorectomy - Unilateral [...] Tdap (Boostrix) on: 06-Aug-2014 Influenza Comments: Approx [id number] Prevnar 13 Intramuscular Suspension Lot #: [id number] on: 11-Oct-2016 Influenza, seasonal, injectable on: 26-Mar-2019 Pneumovax 23 25 MCG/0.5ML Injection Inje ctable Lot #: [id number] on: 09-Apr-2019 Family History Name Dates Details [...] pressure 75 mm[Hg] Status: Comment s: Location: [facility]; Position: Sitting Heart Rate 58 /min Status: [...] is approximately 13% higher for peopleidentified as -Austrian. eGFR NON- 57 {ML/MIN/1.7} (Belo w low [...] 10-35 ALT 12 u/l (Normal) Range: 6-29 33-Kzt-884758:31 [[facility]] T4, FREE T4, FREE 1.2 ng/dl (Normal) Range: 0.8-1 .8 58-Uyi-186384:31 [[facility]] TSH, 3RD GENERATION Comments: REP ORT COMMENT:FASTING:YES [...] not documented On: 30-Jan-2018 8:30 Appointment; RADHA PACSUAL M.D. Encounter Diagnosis: Problem not documented On: [...] Problem not documented On: 23-Jul-2019 10:00 Appointment; LZI ANDERSON M.D. Encounter Diagnosis: Problem not documented On: 23-Jul-2019 15:00
--- OUTSIDE RECORDS SUMMARY | 2019-10-17 21:52 | XMS REPORT | Summary of Care ---
Author ALEXANDER Pro M.A. Organization Unknown Address Unknown Phone Unavailable Care Team Providers Care Business Process Architect Name Role Phone SAMARA Herzog, RADHA Unavailable Unavailable SHILOH Herzog, FAROKH Unavailable Unavailable YEH D.O., CAMERON-ISAUT Unavailable Unavailable LEON EDITOR IN CHIEF NEWSPAPER, MERCEDEZ Unavailable Unavailable YNES EDITOR IN CHIEF NEWSPAPER, ODIN Unavailable Unavailable THU Herzog, MOUSTAFA Unavailable Unavailable YEH DO [place], CAMERON-ISATU Unavailable Unavailable JOSE RAMESH, DIVYA Villalobos Unavailable Unavailable SHILOH RAMESH [place], FAROKH Unavailable Unavailable Precious RAMESH, Ceferino Unavailable Unavailable THU RAMESH, MOUSTAFA Unavailable Unavailable PAULINO RAMESH [place], JOY TUCKER Unavailable Unavailable JOSE Herzog, DIVYA Unavailable Unavailable LEENA RAMESH, FREDDY Priti Unavailable Unavailable YNES NEL [facility] RNBC CPN, ODIN Unavailable Unav ailable DUKE NEDRA [place], DANNY RICHARD Unavailable Unavailab butch ANDERSON MD, [...] 250-50 MCG/DOSE Inhalation Aerosol Powder Breath Activated TAKE 1 PUFF BY MOUTH TWICE A DAY * Quantity: 1 Refills: 1 YEH D.O.JOSÉ MIGUEL * Start : 11-Oct-2016 Active 14 Each Pack amLODIPine Besylate 10 MG Oral Tablet TAKE 1 TABLET DAILY * Quantity: 90 Refills: 0 YEH D.O.JOSÉ MIGUEL * Start : 17-Apr-2017 [...] Tdap (Boostrix) on: 06-Aug-2014 Influenza Comments: Approx [id number] Prevnar 13 Intramuscular Suspension Lot #: [id number] on: 11-Oct-2016 Influenza, seasonal, injectable on: 26-Mar-2019 Pneumovax 23 25 MCG/0.5ML Injection Inje ctable Lot #: [id number] on: 09-Apr-2019 Family History Name Dates Details [...] (finding) Vital Signs Date Test Result Details No Known Vitals to report Results Date Description Value Details Results not documented Plan of Care Name Dates Details Planned Observations Planned Goals not documented Planned Encounters Appointment; RADHA PASCUAL M.D. On: 12-Nov-2019 10:30 Appointment; JUDIE EDEN On: 08-Apr-2020 13:00 Appointment; LIZ ANDERSON M.D. On: 14-Apr-2020 13:20 Interventions Provided Medication Changes* amLODIPine Besylate 10 MG Oral Tablet - Renew Instructions [...]
--- OUTSIDE RECORDS SUMMARY | 2019-10-17 21:52 | XMS REPORT | Summary of Care ---
Author ALEXANDER Martin M.A. Organization Unknown Address [facility] Phone Unavailable Care Team Providers Care Statistics Teacher Name Role Phone SAMARA Herzog, RADHA Unavailable Unavailable SHILOH Herzog, FAROKH Unavailable Unavailable YEH D.O., CAMERON-ISATU Unavailable Unavailable LEON LINING VAMPER, MERCEDEZ Unavailable Unavailable YNES LINING VAMPER, ODIN Unavailable Unavailable THU Herzog, MOUSTAFA Unavailable Unavailable YEH DO [place], CAMERON-ISATU Unavailable Unavailable JOSE RAMESH, DIVYA Villalobos Unavailable Unavailable SHILOH RAMESH [place], FAROKH Unavailable Unavailable Precious RAMESH, Ceferino Unavailable Unavailable THU RAMESH, MOUSTAFA Unavailable Unavailable PAULINO RAMESH [place], JOY TUCKER Unavailable Unavailable JOSE Herzog, DIVYA Unavailable Unavailable LEENA RAMESH, FREDDY W Unavailable Unavailable YNES NEL [facility] RNBC CPN, ODIN Unavailable Unav ailable DUKE NEDRA [place], DANNY RAMOS Unavailable Unavailab butch ANDERSON MD, [...] JOSÉ MIGUEL * Start : 03-May-2019 Active Zolpidem [...] Details [N] 2D Echo complete, with Doppler [id number] Date: 23-Jul-2019 History of Oophorectomy - Unilateral [...] Tdap (Boostrix) on: 06-Aug-2014 Influenza Comments: Approx [id number] Prevnar 13 Intramuscular Suspension Lot #: [id number] on: 11-Oct-2016 Influenza, seasonal, injectable on: 26-Mar-2019 Pneumovax 23 25 MCG/0.5ML Injection Inje ctable Lot #: [id number] on: 09-Apr-2019 Family History Name Dates Details [...] On: 14-Apr-2020 13:20 Interventions Provided Medication Changes* Advair Diskus 250-50 MCG/DOSE Inhalation Aerosol Powder Breath Activated - Renew Instructions Name Dates Details Instructions [...]
--- OUTSIDE RECORDS SUMMARY | 2019-10-17 21:52 | XMS REPORT | Summary of Care ---
Author Author JOSE LUIS Mullins, ALEXANDER Marcus Organization Unknown Address Unknown Phone Unavailable Care Team Providers Care Case Consultant Name Role Phone SAMARA Herzog, RADHA Unavailable Unavailable SHILOH Herzog, FAROKH Unavailable Unavailable JOSE LUIS Awad.Gabo, CAMERON-ISATU Unavailable Unavailable LEON MANAGER MANUFACTURING, MERCEDEZ Unavailable Unavailable YNES MANAGER MANUFACTURING, ODIN Unavailable Unavailable THU Herzog, MOUSTAFA Unavailable Unavailable JOSE LUIS [place], CAMERON-ISATU Unavailable Unavailable JOSE RAMESH, DIVYA Villalobos Unavailable Unavailable SHILOH RAMESH [place], FAROKH Unavailable Unavailable Precious RAMESH, Ceferino Unavailable Unavailable THU RAMESH, MOUSTAFA Unavailable Unavailable PAULINO RAMESH [place], JOY TUCKER Unavailable Unavailable JOSE Herzog, DIVYA Unavailable Unavailable LEENA RAMESH, FREDDY Priti Unavailable Unavailable YNES NEL [facility] RNBC CPN, ODIN Unavailable Unav ailable DUKE [place], DANNY RAMOS Unavailable Unavailable MONICA RAMESH, LIZ [...] Tdap (Boostrix) on: 06-Aug-2014 Influenza Comments: Approx [id number] Prevnar 13 Intramuscular Suspension Lot #: [id number] on: 11-Oct-2016 Influenza, seasonal, injectable on: 26-Mar-2019 Pneumovax 23 25 MCG/0.5ML Injection Inje ctable Lot #: [id number] on: 09-Apr-2019 Family History Name Dates Details [...] not documented On: 23-Jul-2019 8:30 Appointment; RADHA PSACUAL M.D. Encounter Diagnosis: Problem not documented On: 23-Jul-2019 10:00 Appointment; LIZ ANDERSON M.D. Encounter Diagnosis: Problem not documented On: 23-Jul-2019 15:00
--- OUTSIDE RECORDS SUMMARY | 2019-10-17 21:52 | XMS REPORT | Summary of Care ---
Author ALEXANEDR Pro M.A. Organization Unknown Address Unknown Phone Unavailable Care Team Providers Care Drafter Seismograph Name Role Phone SAMARA Herzog, RADHA Unavailable Unavailable SHILOH Herzog, FAROKH Unavailable Unavailable YEH D.O., CAMERON-ISATU Unavailable Unavailable LEON CRIME LABORATORY ANALYST, MERCEDEZ Unavailable Unavailable YNES CRIME LABORATORY ANALYST, ODIN Unavailable Unavailable THU Herzog, MOUSTAFA Unavailable Unavailable YEVon DO [place], CAMERON-ISATU Unavailable Unavailable JOSE RAMESH, DIVYA Villalobos Unavailable Unavailable SHILOH RAMESH [place], FAROKH Unavailable Unavailable Precious RAMESH, Ceferino Unavailable Unavailable THU RAMESH, MOUSTAFA Unavailable Unavailable PAULINO RAMESH [place], JOY TUCKER Unavailable Unavailable JOSE Herzog, DIVYA Unavailable Unavailable LEENA RAMESH, FREDDY Priti Unavailable Unavailable YNES NEL [facility] RNBC CPN, ODIN Unavailable Unav ailable [...] Active 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 * Quantity: 1 Refills: 0 LEON CRIME LABORATORY ANALYST, MERCEDEZ * Start : 23-Dec-2017 Active Tradjenta [...] NEEDED. * Quantity: 60 Refills: 1 YEH D.O.CAMERON-ISATU * Start : 16-Apr-2019 Active Metoprolol Succinate [...] Tdap (Boostrix) on: 06-Aug-2014 Influenza Comments: Approx [id number] Prevnar 13 Intramuscular Suspension Lot #: [id number] on: 11-Oct-2016 Influenza, seasonal, injectable on: 26-Mar-2019 Pneumovax 23 25 MCG/0.5ML Injection Inje ctable Lot #: [id number] on: 09-Apr-2019 Family History Name Dates Details [...] On: 14-Apr-2020 13:20 Interventions Provided Medication Changes* Pantoprazole Sodium 40 MG Oral Tablet Delayed Release - Renew Instructions Name Dates Details Instructions [...]
--- OUTSIDE RECORDS SUMMARY | 2019-10-17 21:52 | XMS REPORT | Summary of Care ---
Author Author ALEXANDER Matamoros M.A. Organization Unknown Address [facility] Phone Unavailable Care Team Providers Care Net Application Support Specialist Name Role Phone SAMARA Herzog, RADHA Unavailable Unavailable SHILOH Herzog, FAROKH Unavailable Unavailable YEH D.O., CAMERON-ISATU Unavailable Unavailable LEON FISH WORM GROWER, MERCEDEZ Unavailable Unavailable YNES FISH WORM GROWER, ODIN Unavailable Unavailable THU Herzog, MOUSTAFA Unavailable Unavailable YEH DO [place], CAMERON-ISATU Unavailable Unavailable JOSE RAMESH, DIVYA Villalobos Unavailable Unavailable SHILOH RAMESH [place], FAROKH Unavailable Unavailable Precious RAMESH, Ceferino Unavailable Unavailable THU RAMESH, MOUSTAFA Unavailable Unavailable PAULINO RAMESH [place], JOY TUCKER Unavailable Unavailable JOSE Herzog, DIVYA Unavailable Unavailable LEENA RAMESH, FREDDY Priti Unavailable Unavailable YNES NEL [facility] RNBC CPN, ODIN Unavailable Unav [...] day * Quantity: 100 Refills: 6 SAMARA Herzog, RADHA * Start : 14-Aug-2012 Active Accu-Chek [...] DAY NEEDED * Quantity: 90 Refills: 0 OIDN QUICK APRN * Start : 23-Dec-2017 Active Albuterol Sulfate 0.63 MG/3ML Inhalation Nebulization Solution USE 1 UNIT DOSE IN NEBULIZER EVERY 4 TO 6 HOURS NEEDED. * Quantity: 1 Refills: 2 OIDN QUICK APRN * Start : 23-Dec-2017 Active [...] Tdap (Boostrix) on: 06-Aug-2014 Influenza Comments: Approx [id number] Prevnar 13 Intramuscular Suspension Lot #: [id number] on: 11-Oct-2016 Influenza, seasonal, injectable on: 26-Mar-2019 Pneumovax 23 25 MCG/0.5ML Injection Inje ctable Lot #: [id number] on: 09-Apr-2019 Family History Name Dates Details [...] JUDIE EDEN On: 08-Apr-2020 13:00 Appointment; LIZ ANEDRSON M.D. On: 14-Apr-2020 13:20 Interventions Provided Medication Changes* Rosuvastatin Calcium 10 MG Oral Tablet - Renew * Tradjenta 5 MG Oral Tablet - Renew Instructions [...]
--- OUTSIDE RECORDS SUMMARY | 2019-10-17 21:52 | XMS REPORT | Summary of Care ---
Author Author JOSE LUIS Mullins, ALEXANDER Marcus Organization Unknown Address Unknown Phone Unavailable Care Team Providers Care Funder Name Role Phone SAMARA Herzog, RADHA Unavailable Unavailable SIHLOH Herzog, FAROKH Unavailable Unavailable JOSE LUIS Awad.Gabo, CAMERON-ISATU Unavailable Unavailable LEON CHIEF RADIOLOGY, MERCEDEZ Unavailable Unavailable YNES CHIEF RADIOLOGY, ODIN Unavailable Unavailable THU Herzog, MOUSTAFA Unavailable Unavailable JOSE LUIS [place], CAMERON-ISATU Unavailable Unavailable JOSE RAMESH, DIVYA Villalobos Unavailable Unavailable SHILOH RAMESH [place], FAROKH Unavailable Unavailable Precious RAMESH, Ceferino Unavailable Unavailable THU RAMESH, MOUSTAFA Unavailable Unavailable PAULINO RAMESH [place], JOY TUCKER Unavailable Unavailable JOSE Herzog, DIVYA Unavailable Unavailable LEENA RAMESH, FREDDY Priti Unavailable Unavailable YNES NEL [facility] RNBC CPN, ODIN Unavailable Unav ailable DUKE NEDRA [place], DANNY RAMOS Unavailable Unavailab butch ANDERSON MD, [...] Details [N] 2D Echo complete, with Doppler 42579 Date: 23-Jul-2019 History of Oophorectomy - Unilateral [...] Tdap (Boostrix) on: 06-Aug-2014 Influenza Comments: Approx [id number] Prevnar 13 Intramuscular Suspension Lot #: [id number] on: 11-Oct-2016 Influenza, seasonal, injectable on: 26-Mar-2019 Pneumovax 23 25 MCG/0.5ML Injection Inje ctable Lot #: [id number] on: 09-Apr-2019 Family History Name Dates Details [...]
--- OUTSIDE RECORDS SUMMARY | 2019-10-17 21:52 | XMS REPORT | Summary of Care ---
Author Author ALEXANDER Solis M.A. Organization Unknown Address [facility] Phone Unavailable Care Team Providers Care Cloth Neutralizer Name Role Phone SAMARA Herzog, RADHA Unavailable Unavailable SHILOH Herzog, FAROKH Unavailable Unavailable YEH D.O., CAMERON-ISATU Unavailable Unavailable LEON OPERATIONS SCHEDULER, MERCEDEZ Unavailable Unavailable YNES OPERATIONS SCHEDULER, ODIN Unavailable Unavailable THU Herzog, MOUSTAFA Unavailable Unavailable YEVon DO [place], CAMERON-ISATU Unavailable Unavailable JOSE RAMESH, DIVYA Villalobos Unavailable Unavailable SHILOH RAMESH MS, FAROKH Unavailable Unavailable Precious RAMESH, Ceferino Unavailable Unavailable THU RAMESH, ELENIUSTAFA Unavailable Unavailable PAULINO RAMESH MS, JOY TUCKER Unavailable Unavailable JOSE Herzog, DIVYA Unavailable Unavailable LEENA RAMESH, FREDDY W Unavailable Unavailable YNES [facility] RNBC CPN, ODIN Unavailable Unav ailable LEON CELERY PACKER-C, MERCEDEZ THI Unavailable Unavailable DUKE NEDRA, DANNY RAMOS Unavailable Unavailable MONICA RAMESH, LIZ [...] Essential (primary) hypertension (401.9, I10) Status: Active Recurrent urinary tract infection (599.0 , N39.0) Status: Active Medications Name Dates Details Levothyroxine [...] BEDTIME * Quantity: 30 Refills: 3 YEH D.O.JOSÉ MIGUEL * Start : 23-Jul-2019 Active Aspirin 81 MG TABS TAKE 1 TABLET DAILY. * Refills: 0 Active Melatonin CAPS TAKE CAPSULE BEDTIME * Refills: 0 Active tiZANidine HCl - 2 MG Oral Tablet TAKE 1 TABLET EVERY 6 HOURS NEEDED FOR SPASM. * Quantity: 60 Refills: 0 YEH D.O.JOSÉ MIGUEL * Start : 06-Aug-2019 Active Cefuroxime Axetil 250 MG Oral Tablet TAKE 1 TABLET TWICE DAILY * Quantity: 20 Refills: 0 MERCEDEZ LEON APRN * Start : 08-Oct-2019 End : 18-Oct-2019 Active CefTRIAXone Sodium 500 MG Injection Solution Reconstituted INJECT 1 ML (500 MG) IM X 1 (SINGLE DOSE) IN CLINIC * Refills: 0 LEON OPERATIONS SCHEDULER, MERCEDEZ * Start : 08-Oct-2019 Admin Requested Allergies and Adverse Reactions Name [...] Status: Resolved Procedures Procedure Dates Details [QL] CULTURE, URINE, ROUTINE Date: 08-Oct-2019 History of Oophorectomy - Unilateral (Removal Of [...] Tdap (Boostrix) on: 06-Aug-2014 Influenza Comments: Approx [id number] Prevnar 13 Intramuscular Suspension Lot #: [id number] on: 11-Oct-2016 Influenza, seasonal, injectable on: 26-Mar-2019 Pneumovax 23 25 MCG/0.5ML Injection Inje ctable Lot #: [id number] on: 09-Apr-2019 Family History Name Dates Details [...] (finding) Vital Signs Date Test Result Details :48 Systolic blood pressure 149 mm[Hg] Status: Comments : Location: LUE; Position: Sitting Diastolic blood pressure 80 mm[Hg] Status: Comment s: Location: LUE; Position: Sitting Body height 70 in Status: Weight 245.5 lb Status: Body mass index (BMI) [Ratio] 35.23 kg/m2 Status: Body surface area Derived from formula 2.28 m2 S tatus: Body temperature 97.7 f Status: Comments: Me thod: Temporal Heart Rate 80 /min Status: Respiratory rate 16 /min Status: Physical Findings 0 Status: Comments: Pa in Scale Physical Findings 0 Status: Comments: Al cohol Screen - How many times in the past yr have you had 5 (for M) or 4 (for F) or 4 (for all > 65yrs) or more drinks in a day? Results Date Description Value Details :10 [O] Urine Dipstick (In Office) Glucose negative (Normal) LEUKOCYTES trace NITRITE negative (Normal) UROBILINOGEN negative (Normal) PROTEIN negative (Normal) pH 5 (Normal) URINE BLOOD 50 SPECIFIC GRAVITY 1.015 KETONES negative (Normal) BILIRUBIN negative (Normal) COLOR URINE yellow (Normal) APPEARANCE clear (Normal) Plan of Care Name Dates Details Planned Observations Planned Goals not documented Planned Encounters Appointment; RADHA PASCUAL M.D. On: 12-Nov-2019 10:30 Appointment; JUDIE EDEN On: 08-Apr-2020 13:00 Appointment; LIZ ANDERSON M.D. On: 14-Apr-2020 13:20 Planned Medications CefTRIAXone Sodium 500 MG Injection Solu tion Reconstituted Ordered: 08-Oct-2019 Held Interventions Provided Medication Changes* Cefuroxime Axetil 250 MG Oral Tablet - Start Labs/Procedures/Imaging* [QL] CULTURE, URINE, ROUTINE; To Be Done: 08 Oct 2019 * [O] Urine Dipstick (In Office); Done: 08 Oct 2019 Follow-ups/Referrals* Urogynecologist; To Be Done: 08 Oct 2019 Plan* Send urine culture. * Drink plenty of fluids. * Empty bladder immediately after sexual intercourse. * Good perineal hygiene (Wipe from front to back.) * Rocephin 500 mg IM today. * Start antibiotics as prescribed. * Refer to urogynecology. * Follow up if symptoms persist or worsen. Instructions Name Dates Details Instructions not documented [...] Diagnosis: Problem not documented On: 23-Jul-2019 15:00 Appointment; MERCEDEZ LEON APRN Encounter Diagnosis: Problem not documented On: 08-Oct-2019 13:30
--- OUTSIDE RECORDS SUMMARY | 2019-10-17 21:52 | XMS REPORT | Summary of Care ---
Author Author ALEXANDER Sadler M.A. Organization Unknown Address Unknown Phone Unavailable Care Team Providers Care Data Analysis Assistant Name Role Phone SAMARA Herzog, RADHA Unavailable Unavailable SHILOH Herzog, FAROKH Unavailable Unavailable YEH D.O., CAMERON-ISATU Unavailable Unavailable LEON INDUSTRIAL EDUCATION TEACHER, MERCEDEZ Unavailable Unavailable YNES INDUSTRIAL EDUCATION TEACHER, ODIN Unavailable Unavailable THU Herzog, MOUSTAFA Unavailable Unavailable YEVon DO [place], CAMERON-ISATU Unavailable Unavailable JOSE RAMESH, DIVYA Villalobos Unavailable Unavailable SHILOH RAMESH [place], FAROKH Unavailable Unavailable Precious RAMESH, Ceferino Unavailable Unavailable THU RAMESH, MOUSTAFA Unavailable Unavailable PAULINO RAMESH [place], JOY TUCKER Unavailable Unavailable JOSE Herzog, DIVYA Unavailable Unavailable LEENA RAMESH, FREDDY Priti Unavailable Unavailable YNES NEUM[facility] [place] RNBC CPN, ODIN Unavailable Unav ailable LEON RN TELE-C, MERCEDEZ THI Unavailable Unavailable DUKE NEDRA, DANNY [...] SPASM. * Quantity: 60 Refills: 0 YEH D.O.CAMERON-ISATU * Start : 06-Aug-2019 Active Cefuroxime Axetil 250 MG Oral Tablet TAKE 1 TABLET TWICE DAILY * Quantity: 20 Refills: 0 MERCEDEZ LEON APRN * Start : 08-Oct-2019 End : 18-Oct-2019 Active Allergies and Adverse Reactions Name Dates [...] Tdap (Boostrix) on: 06-Aug-2014 Influenza Comments: Approx [id number] Prevnar 13 Intramuscular Suspension Lot #: [id number] on: 11-Oct-2016 Influenza, seasonal, injectable on: 26-Mar-2019 Pneumovax 23 25 MCG/0.5ML Injection Inje ctable Lot #: [id number] on: 09-Apr-2019 Family History Name Dates Details [...] On: 14-Apr-2020 13:20 Interventions Provided Medication Changes* Cefuroxime Axetil 250 MG Oral Tablet - Start Labs/Procedures/Imaging* [QL] CULTURE, URINE, ROUTINE; To Be Done: 08 Oct 2019 * [O] Urine Dipstick (In Office); Done: 08 Oct 2019 Follow-ups/Referrals* Urogynecologist; To Be Done: 08 Oct 2019 Medications/Immunizations Administered* CefTRIAXone Sodium 500 MG Injection Solution Reconstituted Plan* Send urine culture. * Drink plenty [...]
--- OUTSIDE RECORDS SUMMARY | 2019-10-17 21:53 | XMS REPORT | Summary of Care ---
Author Author ALEXANDER Guzman M.A. Organization Unknown Address [facility] Phone Unavailable Care Team Providers Care Sanitation Lead Name Role Phone Penny Guzman M.A. Unavailable Unavailable SAMARA Herzog, RADHA Unavailable Unavailable SHILOH Herzog, FAROKH Unavailable Unavailable YEH D.O., CAMERON-ISATU Unavailable Unavailable LEON BIG DATA LEAD, MERCEDEZ Unavailable Unavailable YNES BIG DATA LEAD, ODIN Unavailable Unavailable THU Herzog, ELENIUSTAFA Unavailable Unavailable YEH DO [place], CAMERON-ISATU Unavailable Unavailable JOSE RAMESH, DIVYA Villalobos Unavailable Unavailable SHILOH RAMESH [place], FAROKH Unavailable Unavailable Precious RAMESH, Ceferino Unavailable Unavailable THU RAMESH, ARABELLA Unavailable Unavailable PAULINO RAMESH [place], JOY TUCKER Unavailable Unavailable JOSE Herzog, DIYVA Unavailable Unavailable LEENA RAMESH, FREDDY W Unavailable Unavailable YNES NEUMANN [facility] RNBC CPN, ODIN Unavailable Unav ailable LEON ACADEMIC ASSISTANT-C, MERCEDEZ THI Unavailable Unavailable DUKE DANNY SNEED Unavailable Unavailable MONICA RAMESH, LIZ Unavailable Unavailable [...] A DAY * Quantity: 2 Refills: 3 SAMARA M.RADHA Goff * Start : 13-Aug-2012 Active 100 Strip Box Vitamin D3 50 MCG (1999 [place]) Oral [...] NEEDED. * Quantity: 1 Refills: 2 YNES BIG DATA LEAD, ODIN * Start : 23-Dec-2017 Active 25 x [...] a day * Quantity: 60 Refills: 0 PREETHI MATAMOROS M.D.ELLIOTVon * Start : 06-Jun-2018 Active Acetaminophen 500 [...] D.O., CAMERON-ISATU * Start : 06-Aug-2019 Active Cefuroxime Axetil [...] Tdap (Boostrix) on: 06-Aug-2014 Influenza Comments: Approx [id number] Prevnar 13 Intramuscular Suspension Lot #: [id number] on: 11-Oct-2016 Influenza, seasonal, injectable on: 26-Mar-2019 Pneumovax 23 25 MCG/0.5ML Injection Inje ctable Lot #: [id number] on: 09-Apr-2019 Family History Name Dates Details [...] (finding) Vital Signs Date Test Result Details :55 Physical Findings 9 Status: Comments: PH Q-9 Adult Depression Screening :48 Systolic blood pressure 149 mm[Hg] Status: [...] COLOR URINE yellow (Normal) APPEARANCE clear (Normal) 08-Oct-20190:00 [QL] CULTURE, URINE, ROUTINE CULTURE Comments: ALBERT Ford, URINE, ROUTINE Micro Number: [id number] Test Status: Final Specimen Source: URINE Specimen Quality: Adequate Result: No Growth Plan of Care Name Dates Details Planned [...]
--- OUTSIDE RECORDS SUMMARY | 2019-10-17 21:53 | XMS REPORT | Summary of Care ---
Author Author Stephenie MIKE, ALEXANDER Marcus Organization Unknown Address Unknown Phone Unavailable Care Team Providers Care Sampler Tester Name Role Phone SAMARA Herzog, RADHA Unavailable Unavailable SHILOH Herzog, FAROKH Unavailable Unavailable YEH D.O., CAMERON-ISATU Unavailable Unavailable LEON DOCTOR OF OPTOMETRY, MERCEDEZ Unavailable Unavailable Stephenie MIKE, Cecy Unavailable Unavailable YNES DOCTOR OF OPTOMETRY, ODIN Unavailable Unavailable THU Herzog, MOUSTAFA Unavailable Unavailable YEVon DO [place], CAMERON-ISATU Unavailable Unavailable JOSE RAMESH, DIVYA Villalobos Unavailable Unavailable SHILOH RAMESH [place], FAROKVon Unavailable Unavailable Precious RAMESH, Ceferino Unavailable Unavailable THU RAMESH, ARABELLA Unavailable Unavailable PAULINO RAMESH [place], JOY TUCKER Unavailable Unavailable JOSE Herzog, DIVYA Unavailable Unavailable LEENA RAMESH, FREDDY W Unavailable Unavailable YNES [facility]EL [facility] RNBC CPN, ODIN Unavailable Unav ailable LEON TRAFFIC RATE CLERK-C, MERCEDEZ THI Unavailable Unavailable DUKE NEDRA, DANNY [...] day * Quantity: 100 Refills: 6 SAMARA M.DFlaquito, RADHA * Start : 14-Aug-2012 Active Accu-Chek FastClix Lancets Check BG 2x a day * Quantity: 2 Refills: 3 RADHA BANG M.D. * Start : 21-Mar-2013 Active 102 Unit Box Ventolin HFA 108 (90 Base) MCG/ACT Inhalation Aerosol Solution USE 2 INHALATIONS ORALLY 3 TIMES DAILY NEEDED * Quantity: 3 Refills: 1 YEH D.O.JOSÉ MIGUEL * Start : 16-May-2013 Active 18 GM Inhaler B-12 TR 1000 MCG Oral Tablet Extended Release TAKE 1 TABLET DAILY DIRECTED. * Refills: 0 RADHA BANG M.D. * Start : 24-Sep-2013 Active Pantoprazole [...] PRAVASTATIN) * Quantity: 90 Refills: 0 RADHA BANG M.D. * Start : 21-Mar-2016 Active Advair [...] DAILY * Quantity: 90 Refills: 0 RADHA BANG M.D. * Start : 10-May-2018 Active Hydroxychloroquine [...] week * Quantity: 45 Refills: 2 RADHA BANG M.D. * Start : 16-Aug-2018 Active tiZANidine [...] Tdap (Boostrix) on: 06-Aug-2014 Influenza Comments: Approx [id number] Prevnar 13 Intramuscular Suspension Lot #: [id number] on: 11-Oct-2016 Influenza, seasonal, injectable on: 26-Mar-2019 Pneumovax 23 25 MCG/0.5ML Injection Inje ctable Lot #: [id number] on: 09-Apr-2019 Family History Name Dates Details [...] Goals not documented Planned Encounters Appointment; RADHA BANG M.D. On: 12-Nov-2019 10:30 Appointment; JUDIE EDEN On: 08-Apr-2020 13:00 Appointment; LIZ ANDERSON M.D. On: 14-Apr-2020 13:20 Interventions Provided Plan* Interventions Provided * Supportive counseling . * Acknowledgement Patient verbalizes understanding of Plan * Follow Up Patient agreed to follow up with [facility] as needed * Next Clinic Appointment Provider name Dr. Bang, Appointment date/time 11/12/19 * BEHAVIOR/CONDITION: * Support/encourage Instructions Name Dates Details Instructions not documented Encounters Appointment; CORIE MATAMOROS M.D. Encounter Diagnosis: Problem not documented On: 16-Oct-2017 15:00 Appointment; RADHA BANG M.D. Encounter Diagnosis: Problem not documented On: [...] not documented On: 30-Jan-2018 8:30 Appointment; RADHA BANG M.D. Encounter Diagnosis: Problem not documented On: 06-Feb-2018 13:00 Appointment; CEFERINO JANG M.D. Encounter Diagnosis: Problem not documented On: 13-Feb-2018 13:15 Appointment; JOSÉ MIGUEL AMAYA D.O. Encounter Diagnosis: Problem not documented On: 03-May-2018 11:30 Appointment; RADHA BANG M.D. Encounter Diagnosis: Problem not documented On: [...] not documented On: 30-Aug-2018 9:00 Appointment; RADHA BANG M.D. Encounter Diagnosis: Problem not documented On: 04-Sep-2018 13:00 Appointment; CORIE MATAMOROS M.D. Encounter Diagnosis: Problem not documented On: 04-Sep-2018 15:00 Appointment; JOSÉ MIGUEL AMYAA D.O. Encounter Diagnosis: Problem not documented On: 12-Sep-2018 13:00 Appointment; JOSÉ MIGUEL AMAYA D.O. Encounter Diagnosis: Problem not documented On: 28-Sep-2018 8:30 Appointment; CORIE MATAMOROS M.D. Encounter Diagnosis: Problem not documented On: 16-Oct-2018 14:00 Appointment; CEFERINO JANG M.D. Encounter Diagnosis: Problem not documented On: 29-Oct-2018 15:15 Appointment; FREDDY STERN M.D. Encounter Diagnosis: Problem not documented On: 15-Nov-2018 11:30 Appointment; RADHA BANG M.D. Encounter Diagnosis: Problem not documented On: 18-Dec-2018 13:00 Appointment; CEFERINO JANG M.D. Encounter Diagnosis: Problem not documented On: 25-Feb-2019 15:30 Appointment; RADHA BANG M.D. Encounter Diagnosis: Problem not documented On: [...] not documented On: 23-Jul-2019 8:30 Appointment; RADHA BANG M.D. Encounter Diagnosis: Problem not documented On: 23-Jul-2019 10:00 Appointment; LIZ ANDERSON M.D. Encounter Diagnosis: Problem not documented On: 23-Jul-2019 15:00 Appointment; MERCEDEZ LEON APRN Encounter Diagnosis: Problem not documented On: 08-Oct-2019 13:30
--- OUTSIDE RECORDS SUMMARY | 2019-10-17 21:53 | XMS REPORT | Summary of Care ---
Author Author ALEXANDER LEON APRN Organization Unknown Address Unknown Phone Unavailable Care Team Providers Care Electric Welder Helper Name Role Phone SAMARA Herzog, RADHA Unavailable Unavailable SHILOH Herzog, FAROKH Unavailable Unavailable YEH D.O., CAMERON-ISATU Unavailable Unavailable LEON EMPLOYEE RELATIONS ADVISOR, MERCEDEZ Unavailable Unavailable YNES EMPLOYEE RELATIONS ADVISOR, ODIN Unavailable Unavailable THU Herzog, MOUSTAFA Unavailable Unavailable JOSE [place], CAMERON-ISATU Unavailable Unavailable JOSE RAMESH, DIVYA Villalobos Unavailable Unavailable SHILOH RAMESH [place], FAROKH Unavailable Unavailable Precious RAMESH, Ceferino Unavailable Unavailable THU RAMESH, MOUSTAFA Unavailable Unavailable PAULINO RAMESH [place], JOY TUCKER Unavailable Unavailable JOSE Herzog, DIVYA Unavailable Unavailable LEENA RAMESH, FREDDY W Unavailable Unavailable YNES [facility] RNBC CPN, ODIN Unavailable Unav ailable LEON TMD TEACHER ASSISTANT-C, MERCEDEZ THI Unavailable Unavailable DUKE NEDRA, DANNY [...] tract infection (599.0 , N39.0) Status: Active Urinary frequency (788.41, R35.0) Status: Active Medications Name Dates Details Levothyroxine [...] DAY * Quantity: 2 Refills: 3 SAMARA MRADHA Jonas * Start : 13-Aug-2012 Active 100 Strip [...] NEEDED. * Quantity: 1 Refills: 2 YNES EMPLOYEE RELATIONS ADVISOR, ODIN * Start : 23-Dec-2017 Active 25 [...] Start : 08-Oct-2019 End : 18-Oct-2019 Active Oxybutynin Chloride ER 5 MG Oral Tablet Extended Release 24 Hour TAKE 1 TABLET DAILY * Quantity: 30 Refills: 0 MERCEDEZ LEON APRN * Start : 10-Oct-2019 Active Allergies and Adverse Reactions Name Dates [...] Tdap (Boostrix) on: 06-Aug-2014 Influenza Comments: Approx [id number] Prevnar 13 Intramuscular Suspension Lot #: [id number] on: 11-Oct-2016 Influenza, seasonal, injectable on: 26-Mar-2019 Pneumovax 23 25 MCG/0.5ML Injection Inje ctable Lot #: [id number] on: 09-Apr-2019 Family History Name Dates Details [...] a day? Results Date Description Value Details [id number] [O] Urine Dipstick (In Office) Glucose negative (Normal) LEUKOCYTES trace NITRITE negative (Normal) UROBILINOGEN negative (Normal) PROTEIN negative (Normal) pH 5 (Normal) URINE BLOOD 50 SPECIFIC GRAVITY 1.015 KETONES negative (Normal) BILIRUBIN negative (Normal) COLOR URINE yellow (Normal) APPEARANCE clear (Normal) 08-Oct-20190:00 [QL] CULTURE, URINE, ROUTINE CULTURE Comments: CULTUR E, URINE, ROUTINE Micro Number: [id number] Test Status: Final Specimen Source: URINE Specimen Quality: Adequate Result: No Growth Plan of Care Name Dates Details Planned Observations Planned Goals not documented Planned Encounters Appointment; RADHA PASCUAL M.D. On: 12-Nov-2019 10:30 Appointment; JUDIE EDEN On: 08-Apr-2020 13:00 Appointment; LIZ ANDERSON M.D. On: 14-Apr-2020 13:20 Interventions Provided Medication Changes* Oxybutynin Chloride ER 5 MG Oral Tablet Extended Release 24 Hour - Start Instructions Name Dates Details Instructions not documented [...]
--- OUTSIDE RECORDS SUMMARY | 2019-10-17 21:53 | XMS REPORT | Summary of Care ---
Author Author ALEXANDER LEON APRN Organization Unknown Address Unknown Phone Unavailable Care Team Providers Care Temporary Administrative Assistant Name Role Phone SAMARA Herzog, RADHA Unavailable Unavailable SHILOH Herzog, FAROKH Unavailable Unavailable YEH D.O., CAMERON-ISATU Unavailable Unavailable LEON BULB ASSEMBLER, MERCEDEZ Unavailable Unavailable YNES BULB ASSEMBLER, ODIN Unavailable Unavailable THU Herzog, MOUSTAFA Unavailable Unavailable JOSE [place], CAMERON-ISATU Unavailable Unavailable JOSE RAMESH, DIVYA Villalobos Unavailable Unavailable SHILOH RAMESH [place], FAROKH Unavailable Unavailable Precious RAMESH, Ceferino Unavailable Unavailable THU RAMESH, MOUSTAFA Unavailable Unavailable PAULINO RAMESH [place], JYO TUCKER Unavailable Unavailable JOSE Herzog, DIVYA Unavailable Unavailable LEENA RAMESH, FREDDY W Unavailable Unavailable YNES NEL [facility] RNBC CPN, ODIN Unavailable Unav ailable LEON ORNAMENTAL IRON WORKER HELPER-C, MERCEDEZ THI Unavailable Unavailable DUKE NEDRA, DANNY [...] pills - per PT * Refills: 0 M.A. * Start : 22-Aug-2017 Active Benzonatate 100 [...] TAKE 1 TABLET DAILY. * Refills: 0 M.A. Active Melatonin CAPS TAKE CAPSULE BEDTIME * Refills: 0 M.A. Active tiZANidine HCl - 2 MG Oral [...] Tdap (Boostrix) on: 06-Aug-2014 Influenza Comments: Approx [id number] Prevnar 13 Intramuscular Suspension Lot #: [id number] on: 11-Oct-2016 Influenza, seasonal, injectable on: 26-Mar-2019 Pneumovax 23 25 MCG/0.5ML Injection Inje ctable Lot #: [id number] on: 09-Apr-2019 Family History Name Dates Details [...] [QL] CULTURE, URINE, ROUTINE CULTURE Comments: ALBERT Ford URINE, ROUTINE Micro Number: [id number] Test Status: Final Specimen Source: URINE Specimen Quality: Adequate Result: No Growth Plan of Care Name Dates Details Planned Observations Planned Goals not documented Planned Encounters Appointment; RADHA PASCUAL M.D. On: 12-Nov-2019 10:30 Appointment; JUDIE EDEN On: 08-Apr-2020 13:00 Appointment; LIZ ANDERSON M.D. On: 14-Apr-2020 13:20 Interventions Provided Discussion/Summary* No infection on urine culture. Are you feeling better? Instructions Name Dates Details Instructions not documented [...]
[2019-10-17] MEDS ORDERED: DIATRIZOATE MEGL/DIATRIZOA SOD 30 ML BTL PO ONE (22:46)
[2019-10-17 22:54] LABS: BASOPHILS # (AUTO) 0.1 (0.0-0.1); BASOPHILS % 0.4 % (0.0-1.0); EOSINOPHILS # (AUTO) 0.1 (0.0-0.4); EOSINOPHILS % 0.8 % (0.0-6.0); HEMATOCRIT 42.3 % (34.2-44.1); HEMOGLOBIN 13.4 g/dL (12.0-16.0); LYMPHOCYTES # (AUTO) 1.7 (1.0-3.2); LYMPHOCYTES % 10.6 % (18.0-39.1); MEAN CORPUSCULAR HEMOGLOBIN 27.6 pg (28-32); MEAN CORPUSCULAR HGB CONC 31.7 g/dL (31-35); MEAN CORPUSCULAR VOLUME 87.2 fL (81-99); MONOCYTES # (AUTO) 0.7 (0.2-0.8); MONOCYTES % 4.2 % (4.4-11.3); NEUTROPHILS % 83.4 % (38.7-80.0); PLATELET COUNT 359 x10e3/uL (140-360); RED BLOOD COUNT 4.85 x10e6/uL (3.6-5.1); RED CELL DISTRIBUTION WIDTH 13.4 % (11.7-14.4)
[2019-10-17 23:00] LABS: INR 0.91; PROTHROMBIN TIME 12.8 seconds (11.9-14.5)
[2019-10-17 23:01] LABS: PARTIAL THROMBOPLASTIN TIME 27.4 seconds (23.8-35.5)
[2019-10-17 23:10] LABS: AMYLASE 80 U/L (25-125); LIPASE 94 U/L (8-78)
--- NOTE | 2019-10-17 23:24 | Emergency Department Note ---
History of Present Illnes History of Present Illness Chief Complaint: Abdominal Complaints History of Present Illness This is a 74 year old female PRESENTS TO THE ER C/O LOWER ABD PAIN AND CRAMPING FOR THE PAST COUPLE OF WEEKS; PT STATES EARLIER TODAY SHE WENT HAVE A BM AROUND 1900, PT BEGAN FELLING DIZZY AND NAUSEOUS AND LAYED DOWN ON THE FLOOR; REPORTS HAVING DIARRHEA WITH BLOOD STARTED TODAY; HX OF DIVERTICULITIS; PT ALSO REPORTS WEAKNESS AND SOB ON EXERTION; PT DENIES CP OR SOB AT THIS TIME . Historian: Patient Arrival Mode: Car Onset (how long ago): hour(s) (8) Location: ABD Quality: PAIN, BLOODY DIARRHEA Radiation: Reports non-radiation Severity: moderate Onset quality: gradual Duration (how long): hour(s) (8) Timing of current episode: constant Progression: worsening Context: Denies recent illness, Denies recent surgery Relieving factors: none Exacerbating factors: none Associated symptoms: Reports loss of appetite, Reports malaise, Reports karely rtness of breath, Reports weakness Treatments prior to arrival: none Past Medical/Family History Physician Review I have reviewed the patient's past medical and family history. Any updates have been documented here. Past Medical History Recent Fever: No Clinical Suspicion of Infectio: No New/Unexplained Change in Ment: No Past Medical History: Hypertension, Diabetes, Asthma, Hypothyroidism, Cancer, Anemia, Anxiety, Depression, GERD, Hyperlipedemia Other Medical History: IBS DIVERTICULITIS BREAST CA ASCENDING AORTIC ANEURYSM Past Surgical History: Knee Replacement, Mastectomy Other Surgery: FINGER JOINT REPLACEMENT OOPHECTOMY BILATERAL MASTECTOMY UTERINE ABLASION BILATERAL KNEE REPLACEMENT Social History Smoking Cessation: Never Smoker Alcohol Use: None Any Illegal Drug Use: No Family History Family history of heart diseas: Yes Other family history HTN,CAD,DM Other Last Tetanus: UTD Review of Systems Review of Systems Constitutional: Reports no symptoms EENTM: Reports no symptoms Cardiovascular: Reports no symptoms Respiratory: Reports as per HPI Gastrointestinal: Reports as per HPI Genitourinary: Reports no symptoms Musculoskeletal: Reports no symptoms Integumentary: Reports no symptoms Neurological: Reports no symptoms Psychological: Reports no symptoms Endocrine: Reports no symptoms Hematological/Lymphatic: Reports no symptoms Physical Exam Related Data Allergies: Coded Allergies: Sulfa (Sulfonamide Antibiotics) (Verified Allergy, Mild, RASH, 08/25/18) Triage Vital Signs Vital Signs Date Time Temp Pulse Resp B/P (MAP) Pulse Ox O2 Delivery O2 Flow Rate FiO2 10/17/19 22:04 99.4 74 20 146/93 97 Vital signs reviewed: Yes Physical Exam CONSTITUTIONAL Constitutional: Reports well-developed, Reports well-nourished HENT HENT: Reports normocephalic, Reports atraumatic, Reports oropharynx clear/moist, Reports nose normal HENT L/R: Reports left ext ear normal, Reports right ext ear normal EYES Eyes: Reports PERRL, Reports conjunctivae normal NECK Neck: Reports ROM normal PULMONARY Pulmonary: Reports effort normal, Reports breath sounds normal CARDIOVASCULAR Cardiovascular: Reports regular rhythm, Reports heart sounds normal, Reports capillary refill normal, Reports normal rate GASTROINTESTINAL Abdominal: Reports soft, Reports bowel sounds normal, Reports tender (SUPRA PUBIC AND LLQ TENDERNESS) GENITOURINARY Genitourinary: Reports exam deferred SKIN Skin: Reports warm, Reports dry MUSCULOSKELETAL Musculoskeletal: Reports ROM normal NEUROLOGICAL Neurological: Reports alert, Reports oriented x 3, Reports no gross motor or sensory deficits PSYCHOLOGICAL Psychological: Reports mood/affect normal, Reports judgement normal Results Laboratory Result Diagram: 10/17/19 2225 Laboratory Laboratory Tests Test 10/17/19 22:30 10/17/19 22:25 Amylase Level 80 U/L (25-125) Lipase 94 U/L (8-78) White Blood Count 15.55 x10e3/uL (4.8-10.8) Red Blood Count 4.85 x10e6/uL (3.6-5.1) Hemoglobin 13.4 g/dL (12.0-16.0) Hematocrit 42.3 % (34.2-44.1) Mean Corpuscular Volume 87.2 fL (81-99) Mean Corpuscular Hemoglobin 27.6 pg (28-32) Mean Corpuscular Hemoglobin Concent 31.7 g/dL (31-35) Red Cell Distribution Width 13.4 % (11.7-14.4) Platelet Count 359 x10e3/uL (140-360) Neutrophils (%) (Auto) 83.4 % (38.7-80.0) Lymphocytes (%) (Auto) 10.6 % (18.0-39.1) Monocytes (%) (Auto) 4.2 % (4.4-11.3) Eosinophils (%) (Auto) 0.8 % (0.0-6.0) Basophils (%) (Auto) 0.4 % (0.0-1.0) Neutrophils # (Auto) 13.0 (2.1-6.9) Lymphocytes # (Auto) 1.7 (1.0-3.2) Monocytes # (Auto) 0.7 (0.2-0.8) Eosinophils # (Auto) 0.1 (0.0-0.4) Basophils # (Auto) 0.1 (0.0-0.1) Absolute Immature Granulocyte (auto 0.09 x10e3/uL (0-0.1) Prothrombin Time 12.8 seconds (11.9-14.5) Prothromb Time International Ratio 0.91 Activated Partial Thromboplast Time 27.4 seconds (23.8-35.5) Urine Color Yellow (YELLOW) Urine Clarity Clear (CLEAR) Urine pH 6 (5 - 7) Urine Specific Mor[place]arty 1.015 (1.010-1.025) Urine Protein Negative (NEGATIVE) Urine Glucose (UA) Negative (NEGATIVE) Urine Ketones Negative (NEGATIVE) Urine Blood Trace (NEGATIVE) Urine Nitrite Positive (NEGATIVE) Urine Bilirubin Negative (NEGATIVE) Urine Urobilinogen 0.2 mg/dL (0.2 - 1) Urine Leukocyte Esterase Negative (NEGATIVE) Urine RBC 6-10 /HPF (0-5) Urine WBC 6-10 /HPF (0-5) Urine Epithelial Cells Many /LPF (NONE) Urine Bacteria Moderate /HPF (NONE) Sodium Level 140 mmol/L (136-145) Potassium Level 3.9 mmol/L (3.5-5.1) Chloride Level 103 mmol/L (98-107) Carbon Dioxide Level 24 mmol/L (22-29) Anion Gap 16.9 mmol/L (8-16) Blood Urea Nitrogen 18 mg/dL (7-26) Creatinine 0.99 mg/dL (0.57-1.11) Estimat Glomerular Filtration Rate 55 ML/MIN (60-) BUN/Creatinine Ratio 18 (6-25) Glucose Level 116 mg/dL (74-118) Calcium Level 9.0 mg/dL (8.4-10.2) Total Bilirubin 0.4 mg/dL (0.2-1.2) Aspartate Amino Transf (AST/SGOT) 15 IU/L (5-34) Alanine Aminotransferase (ALT/SGPT) 13 IU/L (0-55) Alkaline Phosphatase 78 IU/L (40-150) Total Protein 7.3 g/dL (6.5-8.1) Albumin 4.2 g/dL (3.5-5.0) Globulin 3.1 g/dL (2.3-3.5) Albumin/Globulin Ratio 1.4 (0.8-2.0) Laboratory Tests Test 10/17/19 22:30 10/17/19 22:25 Amylase Level 80 U/L (25-125) Lipase 94 U/L (8-78) White Blood Count 15.55 x10e3/uL (4.8-10.8) Red Blood Count 4.85 x10e6/uL (3.6-5.1) Hemoglobin 13.4 g/dL (12.0-16.0) Hematocrit 42.3 % (34.2-44.1) Mean Corpuscular Volume 87.2 fL (81-99) Mean Corpuscular Hemoglobin 27.6 pg (28-32) Mean Corpuscular Hemoglobin Concent 31.7 g/dL (31-35) Red Cell Distribution Width 13.4 % (11.7-14.4) Platelet Count 359 x10e3/uL (140-360) Neutrophils (%) (Auto) 83.4 % (38.7-80.0) Lymphocytes (%) (Auto) 10.6 % (18.0-39.1) Monocytes (%) (Auto) 4.2 % (4.4-11.3) Eosinophils (%) (Auto) 0.8 % (0.0-6.0) Basophils (%) (Auto) 0.4 % (0.0-1.0) Neutrophils # (Auto) 13.0 (2.1-6.9) Lymphocytes # (Auto) 1.7 (1.0-3.2) Monocytes # (Auto) 0.7 (0.2-0.8) Eosinophils # (Auto) 0.1 (0.0-0.4) Basophils # (Auto) 0.1 (0.0-0.1) Absolute Immature Granulocyte (auto 0.09 x10e3/uL (0-0.1) Prothrombin Time 12.8 seconds (11.9-14.5) Prothromb Time International Ratio 0.91 Activated Partial Thromboplast Time 27.4 seconds (23.8-35.5) Lab results reviewed: Yes Imaging Imaging results reviewed: Yes Impressions cxt abd/pelvis IMPRESSION: 1. No acute inflammatory process in the abdomen/pelvis. 2. Colonic diverticulosis without evidence of diverticulitis. Signed by: Dr. Virgilio Victoria MD on 10/18/2019 2:38 AM Procedures 12 Lead ECG Interpretation ECG Interpretation : ECG: ECG 1 Unit Operator: Interpreted by ED physician Date: Oct 17, 2019 Time: 22:15 Rhythm: sinus rhythm Rate: normal BPM: 68 QRS axis: normal ST segments normal: Yes T waves normal: Yes Other findings: no other findings Clinical Impression: normal ECG Assessment & Plan Medical Decision Making MDM Patient with left lower quadrant pain and bloody diarrhea. CBC, CMP, UA, CT abdomen and pelvis ordered to eval for diverticulitis, colitis, uti. Patient not have diverticulosis on CT has a 15,000 white count. No beds are available at this facility. Patient will require transfer to another facility for further workup and continuation of IV antibiotics. i spoke dr hart at [facility] and he accepts pt for transfer Assessment & Plan Final Impression: (1) Diverticulitis (2) Rectal bleeding Depart Disposition: TRANS TO OTHER [facility] Last Vital Signs Date Time Temp Pulse Resp B/P (MAP) Pulse Ox O2 Delivery O2 Flow Rate FiO2 10/17/19 22:04 99.4 74 20 146/93 97 Home Meds Reported Medications Dicyclomine Hcl (DICYCLOMINE HCL) 20 Mg Tablet, 20 MG PO TID, TAB 02/11/16 Mu-Vits-Min Th/Lycopene/Lutein (CENTRUM SILVER TABLET) 1 Each Tablet, 1 TAB PO DAILY 02/11/16 Cyanocobalamin (VITAMIN B-12) 1,000 Mcg Tab, 1000 MCG PO DAILY, #30 TAB 02/11/16 [Ilevro] No Conflict Check, 1 DRP OP DAILY 06/05/15 Metoprolol Tartrate (METOPROLOL TARTRATE) 25 Mg Tablet, 25 MG PO DAILY, TAB 05/19/15 Pantoprazole Sodium* (PROTONIX) 40 Mg Tablet.dr, 40 MG PO DAILY, TAB 05/19/15 Metformin Hcl (METFORMIN HCL) 500 Mg Tablet, 1000 MG PO HS, TAB 05/19/15 Pravastatin Sodium (PRAVASTATIN SODIUM) 40 Mg Tablet, 40 MG PO HS 05/19/15 Montelukast Sodium (SINGULAIR) 10 Mg Tablet, 10 MG PO HS 05/19/15 Zolpidem Tartrate (AMBIEN) 10 Mg Tablet, 10 MG PO HS, TAB 05/19/15 Fluticasone Furoate (VERAMYST) 10 Gm [place]bee.susp, INH BID 05/19/15 Spironolactone (SPIRONOLACTONE) 25 Mg Tablet, 25 MG PO DAILY, TAB 05/19/15 Losartan/Hydrochlorothiazide (HYZAAR 100-25 TABLET) 1 Each Tablet, PO DAILY 05/19/15 Levothyroxine Sodium (LEVOTHYROXINE SODIUM) 125 Mcg Tablet, 125 MCG PO DAILY 05/19/15 Albuterol Sulfate (VENTOLIN HFA) 18 Gm Hfa.aer.ad, INH PRN 05/19/15 Vilazodone Hydrochloride (VIIBRYD) 20 Mg Tablet, 20 MG PO DAILY 05/19/15 Medications in the ED Diatrizoate Meglum/ Diatrizoate Sod 30 ml STK-MED ONCE PO ; Start 10/17/19 at 22:46; Stop 10/17/19 at 22:40; Status DC SNOIA WILCOX MD Oct 17, 2019 23:24
[2019-10-17 23:29] LABS: ALBUMIN 4.2 g/dL (3.5-5.0); ALBUMIN/GLOBULIN RATIO 1.4 (0.8-2.0); ANION GAP 16.9 mmol/L (8-16); CREATININE, SERUM 0.99 mg/dL (0.57-1.11); POTASSIUM 3.9 mmol/L (3.5-5.1)
[2019-10-17 23:31] LABS: CLARITY,URINE CLEAR (CLEAR); COLOR,URINE YELLOW (YELLOW); LEUKOCYTE ESTERASE ,URINE NEGATIVE (NEGATIVE); NITRITE,URINE POSITIVE (NEGATIVE)
[2019-10-17 23:32] LABS: BILIRUBIN,URINE NEGATIVE (NEGATIVE); KETONES,URINE NEGATIVE (NEGATIVE); PROTEIN,URINE DIPSTICK NEGATIVE (NEGATIVE); URINE UROBILINOGEN 0.2 mg/dL (0.2 - 1)
[2019-10-17 23:33] LABS: BACTERIA,URINE MODERATE /HPF; EPITHELIAL CELLS,URINE MANY /LPF
[2019-10-18] MEDS ORDERED: SODIUM CHLORIDE 0.9% 1000ML 1,000 ML IV ONE (00:15)
[2019-10-18] MEDS ORDERED: SODIUM CHLORIDE 0.9% 50ML 50 ML ONE (01:22)
[2019-10-18] MEDS ORDERED: IOPAMIDOL 370 MG/ML 200 ML INFUS..BTL INJ ONE (01:22)
--- NOTE | 2019-10-18 02:41 | Diagnostic Imaging Report ---
EXAM: CT Abdomen and Pelvis WITH contrast INDICATION: ^llq pain, bloody diarrhea ^[id number] ^[id number] ^Y COMPARISON: CT dated 02/11/2016 TECHNIQUE: Abdomen and pelvis were scanned utilizing a multidetector helical scanner from the lung base to the pubic symphysis after administration of IV contrast. Coronal and sagittal reformations were obtained. Dose modulation, iterative reconstruction, and/or weight based adjustment of the mA/kV was utilized to reduce the radiation dose to as low as reasonably achievable. Routine protocol was performed. Scan was performed when during portal venous phase. IV CONTRAST: 100 mL of Isovue-370 ORAL CONTRAST: Gastroview COMPLICATIONS: None RADIATION DOSE: Total DLP: 764.52 mGy*cm Estimated effective dose: (DLP x 0.015 x size factor) mSv CTDIvol has been reviewed. It is below the limits set by the Radiation Protocol Committee (RPC). FINDINGS: LINES and TUBES: None. LOWER THORAX: Unremarkable HEPATOBILIARY: No focal hepatic lesions. No biliary ductal dilation. GALLBLADDER: No radio-opaque stones or sludge. No wall thickening. SPLEEN: No splenomegaly. Calcified granulomas. Stable tiny anterior hypodensity. PANCREAS: No focal masses or ductal dilatation. ADRENALS: No adrenal nodules KIDNEYS/URETERS: Kidneys enhance symmetrically. No hydronephrosis. Unchanged appearance of the both kidneys with multiple subcentimeter hypodensities and parapelvic cysts. No stones. GI TRACT: No abnormal distention, wall thickening, or evidence of bowel obstruction. Colonic diverticulosis. Appendix is normal. PELVIC ORGANS/BLADDER: Unremarkable. LYMPH NODES: No lymphadenopathy. VESSELS: There is mild atherosclerotic disease in the aorta and major arterial branches. PERITONEUM / RETROPERITONEUM: No free air or fluid. BONES: Lumbar spine scoliosis with multilevel advanced degenerative changes. SOFT TISSUES: Unremarkable. IMPRESSION: 1. No acute inflammatory process in the abdomen/pelvis. 2. Colonic diverticulosis without evidence of diverticulitis. Signed by: Dr. Virgilio Victoria MD on 10/18/2019 2:38 AM
[2019-10-18] MEDS ORDERED: LEVOFLOXACIN 500MG/D5W 100ML 100 ML IV STA (03:03)
[2019-10-18] MEDS ORDERED: METRONIDAZOLE 500MG/NS 100ML 100 ML IV ONE (03:15)
[2019-10-18] MEDS ORDERED: ONDANSETRON HCL INJ 2MG/ML 2ML 2 MG/ML VIAL ONE (04:54)
--- NOTE | 2019-10-18 06:11 | NUR ---
REPORT CALLED TO [facility] AT THIS TIME.
== END 2019-10-18 06:43 | disposition other institution (70) ==
LOC: ER 21:41
DX: R10.32 Left lower quadrant pain (principal); K62.5 Hemorrhage of anus and rectum; K57.92 Diverticulitis of intestine, part unspecified, without perforation or abscess without bleeding; I10 Essential (primary) hypertension; E11.9 Type 2 diabetes mellitus without complications; E78.5 Hyperlipidemia, unspecified; K21.9 Gastro-esophageal reflux disease without esophagitis; F41.9 Anxiety disorder, unspecified; Z85.3 Personal history of malignant neoplasm of breast
CPT/HCPCS: 36415; 74177; 80053; 81001; 82150; 83690; 85025; 85610; 85730; 93005; 99284; J1956; J2405; J7030; Q9967